=== PATIENT | male | born 1935 | race Caucasian/White ===

== ENCOUNTER 2016-03-19 10:58 | Inpatient (IN) | payer MEDICARE ==
[2016-03-19] MEDS ORDERED: SODIUM CHLORIDE 0.9% 500 ML IV STA (11:26)
[2016-03-19] MEDS ORDERED: RX INFO: IV CONTRAST WAS GIVEN 1 EACH MISC MISCELLANE PRN (11:27)
--- NOTE | 2016-03-19 11:29 | ED ---
SOB HPI - General Chief Complaint: Shortness of Breath Stated Complaint: difficulty breathing Time Seen by Provider: 03/19/16 11:21 Source: patient Mode of arrival: ambulatory Limitations: no limitations - History of Present Illness Initial Comments: Patient complains of shortness of breath. He states he has been having a pneumonia for the last month. His doctor put him on antibiotics. He is not getting any better. Patient denies any belly or back pain. He has no nausea or vomiting. He has had some chest tightness. There are no exacerbating or relieving factors for his symptoms. He does have chronic swelling the legs. He has no lightheadedness or dizziness. He has no neck pain or stiffness. He was not doing anything when the symptoms began. He denies any recent long plane or car rides. He has not had a heart attack or stroke. - Related Data Home Medications Medication Instructions Recorded Confirmed Albuterol Nebulized [Ventolin 2.5 mg INHALATION RT-QID 03/19/16 03/19/16 Nebulized] Aspirin 650 mg PO DAILY 03/19/16 03/19/16 Ciprofloxacin HCl [Cipro] 500 mg PO Q12HR 03/19/16 03/19/16 Ipratropium Nebulized [Atrovent 0.5 mg INHALATION RT-QID 03/19/16 03/19/16 Nebulized] Lisinopril [Prinivil] 20 mg PO DAILY 03/19/16 03/19/16 Vitamin E (Dl,Tocopheryl Acet) 400 unit PO DAILY 03/19/16 03/19/16 [Vitamin E] glipiZIDE [Glucotrol] 10 mg PO AC-BID 03/19/16 03/19/16 metFORMIN HCL [Glucophage] 500 mg PO AC-BID 03/19/16 03/19/16 Allergies Allergy/AdvReac Type Severity Reaction Status Date / Time Penicillins Allergy Unknown Verified 03/19/16 11:52 Review of Systems ROS Statement: Those systems with pertinent positive or pertinent negative responses have been documented in the HPI. ROS Other: All systems not noted in ROS Statement are negative. Past Medical History Past Medical History: Asthma, Cancer, Diabetes Mellitus History of Any Multi-Drug Resistant Organisms: None Reported Past Surgical History: Prostate Surgery Additional Past Surgical History / Comment(s): lung surgery Past Psychological History: No Psychological Hx Reported Smoking Status: Former smoker Past Alcohol Use History: None Reported Past Drug Use History: None Reported General Exam Limitations: no limitations General appearance: alert, in no apparent distress Head exam: Present: atraumatic, normocephalic, normal inspection Eye exam: Present: normal appearance, PERRL, EOMI. Absent: scleral icterus, conjunctival injection, periorbital swelling ENT exam: Present: normal exam, mucous membranes moist Neck exam: Present: normal inspection. Absent: tenderness, meningismus, lymphadenopathy Respiratory exam: Present: normal lung sounds bilaterally. Absent: respiratory distress, wheezes, rales, rhonchi, stridor Cardiovascular Exam: Present: regular rate, normal rhythm, normal heart sounds. Absent: systolic murmur, diastolic murmur, rubs, gallop, clicks GI/Abdominal exam: Present: soft, normal bowel sounds. Absent: distended, tenderness, guarding, rebound, rigid Extremities exam: Present: normal inspection, full ROM, normal capillary refill , pedal edema. Absent: tenderness, joint swelling Back exam: Present: normal inspection Neurological exam: Present: alert, oriented X3, CN II-XII intact Psychiatric exam: Present: normal affect, normal mood Skin exam: Present: warm, dry, intact, normal color. Absent: rash Course Vital Signs 03/19/16 03/19/16 11:00 12:00 Temperature 96.8 F L Pulse Rate 104 H 86 Respiratory 26 H 18 Rate Blood Pressure 147/68 148/70 O2 Sat by Pulse 84 L 92 L Oximetry Medical Decision Making - Medical Decision Making Patient presents with shortness of breath, possible pneumonia. I was concerned for pulmonary embolism. I obtained a CAT scan which does not reveal pulmonary Jamel, but does have extensive bilateral infiltrates. I ordered blood cultures and antibiotics. Patient will be admitted to the hospital. - Lab Data Result diagrams: 03/19/16 11:20 03/19/16 11:20 Lab Results 03/19/16 03/19/16 03/19/16 Range/Units 11:20 11:20 11:20 WBC 8.6 (3.8-10.6) k/uL RBC 4.41 (4.30-5.90) m/uL Hgb 13.2 (13.0-17.5) gm/dL Hct 41.8 (39.0-53.0) % MCV 94.8 (80.0-100.0) fL MCH 30.0 (25.0-35.0) pg MCHC 31.7 (31.0-37.0) g/dL RDW 12.8 (11.5-15.5) % Plt Count 295 (150-450) k/uL Neutrophils % 83 % Lymphocytes % 6 % Monocytes % 7 % Eosinophils % 2 % Basophils % 0 % Neutrophils # 7.2 (1.3-7.7) k/uL Lymphocytes # 0.5 L (1.0-4.8) k/uL Monocytes # 0.6 (0-1.0) k/uL Eosinophils # 0.2 (0-0.7) k/uL Basophils # 0.0 (0-0.2) k/uL Hypochromasia Slight PT (9.0-12.0) sec INR (<1.1) APTT (22.0-30.0) sec Sodium 140 (137-145) mmol/L Potassium 4.9 (3.5-5.1) mmol/L Chloride 98 (98-107) mmol/L Carbon Dioxide 31 H (22-30) mmol/L Anion Gap 11 mmol/L BUN 34 H (9-20) mg/dL Creatinine 0.86 (0.66-1.25) mg/dL Est GFR (MDRD) Af Amer >60 (>60 ml/min/1.73 sqM) Est GFR (MDRD) Non-Af >60 (>60 ml/min/1.73 sqM) Glucose 187 H (74-99) mg/dL Calcium 9.0 (8.4-10.2) mg/dL Total Bilirubin 0.4 (0.2-1.3) mg/dL AST 21 (17-59) U/L ALT 29 (21-72) U/L Alkaline Phosphatase 86 (38-126) U/L Troponin I (0.000-0.034) ng/mL NT-Pro-B Natriuret Pep 3330 pg/mL Total Protein 6.8 (6.3-8.2) g/dL Albumin 3.4 L (3.5-5.0) g/dL 03/19/16 03/19/16 Range/Units 11:20 11:20 WBC (3.8-10.6) k/uL RBC (4.30-5.90) m/uL Hgb (13.0-17.5) gm/dL Hct (39.0-53.0) % MCV (80.0-100.0) fL MCH (25.0-35.0) pg MCHC (31.0-37.0) g/dL RDW (11.5-15.5) % Plt Count (150-450) k/uL Neutrophils % % Lymphocytes % % Monocytes % % Eosinophils % % Basophils % % Neutrophils # (1.3-7.7) k/uL Lymphocytes # (1.0-4.8) k/uL Monocytes # (0-1.0) k/uL Eosinophils # (0-0.7) k/uL Basophils # (0-0.2) k/uL Hypochromasia PT 11.4 (9.0-12.0) sec INR 1.1 (<1.1) APTT 24.6 (22.0-30.0) sec Sodium (137-145) mmol/L Potassium (3.5-5.1) mmol/L Chloride (98-107) mmol/L Carbon Dioxide (22-30) mmol/L Anion Gap mmol/L BUN (9-20) mg/dL Creatinine (0.66-1.25) mg/dL Est GFR (MDRD) Af Amer (>60 ml/min/1.73 sqM) Est GFR (MDRD) Non-Af (>60 ml/min/1.73 sqM) Glucose (74-99) mg/dL Calcium (8.4-10.2) mg/dL Total Bilirubin (0.2-1.3) mg/dL AST (17-59) U/L ALT (21-72) U/L Alkaline Phosphatase (38-126) U/L Troponin I 0.032 (0.000-0.034) ng/mL NT-Pro-B Natriuret Pep pg/mL Total Protein (6.3-8.2) g/dL Albumin (3.5-5.0) g/dL 03/19/16 11:28 Twelve-lead EKG obtained, interpreted by me as showing ventricular rate 89 bpm, normal TX interval and QRS complexes, no ST elevation or depression, interpreted by me as normal sinus rhythm. Disposition Clinical Impression: Pneumonia Disposition: ADMITTED IP TO THIS [facility] Condition: Fair Time of Disposition: 13:42
[2016-03-19 11:46] LABS: Basophils % (A) 0 %; CH 29.9; CHCM 31.7; Eosinophils # (A) 0.2 k/uL (0-0.7); Eosinophils % (A) 2 %; HCT 41.8 % (39.0-53.0); HDW 2.93; HGB 13.2 gm/dL (13.0-17.5); Hypochromasia Slight; Luc # (Auto) 0.18; Luc % (Auto) 2; Lymphocytes # (A) 0.5 k/uL (1.0-4.8); Lymphocytes % (A) 6 %; MCHC 31.7 g/dL (31.0-37.0); MCV 94.8 fL (80.0-100.0); Mean Platelet Volume 6.6; Monocytes # (A) 0.6 k/uL (0-1.0); Monocytes % (A) 7 %; Neutrophils # (A) 7.2 k/uL (1.3-7.7); Neutrophils % (A) 83 %; RBC 4.41 m/uL (4.30-5.90); RDW 12.8 % (11.5-15.5); WBC 8.6 k/uL (3.8-10.6); WBC (Perox) 8.72
[2016-03-19 12:00] LABS: ALT 29 U/L (21-72); AST 21 U/L (17-59); Alkaline Phosphatase 86 U/L (38-126); Anion Gap 11 mmol/L; Blood Urea Nitrogen 34 mg/dL (9-20); Carbon Dioxide 31 mmol/L (22-30); Chloride 98 mmol/L (98-107); Glucose 187 mg/dL (74-99); Non-African American GFR(MDRD) >60 (>60 ml/min/1.73 sqM); Potassium 4.9 mmol/L (3.5-5.1); Sodium 140 mmol/L (137-145); Total Bilirubin 0.4 mg/dL (0.2-1.3); Total Protein 6.8 g/dL (6.3-8.2)
[2016-03-19 12:01] LABS: INR 1.1 (<1.1); Prothrombin Time 11.4 sec (9.0-12.0)
[2016-03-19 12:02] LABS: Partial Thromboplastin Time 24.6 sec (22.0-30.0)
--- NOTE | 2016-03-19 13:18 | CT ---
EXAMINATION TYPE: CT angio chest DATE OF EXAM: 03/19/2016 1:08 PM COMPARISON: NONE HISTORY: Patient complains of difficulty breathing and a history of lung CA. CT DLP: 326.9 mGycm CONTRAST: CT chest with contrast and 3D reconstruction with MIP imaging is performed with IV Contrast, patient injected with 100 mL of Omnipaque 350. Contrast-enhanced CT of the chest was performed through the course of the pulmonary arteries with tosha g and mediastinal window settings submitted. 3D reconstruction with MIP imaging was also performed. PULMONARY ARTERIES: The pulmonary arteries and their major tributaries are patent. I do not see jose dence for sizable filling defect to suggest pulmonary embolic process. LUNGS: There is left-sided volume loss with bronchiectasis and underlying fibrosis noted. Scattered i nfiltrates are also seen throughout both lungs which may reflect pneumonia. Mild right upper lobe bro nchiectasis seen as well. Mediastinal shift from right to left. Calcified granulomas noted. MEDIASTINUM: Thoracic aorta is of normal caliber . The heart is mildly enlarged. No evidence for me diastinal mass. No mediastinal lymph nodes greater than 1cm. Calcified hilar mediastinal lymph nodes . HILAR STRUCTURES: No evidence for mass. No hilar lymph nodes greater than 1 cm. UPPER ABDOMEN: No significant abnormality is seen. IMPRESSION: 1. No evidence for Pulmonary embolism at this time. 2. Chronic left-sided volume loss with underlying extensive bronchiectasis and fibrosis. Noted throug hout both lungs are areas of airspace consolidation which may reflect underlying pneumonia.
[2016-03-19] MEDS ORDERED: CEFEPIME 1 GM in SODIUM CHLORIDE 0.9% 50 ML IVPB STA (13:33)
[2016-03-19] MEDS ORDERED: VANCOMYCIN 1,500 MG in SODIUM CHLORIDE 0.9% 250 ML IVPB STA (13:33)
[2016-03-19] MEDS ORDERED: MORPHINE SULFATE 4 MG/ML SYRINGE IV PRN (13:42)
[2016-03-19] MEDS ORDERED: NALOXONE 0.4 MG/ML 1 ML VIAL IV PRN (13:42)
[2016-03-19] MEDS ORDERED: ONDANSETRON 4 MG/2 ML VIAL IVP PRN (13:42)
[2016-03-19] MEDS ORDERED: TEMAZEPAM 15 MG CAP PO PRN (13:42)
[2016-03-19] MEDS: IPRATROPIUM-ALBUTEROL 3 ML NEB INHALATION SCH ×2 (15:36→19:40)
[2016-03-19] MEDS ORDERED: IPRATROPIUM 0.5 MG/2.5 ML NEBU INHALATION SCH (16:00)
[2016-03-19 17:19] LABS: Glucose,Whole Blood 95 mg/dL (75-99)
[2016-03-19] MEDS: glipiZIDE 10 MG TAB PO SCH (18:12)
[2016-03-19 21:31] LABS: Glucose,Whole Blood 75 mg/dL (75-99)
[2016-03-19] MEDS ORDERED: HYDROcodone/APAP 5-325MG 1 EACH TAB PO PRN (22:25)
[2016-03-19] MEDS ORDERED: ALPRAZolam 0.25 MG TAB PO PRN (22:25)
[2016-03-19] MEDS: CEFEPIME 2 GM in SODIUM CHLORIDE 0.9% 50 ML IVPB SCH (23:49)
[2016-03-20 01:50] LABS: Glucose,Whole Blood 79 mg/dL (75-99)
[2016-03-20 07:45] LABS: Glucose,Whole Blood 90 mg/dL (75-99)
[2016-03-20] MEDS: INSULIN LISPRO (humaLOG) 300 UNIT/3 ML VIAL SQ SCH ×4 (08:14→21:30)
[2016-03-20] MEDS: glipiZIDE 10 MG TAB PO SCH ×2 (08:15→18:03)
[2016-03-20] MEDS: CEFEPIME 2 GM in SODIUM CHLORIDE 0.9% 50 ML IVPB SCH ×3 (08:15→23:23)
[2016-03-20] MEDS: ASPIRIN 325 MG TAB PO SCH (08:15)
[2016-03-20] MEDS: HEPARIN SODIUM,PORCINE 5,000 UNIT/ML 1 ML VIAL SQ SCH ×2 (08:16→20:52)
[2016-03-20] MEDS: LISINOPRIL 20 MG TAB PO SCH (08:16)
[2016-03-20 08:49] LABS: Basophils % (A) 1 %; CH 29.7; CHCM 30.7; Eosinophils # (A) 0.1 k/uL (0-0.7); Eosinophils % (A) 1 %; HCT 41.7 % (39.0-53.0); HDW 2.85; HGB 12.6 gm/dL (13.0-17.5); Hypochromasia Moderate; Luc # (Auto) 0.12; Luc % (Auto) 1; Lymphocytes # (A) 0.4 k/uL (1.0-4.8); Lymphocytes % (A) 5 %; MCH 29.4 pg (25.0-35.0); MCHC 30.3 g/dL (31.0-37.0); MCV 97.1 fL (80.0-100.0); Mean Platelet Volume 7.5; Monocytes # (A) 0.6 k/uL (0-1.0); Monocytes % (A) 7 %; Neutrophils # (A) 7.2 k/uL (1.3-7.7); Neutrophils % (A) 85 %; RBC 4.29 m/uL (4.30-5.90); RDW 12.7 % (11.5-15.5); WBC 8.5 k/uL (3.8-10.6); WBC (Perox) 8.51
[2016-03-20 09:12] LABS: Anion Gap 8 mmol/L; Blood Urea Nitrogen 22 mg/dL (9-20); Calcium 8.5 mg/dL (8.4-10.2); Carbon Dioxide 32 mmol/L (22-30); Chloride 99 mmol/L (98-107); Glucose 92 mg/dL (74-99); Non-African American GFR(MDRD) >60 (>60 ml/min/1.73 sqM); Potassium 5.4 mmol/L (3.5-5.1); Sodium 139 mmol/L (137-145)
[2016-03-20] MEDS: IPRATROPIUM-ALBUTEROL 3 ML NEB INHALATION SCH ×4 (09:23→20:11)
--- NOTE | 2016-03-20 10:14 | HP ---
CHIEF COMPLAINT: Shortness of breath and cough. HISTORY OF PRESENT ILLNESS: This 80-year-old gentleman with a past history of multiple medical problems, including asthma, diabetes mellitus type 2, hypertension, history of DJD, history of prostate cancer, history of claustrophobia being followed by Dr. Posadas in the outpatient setting is complaining of increasing shortness of breath as well as cough. The patient is on antibiotics. Patient is taking Cipro. Because of lack improvement, patient came to [facility] and admitted for further evaluation and treatment. There is no history of any fever, rigors or chills. No history of headache, loss of consciousness or seizures. The patient had chronic swelling of the legs. The patient is extremely hard of hearing, uses hearing aids. The CAT scan of the chest after admission showed no evidence of pulmonary embolism, but chronic left-sided volume loss with underlying extensive bronchiectasis as well as fibrosis noted throughout lung areas with areas of consolidation which may reflect underlying pneumonia also. PAST MEDICAL HISTORY: History of asthma, diabetes mellitus type 2, history of DJD, history of prostate cancer with prostate surgery, claustrophobia. MEDICATIONS PRIORTO ADMISSION: 1. Ciprofloxacin 500 mg p.o. b.i.d. 2. Atrovent 0.5 q.i.d. 3. Albuterol 2.5 t.i.d. 4. Glucophage 500 mg b.i.d. 5. Vitamin E 400 units daily. 7. Glucotrol 10 mg b.i.d. 8. Aspirin 325 mg daily. ALLERGY TO PENICILLIN. FAMILY HISTORY: The patient raised by great-grandparents. SOCIAL HISTORY: Previous history of smoking. No history of current smoking, alcohol intake. REVIEW OF SYSTEMS: ENT: Diminished hearing, diminished vision. CARDIOVASCULAR: No angina, palpitations. RESPIRATORY: As earlier. GI: No nausea. : No dysuria. NERVOUS: No numbness or weakness. ALLERGY/IMMUNOLOGY: As mentioned earlier. HEMATOLOGY/ONCOLOGY: No history of anemia. ENDOCRINE: Diabetes mellitus. CONSTITUTIONAL: As mentioned earlier. DERMATOLOGY: Negative. RHEUMATOLOGY: Negative. PSYCHIATRY: As mentioned earlier. PHYSICAL EXAMINATION: Alert and oriented x3. Pulse is 88, blood pressure 154/70, respiratory rate 16, temperature 96.1, pulse ox 93% on room air. HEENT: Conjunctivae normal. Oral mucosa moist. Neck has no jugular venous distension. No carotid bruits. No lymph node enlargement. CARDIOVASCULAR: S1 and S2 muffled. No S3. No S4. RESPIRATORY: Breath sounds diminished in the bases. Bilateral scattered rhonchi and coarse crackles heard. Breath sounds diminished in the left posterior base. ABDOMEN: Soft, nontender. No mass palpable. LEGS: Minimal edema. NERVOUS SYSTEM: Higher function as mentioned earlier. Moves all 4 limbs. No focal motor or sensory deficits. LYMPHATIC: No lymph nodes palpable in neck, axillae or groins. SKIN: No ulcers, rash or bleeding. Labs are CBC within normal limits and 24.6 and CO2 is 31 glucose is 187. Albumin of 3.4. ASSESSMENT: 1. Acute bronchiectasis exacerbation with bilateral pneumonia, possibly gram-negative with failure of outpatient treatment. 2. Bronchiectasis history. 3. History of asthma. 4. Diabetes mellitus type 2. 5. Hypertension. 6. Degenerative joint disease. 7. Prostate cancer. 8. History of epistaxis. 9. History of cataracts. 10. History of claustrophobia. 11. Remote history of nicotine dependence. 12. FULL CODE. RECOMMENDATIONS AND DISCUSSION: In this 80-year-old gentleman who presented with multiple complex medical issues, we will monitor the patient closely. Continue with the current medications. Will resume the home medications, DVT prophylaxis, broad-spectrum IV antibiotics. Obtain cultures, including sputum culture, because of failure of outpatient treatment. Otherwise, monitor blood sugars closely. Accu-Cheks a.c. and at bedtime and I would also follow the patient closely with Dr. Obrien, classifier tender. The prognosis is guarded because of multiple complex medical issues which I discussed at length with the patient. A copy of dictation forwarded to Dr. Posadas, who is the primary physician. JERROD
[2016-03-20 12:06] VITALS: BMI 28.7
[2016-03-20 12:25] LABS: Glucose,Whole Blood 83 mg/dL (75-99)
[2016-03-20] MEDS: MULTIVITAMINS, THERA 1 EACH TAB PO SCH (12:28)
[2016-03-20 13:05] LABS: ABG Base Excess 5.6 mmol/L; ABG HCO3 33 mmol/L (21-25); ABG Oxygen Saturation 93.1 % (94-97); ABG PCO2 88 mmHg (35-45); ABG PO2 86 mmHg (83-108); ABG TCO2 36 mmol/L (19-24)
--- NOTE | 2016-03-20 15:47 | P.CNPUL ---
History of Present Illness Consult date: 03/20/16 Requesting physician: Marco Brito Reason for consult: abnormal CXR/CT (Chronic left-sided volume loss with underlying extensive bronchiectasis and fibrosis. Both lungs have very severe airspace consolidation.) Chief complaint: Cough, congestion, shortness of breath History of present illness: This is a pleasant 80-year-old gentleman who follows with Dr. Posadas as his primary care physician. He has a history of diabetes mellitus, hypertension, chronic lung disease. 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 He was presently on Cipro 500 mg every 12 hours without significant improvement in his N and here yesterday with worsening shortness of breath, cough and congestion. He T angiogram ruled out pulmonary embolism however there was noted chronic left -sided volume loss with underlying extensive bronchiectasis and fibrosis. There is also noted bilateral airspace consolidation reflective of underlying pneumonia. Throughout the evening the patient had increasing shortness of breath and his oxygen was turned up from 2 L to 4 L/m per nasal cannula. Earlier this morning the patient had been awake and alert and eating his breakfast. Upon our evaluation and consultation the patient was difficult to arouse and quite obtunded. Arterial blood gases revealed a PaO2 of 86, pCO2 88 and a pH of 7.20. The patient was placed on BiPAP 12/5 at 30% FiO2 and within minutes he was awake and alert. He states he is breathing easier this afternoon. He has been afebrile since admission. No leukocytosis. He is pen ALLERGIC and has been initiated on cefepime and bronchodilators. Review of Systems 14 point review of systems was conducted. All negative other than as mentioned in HPI. Past Medical History Past Medical History: Asthma, Cancer, Diabetes Mellitus, Hypertension, Osteoarthritis (OA) Additional Past Medical History / Comment(s): prostate cancer, nose bleeds History of Any Multi-Drug Resistant Organisms: None Reported Past Surgical History: Prostate Surgery Additional Past Surgical History / Comment(s): bronchoscopy(bx neg), cataracts Past Anesthesia/Blood Transfusion Reactions: No Reported Reaction Additional Past Anesthesia/Blood Transfusion Reaction / Comment(s): clausterphobia Past Psychological History: No Psychological Hx Reported Smoking Status: Former smoker Past Alcohol Use History: None Reported Additional Past Alcohol Use History / Comment(s): started smoking at age 14 quit age 21 can't remember how much he smoked. Past Drug Use History: None Reported - Past Family History Father History Unknown: Yes Additional Family Medical History / Comment(s): raised by great grandparents Mother History Unknown: Yes Additional Family Medical History / Comment(s): raised by great grandparents Medications and Allergies Home Medications Medication Instructions Recorded Confirmed Type Albuterol Nebulized [Ventolin 2.5 mg INHALATION RT-QID 03/19/16 03/19/16 History Nebulized] Aspirin 650 mg PO DAILY 03/19/16 03/19/16 History Ciprofloxacin HCl [Cipro] 500 mg PO Q12HR 03/19/16 03/19/16 History Ipratropium Nebulized [Atrovent 0.5 mg INHALATION RT-QID 03/19/16 03/19/16 History Nebulized] Lisinopril [Prinivil] 20 mg PO DAILY 03/19/16 03/19/16 History Vitamin E (Dl,Tocopheryl Acet) 400 unit PO DAILY 03/19/16 03/19/16 History [Vitamin E] glipiZIDE [Glucotrol] 10 mg PO AC-BID 03/19/16 03/19/16 History metFORMIN HCL [Glucophage] 500 mg PO AC-BID 03/19/16 03/19/16 History Allergies Allergy/AdvReac Type Severity Reaction Status Date / Time Penicillins Allergy Unknown Verified 03/19/16 11:52 Physical Exam Vitals: Vital Signs Temp Pulse Pulse Resp BP Pulse Ox 03/20/16 12:17 84 03/20/16 12:09 84 03/20/16 09:34 84 03/20/16 09:24 84 93 L 03/20/16 07:00 98.7 F 96 18 129/60 91 L 03/20/16 00:00 18 03/19/16 23:00 98.8 F 101 H 18 141/81 93 L 03/19/16 19:51 84 03/19/16 19:40 84 Intake and Output 03/20/16 03/20/16 03/20/16 06:59 14:59 22:59 Output Total 400 Balance -400 Output: Urine 400 Other: Voiding Method Urinal Weight 90.718 kg Patient Weight 03/21/16 06:59 Weight 90.718 kg GENERAL EXAM: Alert, comfortable in no apparent distress. HEAD: Normocephalic. EYES: Normal reaction of pupils, equal size. NOSE: Clear with pink turbinates. THROAT: No erythema or exudates. NECK: No masses, no JVD. CHEST: No chest wall deformity. LUNGS: Equal air entry with scattered crackles, rhonchi more so on the left lung. CVS: S1 and S2 normal with no audible murmurs, regular rhythm. ABDOMEN: No hepatosplenomegaly, normal bowel sounds, no guarding or rigidity. SPINE: No scoliosis or deformity SKIN: No rashes CENTRAL NERVOUS SYSTEM: No focal deficits, tone is normal in all 4 extremities. Extremities: There is no significant peripheral edema. No clubbing, no cyanosis. Peripheral pulses are intact. Results - Laboratory Findings CBC and BMP: 03/20/16 08:17 03/20/16 08:17 ABG ABG pH 7.20 (7.35-7.45) L* 03/20/16 12:45 ABG pCO2 88 mmHg (35-45) H* 03/20/16 12:45 ABG pO2 86 mmHg (83-108) 03/20/16 12:45 ABG O2 Saturation 93.1 % (94-97) L 03/20/16 12:45 PT/INR, D-dimer PT 11.4 sec (9.0-12.0) 03/19/16 11:20 INR 1.1 (<1.1) 03/19/16 11:20 Abnormal lab findings: Abnormal Labs 03/20/16 03/20/16 03/20/16 08:17 08:17 08:17 RBC 4.29 L Hgb 12.6 L MCHC 30.3 L Lymphocytes # 0.4 L ABG pH ABG pCO2 ABG HCO3 ABG Total CO2 ABG O2 Saturation Potassium 5.4 H Carbon Dioxide 32 H BUN 22 H Hemoglobin A1c 7.0 H 03/20/16 12:45 RBC Hgb MCHC Lymphocytes # ABG pH 7.20 L* ABG pCO2 88 H* ABG HCO3 33 H ABG Total CO2 36 H ABG O2 Saturation 93.1 L Potassium Carbon Dioxide BUN Hemoglobin A1c - Diagnostic Findings Chest x-ray: image reviewed CT scan - chest: image reviewed Assessment and Plan Plan: Impression: #1 Acute on chronic hypercapnic respiratory failure secondary to chronic fibrosis and bronchiectasis more so on the left lung with suspected acute bilateral pneumonia however malignancy is not entirely excluded. #2 Diabetes sahni, type II #3 Hypertension. #4 Degenerative joint disease. #5 History of prostate cancer. #6 Remote history of chronic nicotine dependence. Plan: The patient was seen and evaluated by Dr. Obrien. His chest x-ray and CAT scan were reviewed. We'll go ahead and treat the patient for pneumonia with the current antibiotics, bronchodilators and IV Solu-Medrol. He may require bronchoscopy with BAL and biopsy if no significant improvement. He did respond and well to the BiPAP for the hypercapnia, we'll continue to utilize it throughout the evenings and intermittently during the day. We'll repeat his chest x-ray in the a.m. We'll continue to follow make further recommendations based on his clinical status. Time with Patient: Greater than 30
[2016-03-20 17:35] LABS: Glucose,Whole Blood 120 mg/dL (75-99)
[2016-03-20] MEDS: MELATONIN 3 MG TABLET PO SCH (20:52)
[2016-03-20 21:25] LABS: Glucose,Whole Blood 95 mg/dL (75-99)
--- NOTE | 2016-03-20 21:25 | PN ---
DATE OF SERVICE: 03/20/2016 This 80-year-old gentleman who was admitted with acute bronchitis, acute exacerbation, bilateral pneumonia also. The patient also being drowsy and pulmonary consultations has been obtained and the patient is on broad-spectrum IV antibiotics as well. Patient was taking Cipro as at home. Apparently indicating of failure of outpatient treatment as well. Malignancies not entirely ruled out per Dr. Obrien and CAT scan. Bronchoscopy also a consideration. Past medical history reviewed. Review of systems could not be taken the patient is drowsy. Current medications are reviewed and include: 1. [place] 5 mg q.6h. 2. DuoNeb q.i.d. and p.r.n. 3. Xanax 0.25 t.i.d. 4. Aspirin 650. 5. Cefepime 2 grams q.8. 7. Heparin 5000 units subcu b.i.d. 8. Zestril 20 mg daily. 9. Glucophage. 11. Multivitamin. 12. Narcan. 13. Zofran. PHYSICAL EXAMINATION: The patient is stuporous. Pulse 89, blood pressure 120/60. Respiratory rate 22. Temperature 97.9. Pulse ox 97% on room air. HEENT: Conjunctivae normal. Oral mucosa moist. NECK: No jugular venous distention. No carotid bruit. No lymph node enlargement. CARDIOVASCULAR: S1, S2 muffled. RESPIRATORY: Breath sounds diminished at the bases. Bilateral scattered rhonchi and crackles. Expiratory wheezing also present. ABDOMEN: Soft, nontender. LEGS: No edema. No swelling. Nervous system: Higher function as mentioned earlier. SKIN: No ulcer, rashes or bleeding. LABS: ABGs pH 7.2, pCO2 is 88, hemoglobin 12.6. Glucose 120. ASSESSMENT: 1. Acute bronchiectasis, acute exacerbation with bilateral pneumonia, possibly gram-negative with possible sepsis with failure of outpatient treatment with acute hypoxic hypercarbic respiratory failure. 2. Change in mental status, metabolic encephalopathy, secondary to hypercarbia. 3. Acute bronchiectasis history. 4. History of asthma. 5. Diabetes mellitus type 2. 6. Hypertension. 7. Degenerative joint disease. 8. Prostate cancer. 9. History epistaxis. 10. History of cataracts. 11. History of claustrophobia. 12. Remote history of nicotine dependence. 13. FULL CODE. RECOMMENDATIONS AND DISCUSSION: In this 80-year-old gentleman who presented with multiple complex medical issues, we will monitor the patient closely. Continue the bronchodilators, continue with broad-spectrum IV antibiotics. Also recommend close follow with pulmonary. Possible BiPAP. Guarded prognosis because of multiple complex medical issues. Further recommendations to follow. Prognosis extremely guarded. Further recommendations to follow. MTDD
[2016-03-21 02:46] LABS: Glucose,Whole Blood 51 mg/dL (75-99)
[2016-03-21 02:46] LABS: Glucose,Whole Blood 196 mg/dL (75-99)
[2016-03-21 07:47] LABS: Glucose,Whole Blood 120 mg/dL (75-99)
[2016-03-21] MEDS: IPRATROPIUM-ALBUTEROL 3 ML NEB INHALATION SCH ×4 (08:07→20:15)
[2016-03-21] MEDS: INSULIN LISPRO (humaLOG) 300 UNIT/3 ML VIAL SQ SCH ×4 (08:23→21:59)
[2016-03-21] MEDS: ASPIRIN 325 MG TAB PO SCH (08:26)
[2016-03-21] MEDS: glipiZIDE 10 MG TAB PO SCH ×2 (08:26→17:46)
[2016-03-21] MEDS: CEFEPIME 2 GM in SODIUM CHLORIDE 0.9% 50 ML IVPB SCH ×3 (08:26→23:19)
[2016-03-21] MEDS: LISINOPRIL 20 MG TAB PO SCH (08:26)
[2016-03-21] MEDS: HEPARIN SODIUM,PORCINE 5,000 UNIT/ML 1 ML VIAL SQ SCH ×2 (08:27→21:58)
[2016-03-21 08:35] LABS: Basophils % (A) 0 %; CH 29.4; CHCM 30.6; Eosinophils # (A) 0.1 k/uL (0-0.7); Eosinophils % (A) 2 %; HCT 37.6 % (39.0-53.0); HDW 2.88; HGB 11.7 gm/dL (13.0-17.5); Hypochromasia Moderate; Luc # (Auto) 0.15; Luc % (Auto) 2; Lymphocytes # (A) 0.4 k/uL (1.0-4.8); Lymphocytes % (A) 5 %; MCV 96.7 fL (80.0-100.0); Mean Platelet Volume 6.7; Monocytes # (A) 0.5 k/uL (0-1.0); Monocytes % (A) 6 %; Neutrophils # (A) 7.1 k/uL (1.3-7.7); Neutrophils % (A) 86 %; RBC 3.89 m/uL (4.30-5.90); RDW 12.6 % (11.5-15.5); WBC 8.3 k/uL (3.8-10.6); WBC (Perox) 8.98
[2016-03-21 09:00] LABS: Anion Gap 6 mmol/L; Blood Urea Nitrogen 26 mg/dL (9-20); Calcium 8.3 mg/dL (8.4-10.2); Carbon Dioxide 35 mmol/L (22-30); Chloride 96 mmol/L (98-107); Glucose 136 mg/dL (74-99); Non-African American GFR(MDRD) >60 (>60 ml/min/1.73 sqM); Potassium 4.8 mmol/L (3.5-5.1); Sodium 137 mmol/L (137-145)
--- NOTE | 2016-03-21 09:32 | XR ---
EXAMINATION TYPE: XR chest 2V DATE OF EXAM: 03/21/2016 7:06 AM COMPARISON: NONE INDICATION: Previous abnormal, silicosis TECHNIQUE: Frontal and lateral views of the chest are obtained. FINDINGS: The heart size is normal. Mediastinum appear shifted towards the left. Pulmonary vasculature may be prominent. There is diffuse increased lung markings present bilaterally. This is worsening from prior study. Sarah eolar infiltration be considered. Pneumonia could be considered. This appears more focal at the right lower lobe. The right lung has diminished aeration IMPRESSION: 1. Worsening infiltrates. Correlate for pulmonary edema. Other etiologies including infectious etiolo gies are within the differential. Follow-up is recommended.
[2016-03-21 11:45] LABS: Glucose,Whole Blood 164 mg/dL (75-99)
[2016-03-21] MEDS ORDERED: FUROSEMIDE 10 MG/ML 4 ML VIAL IV STA (13:44)
--- NOTE | 2016-03-21 13:46 | P.PN ---
Subjective Principal diagnosis: This is a pleasant 80-year-old gentleman who follows with Dr. Posadas as his primary care physician. He has a history of diabetes mellitus, hypertension, chronic lung disease. 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 He was presently on Cipro 500 mg every 12 hours without significant improvement in his N and here yesterday with worsening shortness of breath, cough and congestion. He T angiogram ruled out pulmonary embolism however there was noted chronic left -sided volume loss with underlying extensive bronchiectasis and fibrosis. There is also noted bilateral airspace consolidation reflective of underlying pneumonia. Throughout the evening the patient had increasing shortness of breath and his oxygen was turned up from 2 L to 4 L/m per nasal cannula. Earlier this morning the patient had been awake and alert and eating his breakfast. Upon our evaluation and consultation the patient was difficult to arouse and quite obtunded. Arterial blood gases revealed a PaO2 of 86, pCO2 88 and a pH of 7.20. The patient was placed on BiPAP 12/5 at 30% FiO2 and within minutes he was awake and alert. He states he is breathing easier this afternoon. He has been afebrile since admission. No leukocytosis. He is pen ALLERGIC and has been initiated on cefepime and bronchodilators. He is seen again today in follow-up on the regular medical floor. He is awake and alert in no acute distress. His currently maintaining good O2 saturations in the low 90s on 3 L/m per nasal cannula. His been afebrile. He remains on bronchodilators and cefepime. His chest x-ray is reported as some fluid volume overload/pulmonary edema. Objective - Vital Signs Vital signs: Vital Signs Temp 98.5 F 03/21/16 07:00 Pulse 100 03/21/16 11:45 Resp 22 03/21/16 07:00 BP 133/78 03/21/16 07:00 Pulse Ox 92 L 03/21/16 08:09 Intake & Output 03/20/16 03/21/16 03/21/16 18:59 06:59 18:59 Intake Total 270 Output Total 400 Balance -130 Weight 90.718 kg Intake: IV 220 0.9 NS @ 20 ml/hr 220 Intake, IV Titration 50 Amount Cefepime 2 gm In Sodium 50 Chloride 0.9% 50 ml @ 100 mls/hr IVPB Q8HR [facility] Rx# :[id number] Output: Urine 400 Other: # Voids 3 # Bowel Movements 2 - Exam GENERAL EXAM: Alert, comfortable in no apparent distress. HEAD: Normocephalic. EYES: Normal reaction of pupils, equal size. NOSE: Clear with pink turbinates. THROAT: No erythema or exudates. NECK: No masses, no JVD. CHEST: No chest wall deformity. LUNGS: Equal air entry with crackles in the posterior bases. Diminished. CVS: S1 and S2 normal with no audible murmurs, regular rhythm. ABDOMEN: No hepatosplenomegaly, normal bowel sounds, no guarding or rigidity. SPINE: No scoliosis or deformity SKIN: No rashes CENTRAL NERVOUS SYSTEM: No focal deficits, tone is normal in all 4 extremities. - Labs CBC & Chem 7: 03/21/16 08:12 03/21/16 08:12 Labs: Abnormal Lab Results - Last 24 Hours (Table) 03/20/16 03/21/16 03/21/16 Range/Units 17:32 02:21 02:43 RBC (4.30-5.90) m/uL Hgb (13.0-17.5) gm/dL Hct (39.0-53.0) % Lymphocytes # (1.0-4.8) k/uL Chloride (98-107) mmol/L Carbon Dioxide (22-30) mmol/L BUN (9-20) mg/dL Glucose (74-99) mg/dL POC Glucose (mg/dL) 120 H 51 L 196 H (75-99) mg/dL Calcium (8.4-10.2) mg/dL 03/21/16 03/21/16 03/21/16 Range/Units 07:37 08:12 08:12 RBC 3.89 L (4.30-5.90) m/uL Hgb 11.7 L (13.0-17.5) gm/dL Hct 37.6 L (39.0-53.0) % Lymphocytes # 0.4 L (1.0-4.8) k/uL Chloride 96 L (98-107) mmol/L Carbon Dioxide 35 H (22-30) mmol/L BUN 26 H (9-20) mg/dL Glucose 136 H (74-99) mg/dL POC Glucose (mg/dL) 120 H (75-99) mg/dL Calcium 8.3 L (8.4-10.2) mg/dL 03/21/16 Range/Units 11:43 RBC (4.30-5.90) m/uL Hgb (13.0-17.5) gm/dL Hct (39.0-53.0) % Lymphocytes # (1.0-4.8) k/uL Chloride (98-107) mmol/L Carbon Dioxide (22-30) mmol/L BUN (9-20) mg/dL Glucose (74-99) mg/dL POC Glucose (mg/dL) 164 H (75-99) mg/dL Calcium (8.4-10.2) mg/dL Microbiology - Last 24 Hours (Table) 03/20/16 04:00 Urine Culture - Preliminary Urine,Clean Catch Assessment and Plan Plan: Impression: #1 Acute on chronic hypercapnic respiratory failure secondary to chronic fibrosis and bronchiectasis more so on the left lung with suspected acute bilateral pneumonia however malignancy is not entirely excluded. There may be some component of fluid volume overload. #2 Diabetes sahni, type II #3 Hypertension. #4 Degenerative joint disease. #5 History of prostate cancer. #6 Remote history of chronic nicotine dependence. Plan: The patient was seen and evaluated by Dr. Obrien. His chest x-ray and labs were reviewed. We'll give a one-time dose of IV Lasix 40 mg. We'll add a BNP to today's labs, obtain echocardiogram. We'll continue to treat the patient for pneumonia with the current antibiotics, bronchodilators and IV Solu-Medrol. He may require bronchoscopy with BAL and biopsy if no significant improvement. He did respond and well to the BiPAP for the hypercapnia, we'll continue to utilize it throughout the evenings and intermittently during the day.
[2016-03-21] MEDS: MULTIVITAMINS, THERA 1 EACH TAB PO SCH (14:40)
[2016-03-21 16:51] LABS: Glucose,Whole Blood 100 mg/dL (75-99)
[2016-03-21] MEDS: metFORMIN 500 MG TAB PO SCH (17:46)
--- NOTE | 2016-03-21 19:58 | PN ---
DATE OF SERVICE: 03/21/2016 This 80 -year-old gentleman who was admitted to the hospital with bilateral pneumonia and bronchiectasis, acute exacerbation had change in mental status also. The patient also had possible features of possible sepsis also. Cultures are negative so the is on patient broad-spectrum IV antibiotics. Apparently the patient has been sick for quite some time since [place] when the family and friends have not seen them before. The chest x-ray was also raising suspicion of congestive heart failure. A 2D echo has been ordered. PAST MEDICAL HISTORY reviewed. Review of systems could not be taken, the patient is still confused, sensorium is improved apparently, but still confused. Current medications are: 1. [place] 5 mg q.6 p.r.n. 2. DuoNeb q.i.d. and p.r.n. 3. Xanax 0.25 t.i.d. 4. Aspirin 650 daily. 5. Cefepime 2 grams q.8. 6. Glucotrol 10 mg b.i.d. 7. Heparin 5000 subcu b.i.d. 8. Humalog. 9. Zestril 20 mg daily. 10. Melatonin 3 mg q.h.s. 11. Glucophage. 12. Multivitamins. 13. Narcan. 14. Zofran. 15. Zestril. PHYSICAL EXAMINATION: Patient is alert and oriented x1. Pulse 82, blood pressure 130/60. Respiratory rate 19. Temperature 98.4, pulse ox 92% on 4 liters. HEENT: Conjunctivae normal. Oral mucosa moist. NECK: No jugular venous distention. No carotid bruit. No lymph node enlargement. CARDIOVASCULAR: S1, S2 muffled. RESPIRATORY: Breath sounds diminished at the bases. Bilateral scattered rhonchi, expiratory wheezing and crackles. ABDOMEN: Soft, nontender. No mass palpable. LEGS: minimal edema. CENTRAL NERVOUS SYSTEM: Diffusely weak. LABS: At this time shows WBC 8.9, hemoglobin 12.7, sodium 136, potassium 3.8, NT-proBNP 1540. ASSESSMENT: 1. Acute bilateral pneumonia, possibly gram-negative with possible sepsis with failure of outpatient treatment with acute hypoxic hypercarbic respiratory failure, present on admission. 2. History of bilateral bronchiectasis. 3. Change in mental status, metabolic encephalopathy, secondary to hypercarbia. 4. History of asthma. 5. Diabetes mellitus type 2. 6. Hypertension. 7. History of degenerative joint disease. 8. History of prostate cancer. 9. Gait dysfunction. 10. History of epistaxis. 11. History of cataracts. 12. History of claustrophobia. 13. Remote history of nicotine dependence. 14. FULL CODE. RECOMMENDATIONS AND DISCUSSION: In this 80-year-old gentleman, who presented with multiple complex medical issues, we will monitor the patient closely. Continue the current medications, continue symptomatic treatment. Otherwise, at this time, the patient had BiPAP previously. Continue the broad-spectrum IV antibiotics and bronchodilators. Closely follow with pulmonary and CT scan has been ordered. Recent chest x-ray also noted. The prognosis is guarded because of multiple complex medical issues. Further recommendations to follow. Discussed with the family at length and I would also recommend PT, OT evaluation as well for possible ECF rehab also. Once again, the prognosis is extremely guarded because of the multiple medical issues. Further recommendations to follow.
[2016-03-21 21:45] LABS: Glucose,Whole Blood 105 mg/dL (75-99)
[2016-03-21] MEDS: MELATONIN 3 MG TABLET PO SCH (21:58)
[2016-03-22 02:33] LABS: Glucose,Whole Blood 112 mg/dL (75-99)
[2016-03-22 07:51] LABS: Glucose,Whole Blood 118 mg/dL (75-99)
[2016-03-22 08:22] LABS: Basophils % (A) 0 %; CH 29.5; CHCM 31.1; Eosinophils # (A) 0.1 k/uL (0-0.7); Eosinophils % (A) 2 %; HCT 38.7 % (39.0-53.0); HDW 2.96; HGB 11.9 gm/dL (13.0-17.5); Hypochromasia Moderate; Luc # (Auto) 0.13; Luc % (Auto) 2; Lymphocytes # (A) 0.4 k/uL (1.0-4.8); Lymphocytes % (A) 5 %; MCH 29.4 pg (25.0-35.0); MCHC 30.9 g/dL (31.0-37.0); MCV 95.2 fL (80.0-100.0); Mean Platelet Volume 6.3; Monocytes # (A) 0.5 k/uL (0-1.0); Monocytes % (A) 6 %; Neutrophils # (A) 6.9 k/uL (1.3-7.7); Neutrophils % (A) 86 %; RBC 4.06 m/uL (4.30-5.90); RDW 12.3 % (11.5-15.5); WBC 7.9 k/uL (3.8-10.6); WBC (Perox) 8.45
[2016-03-22] MEDS: INSULIN LISPRO (humaLOG) 300 UNIT/3 ML VIAL SQ SCH ×4 (08:27→21:53)
[2016-03-22] MEDS: IPRATROPIUM-ALBUTEROL 3 ML NEB INHALATION SCH ×4 (08:30→19:24)
[2016-03-22] MEDS: metFORMIN 500 MG TAB PO SCH ×2 (08:33→17:47)
[2016-03-22] MEDS: LISINOPRIL 20 MG TAB PO SCH (08:33)
[2016-03-22] MEDS: glipiZIDE 10 MG TAB PO SCH ×2 (08:33→17:46)
[2016-03-22] MEDS: CEFEPIME 2 GM in SODIUM CHLORIDE 0.9% 50 ML IVPB SCH ×2 (08:33→17:47)
[2016-03-22] MEDS: HEPARIN SODIUM,PORCINE 5,000 UNIT/ML 1 ML VIAL SQ SCH ×2 (08:33→21:53)
[2016-03-22 08:40] LABS: Anion Gap 9 mmol/L; Blood Urea Nitrogen 22 mg/dL (9-20); Calcium 8.5 mg/dL (8.4-10.2); Carbon Dioxide 37 mmol/L (22-30); Chloride 90 mmol/L (98-107); Glucose 124 mg/dL (74-99); Non-African American GFR(MDRD) >60 (>60 ml/min/1.73 sqM); Potassium 4.7 mmol/L (3.5-5.1); Sodium 136 mmol/L (137-145)
[2016-03-22 11:58] LABS: Glucose,Whole Blood 242 mg/dL (75-99)
--- NOTE | 2016-03-22 13:12 | P.PN ---
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 This is a pleasant 80-year-old gentleman who follows with Dr. Posadas as his primary care physician. He has a history of diabetes mellitus, hypertension, chronic lung disease. 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 He was presently on Cipro 500 mg every 12 hours without significant improvement in his N and here yesterday with worsening shortness of breath, cough and congestion. He T angiogram ruled out pulmonary embolism however there was noted chronic left -sided volume loss with underlying extensive bronchiectasis and fibrosis. There is also noted bilateral airspace consolidation reflective of underlying pneumonia. Throughout the evening the patient had increasing shortness of breath and his oxygen was turned up from 2 L to 4 L/m per nasal cannula. Earlier this morning the patient had been awake and alert and eating his breakfast. Upon our evaluation and consultation the patient was difficult to arouse and quite obtunded. Arterial blood gases revealed a PaO2 of 86, pCO2 88 and a pH of 7.20. The patient was placed on BiPAP 12/5 at 30% FiO2 and within minutes he was awake and alert. He states he is breathing easier this afternoon. He has been afebrile since admission. No leukocytosis. He is pen ALLERGIC and has been initiated on cefepime and bronchodilators. He is seen again today in follow-up on the regular medical floor. He is awake and alert in no acute distress. His currently maintaining good O2 saturations in the low 90s on 3 L/m per nasal cannula. His been afebrile. He remains on bronchodilators and cefepime. His chest x-ray is reported as some fluid volume overload/pulmonary edema. Patient was reevaluated today on 03/22/2016, he is basically about the same, I'm surprised he is not symptomatic in spite of the significantly abnormal chest x- ray and CT of the chest showing significantdisease in both lungs but more so in the left lung. Patient remains on oxygen, and intermittently on BiPAP. Objective - Vital Signs Vital signs: Vital Signs Temp 98.6 F 03/22/16 07:00 Pulse 88 03/22/16 11:35 Resp 20 03/22/16 07:00 BP 172/81 03/22/16 07:00 Pulse Ox 97 03/22/16 08:39 Intake & Output 03/21/16 03/22/16 03/22/16 18:59 06:59 18:59 Intake Total 160 240 Output Total 1500 Balance -1340 240 Intake: IV 160 0.9 NS @ 20 ml/hr 160 Oral 240 Output: Urine 1500 Other: Voiding Method Urinal # Voids 3 1 - Exam GENERAL EXAM: Alert, comfortable in no apparent distress. HEAD: Normocephalic. EYES: Normal reaction of pupils, equal size. NOSE: Clear with pink turbinates. THROAT: No erythema or exudates. NECK: No masses, no JVD. CHEST: No chest wall deformity. LUNGS: Equal air entry with crackles in the posterior bases. Diminished. CVS: S1 and S2 normal with no audible murmurs, regular rhythm. ABDOMEN: No hepatosplenomegaly, normal bowel sounds, no guarding or rigidity. SPINE: No scoliosis or deformity SKIN: No rashes CENTRAL NERVOUS SYSTEM: No focal deficits, tone is normal in all 4 extremities. - Labs CBC & Chem 7: 03/22/16 07:51 03/22/16 07:51 Labs: Abnormal Lab Results - Last 24 Hours (Table) 03/21/16 03/21/16 03/22/16 Range/Units 16:46 21:33 02:30 RBC (4.30-5.90) m/uL Hgb (13.0-17.5) gm/dL Hct (39.0-53.0) % MCHC (31.0-37.0) g/dL Lymphocytes # (1.0-4.8) k/uL Sodium (137-145) mmol/L Chloride (98-107) mmol/L Carbon Dioxide (22-30) mmol/L BUN (9-20) mg/dL Glucose (74-99) mg/dL POC Glucose (mg/dL) 100 H 105 H 112 H (75-99) mg/dL 03/22/16 03/22/16 03/22/16 Range/Units 07:45 07:51 07:51 RBC 4.06 L (4.30-5.90) m/uL Hgb 11.9 L (13.0-17.5) gm/dL Hct 38.7 L (39.0-53.0) % MCHC 30.9 L (31.0-37.0) g/dL Lymphocytes # 0.4 L (1.0-4.8) k/uL Sodium 136 L (137-145) mmol/L Chloride 90 L (98-107) mmol/L Carbon Dioxide 37 H (22-30) mmol/L BUN 22 H (9-20) mg/dL Glucose 124 H (74-99) mg/dL POC Glucose (mg/dL) 118 H (75-99) mg/dL 03/22/16 Range/Units 11:56 RBC (4.30-5.90) m/uL Hgb (13.0-17.5) gm/dL Hct (39.0-53.0) % MCHC (31.0-37.0) g/dL Lymphocytes # (1.0-4.8) k/uL Sodium (137-145) mmol/L Chloride (98-107) mmol/L Carbon Dioxide (22-30) mmol/L BUN (9-20) mg/dL Glucose (74-99) mg/dL POC Glucose (mg/dL) 242 H (75-99) mg/dL Microbiology - Last 24 Hours (Table) 03/20/16 04:00 Urine Culture - Final Urine,Clean Catch Assessment and Plan Plan: #1 Acute on chronic hypercapnic respiratory failure secondary to chronic fibrosis and bronchiectasis more so on the left lung with suspected acute bilateral pneumonia however malignancy is not entirely excluded. There may be some component of fluid volume overload. The findings on the left lung are rather chronic based on the chest x-ray noted in 2013. Of course they seem to be a bit worse than 3 years ago. The possibility of superimposed pneumonia or pulmonary edema is not entirely ruled out. #2 Diabetes sahni, type II #3 Hypertension. #4 Degenerative joint disease. #5 History of prostate cancer. #6 Remote history of chronic nicotine dependence. Recommendation: Continue present treatment plan including antibiotics, diuretics , bronchodilators, and steroids. Follow-up chest x-ray in the next 24 hours. Prognosis is definitely poor and guarded. We'll continue to follow. Time with Patient: Less than 30
[2016-03-22] MEDS: ASPIRIN 325 MG TAB PO SCH (13:17)
[2016-03-22 17:04] LABS: Glucose,Whole Blood 152 mg/dL (75-99)
[2016-03-22] MEDS: MULTIVITAMINS, THERA 1 EACH TAB PO SCH (17:47)
[2016-03-22] MEDS: FUROSEMIDE 10 MG/ML 4 ML VIAL IV SCH (17:47)
--- NOTE | 2016-03-22 19:06 | ECHOF ---
Referral Reason:chf MEASUREMENTS -------- HEIGHT: 177.8 cm WEIGHT: 90.7 kg BP: 133/78 RVIDd: 3.8 cm (< 3.3) IVSd: 1.1 cm (0.6 - 1.1) LVIDd: 4.6 cm (3.9 - 5.3) LVPWd: 1.2 cm (0.6 - 1.1) IVSs: 1.7 cm LVIDs: 3.0 cm LVPWs: 1.7 cm LA Diam: 3.6 cm (2.7 - 3.8) LAESV Index (A-L): 27.15 ml/m Ao Diam: 3.3 cm (2.0 - 3.7) AV Cusp: 2.4 cm (1.5 - 2.6) LA Diam: 3.5 cm (2.7 - 3.8) MV EXCURSION: 23.601 mm (> 18.000) MV EF SLOPE: 151 mm/s (70 - 150) MV E Lenny: 0.87 m/s MV DecT: 108 ms MV A Lenny: 1.21 m/s MV E/A Ratio: 0.72 RAP: 5.00 mmHg RVSP: 37.02 mmHg FINDINGS -------- Sinus rhythm. This was a technically good study. The left ventricular size is normal. There is borderline concentric left ventricular hypertrophy. Overall left ventricular systolic function is normal with, an EF between 60 - 65 %. The right ventricle is mild to moderately enlarged. The left atrium is normal in size. Normal LA size by volume 22+/-6 ml/m2. The right atrium is normal in size. The aortic valve is trileaflet and appears structurally normal. Mild mitral annular calcification present. There is trace mitral regurgitation. Mild tricuspid regurgitation present. There is mild pulmonary hypertension. The right ventricular systolic pressure, as measured by Doppler, is 37.02mmHg. The pulmonic valve is normal. There is no pulmonic regurgitation present. The aortic root size is normal. There is no pericardial effusion. CONCLUSIONS -------- 1. Sinus rhythm. 2. Mild mitral annular calcification present. 3. There is trace mitral regurgitation. 4. Mild tricuspid regurgitation present. 5. There is mild pulmonary hypertension. 6. The right ventricular systolic pressure, as measured by Doppler, is 37.02mmHg. 7. The pulmonic valve is normal. 8. The aortic root size is normal. 9. There is no pericardial effusion. 10. This was a technically good study. 11. The left ventricular size is normal. 12. There is borderline concentric left ventricular hypertrophy. 13. Overall left ventricular systolic function is normal with, an EF between 60 - 65 %. 14. The right ventricle is mild to moderately enlarged. 15. Normal LA size by volume 22+/-6 ml/m2. 16. The right atrium is normal in size. 17. The aortic valve is trileaflet and appears structurally normal. COMM[employer]ITY HE[employer] EDUCATION COORDINATOR: Juju Cannon RDCS
[2016-03-22 21:46] LABS: Glucose,Whole Blood 81 mg/dL (75-99)
[2016-03-22] MEDS: MELATONIN 3 MG TABLET PO SCH (21:53)
[2016-03-23] MEDS: FUROSEMIDE 10 MG/ML 4 ML VIAL IV SCH ×3 (00:47→16:20)
[2016-03-23] MEDS: CEFEPIME 2 GM in SODIUM CHLORIDE 0.9% 50 ML IVPB SCH ×3 (00:47→16:20)
[2016-03-23 02:28] LABS: Glucose,Whole Blood 83 mg/dL (75-99)
[2016-03-23] MEDS: IPRATROPIUM-ALBUTEROL 3 ML NEB INHALATION SCH ×4 (08:02→19:53)
[2016-03-23 08:04] LABS: Glucose,Whole Blood 85 mg/dL (75-99)
[2016-03-23] MEDS: metFORMIN 500 MG TAB PO SCH ×2 (08:39→18:38)
[2016-03-23] MEDS: glipiZIDE 10 MG TAB PO SCH ×2 (08:39→18:38)
[2016-03-23] MEDS: HEPARIN SODIUM,PORCINE 5,000 UNIT/ML 1 ML VIAL SQ SCH ×2 (08:39→20:11)
[2016-03-23] MEDS: ASPIRIN 325 MG TAB PO SCH (08:39)
[2016-03-23] MEDS: INSULIN LISPRO (humaLOG) 300 UNIT/3 ML VIAL SQ SCH ×4 (08:40→20:13)
[2016-03-23] MEDS: LISINOPRIL 20 MG TAB PO SCH (08:40)
--- NOTE | 2016-03-23 09:05 | XR ---
EXAMINATION TYPE: XR chest 1V portable DATE OF EXAM: 03/23/2016 8:59 AM COMPARISON: NONE INDICATION: Previous abnormal, pneumonia TECHNIQUE: Single frontal view of the chest is obtained. FINDINGS: The heart size is normal. The pulmonary vasculature is normal. There is opacification to the left lung. This may have some slight improvement over the interval. Med iastinal shift to the left. Scattered right lung infiltrate is present which is improving. IMPRESSION: 1. Improving bilateral lung infiltrates. 2. Lung infiltrates are greater on the left
--- NOTE | 2016-03-23 09:52 | PN ---
DATE OF SERVICE: 03/22/2016 This 80-year-old gentleman who was admitted with bilateral pneumonia and change in mental status and possible sepsis, and metabolic encephalopathy is being closely monitored. Patient started on broad-spectrum IV antibiotics. The patient has history of extensive silicosis. 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 Past medical history reviewed. REVIEW OF SYSTEMS: CARDIOVASCULAR: No angina. RESPIRATORY: As mentioned earlier. GASTROINTESTINAL: As mentioned earlier. GENITOURINARY: No dysuria. CENTRAL NERVOUS SYSTEM: No numbness or weakness. Medications are reviewed and include: 1. [place] 5 mg q.6 p.r.n. 2. DuoNeb q.i.d. and p.r.n. 3. Xanax 0.25 t.i.d. 4. Aspirin 650 daily. 5. Cefepime 2 grams q.8. 6. Lasix. 7. Glucotrol. 8. Zestril. 9. Melatonin. 10. Glucophage. 11. Narcan. 12. Zofran. 13. Restoril. PHYSICAL EXAMINATION: Patient is alert and oriented x2. Pulse 85. Blood pressure 126/60. Respiratory rate 17. Temperature 98.4. Pulse ox 94% on 3 L. HEENT: Conjunctivae normal. Oral mucosa moist. NECK: No jugular venous distention. No carotid bruit. CARDIOVASCULAR: S1, S2 muffled. No murmur, no thrills. RESPIRATORY: Breath sounds diminished at the bases. Bilateral scattered rhonchi and expiratory wheezing. ABDOMEN: Soft, nontender. Legs: No edema. No swelling. Central nervous system: Mild diffuse weakness. LABS: At this time shows WBC 7.9, hemoglobin 11.9. Sodium is 139. ASSESSMENT: 1. Acute bilateral pneumonia, possibly gram-negative with possible sepsis with failure of outpatient treatment with acute hypoxic hypercarbic respiratory failure, present on admission. 2. History of bilateral bronchiectasis. 3. History of silicosis. 4. Change in mental status, metabolic encephalopathy, secondary to hypercarbia. 5. History of asthma. 6. Type 2 diabetes mellitus. 7. Hypertension. 8. History of degenerative joint disease. 9. History of prostate cancer. 10. History of gait dysfunction. 11. History of epistaxis. 12. History of cataract. 13. History of claustrophobia. 14. History of remote history of nicotine dependence. 15. FULL CODE. RECOMMENDATIONS AND DISCUSSION: In this 80-year-old gentleman who presented with multiple complex medical issues, we will monitor the patient closely. Continue the current medications. Continue with symptomatic treatment. Otherwise, I would recommend continue with the current medications and symptomatic treatment. Continue with broad spectrum IV antibiotics Dr. Obrien has initiated. Diuresis at this time. 2-D echo has been ordered. I would recommend continue the bronchodilators, continue the rest of the medications. The prognosis is guarded because of multiple complex medical issues and see orders for further details. Prognosis guarded. Further recommendations to follow.
[2016-03-23 09:58] LABS: Basophils % (A) 0 %; CH 29.5; CHCM 30.9; Eosinophils # (A) 0.3 k/uL (0-0.7); Eosinophils % (A) 3 %; HCT 40.2 % (39.0-53.0); HDW 2.89; HGB 12.7 gm/dL (13.0-17.5); Hypochromasia Moderate; Luc % (Auto) 1; Lymphocytes # (A) 0.5 k/uL (1.0-4.8); Lymphocytes % (A) 6 %; MCH 30.1 pg (25.0-35.0); MCHC 31.4 g/dL (31.0-37.0); MCV 95.7 fL (80.0-100.0); Mean Platelet Volume 6.3; Monocytes # (A) 0.5 k/uL (0-1.0); Monocytes % (A) 5 %; Neutrophils # (A) 7.1 k/uL (1.3-7.7); Neutrophils % (A) 85 %; RBC 4.21 m/uL (4.30-5.90); RDW 12.3 % (11.5-15.5); WBC 8.4 k/uL (3.8-10.6); WBC (Perox) 8.38
[2016-03-23 10:24] LABS: Blood Urea Nitrogen 25 mg/dL (9-20); Calcium 8.4 mg/dL (8.4-10.2); Chloride 85 mmol/L (98-107); Glucose 89 mg/dL (74-99); Non-African American GFR(MDRD) >60 (>60 ml/min/1.73 sqM); Potassium 4.4 mmol/L (3.5-5.1); Sodium 137 mmol/L (137-145)
[2016-03-23 10:41] LABS: Anion Gap 10 mmol/L
[2016-03-23 10:46] LABS: Carbon Dioxide 42 mmol/L (22-30)
[2016-03-23 11:57] LABS: Glucose,Whole Blood 133 mg/dL (75-99)
[2016-03-23] MEDS: MULTIVITAMINS, THERA 1 EACH TAB PO SCH (12:12)
--- NOTE | 2016-03-23 12:30 | P.PN ---
Subjective Principal diagnosis: This is a pleasant 80-year-old gentleman who follows with Dr. Posadas as his primary care physician. He has a history of diabetes mellitus, hypertension, chronic lung disease. 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 He was presently on Cipro 500 mg every 12 hours without significant improvement in his N and here yesterday with worsening shortness of breath, cough and congestion. He T angiogram ruled out pulmonary embolism however there was noted chronic left -sided volume loss with underlying extensive bronchiectasis and fibrosis. There is also noted bilateral airspace consolidation reflective of underlying pneumonia. Throughout the evening the patient had increasing shortness of breath and his oxygen was turned up from 2 L to 4 L/m per nasal cannula. Earlier this morning the patient had been awake and alert and eating his breakfast. Upon our evaluation and consultation the patient was difficult to arouse and quite obtunded. Arterial blood gases revealed a PaO2 of 86, pCO2 88 and a pH of 7.20. The patient was placed on BiPAP 12/5 at 30% FiO2 and within minutes he was awake and alert. He states he is breathing easier this afternoon. He has been afebrile since admission. No leukocytosis. He is pen ALLERGIC and has been initiated on cefepime and bronchodilators. He is seen again today 03/23/2016 in follow-up on the regular medical floor. He is awake and alert in no acute distress. His currently maintaining good O2 saturations in the low 90s on 3 L/m per nasal cannula. He has been afebrile. He remains on bronchodilators and cefepime. He is being diuresed with IV Lasix. Today's chest x-ray reveals improving bilateral lung infiltrates which was greater on the left. Objective - Vital Signs Vital signs: Vital Signs Temp 98 F 03/23/16 07:00 Pulse 88 03/23/16 11:59 Resp 20 03/23/16 07:00 BP 131/59 03/23/16 07:00 Pulse Ox 96 03/23/16 12:04 Intake & Output 03/22/16 03/23/16 03/23/16 18:59 06:59 18:59 Intake Total 240 Output Total 600 700 Balance -360 -700 Intake: Oral 240 Output: Urine 600 700 Other: Voiding Method Urinal - Exam GENERAL EXAM: Alert, comfortable in no apparent distress. HEAD: Normocephalic. EYES: Normal reaction of pupils, equal size. NOSE: Clear with pink turbinates. THROAT: No erythema or exudates. NECK: No masses, no JVD. CHEST: No chest wall deformity. LUNGS: Equal air entry with crackles in the posterior bases. Diminished. CVS: S1 and S2 normal with no audible murmurs, regular rhythm. ABDOMEN: No hepatosplenomegaly, normal bowel sounds, no guarding or rigidity. SPINE: No scoliosis or deformity SKIN: No rashes CENTRAL NERVOUS SYSTEM: No focal deficits, tone is normal in all 4 extremities. - Labs CBC & Chem 7: 03/23/16 08:47 03/23/16 08:47 Labs: Abnormal Lab Results - Last 24 Hours (Table) 03/22/16 03/23/16 03/23/16 Range/Units 17:02 08:47 08:47 RBC 4.21 L (4.30-5.90) m/uL Hgb 12.7 L (13.0-17.5) gm/dL Lymphocytes # 0.5 L (1.0-4.8) k/uL Chloride 85 L (98-107) mmol/L Carbon Dioxide 42 H* (22-30) mmol/L BUN 25 H (9-20) mg/dL POC Glucose (mg/dL) 152 H (75-99) mg/dL 03/23/16 Range/Units 11:54 RBC (4.30-5.90) m/uL Hgb (13.0-17.5) gm/dL Lymphocytes # (1.0-4.8) k/uL Chloride (98-107) mmol/L Carbon Dioxide (22-30) mmol/L BUN (9-20) mg/dL POC Glucose (mg/dL) 133 H (75-99) mg/dL Assessment and Plan Plan: Impression: #1 Acute on chronic hypercapnic respiratory failure secondary to chronic fibrosis and bronchiectasis more so on the left lung with suspected acute bilateral pneumonia however malignancy is not entirely excluded. There may be some component of fluid volume overload. His chest x-ray shows improvement. His been maintained on both antibiotics and diuretics. #2 Diabetes sahni, type II #3 Hypertension. #4 Degenerative joint disease. #5 History of prostate cancer. #6 Remote history of chronic nicotine dependence. Plan: The patient was seen and evaluated by Dr. Richardson. His chest x-ray was reviewed. The patient is more awake and alert. We have cautioned the staff and respiratory therapist regarding the overuse of FiO2 and this patient. He became hypercapnic and required BiPAP support a few days ago. They will allow for some permissive hypercapnia and maintaining O2 saturations in the mid to upper 80s. He is to be given no more than 3 L/m per nasal cannula without calling. He is improving daily but not quite back to his baseline. We'll continue to follow make further recommendations based on his clinical status.
[2016-03-23 17:34] LABS: Glucose,Whole Blood 94 mg/dL (75-99)
[2016-03-23] MEDS: MELATONIN 3 MG TABLET PO SCH (20:11)
[2016-03-23 20:38] LABS: Glucose,Whole Blood 144 mg/dL (75-99)
[2016-03-24] MEDS: FUROSEMIDE 10 MG/ML 4 ML VIAL IV SCH ×3 (00:31→16:07)
[2016-03-24] MEDS: CEFEPIME 2 GM in SODIUM CHLORIDE 0.9% 50 ML IVPB SCH ×3 (00:31→16:07)
[2016-03-24 03:49] LABS: Glucose,Whole Blood 67 mg/dL (75-99)
[2016-03-24 04:22] LABS: Glucose,Whole Blood 67 mg/dL (75-99)
[2016-03-24 04:34] LABS: Glucose,Whole Blood 99 mg/dL (75-99)
[2016-03-24] MEDS: INSULIN LISPRO (humaLOG) 300 UNIT/3 ML VIAL SQ SCH ×4 (07:20→20:41)
[2016-03-24 07:40] LABS: Glucose,Whole Blood 108 mg/dL (75-99)
--- NOTE | 2016-03-24 07:53 | PN ---
DATE OF SERVICE: 03/23/2016 This 80-year-old gentleman who was admitted with bilateral pneumonia, also had significant extensive lung damage with bronchiectasis and silicosis also. The most recent chest x-ray done today showed some improving infiltrates. The patient is also on empiric diuretics also. Dr. Richardson is following the patient closely The patient is extremely hard of hearing. PT, OT also is evaluating the patient for possibly ECF rehab. A 2-D echo with Doppler was done by Cardiology, which showed ejection fraction of 60% to 65%. No chest pain or palpitation. No fever. On exam, alert and oriented x2. Pulse 74, pulse 135/85, respirations 19, temperature 96.8, pulse ox 94% on 2 L. HEENT: Conjunctivae normal. NECK: No jugular venous distention. CARDIOVASCULAR: S1 and S2, muffled. RESPIRATORY: Breath sounds diminished at the bases. Bilateral scattered rhonchi and crackles. ABDOMEN: Soft, nontender. No mass palpable. LEGS: No edema, no swelling. NERVOUS SYSTEM: Higher function as mentioned earlier. Moves all 4 limbs. No focal deficits. LYMPHATICS: No lymphadenopathy of neck, axillae or groin. SKIN: No ulcers, rashes or bleeding. Labs are WBC 8.4, hemoglobin 12.7. ASSESSMENT: 1. Acute bilateral pneumonia, possibly gram-negative with possible sepsis with failure of outpatient treatment with acute hypoxic hypercarbic respiratory failure, present on admission. 2. History of bilateral bronchiectasis. 3. History of silicosis. 4. Change in mental status, metabolic encephalopathy secondary to hypercarbia. 5. History of asthma. 6. Diabetes mellitus type 2. 7. Hypertension. 8. History of degenerative joint disease. 9. History of prostate cancer. 10. History of gait dysfunction. 11. History of epistaxis. 12. History of cataracts. 13. History of claustrophobia. 14. History of remote history of nicotine dependence. 15. FULL CODE. RECOMMENDATIONS AND DISCUSSION: This 80-year-old gentleman who presented with multiple complex medical issues, will monitor the patient closely. Continue the current medications. Continue symptomatic treatment. Otherwise, at this time I would recommend continue with empiric antibiotics and continue with bronchodilators. Guarded prognosis because of multiple complex medical issues. Further recommendations to follow.
[2016-03-24] MEDS: ASPIRIN 325 MG TAB PO SCH (07:55)
[2016-03-24] MEDS: metFORMIN 500 MG TAB PO SCH ×2 (07:55→17:13)
[2016-03-24] MEDS: HEPARIN SODIUM,PORCINE 5,000 UNIT/ML 1 ML VIAL SQ SCH ×2 (07:55→20:41)
[2016-03-24] MEDS: LISINOPRIL 20 MG TAB PO SCH (07:55)
[2016-03-24] MEDS: glipiZIDE 10 MG TAB PO SCH ×2 (07:56→17:13)
[2016-03-24] MEDS: IPRATROPIUM-ALBUTEROL 3 ML NEB INHALATION SCH ×4 (08:32→19:18)
[2016-03-24 10:04] LABS: Blood Urea Nitrogen 35 mg/dL (9-20); Calcium 8.4 mg/dL (8.4-10.2); Chloride 83 mmol/L (98-107); Glucose 137 mg/dL (74-99); Non-African American GFR(MDRD) >60 (>60 ml/min/1.73 sqM); Potassium 4.2 mmol/L (3.5-5.1); Sodium 135 mmol/L (137-145)
[2016-03-24 10:11] LABS: Anion Gap 7 mmol/L
[2016-03-24 10:32] LABS: Carbon Dioxide 45 mmol/L (22-30)
[2016-03-24 10:37] LABS: Basophils % (A) 0 %; CH 29.6; CHCM 31.3; Eosinophils # (A) 0.2 k/uL (0-0.7); Eosinophils % (A) 3 %; HDW 2.79; HGB 12.5 gm/dL (13.0-17.5); Hypochromasia Slight; Luc # (Auto) 0.13; Luc % (Auto) 2; Lymphocytes # (A) 0.6 k/uL (1.0-4.8); Lymphocytes % (A) 7 %; MCH 29.5 pg (25.0-35.0); MCHC 31.2 g/dL (31.0-37.0); MCV 94.7 fL (80.0-100.0); Mean Platelet Volume 6.6; Monocytes # (A) 0.5 k/uL (0-1.0); Monocytes % (A) 6 %; Neutrophils # (A) 6.7 k/uL (1.3-7.7); Neutrophils % (A) 82 %; RBC 4.23 m/uL (4.30-5.90); RDW 12.5 % (11.5-15.5); WBC 8.1 k/uL (3.8-10.6); WBC (Perox) 8.05
[2016-03-24] MEDS: MULTIVITAMINS, THERA 1 EACH TAB PO SCH (11:05)
[2016-03-24 12:16] LABS: Glucose,Whole Blood 60 mg/dL (75-99)
[2016-03-24 12:16] LABS: Glucose,Whole Blood 72 mg/dL (75-99)
--- NOTE | 2016-03-24 13:40 | P.PN ---
Subjective Principal diagnosis: This is a pleasant 80-year-old gentleman who follows with Dr. Posadas as his primary care physician. He has a history of diabetes mellitus, hypertension, chronic lung disease. 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 He was presently on Cipro 500 mg every 12 hours without significant improvement in his N and here yesterday with worsening shortness of breath, cough and congestion. He T angiogram ruled out pulmonary embolism however there was noted chronic left -sided volume loss with underlying extensive bronchiectasis and fibrosis. There is also noted bilateral airspace consolidation reflective of underlying pneumonia. Throughout the evening the patient had increasing shortness of breath and his oxygen was turned up from 2 L to 4 L/m per nasal cannula. Earlier this morning the patient had been awake and alert and eating his breakfast. Upon our evaluation and consultation the patient was difficult to arouse and quite obtunded. Arterial blood gases revealed a PaO2 of 86, pCO2 88 and a pH of 7.20. The patient was placed on BiPAP 12/5 at 30% FiO2 and within minutes he was awake and alert. He states he is breathing easier this afternoon. He has been afebrile since admission. No leukocytosis. He is pen ALLERGIC and has been initiated on cefepime and bronchodilators. He is seen again today 03/24/2016 in follow-up on the regular medical floor. He is currently sitting up in the chair at the bedside. He is awake and alert in no acute distress. His maintaining good O2 saturations in the low 90s on 3 L /m per nasal cannula. He has been afebrile. He remains on bronchodilators and cefepime. He is being diuresed with IV Lasix. He has been up ambulating with assistance. He is dyspneic on exertion but quite comfortable at rest. He denies any worsening shortness of breath, cough or congestion. Objective - Vital Signs Vital signs: Vital Signs Temp 97.4 F L 03/24/16 07:00 Pulse 88 03/24/16 12:04 Resp 20 03/24/16 07:00 BP 129/73 03/24/16 07:00 Pulse Ox 95 03/24/16 07:00 Intake & Output 03/23/16 03/24/16 03/24/16 18:59 06:59 18:59 Intake Total 160 950 240 Output Total 400 1100 Balance -240 -150 240 Intake: IV 160 0.9 NS @ 20 ml/hr 160 Oral 950 240 Output: Urine 400 1100 Other: Voiding Method Urinal Urinal # Voids 1 # Bowel Movements 1 - Exam GENERAL EXAM: Alert, comfortable in no apparent distress. HEAD: Normocephalic. EYES: Normal reaction of pupils, equal size. NOSE: Clear with pink turbinates. THROAT: No erythema or exudates. NECK: No masses, no JVD. CHEST: No chest wall deformity. LUNGS: Equal air entry with crackles in the posterior bases. Diminished. CVS: S1 and S2 normal with no audible murmurs, regular rhythm. ABDOMEN: No hepatosplenomegaly, normal bowel sounds, no guarding or rigidity. SPINE: No scoliosis or deformity SKIN: No rashes CENTRAL NERVOUS SYSTEM: No focal deficits, tone is normal in all 4 extremities. - Labs CBC & Chem 7: 03/24/16 08:59 03/24/16 08:59 Labs: Abnormal Lab Results - Last 24 Hours (Table) 03/23/16 03/24/16 03/24/16 Range/Units 20:12 03:40 04:08 RBC (4.30-5.90) m/uL Hgb (13.0-17.5) gm/dL Lymphocytes # (1.0-4.8) k/uL Sodium (137-145) mmol/L Chloride (98-107) mmol/L Carbon Dioxide (22-30) mmol/L BUN (9-20) mg/dL Glucose (74-99) mg/dL POC Glucose (mg/dL) 144 H 67 L 67 L (75-99) mg/dL 03/24/16 03/24/16 03/24/16 Range/Units 06:57 08:59 08:59 RBC 4.23 L (4.30-5.90) m/uL Hgb 12.5 L (13.0-17.5) gm/dL Lymphocytes # 0.6 L (1.0-4.8) k/uL Sodium 135 L (137-145) mmol/L Chloride 83 L (98-107) mmol/L Carbon Dioxide 45 H* (22-30) mmol/L BUN 35 H (9-20) mg/dL Glucose 137 H (74-99) mg/dL POC Glucose (mg/dL) 108 H (75-99) mg/dL 03/24/16 03/24/16 Range/Units 11:55 12:10 RBC (4.30-5.90) m/uL Hgb (13.0-17.5) gm/dL Lymphocytes # (1.0-4.8) k/uL Sodium (137-145) mmol/L Chloride (98-107) mmol/L Carbon Dioxide (22-30) mmol/L BUN (9-20) mg/dL Glucose (74-99) mg/dL POC Glucose (mg/dL) 60 L 72 L (75-99) mg/dL Assessment and Plan Plan: Impression: #1 Acute on chronic hypercapnic respiratory failure secondary to chronic fibrosis and bronchiectasis more so on the left lung with suspected acute bilateral pneumonia however malignancy is not entirely excluded. There may be some component of fluid volume overload. His chest x-ray shows improvement. He 's been maintained on both antibiotics and diuretics. #2 Diabetes sahni, type II #3 Hypertension. #4 Degenerative joint disease. #5 History of prostate cancer. #6 Remote history of chronic nicotine dependence. Plan: The patient was seen and evaluated by Dr. Richardson. The patient is more awake and alert. We have cautioned the staff and respiratory therapist regarding the overuse of FiO2 on this patient. He became hypercapnic and required BiPAP support a few days ago. They will allow for some permissive hypercapnia and maintaining O2 saturations in the mid to upper 80s. He is to be given no more than 3 L/m per nasal cannula without calling. He is improving daily but not quite back to his baseline. We will continue to increase his activity as tolerated. Hopefully plan for discharge in the next 24 hours. We'll continue to follow make further recommendations based on his clinical status.
[2016-03-24 17:14] LABS: Glucose,Whole Blood 93 mg/dL (75-99)
--- NOTE | 2016-03-24 19:04 | PN ---
DATE OF SERVICE: 03/24/2016 This 80-year-old gentleman who was admitted with acute bilateral pneumonia, possibly gram-negative and possible sepsis. The patient is being closely monitored at this time. Seen and evaluated the patient along with the nurse practitioner. Please refer to the nurse practitioner notes and impressions documented as a scribe for further information.
[2016-03-24 20:22] LABS: Glucose,Whole Blood 89 mg/dL (75-99)
[2016-03-24] MEDS: MELATONIN 3 MG TABLET PO SCH (20:41)
--- NOTE | 2016-03-24 21:22 | P.PN ---
Subjective Date of service 03/24/2016 Progress note being dictated for Dr. Brito. Interval history: This is an 80-year-old gentleman admitted with acute bilateral pneumonia, possibly gram-negative, possible sepsis. Maintained on nebulized bronchodilators, cefepime. Diuresing well on Lasix IV push with 24- hour I&O reflecting a negative fluid balance. Breathing continues to improve; complains of exertional shortness of breath. Denies chest pain, or palpitations. Afebrile. Objective - Vital Signs Vital signs: Vital Signs Temp 97.4 F L 03/24/16 07:00 Pulse 88 03/24/16 12:04 Resp 20 03/24/16 07:00 BP 129/73 03/24/16 07:00 Pulse Ox 95 03/24/16 07:00 Intake & Output 03/23/16 03/24/16 03/24/16 18:59 06:59 18:59 Intake Total 160 950 240 Output Total 400 1100 Balance -240 -150 240 Intake: IV 160 0.9 NS @ 20 ml/hr 160 Oral 950 240 Output: Urine 400 1100 Other: Voiding Method Urinal Urinal # Voids 1 # Bowel Movements 1 - Exam PHYSICAL EXAM: VITAL SIGNS: As above GENERAL: [Sitting up in a chair, no acute distress at rest.] HEENT: conjunctiva normal, normocephalic.] NECK: [Supple, no JVD] RESPIRATORY EFFORT:[Normal] LUNGS: [Improved air entry, diminished with bibasilar crackles] CARDIOVASCULAR[regular S1 and S2, no murmurs, rubs or gallops, no edema] GI: [Abdomen soft, nontender, no organomegaly ,positive bowel sounds.] PSYCH: [Alert and oriented -3, mood and affect normal.] NEURO: No focal deficits, moves all 4 extremities, strength and sensation grossly intact - Labs CBC & Chem 7: 03/24/16 08:59 03/24/16 08:59 Labs: Abnormal Lab Results - Last 24 Hours (Table) 03/23/16 03/24/16 03/24/16 Range/Units 20:12 03:40 04:08 RBC (4.30-5.90) m/uL Hgb (13.0-17.5) gm/dL Lymphocytes # (1.0-4.8) k/uL Sodium (137-145) mmol/L Chloride (98-107) mmol/L Carbon Dioxide (22-30) mmol/L BUN (9-20) mg/dL Glucose (74-99) mg/dL POC Glucose (mg/dL) 144 H 67 L 67 L (75-99) mg/dL 03/24/16 03/24/16 03/24/16 Range/Units 06:57 08:59 08:59 RBC 4.23 L (4.30-5.90) m/uL Hgb 12.5 L (13.0-17.5) gm/dL Lymphocytes # 0.6 L (1.0-4.8) k/uL Sodium 135 L (137-145) mmol/L Chloride 83 L (98-107) mmol/L Carbon Dioxide 45 H* (22-30) mmol/L BUN 35 H (9-20) mg/dL Glucose 137 H (74-99) mg/dL POC Glucose (mg/dL) 108 H (75-99) mg/dL 03/24/16 03/24/16 Range/Units 11:55 12:10 RBC (4.30-5.90) m/uL Hgb (13.0-17.5) gm/dL Lymphocytes # (1.0-4.8) k/uL Sodium (137-145) mmol/L Chloride (98-107) mmol/L Carbon Dioxide (22-30) mmol/L BUN (9-20) mg/dL Glucose (74-99) mg/dL POC Glucose (mg/dL) 60 L 72 L (75-99) mg/dL Assessment and Plan Plan: 1. [Acute hypoxic hypercarbic respiratory failure present on admission secondary to acute bilateral pneumonia, possibly gram-negative with possible sepsis, possible mild component of pulmonary edema, failed outpatient treatment] . Status post BiPAP. 2. History of bilateral bronchiectasis. 3. [Scoliosis]. 4. [Change in mental status, acute metabolic encephalopathy secondary to hypercarbia]. 5. [Chronic intermittent asthma]. 6. [Diabetes mellitus type 2]. 7. [Hypertension]. 8. Degenerative joint disease with gait dysfunction 9. Prostate cancer, history of 10. Claustrophobia 11. Remote history of nicotine dependence Plan: Continue on current medication regime, nebulized bronchodilators, empiric antibiotics, monitoring and symptomatic treatment. Echo ordered. PT/OT. potential ECF rehab at discharge. Maintain supportive care. Follow closely with pulmonary. Further recommendations to follow. The impression and plan of care has been dictated as directed. : I performed a H&P examination of this patient and discussed the same with the dictator. I agree with the dictator's note. Any additional findings/opinions/ etc. will be noted.
[2016-03-25] MEDS: FUROSEMIDE 10 MG/ML 4 ML VIAL IV SCH ×3 (00:18→15:15)
[2016-03-25] MEDS: CEFEPIME 2 GM in SODIUM CHLORIDE 0.9% 50 ML IVPB SCH ×3 (00:18→15:15)
[2016-03-25 01:22] LABS: Glucose,Whole Blood 44 mg/dL (75-99)
[2016-03-25 01:22] LABS: Glucose,Whole Blood 46 mg/dL (75-99)
[2016-03-25 01:22] LABS: Glucose,Whole Blood 56 mg/dL (75-99)
[2016-03-25 01:39] LABS: Glucose,Whole Blood 120 mg/dL (75-99)
[2016-03-25] MEDS: HEPARIN SODIUM,PORCINE 5,000 UNIT/ML 1 ML VIAL SQ SCH (07:39)
[2016-03-25] MEDS: glipiZIDE 10 MG TAB PO SCH (07:39)
[2016-03-25] MEDS: metFORMIN 500 MG TAB PO SCH (07:39)
[2016-03-25] MEDS: INSULIN LISPRO (humaLOG) 300 UNIT/3 ML VIAL SQ SCH ×2 (07:40→12:11)
[2016-03-25] MEDS: ASPIRIN 325 MG TAB PO SCH (07:40)
[2016-03-25] MEDS: LISINOPRIL 20 MG TAB PO SCH (07:40)
[2016-03-25 07:43] LABS: Glucose,Whole Blood 142 mg/dL (75-99)
[2016-03-25] MEDS: IPRATROPIUM-ALBUTEROL 3 ML NEB INHALATION SCH ×3 (07:43→15:37)
[2016-03-25 08:14] VITALS: RESP 16
--- NOTE | 2016-03-25 10:53 | P.PN ---
Subjective Progress note dated 03/25/2016 The patient is doing better. Sitting up at the bedside. No acute distress. No respiratory issues. Currently on nasal cannula. Saturations are reasonable. The patient has been ambulating without assistance. Is close to discharge. Objective - Vital Signs Vital signs: Vital Signs Temp 97.1 F L 03/25/16 07:00 Pulse 84 03/25/16 07:54 Resp 16 03/25/16 07:00 BP 128/63 03/25/16 07:00 Pulse Ox 96 03/25/16 07:00 Intake & Output 03/24/16 03/25/16 03/25/16 18:59 06:59 18:59 Intake Total 240 640 Output Total 600 1250 Balance -360 -610 Intake: Oral 240 640 Output: Urine 600 1250 Other: Voiding Method Urinal Urinal Urinal # Voids 3 1 - Exam No acute distress, oriented 3. No respiratory distress. HEENT examination is grossly unremarkable. Mucous membranes are moist. No oral lesions. Neck supple. Full range of motion. Cardiovascular examination reveals regular rhythm rate. S1-S2 normal. Lungs reveal diminished breath sounds. A few scattered rhonchi. No wheezes. No crackles. Abdomen soft bowel sounds are heard. Extremities are intact. - Labs CBC & Chem 7: 03/24/16 08:59 03/24/16 08:59 Labs: Abnormal Lab Results - Last 24 Hours (Table) 03/24/16 03/24/16 03/25/16 Range/Units 11:55 12:10 00:55 POC Glucose (mg/dL) 60 L 72 L 46 L (75-99) mg/dL 03/25/16 03/25/16 03/25/16 Range/Units 00:58 01:13 01:35 POC Glucose (mg/dL) 44 L 56 L 120 H (75-99) mg/dL 03/25/16 Range/Units 07:40 POC Glucose (mg/dL) 142 H (75-99) mg/dL Assessment and Plan (1) Diabetes Status: Acute (2) Hypertension Status: Acute (3) Pulmonary fibrosis Status: Acute (4) Bronchiectasis Status: Acute (5) Pneumonia Status: Acute Plan: Plan dated 03/25/2016 The patient is doing better. Hopefully discharge today or at the very latest tomorrow. Seems be doing relatively well. We did caution the nurse and respiratory therapist about prescribing too much oxygen for the patient. He is a CO2 retainer. This recommendation suggestions are forthcoming. Prognosis is guarded. Time with Patient: Less than 30
[2016-03-25] MEDS: MULTIVITAMINS, THERA 1 EACH TAB PO SCH (11:04)
[2016-03-25 11:48] LABS: Glucose,Whole Blood 53 mg/dL (75-99)
[2016-03-25 12:14] LABS: Glucose,Whole Blood 61 mg/dL (75-99)
[2016-03-25 13:24] LABS: Glucose,Whole Blood 133 mg/dL (75-99)
[2016-03-25 14:34] VITALS: BP 130/61; TEMP 96.2
--- NOTE | 2016-03-25 14:54 | P.DS ---
Providers Date of admission: 03/19/16 13:42 Expected date of discharge: 03/25/16 Attending physician: Marco Diaz Consults: 03/19/16 22:24 Consult Physician Routine Consulting Provider: Laurita Obrien Consult Reason/Comments: pneumonia Do you want consulting provider notified?: Yes Dr. Zavala, Pulmonary Primary care physician: [facility] Course: Final diagnoses: 1. [Acute hypoxic hypercarbic respiratory failure present on admission secondary to acute bilateral pneumonia, possibly gram-negative with possible sepsis, failed outpatient treatment, Status post BiPAP. 2. History of bilateral bronchiectasis. 3. [Scoliosis]. 4. [Change in mental status, acute metabolic encephalopathy secondary to hypercarbia], improving. 5. [Chronic intermittent asthma]. 6. [Diabetes mellitus type 2]. Recent hypoglycemia, oral agents on hold. Hemoglobin A1c 7 7. [Hypertension]. 8. Degenerative joint disease with gait dysfunction 9. Prostate cancer, history of 10. Claustrophobia 11. Remote history of nicotine dependence Hospital course:This is an 80-year-old gentleman admitted with acute bilateral pneumonia, possibly gram-negative, possible sepsis. Maintained on nebulized bronchodilators, cefepime. Evaluated by pulmonary. Maintained on nebulized bronchodilators, antibiotics. Significant clinical improvement. Remainder patient is a CO2 retainer, caution with overuse of FiO2; patient developed hypercarbic respiratory failure and required BiPAP earlier during his stay. Inconsistent diet intake, accompanied by hypoglycemia, oral agents placed on hold and using sliding scale only at this time. Cleared by pulmonary for discharge. Patient is being discharged to [facility] rehab in a stable condition with guarded prognosis. Patient Condition at Discharge: Stable Plan - Discharge Summary New Discharge Prescriptions: ALPRAZolam [Xanax] 0.25 mg PO TID PRN #20 tab PRN Reason: Anxiety Cefuroxime Axetil [Ceftin] 500 mg PO BID #10 tab HYDROcodone/APAP 5-325MG [[place] 5-325] 1 each PO Q6HR PRN #20 tab PRN Reason: Pain INSULIN LISPRO (HumaLOG) [humaLOG] 0 unit SQ ACHS #1 vial Lisinopril [Prinivil] 10 mg PO DAILY #1 tab Discharge Medication List Aspirin 650 mg PO DAILY 03/19/16 [History] Ciprofloxacin HCl [Cipro] 500 mg PO Q12HR 01/19/17 [History] Vitamin E (Dl,Tocopheryl Acet) [Vitamin E] 400 unit PO DAILY 03/19/16 [History] ALPRAZolam [Xanax] 0.25 mg PO TID PRN #20 tab 03/25/16 [Rx] Cefuroxime Axetil [Ceftin] 500 mg PO BID #10 tab 03/25/16 [Rx] HYDROcodone/APAP 5-325MG [[place] 5-325] 1 each PO Q6HR PRN #20 tab 03/25/16 [Rx] INSULIN LISPRO (HumaLOG) [humaLOG] 0 unit SQ ACHS #1 vial 03/25/16 [Rx] Ipratropium-Albuterol Nebulize [Duoneb 0.5 mg-3 mg/3 ml Soln] 3 ml INHALATION RT -QID ampul.neb 03/25/16 [Rx] Lisinopril [Prinivil] 10 mg PO DAILY #1 tab 03/25/16 [Rx] Multivitamins, Thera [Multivitamin] 1 each PO DAILY@1200 tab 03/25/16 [Rx] Follow up Appointment(s)/Referral(s): Mayank Lovelace MD [STAFF PHYSICIAN] - 3 Days (At [facility]) [facility] - Zachery Posadas DO [Primary Care Provider] - 1 Week (After DC from [facility]) Patient Instructions/Handouts: Type 2 Diabetes in Adults (DC), Community Acquired Pneumonia (DC) Activity/Diet/Wound Care/Special Instructions: Antibiotic: Diet: Consistent carb Activity: As tolerated
[2016-03-25 17:19] VITALS: PULSE 80
== END 2016-03-25 15:59 | DRG 871 ==
LOC: EC 10:58 → 4MS4W 13:42
PROVIDERS: ADMIT Hospitalist; ATTEND Hospitalist
PROC: 5A09457 Assistance with Respiratory Ventilation, 24-96 Consecutive Hours, Continuous Positive Airway Pressure (ICD-10-PCS; principal; 2016-03-20)
DX: A41.9 Sepsis, unspecified organism (principal); G93.41 Metabolic encephalopathy; J96.21 Acute and chronic respiratory failure with hypoxia; J15.6 Pneumonia due to other Gram-negative bacteria; J96.22 Acute and chronic respiratory failure with hypercapnia; J47.0 Bronchiectasis with acute lower respiratory infection; J47.1 Bronchiectasis with (acute) exacerbation; E87.70 Fluid overload, unspecified; E11.649 Type 2 diabetes mellitus with hypoglycemia without coma; J84.10 Pulmonary fibrosis, unspecified; F40.240 Claustrophobia; I10 Essential (primary) hypertension; J45.20 Mild intermittent asthma, uncomplicated; R26.9 Unspecified abnormalities of gait and mobility; M19.90 Unspecified osteoarthritis, unspecified site; M41.9 Scoliosis, unspecified; H91.93 Unspecified hearing loss, bilateral; H54.7 Unspecified visual loss; Z79.82 Long term (current) use of aspirin; Z79.84 Long term (current) use of oral hypoglycemic drugs; Z79.899 Other long term (current) drug therapy; Z88.0 Allergy status to penicillin; Z87.891 Personal history of nicotine dependence; Z85.46 Personal history of malignant neoplasm of prostate
CPT/HCPCS: 36415; 36600; 71010; 71020; 71275; 80048; 80053; 82805; 83036; 83880; 84484; 85025; 85610; 85730; 87040; 87086; 93005; 93306; 94640; 94660; 94760; 96361; 96365; 99285

== ENCOUNTER 2016-06-18 09:33 | Inpatient (IN) | payer MEDICARE ==
[~2016-06-18 09:33] MED LIST: EPINEPHrine 10 ML SYRINGE (0.1 MG/ML) ONE
[2016-06-18] MEDS ORDERED: ACETAMINOPHEN TAB 500 MG TAB PO STA (09:49)
[2016-06-18] MEDS ORDERED: IPRATROPIUM-ALBUTEROL 3 ML NEB INHALATION STA (09:50)
--- NOTE | 2016-06-18 09:52 | ED ---
General Adult HPI - General Chief complaint: Shortness of Breath Stated complaint: [place] Time Seen by Provider: 06/18/16 09:43 Source: patient, RN notes reviewed Mode of arrival: ambulatory Limitations: no limitations - History of Present Illness Initial comments: Patient is a pleasant 80-year-old male presenting to the emergency department complaining of difficulty breathing. Patient is a poor historian so his family. Patient has some sort of underlying lung disease. Patient has had increased dyspnea and cough for the past few days. Nonproductive. No reported fevers. No complaints of chest discomfort. - Related Data Home Medications Medication Instructions Recorded Confirmed Vitamin E (Dl,Tocopheryl Acet) 400 unit PO DAILY 03/19/16 06/18/16 [Vitamin E] Ascorbic Acid [Vitamin C] 1,000 mg PO DAILY 06/18/16 06/18/16 Multivitamins, Thera [Multivitamin 1 tab PO DAILY 06/18/16 06/18/16 (formulary)] glipiZIDE [Glucotrol] 10 mg PO BID 06/18/16 06/18/16 metFORMIN HCL [Glucophage] 500 mg PO BID 06/18/16 06/18/16 Previous Rx's Medication Instructions Recorded Ipratropium-Albuterol Nebulize 3 ml INHALATION RT-QID ampul.neb 03/25/16 [Duoneb 0.5 mg-3 mg/3 ml Soln] Lisinopril [Prinivil] 10 mg PO DAILY #1 tab 03/25/16 Allergies Allergy/AdvReac Type Severity Reaction Status Date / Time Penicillins Allergy Anaphylaxis Verified 06/18/16 10:52 Review of Systems ROS Statement: Those systems with pertinent positive or pertinent negative responses have been documented in the HPI. ROS Other: All systems not noted in ROS Statement are negative. Constitutional: Denies: fever Eyes: Denies: eye pain ENT: Denies: ear pain Respiratory: Reports: cough, dyspnea Cardiovascular: Denies: chest pain Endocrine: Denies: fatigue Gastrointestinal: Denies: abdominal pain Genitourinary: Denies: dysuria Musculoskeletal: Denies: back pain Skin: Denies: rash Neurological: Denies: weakness Past Medical History Past Medical History: Asthma, Cancer, Diabetes Mellitus, Hypertension, Osteoarthritis (OA) Additional Past Medical History / Comment(s): prostate cancer, nose bleeds History of Any Multi-Drug Resistant Organisms: None Reported Past Surgical History: Prostate Surgery Additional Past Surgical History / Comment(s): bronchoscopy(bx neg), cataracts Past Anesthesia/Blood Transfusion Reactions: No Reported Reaction Additional Past Anesthesia/Blood Transfusion Reaction / Comment(s): clausterphobia Past Psychological History: No Psychological Hx Reported Smoking Status: Former smoker Past Alcohol Use History: None Reported Additional Past Alcohol Use History / Comment(s): started smoking at age 14 quit age 21 can't remember how much he smoked. Past Drug Use History: None Reported - Past Family History Father History Unknown: Yes Additional Family Medical History / Comment(s): raised by great grandparents Mother History Unknown: Yes Additional Family Medical History / Comment(s): raised by great grandparents General Exam Limitations: no limitations General appearance: alert, in no apparent distress Head exam: Present: atraumatic, normocephalic Eye exam: Present: normal appearance, PERRL ENT exam: Present: normal oropharynx Neck exam: Present: normal inspection Respiratory exam: Present: wheezes (Mild expiratory), rales (Left base) Cardiovascular Exam: Present: regular rate, normal rhythm Expanded Peripheral pulses: 2+: Radial (R), Radial (L), Dorsalis Pedis (R), Dorsalis Pedis (L) GI/Abdominal exam: Present: soft. Absent: tenderness Extremities exam: Present: normal inspection. Absent: pedal edema, calf tenderness Neurological exam: Present: alert Psychiatric exam: Present: normal affect, normal mood Skin exam: Present: normal color Course Vital Signs 06/18/16 06/18/16 06/18/16 09:39 10:16 10:26 Temperature 101.1 F H Pulse Rate 103 H 95 96 Respiratory 26 H Rate Blood Pressure 155/72 O2 Sat by Pulse 91 L Oximetry 06/18/16 11:00 Temperature Pulse Rate 103 H Respiratory 22 Rate Blood Pressure 138/61 O2 Sat by Pulse 96 Oximetry EKG Findings - EKG Comments: EKG Findings:: Normal sinus rhythm and 95 with sinus arrhythmia. ND 170. QRS 88. QT 318. QTC 39. Left axis. Normal QRS. Normal ST-T. Medical Decision Making - Medical Decision Making Patient reevaluated. Patient and family updated. Patient does meet sepsis criteria diagnosed at 11:03 AM. IV antibiotic so be started. Dr. Brito has been paged for admission for Dr. Modi - Lab Data Result diagrams: 06/18/16 09:54 06/18/16 09:54 Lab Results 06/18/16 06/18/16 06/18/16 Range/Units 09:54 09:54 09:54 WBC 19.9 H (3.8-10.6) k/uL RBC 3.86 L (4.30-5.90) m/uL Hgb 11.4 L (13.0-17.5) gm/dL Hct 37.1 L (39.0-53.0) % MCV 96.1 (80.0-100.0) fL MCH 29.4 (25.0-35.0) pg MCHC 30.6 L (31.0-37.0) g/dL RDW 14.0 (11.5-15.5) % Plt Count 228 (150-450) k/uL Neutrophils % 92 % Lymphocytes % 2 % Monocytes % 4 % Eosinophils % 1 % Basophils % 0 % Neutrophils # 18.4 H (1.3-7.7) k/uL Lymphocytes # 0.3 L (1.0-4.8) k/uL Monocytes # 0.8 (0-1.0) k/uL Eosinophils # 0.1 (0-0.7) k/uL Basophils # 0.0 (0-0.2) k/uL Hypochromasia Slight PT (9.0-12.0) sec INR (<1.1) APTT (22.0-30.0) sec Sodium 134 L (137-145) mmol/L Potassium 5.2 H (3.5-5.1) mmol/L Chloride 92 L (98-107) mmol/L Carbon Dioxide 34 H (22-30) mmol/L Anion Gap 8 mmol/L BUN 33 H (9-20) mg/dL Creatinine 1.00 (0.66-1.25) mg/dL Est GFR (MDRD) Af Amer >60 (>60 ml/min/1.73 sqM) Est GFR (MDRD) Non-Af >60 (>60 ml/min/1.73 sqM) Glucose 270 H (74-99) mg/dL Plasma Lactic Acid Mike 2.1 H (0.7-2.0) mmol/L Calcium 9.3 (8.4-10.2) mg/dL Total Bilirubin 0.9 (0.2-1.3) mg/dL AST 25 (17-59) U/L ALT 25 (21-72) U/L Alkaline Phosphatase 79 (38-126) U/L Total Protein 7.4 (6.3-8.2) g/dL Albumin 3.5 (3.5-5.0) g/dL Urine Color Urine Appearance (Clear) Urine pH (5.0-8.0) Ur Specific Tyner (1.001-1.035) Urine Protein (Negative) Urine Glucose (UA) (Negative) Urine Ketones (Negative) Urine Blood (Negative) Urine Nitrite (Negative) Urine Bilirubin (Negative) Urine Urobilinogen (<2.0) mg/dL Ur Leukocyte Esterase (Negative) Urine RBC (0-5) /hpf Urine WBC (0-5) /hpf Hyaline Casts (0-2) /lpf Urine Mucus (None) /hpf Influenza Type A RNA (Not Detectd) Influenza Type B (PCR) (Not Detectd) 06/18/16 06/18/16 06/18/16 Range/Units 09:54 09:54 09:58 WBC (3.8-10.6) k/uL RBC (4.30-5.90) m/uL Hgb (13.0-17.5) gm/dL Hct (39.0-53.0) % MCV (80.0-100.0) fL MCH (25.0-35.0) pg MCHC (31.0-37.0) g/dL RDW (11.5-15.5) % Plt Count (150-450) k/uL Neutrophils % % Lymphocytes % % Monocytes % % Eosinophils % % Basophils % % Neutrophils # (1.3-7.7) k/uL Lymphocytes # (1.0-4.8) k/uL Monocytes # (0-1.0) k/uL Eosinophils # (0-0.7) k/uL Basophils # (0-0.2) k/uL Hypochromasia PT 12.1 H (9.0-12.0) sec INR 1.2 (<1.1) APTT 24.5 (22.0-30.0) sec Sodium (137-145) mmol/L Potassium (3.5-5.1) mmol/L Chloride (98-107) mmol/L Carbon Dioxide (22-30) mmol/L Anion Gap mmol/L BUN (9-20) mg/dL Creatinine (0.66-1.25) mg/dL Est GFR (MDRD) Af Amer (>60 ml/min/1.73 sqM) Est GFR (MDRD) Non-Af (>60 ml/min/1.73 sqM) Glucose (74-99) mg/dL Plasma Lactic Acid Mike (0.7-2.0) mmol/L Calcium (8.4-10.2) mg/dL Total Bilirubin (0.2-1.3) mg/dL AST (17-59) U/L ALT (21-72) U/L Alkaline Phosphatase (38-126) U/L Total Protein (6.3-8.2) g/dL Albumin (3.5-5.0) g/dL Urine Color Dark Yellow Urine Appearance Clear (Clear) Urine pH 6.0 (5.0-8.0) Ur Specific Tyner 1.026 (1.001-1.035) Urine Protein 2+ H (Negative) Urine Glucose (UA) Trace H (Negative) Urine Ketones Trace H (Negative) Urine Blood Small H (Negative) Urine Nitrite Negative (Negative) Urine Bilirubin Negative (Negative) Urine Urobilinogen 2.0 (<2.0) mg/dL Ur Leukocyte Esterase Trace H (Negative) Urine RBC 9 H (0-5) /hpf Urine WBC 2 (0-5) /hpf Hyaline Casts 12 H (0-2) /lpf Urine Mucus Many H (None) /hpf Influenza Type A RNA Not Detected (Not Detectd) Influenza Type B (PCR) Not Detected (Not Detectd) - Radiology Data Radiology results: image reviewed (Chest x-ray shows large left-sided infiltrate , chronic appearing consolidation. Correlate for developing right lower lobe pneumonia.) Critical Care Time Critical Care Time: Yes Total Critical Care Time: 34 Disposition Clinical Impression: Severe sepsis, Pneumonia Disposition: ADMITTED IP TO [facility] Condition: Serious Referrals: Zachery Posadas DO [Primary Care Provider] - 1-2 days Time of Disposition: 11:04
[2016-06-18 10:16] LABS: Basophils % (A) 0 %; CH 29.8; CHCM 31.1; Eosinophils # (A) 0.1 k/uL (0-0.7); Eosinophils % (A) 1 %; HCT 37.1 % (39.0-53.0); HDW 2.71; HGB 11.4 gm/dL (13.0-17.5); Hypochromasia Slight; Luc # (Auto) 0.19; Luc % (Auto) 1; Lymphocytes # (A) 0.3 k/uL (1.0-4.8); Lymphocytes % (A) 2 %; MCH 29.4 pg (25.0-35.0); MCHC 30.6 g/dL (31.0-37.0); MCV 96.1 fL (80.0-100.0); Mean Platelet Volume 6.9; Monocytes # (A) 0.8 k/uL (0-1.0); Monocytes % (A) 4 %; Neutrophils # (A) 18.4 k/uL (1.3-7.7); Neutrophils % (A) 92 %; RBC 3.86 m/uL (4.30-5.90); WBC 19.9 k/uL (3.8-10.6); WBC (Perox) 20.24
[2016-06-18 10:21] LABS: INR 1.2 (<1.1); Partial Thromboplastin Time 24.5 sec (22.0-30.0); Prothrombin Time 12.1 sec (9.0-12.0)
[2016-06-18 10:23] LABS: ALT 25 U/L (21-72); AST 25 U/L (17-59); Alkaline Phosphatase 79 U/L (38-126); Anion Gap 8 mmol/L; Blood Urea Nitrogen 33 mg/dL (9-20); Calcium 9.3 mg/dL (8.4-10.2); Carbon Dioxide 34 mmol/L (22-30); Chloride 92 mmol/L (98-107); Glucose 270 mg/dL (74-99); Non-African American GFR(MDRD) >60 (>60 ml/min/1.73 sqM); Potassium 5.2 mmol/L (3.5-5.1); Sodium 134 mmol/L (137-145); Total Bilirubin 0.9 mg/dL (0.2-1.3); Total Protein 7.4 g/dL (6.3-8.2)
[2016-06-18 10:41] LABS: Appearance,Urine Clear (Clear); Bilirubin,Urine Negative (Negative); Glucose,Urine (UA) Trace (Negative); Ketones,Urine Trace (Negative); Leukocyte Esterase,Urine Trace (Negative); Mucus,Urine Many /hpf; Nitrite,Urine Negative (Negative); Particle Count 13920; Protein,Urine 2+ (Negative); RBC,Urine 9 /hpf (0-5); Specific Gravity,Urine 1.026 (1.001-1.035); UA Billing (MACRO vs. MICRO) MICRO; WBC,Urine 2 /hpf (0-5)
--- NOTE | 2016-06-18 11:04 | XR ---
EXAMINATION TYPE: XR chest 2V DATE OF EXAM: 06/18/2016 10:55 AM COMPARISON: 03/23/2016, 05/22/2013 INDICATION: Previous abnormal chest, fever cough shortness of breath TECHNIQUE: Frontal and lateral views of the chest are obtained. FINDINGS: The heart size is normal. The pulmonary vasculature is normal. There is a consolidation to the right lung. This is similar to prior study. This may have some chroni c changes as well. Right lower lobe infiltrate may be present. This is a change from prior study. Cor relate for pneumonia. IMPRESSION: 1. Correlate for developing right lower lobe pneumonia. 2. Chronic appearing consolidation through the left lung.
[2016-06-18] MEDS ORDERED: AZTREONAM 2 GM in SODIUM CHLORIDE 0.9% 100 ML IVPB STA (11:05)
[2016-06-18] MEDS ORDERED: LEVOFLOXACIN 750MG-D5W PMX 750 MG in DEXTROSE/WATER 1 150ML.BAG IVPB STA (11:05)
[2016-06-18] MEDS ORDERED: PNEUMONIA PROTOCOL UTILIZED 1 EACH MISC PO PRN (11:05)
[2016-06-18] MEDS: SODIUM CHLORIDE 0.9% 1,000 ML IV SCH (12:14)
[2016-06-18] MEDS: IPRATROPIUM-ALBUTEROL 3 ML NEB INHALATION SCH ×3 (12:38→19:55)
[2016-06-18 16:30] LABS: Glucose,Whole Blood 174 mg/dL (75-99)
--- NOTE | 2016-06-18 16:54 | P.CNPUL ---
History of Present Illness Consult date: 06/18/16 Reason for consult: dyspnea, cough, pneumonia Chief complaint: Cough shortness of breath History of present illness: This a very pleasant 80-year-old male who presents to the emergency department with complaints of difficulty breathing coughing. Fever chills. Not feeling well. Hasn't been feeling well for about 2 weeks. Was in the hospital here back in March for pneumonia. Was discharged to the medical [place] a BAL. Since that time he was doing better at home but then over the last week to 2 weeks, he started getting sick. Not producing any phlegm. He does have fever chills. He is short of breath. Short of breath perfectly on exertion. Chest x -ray showed bilateral infiltrates worse on the left than on the right. 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 Did smoke in the past but has not smoked recently. Review of Systems A 12 point review of system is positive for cough shortness of breath fever chills. Not producing any phlegm. Past Medical History Past Medical History: Asthma, Cancer, Diabetes Mellitus, Hypertension, Osteoarthritis (OA), Pneumonia, Respiratory Disorder Additional Past Medical History / Comment(s): Pulmonary fibrosis, CO2 retainer- pt's PCP suggested for pt to have tests run during this hospitalization to determine correct liter flow for his home O2- currently uses 2-3L/NC, NIDDM type II, prostate cancer with surgery, nose bleeds, arthritis multiple joints. PT/SPOUSE REQUESTING NO PHYSICAL THERAPY. History of Any Multi-Drug Resistant Organisms: None Reported Past Surgical History: Prostate Surgery Additional Past Surgical History / Comment(s): Prostatectomy, bronchoscopy(bx neg), bilateral cataracts removed with lens implants. Past Anesthesia/Blood Transfusion Reactions: No Reported Reaction Additional Past Anesthesia/Blood Transfusion Reaction / Comment(s): clausterphobia Past Psychological History: No Psychological Hx Reported Additional Psychological History / Comment(s): Pt resides with his spouse of 26yrs. He uses a cane to ambulate. He has home oxygen. He drives. Smoking Status: Former smoker Past Alcohol Use History: None Reported Additional Past Alcohol Use History / Comment(s): started smoking at age 14 quit age 21 can't remember how much he smoked. Past Drug Use History: None Reported - Past Family History Father History Unknown: Yes Additional Family Medical History / Comment(s): raised by great grandparents Mother History Unknown: Yes Additional Family Medical History / Comment(s): raised by great grandparents Medications and Allergies Home Medications Medication Instructions Recorded Confirmed Type Vitamin E (Dl,Tocopheryl Acet) 400 unit PO DAILY 03/19/16 06/18/16 History [Vitamin E] Ascorbic Acid [Vitamin C] 1,000 mg PO DAILY 06/18/16 06/18/16 History Multivitamins, Thera [Multivitamin 1 tab PO DAILY 06/18/16 06/18/16 History (formulary)] glipiZIDE [Glucotrol] 10 mg PO BID 06/18/16 06/18/16 History metFORMIN HCL [Glucophage] 500 mg PO BID 06/18/16 06/18/16 History Allergies Allergy/AdvReac Type Severity Reaction Status Date / Time Penicillins Allergy Anaphylaxis Verified 06/18/16 10:52 Physical Exam Osteopathic Statement: *. No significant issues noted on an osteopathic structural exam other than those noted in the History and Physical/Consult. Vitals: Vital Signs Temp Pulse Resp BP Pulse Ox 06/18/16 12:59 98.6 F 95 20 124/56 94 L 06/18/16 12:34 100.5 F H 99 18 126/61 93 L No acute distress, oriented 3. Mildly tachypnea. HEENT examination is grossly unremarkable. Mucous membranes are moist. No oral lesions. Neck supple. Full range of motion. No adenopathy or thyromegaly. Cardiovascular examination reveals regular rhythm rate. S1 and S2 normal. No murmur. Lungs reveal some coarse rhonchi. Breath sounds are diminished. Breath sounds are more diminished on the left side than on the right. Some crackles noted bilaterally. Abdomen soft bowel sounds are heard. Extremities are intact. No cyanosis clubbing or edema. Skin without rash. Neuro examination normal. Results - Laboratory Findings CBC and BMP: 06/18/16 09:54 06/18/16 09:54 PT/INR, D-dimer PT 12.1 sec (9.0-12.0) H 06/18/16 09:54 INR 1.2 (<1.1) 06/18/16 09:54 Abnormal lab findings: Abnormal Labs 06/18/16 16:18 POC Glucose (mg/dL) 174 H - Diagnostic Findings Chest x-ray: image reviewed (chest x-ray labs and medications are all reviewed.) Assessment and Plan (1) Prostate cancer Status: Acute (2) Pneumonia Status: Acute (3) Bronchiectasis Status: Acute (4) Diabetes Status: Acute (5) Hypertension Status: Acute (6) Pulmonary fibrosis Status: Acute Plan: Plan dated 06/18/2016 The patient's medications x-rays labs all be reviewed. We'll make sure he is on appropriate medications including antibiotics. He's mildly tachypnea. We' ll watch very carefully for any signs of deterioration. Should he show signs of deterioration, we may have to move him to the ICU. Alternatively, he can be placed on BiPAP. Additional recommendations suggestions are forthcoming. Prognosis is guarded. Time with Patient: Greater than 30
[2016-06-18] MEDS ORDERED: HYDROcodone/APAP 5-325MG 1 EACH TAB PO PRN (20:25)
[2016-06-18] MEDS ORDERED: ACETAMINOPHEN TAB 500 MG TAB PO PRN (20:25)
[2016-06-18] MEDS ORDERED: ALPRAZolam 0.25 MG TAB PO PRN (20:25)
[2016-06-18 21:24] LABS: Glucose,Whole Blood 179 mg/dL (75-99)
[2016-06-18] MEDS: INSULIN LISPRO (humaLOG) 300 UNIT/3 ML VIAL SQ SCH (21:24)
[2016-06-18] MEDS: HEPARIN SODIUM,PORCINE 5,000 UNIT/ML 1 ML VIAL SQ SCH (21:28)
[2016-06-18] MEDS: glipiZIDE 10 MG TAB PO SCH (21:29)
[2016-06-18] MEDS: metFORMIN 500 MG TAB PO SCH (21:29)
[2016-06-18] MEDS: AZTREONAM 2 GM in SODIUM CHLORIDE 0.9% 100 ML IVPB SCH (22:31)
[2016-06-19] MEDS: AZTREONAM 2 GM in SODIUM CHLORIDE 0.9% 100 ML IVPB SCH ×3 (05:22→21:35)
[2016-06-19 05:52] LABS: Glucose,Whole Blood 86 mg/dL (75-99)
[2016-06-19] MEDS: INSULIN LISPRO (humaLOG) 300 UNIT/3 ML VIAL SQ SCH ×4 (06:21→21:31)
[2016-06-19 06:30] LABS: Anion Gap 6 mmol/L; Blood Urea Nitrogen 37 mg/dL (9-20); Calcium 8.9 mg/dL (8.4-10.2); Carbon Dioxide 33 mmol/L (22-30); Chloride 95 mmol/L (98-107); Glucose 75 mg/dL (74-99); Non-African American GFR(MDRD) >60 (>60 ml/min/1.73 sqM); Potassium 4.9 mmol/L (3.5-5.1); Sodium 134 mmol/L (137-145)
[2016-06-19 06:54] LABS: Basophils % (A) 0 %; CH 28.9; CHCM 29.9; Eosinophils % (A) 0 %; HCT 34.1 % (39.0-53.0); HDW 2.73; HGB 10.6 gm/dL (13.0-17.5); Hypochromasia Marked; Luc # (Auto) 0.23; Luc % (Auto) 1; Lymphocytes # (A) 0.5 k/uL (1.0-4.8); Lymphocytes % (A) 3 %; MCH 30.2 pg (25.0-35.0); MCHC 31.1 g/dL (31.0-37.0); MCV 97.1 fL (80.0-100.0); Monocytes # (A) 0.9 k/uL (0-1.0); Monocytes % (A) 5 %; Neutrophils # (A) 16.1 k/uL (1.3-7.7); Neutrophils % (A) 91 %; RBC 3.51 m/uL (4.30-5.90); RDW 13.7 % (11.5-15.5); WBC 17.7 k/uL (3.8-10.6); WBC (Perox) 18.75
[2016-06-19] MEDS: PANTOPRAZOLE 40 MG TABLET PO SCH (06:58)
[2016-06-19] MEDS: metFORMIN 500 MG TAB PO SCH ×2 (06:58→17:17)
[2016-06-19] MEDS: glipiZIDE 10 MG TAB PO SCH ×2 (06:58→17:17)
--- NOTE | 2016-06-19 08:00 | XR ---
EXAMINATION TYPE: XR chest 2V DATE OF EXAM: 06/19/2016 6:53 AM COMPARISON: 06/18/2016 HISTORY: 80-year-old male with pneumonia TECHNIQUE: Frontal and lateral views FINDINGS: Left heart margin obscured by adjacent pleural parenchymal disease. There is volume loss in the left hemithorax with shift of the cardiomediastinum, stable from prior. Extensive consolidation throughout the left lung with cystic lucency is redemonstrated. Continued patchy infiltrates throughout the rig ht lung, greatest at the right lower lung as seen previously. No significant pleural effusion on the lateral view. IMPRESSION: Fibrosis more extensive on the left with associated volume loss. Multifocal infiltrates within the ri ght lung are unchanged and could represent pneumonia or an acute exacerbation of underlying chronic i nterstitial lung disease.
--- NOTE | 2016-06-19 08:12 | HP ---
DATE OF ADMISSION: 06/18/2016 CHIEF COMPLAINT: Shortness of breath. HISTORY OF PRESENT ILLNESS: This 80-year-old gentleman with a past medical history of bronchiectasis, history of scoliosis, history of diabetes mellitus, history of hypertension, history of claustrophobia, history of nicotine dependence, being followed by Dr. Zachery Posadas in the outpatient setting was admitted with respiratory failure, pneumonia and as well as sepsis and multiple medical problems in March of this year. The patient home to [facility]. The patient felt better. After two weeks patient went home. Currently, the family is concerned that the patient became increasing short of breath and weak and patient was taken to [facility] and admitted for further evaluation and treatment. Chest x-ray was done in the ER, which I personally reviewed, which the chest x-ray showed bilateral lesions suggestive of pneumonia. The patient admitted for further evaluation and treatment. There is no history of any rigors, chills. No history of headache, loss of consciousness or seizures at this time. Pulse ox is 91% on 3 L. Temperature elevated at 101.1. PAST MEDICAL HISTORY: History of bronchiectasis, history of asthma, history of diabetes mellitus, DJD, history of pneumonia, history of pulmonary fibrosis, history of carbon dioxide retention, prostate surgery. Medications prior to admission include home medications are: 1. Glucophage 500 mg p.o. b.i.d. 2. Glucotrol 10 mg p.o. b.i.d. 3. Prinivil 10 mg daily. 4. Vitamin E 400 units daily. 5. Multivitamins 1 p.o. daily. 6. DuoNeb q.i.d. and p.r.n. 7. Vitamin C 1000 mg daily. ALLERGIES: PENICILLIN. FAMILY HISTORY: Unavailable. SOCIAL HISTORY: Previous history of smoking. No history of alcohol intake. REVIEW OF SYSTEMS: ENT: Diminished hearing. Diminished vision. CARDIOVASCULAR: No angina. RESPIRATORY: As mentioned earlier. GI: No nausea. : No dysuria. NERVOUS SYSTEM: No numbness or weakness. ALLERGY/IMMUNOLOGY: As mentioned earlier. MUSCULOSKELETAL: As mentioned earlier. HEMATOLOGY/ONCOLOGY: No history of anemia. ENDOCRINE: Diabetes mellitus. CONSTITUTIONAL: As mentioned earlier. DERMATOLOGY: Negative. RHEUMATOLOGY: Negative. PSYCHIATRY: As mentioned earlier. PHYSICAL EXAMINATION: Patient is alert and oriented x3. Pulse 103, blood pressure 155/72, respirations 26, temperature 101.1 degree Fahrenheit, pulse ox 92% on 3 liters. HEENT: Conjunctivae normal. Oral mucosa moist. NECK: No jugular venous distention. No carotid bruit. No lymph node enlargement. CARDIOVASCULAR: S1 and S2, muffled. No S3, no S4. RESPIRATORY: Breath sounds diminished at the bases. Bilateral scattered rhonchi and crackles. Expiratory wheezing also present. Kyphoscoliosis present. Otherwise chest is emphysematous. ABDOMEN: Soft, nontender. No mass palpable. LEGS: Minimal edema bilaterally. NERVOUS SYSTEM: Higher function as mentioned. Moves all four limbs. No focal motor deficits. LYMPHATIC: No lymphadenopathy in the neck, axillae or groin. SKIN: No ulcer, rash or bleeding. JOINTS: No active deforming arthropathy. LABS: WBC 19, hemoglobin 11.4. Sodium 130, potassium 5.2. ASSESSMENT: 1. Bilateral pneumonia with possible acute sepsis, present on admission. 2. Bilateral bronchiectasis. 3. Increased WBC. 4. Anemia, normocytic. 5. Hyponatremia. 6. Hyperkalemia. 7. Increased plasma lactic acid 2.1. 8. Diabetes mellitus type 2. 9. History of asthma. 10. History of hypertension. 11. History of degenerative joint disease. 12. History of pneumonia. 13. History of pulmonary fibrosis. 14. Chronic respiratory failure, hypoxic at 2 to 3 liters nasal cannula. 15. History of prostate cancer. 16. History of degenerative joint disease. 17. FULL CODE. RECOMMENDATIONS AND DISCUSSION: This 80-year-old gentleman who presented with multiple complex medical issues, we will monitor the patient closely. Continue the current medications and continue symptomatic treatment. Will initiate intensive bronchodilator treatment, broad-spectrum IV antibiotics. Aztreonam has been initiated. Patient has PENICILLIN ALLERGY. Otherwise, I would recommend closely follow with Dr. Richardson. Guarded prognosis because of multiple complex medical issues. Further recommendations to follow. A copy of report forwarded to Dr. Posadas who is the primary physician.
[2016-06-19] MEDS: HEPARIN SODIUM,PORCINE 5,000 UNIT/ML 1 ML VIAL SQ SCH ×2 (08:49→21:34)
[2016-06-19] MEDS: LISINOPRIL 10 MG TAB PO SCH (08:50)
[2016-06-19] MEDS: BUDESONIDE 1 MG/2 ML NEBU INHALATION SCH ×2 (09:14→20:04)
[2016-06-19] MEDS: IPRATROPIUM-ALBUTEROL 3 ML NEB INHALATION SCH ×4 (09:14→20:04)
[2016-06-19] MEDS: FORMOTEROL FUMARATE 20 MCG/2 ML NEBU INHALATION SCH ×2 (09:14→20:04)
[2016-06-19 09:57] LABS: Hemoglobin A1C 6.8 % (4.2-6.1)
[2016-06-19 11:11] LABS: Glucose,Whole Blood 101 mg/dL (75-99)
[2016-06-19] MEDS: VITAMIN E (DL,TOCOPHERYL ACET) 400 UNIT CAP PO SCH (11:34)
[2016-06-19] MEDS: MULTIVITAMINS, THERA 1 EACH TAB PO SCH (11:35)
[2016-06-19] MEDS ORDERED: ASCORBIC ACID 500 MG TAB PO SCH (12:00)
[2016-06-19] MEDS ORDERED: LEVOFLOXACIN 750MG-D5W PMX 750 MG in DEXTROSE/WATER 1 150ML.BAG IVPB SCH (12:00)
[2016-06-19] MEDS: SODIUM CHLORIDE 0.9% 1,000 ML IV SCH (12:39)
--- NOTE | 2016-06-19 13:22 | P.PN ---
Subjective Progress note dated 06/19/2016 This is an 80-year-old male who I saw yesterday in consultation. He came into the emergency department with complaints of difficulty breathing coughing and fever chills just not feeling well. Feeling a bit better today. He is not hasn 't been feeling well for a couple of weeks. He apparently was in the hospital back in March for "" pneumonia. He was discharged to medical [facility] a period since that time he's been doing better home but over the last couple weeks, secondary to what he's back in. Chest x-ray shows diffuse bilateral infiltrates more on the left than on the right lung. Some these changes may be chronic in nature. Again he did feel better today than he did yesterday. Objective - Vital Signs Vital signs: Vital Signs Temp 97.0 F L 06/19/16 11:58 Pulse 92 06/19/16 12:10 Resp 18 06/19/16 11:58 BP 103/53 06/19/16 11:58 Pulse Ox 98 06/19/16 11:58 Intake & Output 06/18/16 06/19/16 06/19/16 18:59 06:59 18:59 Intake Total 640 1500 1430 Output Total 0 400 Balance 640 1100 1430 Weight 88.5 kg Intake: Intake, IV Titration 1500 300 Amount Aztreonam 2 gm In Sodium 100 Chloride 0.9% 100 ml @ 100 mls/hr IVPB ONCE STA Rx#:[id number] Aztreonam 2 gm In Sodium 100 100 Chloride 0.9% 100 ml @ 100 mls/hr IVPB Q8H MICHAEL Rx#:[id number] Levofloxacin 750Mg-D5w 150 Pmx 750 mg In Dextrose/ Water 1 150ml.bag @ 100 mls/hr IVPB ONCE STA Rx#: [id number] Levofloxacin 750Mg-D5w 150 100 Pmx 750 mg In Dextrose/ Water 1 150ml.bag @ 100 mls/hr IVPB Q24H MICHAEL Rx#: [id number] Sodium Chloride 0.9% 1, 1000 100 000 ml @ 20 mls/hr IV . Q24H MICHAEL Rx#:[id number] Oral 640 1130 Output: Urine 0 400 Other: # Voids 0 1 - Exam No acute distress, oriented 3. Sitting in chair at the bedside. Nasal O2 in place. HEENT examination is grossly unremarkable. Mucous membranes are moist. No oral lesions. Neck supple. Full range of motion. No adenopathy or thyromegaly. Neck veins are flat. Cardiovascular examination reveals distant heart sounds S1-S2 normal. No S3-S4 or murmur. Lungs reveal coarse rhonchi. Breath sounds are diminished. Some bibasilar crackles. Does sound like he might have some underlying pulmonary fibrosis. No wheezes are noted. He is very congested. Abdomen soft bowel sounds are heard. No masses. Extremities are intact. No cyanosis clubbing or edema. Skin is without rash. Brief neurologic examination is nonfocal. - Labs CBC & Chem 7: 06/19/16 05:44 06/19/16 05:44 Labs: Abnormal Lab Results - Last 24 Hours (Table) 06/18/16 06/18/16 06/19/16 Range/Units 16:18 21:22 05:44 WBC (3.8-10.6) k/uL RBC (4.30-5.90) m/uL Hgb (13.0-17.5) gm/dL Hct (39.0-53.0) % Neutrophils # (1.3-7.7) k/uL Lymphocytes # (1.0-4.8) k/uL Sodium (137-145) mmol/L Chloride (98-107) mmol/L Carbon Dioxide (22-30) mmol/L BUN (9-20) mg/dL POC Glucose (mg/dL) 174 H 179 H (75-99) mg/dL Hemoglobin A1c 6.8 H (4.2-6.1) % 06/19/16 06/19/16 06/19/16 Range/Units 05:44 05:44 11:09 WBC 17.7 H (3.8-10.6) k/uL RBC 3.51 L (4.30-5.90) m/uL Hgb 10.6 L (13.0-17.5) gm/dL Hct 34.1 L (39.0-53.0) % Neutrophils # 16.1 H (1.3-7.7) k/uL Lymphocytes # 0.5 L (1.0-4.8) k/uL Sodium 134 L (137-145) mmol/L Chloride 95 L (98-107) mmol/L Carbon Dioxide 33 H (22-30) mmol/L BUN 37 H (9-20) mg/dL POC Glucose (mg/dL) 101 H (75-99) mg/dL Hemoglobin A1c (4.2-6.1) % Assessment and Plan (1) Prostate cancer Status: Acute (2) Pneumonia Status: Acute (3) Bronchiectasis Status: Acute (4) Diabetes Status: Acute (5) Hypertension Status: Acute (6) Pulmonary fibrosis Status: Acute Plan: Plan dated 06/18/2016 The patient's medications x-rays labs all be reviewed. We'll make sure he is on appropriate medications including antibiotics. He's mildly tachypnea. We' ll watch very carefully for any signs of deterioration. Should he show signs of deterioration, we may have to move him to the ICU. Alternatively, he can be placed on BiPAP. Additional recommendations suggestions are forthcoming. Prognosis is guarded. Plan dated 06/19/2016 Is on appropriate medications. He is on good antibiotics and breathing treatments. Receiving supplemental oxygen. We'll continue to follow closely. Yesterday he seemed a bit more tachypnea. Today he looks better and feels better. We'll continue to watch him closely and only move him should he show signs of deterioration. I think he is moving in the right direction currently based on today's evaluation. Time with Patient: Less than 30
[2016-06-19 16:28] LABS: Glucose,Whole Blood 102 mg/dL (75-99)
[2016-06-19] MEDS ORDERED: TEMAZEPAM 15 MG CAP PO PRN (20:33)
[2016-06-19 21:01] LABS: Glucose,Whole Blood 91 mg/dL (75-99)
[2016-06-20] MEDS: IPRATROPIUM-ALBUTEROL 3 ML NEB INHALATION PRN (02:15)
[2016-06-20 06:06] LABS: Glucose,Whole Blood 76 mg/dL (75-99)
--- NOTE | 2016-06-20 06:18 | ED ---
Medical Decision Making - Medical Decision Making I was called to the room because of a CODE BLUE got to the room the patient was pulseless and only occasional agonal the was occurring at that time. Patient was not breathing his own he was being bagged at that time. I intubated the patient saw the to go between the cords tube passed between the cords. Patient had good breath sounds bilaterally and no breath sounds in the epigastrium area. I also had good color change. After one dose of epinephrine the patient' s pulse returned and his blood pressure was mildly elevated and it was at this time that the patient was transferred to the ICU. - Lab Data Result diagrams: 06/19/16 05:44 06/19/16 05:44 Lab Results 06/18/16 06/18/16 06/18/16 Range/Units 09:54 09:54 09:54 WBC 19.9 H (3.8-10.6) k/uL RBC 3.86 L (4.30-5.90) m/uL Hgb 11.4 L (13.0-17.5) gm/dL Hct 37.1 L (39.0-53.0) % MCV 96.1 (80.0-100.0) fL MCH 29.4 (25.0-35.0) pg MCHC 30.6 L (31.0-37.0) g/dL RDW 14.0 (11.5-15.5) % Plt Count 228 (150-450) k/uL Neutrophils % 92 % Lymphocytes % 2 % Monocytes % 4 % Eosinophils % 1 % Basophils % 0 % Neutrophils # 18.4 H (1.3-7.7) k/uL Lymphocytes # 0.3 L (1.0-4.8) k/uL Monocytes # 0.8 (0-1.0) k/uL Eosinophils # 0.1 (0-0.7) k/uL Basophils # 0.0 (0-0.2) k/uL Hypochromasia Slight PT (9.0-12.0) sec INR (<1.1) APTT (22.0-30.0) sec Sodium 134 L (137-145) mmol/L Potassium 5.2 H (3.5-5.1) mmol/L Chloride 92 L (98-107) mmol/L Carbon Dioxide 34 H (22-30) mmol/L Anion Gap 8 mmol/L BUN 33 H (9-20) mg/dL Creatinine 1.00 (0.66-1.25) mg/dL Est GFR (MDRD) Af Amer >60 (>60 ml/min/1.73 sqM) Est GFR (MDRD) Non-Af >60 (>60 ml/min/1.73 sqM) Glucose 270 H (74-99) mg/dL Plasma Lactic Acid Mike 2.1 H (0.7-2.0) mmol/L Calcium 9.3 (8.4-10.2) mg/dL Total Bilirubin 0.9 (0.2-1.3) mg/dL AST 25 (17-59) U/L ALT 25 (21-72) U/L Alkaline Phosphatase 79 (38-126) U/L Total Protein 7.4 (6.3-8.2) g/dL Albumin 3.5 (3.5-5.0) g/dL Urine Color Urine Appearance (Clear) Urine pH (5.0-8.0) Ur Specific [place] (1.001-1.035) Urine Protein (Negative) Urine Glucose (UA) (Negative) Urine Ketones (Negative) Urine Blood (Negative) Urine Nitrite (Negative) Urine Bilirubin (Negative) Urine Urobilinogen (<2.0) mg/dL Ur Leukocyte Esterase (Negative) Urine RBC (0-5) /hpf Urine WBC (0-5) /hpf Hyaline Casts (0-2) /lpf Urine Mucus (None) /hpf Influenza Type A RNA (Not Detectd) Influenza Type B (PCR) (Not Detectd) 06/18/16 06/18/16 06/18/16 Range/Units 09:54 09:54 09:58 WBC (3.8-10.6) k/uL RBC (4.30-5.90) m/uL Hgb (13.0-17.5) gm/dL Hct (39.0-53.0) % MCV (80.0-100.0) fL MCH (25.0-35.0) pg MCHC (31.0-37.0) g/dL RDW (11.5-15.5) % Plt Count (150-450) k/uL Neutrophils % % Lymphocytes % % Monocytes % % Eosinophils % % Basophils % % Neutrophils # (1.3-7.7) k/uL Lymphocytes # (1.0-4.8) k/uL Monocytes # (0-1.0) k/uL Eosinophils # (0-0.7) k/uL Basophils # (0-0.2) k/uL Hypochromasia PT 12.1 H (9.0-12.0) sec INR 1.2 (<1.1) APTT 24.5 (22.0-30.0) sec Sodium (137-145) mmol/L Potassium (3.5-5.1) mmol/L Chloride (98-107) mmol/L Carbon Dioxide (22-30) mmol/L Anion Gap mmol/L BUN (9-20) mg/dL Creatinine (0.66-1.25) mg/dL Est GFR (MDRD) Af Amer (>60 ml/min/1.73 sqM) Est GFR (MDRD) Non-Af (>60 ml/min/1.73 sqM) Glucose (74-99) mg/dL Plasma Lactic Acid Mike (0.7-2.0) mmol/L Calcium (8.4-10.2) mg/dL Total Bilirubin (0.2-1.3) mg/dL AST (17-59) U/L ALT (21-72) U/L Alkaline Phosphatase (38-126) U/L Total Protein (6.3-8.2) g/dL Albumin (3.5-5.0) g/dL Urine Color Dark Yellow Urine Appearance Clear (Clear) Urine pH 6.0 (5.0-8.0) Ur Specific [place] 1.026 (1.001-1.035) Urine Protein 2+ H (Negative) Urine Glucose (UA) Trace H (Negative) Urine Ketones Trace H (Negative) Urine Blood Small H (Negative) Urine Nitrite Negative (Negative) Urine Bilirubin Negative (Negative) Urine Urobilinogen 2.0 (<2.0) mg/dL Ur Leukocyte Esterase Trace H (Negative) Urine RBC 9 H (0-5) /hpf Urine WBC 2 (0-5) /hpf Hyaline Casts 12 H (0-2) /lpf Urine Mucus Many H (None) /hpf Influenza Type A RNA Not Detected (Not Detectd) Influenza Type B (PCR) Not Detected (Not Detectd) Disposition Clinical Impression: Severe sepsis, Pneumonia Disposition: ADMITTED IP TO THIS HOSP Condition: Serious Procedures - Intubation Laryngoscope: Aguero Size: 3 ET Tube Size: 8 ET Tube Uncuffed: No Tube Secured Location: teeth Tube Placement Confirmation: visualized tube passing through cords, equal breath sounds bilaterally, no breath sounds over epigastrium, confirmation by capnometry Patient Tolerated Procedure: well Intubation Complications: none
[2016-06-20 06:33] LABS: Glucose,Whole Blood 118 mg/dL (75-99)
[2016-06-20 06:37] LABS: Basophils % (A) 0 %; CH 29.1; CHCM 29.3; Eosinophils % (A) 0 %; HCT 36.3 % (39.0-53.0); HDW 2.87; HGB 11.2 gm/dL (13.0-17.5); Hypochromasia Marked; Luc # (Auto) 0.37; Luc % (Auto) 2; Lymphocytes % (A) 6 %; MCH 30.6 pg (25.0-35.0); MCHC 30.7 g/dL (31.0-37.0); MCV 99.6 fL (80.0-100.0); Monocytes # (A) 0.8 k/uL (0-1.0); Monocytes % (A) 5 %; Neutrophils # (A) 14.3 k/uL (1.3-7.7); Neutrophils % (A) 87 %; RBC 3.65 m/uL (4.30-5.90); RDW 13.4 % (11.5-15.5); WBC 16.5 k/uL (3.8-10.6); WBC (Perox) 15.89
[2016-06-20 06:42] LABS: INR 1.1 (<1.1); Partial Thromboplastin Time 25.2 sec (22.0-30.0); Prothrombin Time 11.1 sec (9.0-12.0)
[2016-06-20] MEDS ORDERED: PROPOFOL 50 ML IV ONE (06:43)
[2016-06-20] MEDS ORDERED: NOREPINEPHRIN 4 MG-0.9% NS PMX 4 MG/250 ML ML IV ONE (06:46)
[2016-06-20 06:52] LABS: Calcium 9.5 mg/dL (8.4-10.2); Magnesium 2.2 mg/dL (1.6-2.3); Potassium 5.2 mmol/L (3.5-5.1); Total Bilirubin 0.4 mg/dL (0.2-1.3)
[2016-06-20] MEDS: PROPOFOL 500 MG in EMPTY BAG 1 BAG IV SCH ×4 (07:00→20:08)
--- NOTE | 2016-06-20 07:01 | XR ---
EXAM: XR Chest, 1 View. CLINICAL HISTORY: Reason: tube placement TECHNIQUE: Frontal view of the chest. COMPARISON: 06/19/2016 0648 FINDINGS: Lungs: Persistent diffuse bilateral airspace opacities with more confluent areas of consolidation in the left lung. Possible left pleural effusion. Pleural space: See above. Heart: Stable cardiomediastinal silhouette. Mediastinum: See above. Bones/joints: No acute osseous abnormality. Tubes, lines and devices: Endotracheal tube terminates 4 cm above the heron. Esophagogastric tube traverses the diaphragm and extends off the [id number]. Multiple telemetry leads overlie the patient. IMPRESSION: 1. Endotracheal tube terminates 4 cm above the heron. 2. Esophagogastric tube traverses the diaphragm and extends off the [id number].
[2016-06-20] MEDS: AZTREONAM 2 GM in SODIUM CHLORIDE 0.9% 100 ML IVPB SCH ×3 (07:17→22:33)
--- NOTE | 2016-06-20 07:35 | PN ---
DATE OF SERVICE: 06/19/2016 This 80-year-old gentleman was admitted with shortness of breath, was thought to have bilateral pneumonia with possible sepsis. The patient has been closely monitored at this time. The patient is on broad-spectrum IV antibiotics. Dr. Richardson is following the patient closely. The patient is closely monitored. The patient is a BiPAP at some point in time. PAST MEDICAL HISTORY: CARDIOVASCULAR: No angina. RESPIRATORY: As mentioned earlier. GI: As mentioned earlier. : No dysuria. NERVOUS SYSTEM: No numbness or weakness. Current medications are reviewed and include: 1. Tylenol 500 q.6 p.r.n. 2. [place] 5 mg q.6 p.r.n. 3. DuoNeb q.i.d. and p.r.n. 4. Xanax 0.5 t.i.d. 5. Vitamin C 1000 mg daily. 6. Aztreonam 2 grams IV q.8. 7. Pulmicort 1 mg b.i.d. 8. Perforomist 20 mcg daily. 9. Glucotrol 10 mg b.i.d. 10. Heparin 5000 subcu b.i.d. 11. Levaquin 750 q.24h. 12. Zestril 10 mg daily. 13. Glucophage. 14. Multivitamins. 15. Protonix. PHYSICAL EXAMINATION: Patient is alert and oriented x3. Pulse is 85, blood pressure 95/52, respirations 18, temperature 96.9, pulse ox 97% on 2-L. HEENT: Conjunctivae normal. Oral mucosa moist. NECK: No jugular venous distention. No carotid bruit. No lymph node enlargement. CARDIOVASCULAR: S1 and S2, muffled. No S3, no S4. RESPIRATORY: Breath sounds diminished at the bases. Bilateral scattered rhonchi and crackles. ABDOMEN: Soft, obese, nontender, no mass palpable. LEGS: No edema, no swelling. NERVOUS SYSTEM: Higher function as mentioned. Moves all four limbs. No focal motor deficits. LYMPHATIC: No lymphadenopathy in the neck, axillae or groin. SKIN: No ulcer, rash or bleeding. LABS: WBC 8.7, hemoglobin 10.6, sodium 135. ASSESSMENT: 1. Bilateral pneumonia with possible acute sepsis, present on admission. 2. Bilateral bronchiectasis history. 3. Increased WBC. 4. Anemia, normocytic. 5. Hyponatremia. 6. Hyperkalemia. 7. Increased plasma lactic acid 2.1. 8. History of diabetes mellitus type 2. 9. History of asthma. 10. History of hypertension. 11. History of degenerative joint disease. 12. History of pneumonia. 13. History of pulmonary fibrosis. 14. Chronic respiratory failure, hypoxic, 2 to 3 liters nasal cannula at home. 15. History of prostate cancer. 16. History of degenerative joint disease. 17. FULL CODE. RECOMMENDATIONS AND DISCUSSION: In this 80-year-old gentleman who presented with multiple complex medical issues, we will monitor the patient closely. Continue the current medications, continue symptomatic treatment. I recommend to continue with bronchodilators, empiric antibiotics. Closely follow with Dr. Richardson's pulmonary team. Further recommendations to follow.
[2016-06-20] MEDS: BUDESONIDE 1 MG/2 ML NEBU INHALATION SCH ×2 (08:09→20:40)
[2016-06-20] MEDS: IPRATROPIUM-ALBUTEROL 3 ML NEB INHALATION SCH ×4 (08:10→20:40)
[2016-06-20] MEDS: FORMOTEROL FUMARATE 20 MCG/2 ML NEBU INHALATION SCH ×2 (08:10→20:40)
[2016-06-20] MEDS: INSULIN LISPRO (humaLOG) 300 UNIT/3 ML VIAL SQ SCH ×4 (08:17→20:40)
[2016-06-20] MEDS: LISINOPRIL 10 MG TAB PO SCH (08:17)
[2016-06-20] MEDS: CHLORHEXIDINE GLUCONATE 15 ML CUP MUCOUS MEM SCH ×2 (08:18→20:09)
[2016-06-20 08:22] LABS: ABG Base Excess 2.2 mmol/L; ABG HCO3 28 mmol/L (21-25); ABG PCO2 55 mmHg (35-45); ABG PH 7.32 (7.35-7.45); ABG TCO2 29 mmol/L (19-24)
[2016-06-20] MEDS: HEPARIN SODIUM,PORCINE 5,000 UNIT/ML 1 ML VIAL SQ SCH ×2 (10:45→20:09)
[2016-06-20] MEDS: PANTOPRAZOLE 40 MG TABLET PO SCH (10:45)
[2016-06-20] MEDS: metFORMIN 500 MG TAB PO SCH (10:46)
[2016-06-20] MEDS: glipiZIDE 10 MG TAB PO SCH (10:46)
[2016-06-20] MEDS: MULTIVITAMINS, THERA 1 EACH TAB PO SCH (11:47)
[2016-06-20] MEDS: SODIUM CHLORIDE 0.9% 1,000 ML IV SCH (11:47)
[2016-06-20] MEDS: VITAMIN E (DL,TOCOPHERYL ACET) 400 UNIT CAP PO SCH (11:47)
[2016-06-20] MEDS ORDERED: SODIUM CHLORIDE 0.9% 1,000 ML IV ONE ×2 (13:11→15:18)
[2016-06-20 13:14] LABS: Glucose,Whole Blood 140 mg/dL (75-99)
[2016-06-20 13:16] LABS: ABG PO2 >400 mmHg (83-108)
--- NOTE | 2016-06-20 15:04 | PN ---
CRITICAL CARE TIME: 36 minutes. This is an 80-year-old gentleman whom I saw a couple days back for bilateral pneumonia. I saw him yesterday as well. Yesterday, he was doing well. He was sitting in the bed. He was sitting upright. No respiratory distress. He states he was feeling better. He was a little short of breath. Coughing with some chest congestion. Anyway, it looked like he had started to respond to therapy for bilateral pneumonia, left greater than right. More recently what happened was he apparently had an episode of bradycardia out on the floor. The patient had a brief cardiopulmonary arrest. He had 7 minutes of cardiopulmonary resuscitation and eventually after 1 dose of epinephrine, had return of spontaneous circulation. Apparently, there was no pulse. Anyway, the patient was intubated and transferred to the ICU. He is currently here. His vent settings are the assist control mode rate of 16, tidal volume of 500, FiO2 of 50%, PEEP of 5. Blood gases on those same settings except 100% show a pO2 of 416, pCO2 of 55, pH of 7.32. We decided to dropped the tidal volume down to 450 and increase the rate to 18. In addition, he is on 0.9 IV at 100, Diprivan a 20 mcg per kilogram per minute, Levophed at 10 mcg/min dropped down at 5 mcg per minute. We are going to wake the patient up to see whether or not he would be a candidate for a spontaneous breathing trial. Nobody is clear as to what happened to this patient last night. Current vital signs are reviewed. Temperature 98.7, heart rate 87, respiratory rate 18, blood pressure 125/62, mean 83, saturations 99% on 50% and 5 of PEEP. Appears in no acute distress, currently sedated. Endotracheal tube and NG tube in place. HEENT is grossly unremarkable. Mucous membranes are moist. NECK: Supple. Full range of motion. No adenopathy or thyromegaly. Neck veins are flat. Cardiovascular reveals regular rhythm and rate. S1, S2 normal. Heart sounds are distant. No murmur. Lungs reveal coarse rhonchi bilaterally. Breath sounds equal. ABDOMEN: Soft. Bowel sounds are heard. Extremities are intact. No cyanosis, clubbing or edema. Skin without rash or lesion. NEUROLOGICAL: Cannot be performed. Currently, lab data includes a white count of 16.5, hemoglobin 11.2, hematocrit 36.3, platelet count 327,000. Blood gases have already been noted. sodium 136, potassium 5.2, chloride 95, CO2 of 31, BUN and creatinine were 48 and 1.49 albumin 3.1. Microbiology is showing blood cultures no growth x2. Urine culture showed evidence of group B Enterococcus and Klebsiella oxytoca. Medications are reviewed. They will be adjusted accordingly. For antibiotics, he is on Levaquin and aztreonam. The Klebsiella is sensitive to Levaquin and also aztreonam. No sensitivities for the group B Enterococcus. Chest x-ray shows bilateral diffuse infiltrates, more so on the left side than the right side. This has been his pattern all along. Will make sure that we get a sputum sample. ASSESSMENT: 1. Acute hypoxemic respiratory failure of unclear etiology. The patient apparently had an episode of bradycardia, received 1 round of epinephrine cardiopulmonary resuscitation and after about a 7-minute resuscitation, had return of spontaneous circulation. 2. Bilateral pneumonia, left greater than right. 3. History of prostate cancer. 4. History of bronchiectasis. 5. Diabetes. 6. History of hypertension. 7. History of pulmonary fibrosis. PLAN: Will go ahead and hold the sedation. Will get some weaning parameters. The patient will be placed on PSV 5, CPAP of 5. He may or may not need to be extubated. Levophed dose has come down nicely. Additional recommendations and suggestions are forthcoming. Medications will be reviewed and adjusted accordingly.
[2016-06-20 18:25] LABS: Glucose,Whole Blood 118 mg/dL (75-99)
[2016-06-20 20:40] LABS: Glucose,Whole Blood 102 mg/dL (75-99)
[2016-06-21 05:05] LABS: ABG Base Excess 2.5 mmol/L; ABG HCO3 27 mmol/L (21-25); ABG PCO2 44 mmHg (35-45); ABG PO2 162 mmHg (83-108); ABG TCO2 28 mmol/L (19-24)
[2016-06-21 05:06] LABS: Basophils % (A) 0 %; CH 29.5; CHCM 31.2; Eosinophils # (A) 0.1 k/uL (0-0.7); Eosinophils % (A) 1 %; HCT 30.3 % (39.0-53.0); HDW 2.72; Hypochromasia Slight; Luc % (Auto) 2; Lymphocytes # (A) 0.6 k/uL (1.0-4.8); Lymphocytes % (A) 7 %; MCH 30.6 pg (25.0-35.0); MCHC 32.2 g/dL (31.0-37.0); MCV 95.1 fL (80.0-100.0); Monocytes # (A) 0.7 k/uL (0-1.0); Monocytes % (A) 8 %; Neutrophils # (A) 7.6 k/uL (1.3-7.7); Neutrophils % (A) 83 %; RBC 3.18 m/uL (4.30-5.90); RDW 13.9 % (11.5-15.5); WBC 9.2 k/uL (3.8-10.6); WBC (Perox) 9.09
[2016-06-21 05:09] LABS: HGB 9.7 gm/dL (13.0-17.5)
[2016-06-21 05:24] LABS: Anion Gap 3 mmol/L; Blood Urea Nitrogen 61 mg/dL (9-20); Calcium 8.5 mg/dL (8.4-10.2); Carbon Dioxide 29 mmol/L (22-30); Chloride 105 mmol/L (98-107); Glucose 85 mg/dL (74-99); Magnesium 1.9 mg/dL (1.6-2.3); Non-African American GFR(MDRD) 58 (>60 ml/min/1.73 sqM); Phosphorous 2.8 mg/dL (2.5-4.5); Potassium 5.5 mmol/L (3.5-5.1); Sodium 137 mmol/L (137-145)
[2016-06-21] MEDS ORDERED: Magnesium Replacement Protocol 1 EACH MISC MISCELLANE PRN (05:43)
[2016-06-21] MEDS: MAGNESIUM SULFATE-D5W PMX 1 GM in DEXTROSE/WATER 1 100ML.BAG IVPB SCH ×2 (06:10→08:52)
[2016-06-21] MEDS: PROPOFOL 500 MG in EMPTY BAG 1 BAG IV SCH ×8 (06:30→21:42)
[2016-06-21] MEDS: AZTREONAM 2 GM in SODIUM CHLORIDE 0.9% 100 ML IVPB SCH ×3 (07:24→23:54)
[2016-06-21 08:07] LABS: Glucose,Whole Blood 97 mg/dL (75-99)
[2016-06-21] MEDS: BUDESONIDE 1 MG/2 ML NEBU INHALATION SCH ×2 (08:20→19:52)
[2016-06-21] MEDS: FORMOTEROL FUMARATE 20 MCG/2 ML NEBU INHALATION SCH ×2 (08:20→19:52)
[2016-06-21] MEDS: IPRATROPIUM-ALBUTEROL 3 ML NEB INHALATION SCH ×4 (08:20→19:52)
--- NOTE | 2016-06-21 08:40 | PN ---
DATE OF SERVICE: 06/20/2016 This 80-year-old gentleman who was admitted with bilateral pneumonia with possible acute sepsis, present on admission also had bilateral bronchiectasis. Yesterday the patient went into cardiorespiratory arrest and the patient was transferred to ICU. Patient mechanically intubated. Patient being closely monitored. noted at this time. The patient was also given epinephrine. The pulse returned after that, after the CODE BLUE. The patient is currently sedated and unable to get coherent history. Most of the history taken from my discussion with staff and review of the chart and discussion with the daughter at the bedside. PAST MEDICAL HISTORY: Reviewed. REVIEW OF SYSTEMS: Could not be taken. Current medications are reviewed and include: 1. Duoneb q.i.d. and p.r.n. 2. Aztreonam 2 grams IV q.8. 3. Pulmicort 1 mg b.i.d. 4. Chlorhexidine. 5. Perforomist 20 mg b.i.d. 6. Heparin 5000 subcu b.i.d. 7. Humalog scale. 8. Levaquin 750 q.48 hours. 9. Multivitamins. 10. Protonix 40 mg b.i.d. 11. Propofol drip. 12. Vitamin E. PHYSICAL EXAMINATION: Patient is mechanically sedated. Pulse 87, blood pressure 118/52, respirations 18, normal, pulse ox is 99% on 50% FiO2, other are noted. HEENT: Conjunctivae normal. Oral mucosa moist. NECK: No jugular venous distention. No carotid bruit. No lymph node enlargement. CARDIOVASCULAR: S1, S2 muffled. RESPIRATORY: Breath sounds diminished at the bases. Bilateral scattered rhonchi and crackles. Expiratory wheezing also present. ABDOMEN: Soft. Nontender. LEGS: No edema. No swelling. Nervous system: The patient is mechanically sedated. SKIN: No ulcer, rash or bleeding. LABS: Chest x-ray personally reviewed and significant lesions in the left side present. WBC 16.3, hemoglobin of 11.3, ABGs showed pH of 7.32, creatinine 1.49. ASSESSMENT: 1. Bilateral pneumonia with acute sepsis and as well as hypoxic hypercapnic respiratory failure status post mechanical ventilation. 2. Bilateral bronchiectasis history. 3. Increased WBC. 4. Anemia, normocytic. 5. Hyponatremia. 6. Hyperkalemia. 7. Increased plasma lactic acid 2.1. 8. History of diabetes mellitus type 2. 9. History of asthma. 10. History of hypertension. 11. History of degenerative joint disease. 12. History pneumonia. 13. History of pulmonary fibrosis. 14. History of chronic respiratory failure, hypoxic on 2 to 3 liters nasal cannula at home. 15. History of prostate cancer. 16. History degenerative joint disease. 17. FULL CODE. RECOMMENDATION: In this 80-year-old gentleman who presented with multiple complex medical issues, we will monitor the patient closely. Continue the current medications, continue symptomatic treatment. Otherwise at this time, I will recommend continue with current medications, continue with broad-spectrum IV antibiotics, continue with bronchodilators. Follow the cultures closely. Otherwise, mechanical ventilation per Dr. Richardson. Guarded prognosis. Further recommendations to follow. MTDD
--- NOTE | 2016-06-21 08:53 | XR ---
EXAMINATION TYPE: XR chest 1V portable DATE OF EXAM: 06/21/2016 6:18 AM COMPARISON: 06/20/2016 INDICATION: Previous abnormal chest TECHNIQUE: Single frontal view of the chest is obtained. FINDINGS: The heart size is normal. The pulmonary vasculature is normal. There is opacity through the left lung. Mild opacities at the right base. Right upper lung field find ings a slight improvement. Mediastinal may be shifted to the left suggesting some atelectasis on the left. Endotracheal tube is present with tip above the heron. Nasogastric tube transverses the thorax. EKG lines overlie the chest. IMPRESSION: 1. Slight improvement from prior study. Correlate for pneumonia and atelectasis. Continued follow-up is recommended.
[2016-06-21] MEDS: INSULIN LISPRO (humaLOG) 300 UNIT/3 ML VIAL SQ SCH ×4 (08:55→21:34)
[2016-06-21] MEDS: CHLORHEXIDINE GLUCONATE 15 ML CUP MUCOUS MEM SCH ×2 (10:01→21:42)
[2016-06-21] MEDS: HEPARIN SODIUM,PORCINE 5,000 UNIT/ML 1 ML VIAL SQ SCH ×2 (10:01→21:42)
[2016-06-21] MEDS: SODIUM CHLORIDE 0.9% 1,000 ML IV SCH (10:27)
[2016-06-21] MEDS ORDERED: LEVOFLOXACIN 750MG-D5W PMX 750 MG in DEXTROSE/WATER 1 150ML.BAG IVPB SCH (12:00)
[2016-06-21 12:20] LABS: Glucose,Whole Blood 139 mg/dL (75-99)
[2016-06-21] MEDS: VITAMIN E (DL,TOCOPHERYL ACET) 400 UNIT CAP PO SCH (12:31)
[2016-06-21] MEDS: MULTIVITAMINS, THERA 1 EACH TAB PO SCH (12:31)
--- NOTE | 2016-06-21 15:56 | PN ---
DATE OF SERVICE: 06/21/2016 This is an 80-year-old gentleman who was admitted on 06/18/2016 with bilateral pneumonia. He had been doing well out on the regular medical floor and then he had developed significant episode of bradycardia and required brief CPR. He had about 7 minutes of CPR and one dose of epinephrine with subsequent return of spontaneous circulation. He was transferred to the intensive care unit intubated and placed on the mechanical ventilator. His current vent settings are assist control of 18, tidal volume 450, a pO2 of 50% and a PEEP of 5. Morning blood gases reveal a pO2 of 162, pCO2 of 44 and a pH of 7.4 and his FiO2 will be weaned down to 40%. Unfortunately his chest x-ray continues to show a near complete left lung white out. He is also had increased peak pressures. He has been given daily interruption of sedation; however, he is not able to follow any commands. Not making good eye contact and currently remains sedated on propofol at 25 mcg/kg per minute. He remains in sinus rhythm. His Levophed has been weaned off. On physical exam, he is sedated, intubated on the mechanical ventilator. Vital signs reveal blood pressure 137/74, heart rate 93, respirations 25, temperature is 98.5 axillary. He is 98% O2 saturation on 40% FiO2. His head is normocephalic. Sclerae are anicteric. His oral endotracheal and gastric tubes are secured in place. His neck is supple. His lungs have bilateral scattered rhonchi, more so on the left, diminished. His heart is regular. S1, S2. His abdomen is soft. There is trace peripheral edema. No clubbing. No cyanosis. Peripheral pulses are intact. INVESTIGATIONS: Urine culture is positive for Enterococcus faecalis and klebsiella oxytoca. Lab results reveal WBC 9.2, hemoglobin 9.7, platelet count 212,000. Sodium 137, potassium 5.5, chloride 105, CO2 of 29, BUN 61, creatinine 1.20. Medications are reviewed. IMPRESSION: 1. Acute hypoxic respiratory failure secondary to cardiopulmonary arrest with 7 minutes of cardiopulmonary resuscitation, 1 amp of epinephrine with return of spontaneous circulation. 2. Bilateral pneumonia with near-complete whiteout of the left lung. 3. History of prostate cancer. 4. History of bronchiectasis. 5. Diabetes. 6. Hypertension. 7. Pulmonary fibrosis. 8. Urinary tract infection of Enterococcus faecalis and klebsiella oxytoca. PLAN: The patient was seen and evaluated by Dr. Richardson. The patient continues to receive daily interruption of sedation without much improvement neurologically. His chest x-ray again shows a near complete whiteout. He remains on antibiotics in the form of aztreonam and Levaquin. He is also on some bronchodilators q.4 hours. He remains on Pulmicort and Perforomist inhalations b.i.d. He is on heparin for DVT prophylaxis and Protonix for GI prophylaxis. Will initiate tube feeding and get nutrition recommendations. Will repeat chest x-ray, ABGs and labs in the a.m. We will continue to follow and make further recommendations based on his clinical status. Critical care time is 38 minutes.
[2016-06-21 18:07] LABS: Glucose,Whole Blood 144 mg/dL (75-99)
[2016-06-21 20:48] LABS: Glucose,Whole Blood 126 mg/dL (75-99)
--- NOTE | 2016-06-21 21:05 | PN ---
DATE OF SERVICE: 06/21/2016 This 80-year-old gentleman who was admitted with bilateral pneumonia also had features of hypoxic hypercarbic respiratory failure. The patient is also on mechanical ventilation, currently monitored in the ICU. The most recent chest x-ray which was reviewed personally by me today shows significant lesions on both bilateral left more than the right, almost whiteout on the left lung. The patient also had copious secretions from suctioned out as well. Otherwise urine culture showed Enterococcus faecalis and Klebsiella Oxytoca. The enterococcus faecalis is vancomycin sensitive. The patient is on currently in a combination of Azactam and as well as Levaquin. Past medical history reviewed. Review of systems could not be taken. The patient mechanically ventilated. The current medications are reviewed and include: 1. Duoneb q.i.d. and p.r.n. 2. Mestinon 2 grams IV q.8. 3. Pulmicort 1 mg b.i.d. 4. Perforomist. 5. Heparin. 6. Humalog. 7. Levaquin. 8. Multivitamins. 9. Protonix. 10. Vitamin E. PHYSICAL EXAMINATION: The patient is mechanically sedated. Pulse 78. Blood pressure 120/83. Respiratory rate 18. Temperature normal. Pulse ox 98% on 50% FIO2. Vent settings noted. HEENT: Conjunctivae normal. NECK: No jugular venous distention. CARDIOVASCULAR: S1, S2 muffled. RESPIRATORY: Breath sounds diminished in the bases. A few bilateral scattered rhonchi and crackles. ABDOMEN: Soft and nontender. Legs: No edema. No swelling. CENTRAL NERVOUS SYSTEM: No focal deficits. LABS: WBC 9.3, hemoglobin is 9.7. ABGs noted. Potassium 5.5. ASSESSMENT: 1. Bilateral pneumonia, left more than the right, with acute severe sepsis as well as acute hypoxic hypercarbic respiratory failure on mechanical ventilation. 2. Bilateral bronchiectasis history. 3. Urinary tract infection with Vancomycin sensitive Enterococcus faecalis and Klebsiella Oxytoca. 4. Increased WBC. 5. Anemia, normocytic. 6. Hyponatremia. 7. Hyperkalemia. 8. Increased plasma lactic acid 2.1. 9. History of diabetes. 10. History of asthma. 11. Hypertension. 12. History of degenerative joint disease. 13. History of pneumonia. 14. History of pulmonary fibrosis. 15. History of chronic respiratory failure, hypoxic 2 to 3 liters nasal cannula. 16. History of prostate cancer. 17. History of degenerative joint disease. 18. FULL CODE. RECOMMENDATIONS AND DISCUSSION: In this 80-year-old gentleman who presented with multiple complex medical issues, we will monitor the patient closely, continue the broad-spectrum IV antibiotics. Urine culture showed urinary tract infection. Continue current antibiotic. I would also recommend infectious disease evaluation. Otherwise, closely follow with Dr. Richardson regarding vent management. Discussed with the family at the bedside, the daughter at the bedside. Further recommendations to follow. MTDD
[2016-06-21] MEDS: PANTOPRAZOLE 40 MG TABLET PO SCH (21:36)
[2016-06-22] MEDS: PROPOFOL 500 MG in EMPTY BAG 1 BAG IV SCH ×10 (01:08→22:30)
[2016-06-22 05:01] LABS: ABG Base Excess 3.7 mmol/L; ABG HCO3 28 mmol/L (21-25); ABG PCO2 44 mmHg (35-45); ABG PH 7.42 (7.35-7.45); ABG PO2 102 mmHg (83-108); ABG TCO2 29 mmol/L (19-24)
[2016-06-22 05:07] LABS: Anion Gap 4 mmol/L; Calcium 8.8 mg/dL (8.4-10.2); Carbon Dioxide 29 mmol/L (22-30); Chloride 105 mmol/L (98-107); Glucose 156 mg/dL (74-99); Non-African American GFR(MDRD) >60 (>60 ml/min/1.73 sqM); Sodium 138 mmol/L (137-145)
[2016-06-22 05:19] LABS: Potassium 5.6 mmol/L (3.5-5.1)
[2016-06-22 05:20] LABS: Blood Urea Nitrogen 46 mg/dL (9-20); Magnesium 2.2 mg/dL (1.6-2.3); Phosphorous 3.3 mg/dL (2.5-4.5)
[2016-06-22] MEDS: AZTREONAM 2 GM in SODIUM CHLORIDE 0.9% 100 ML IVPB SCH (05:26)
[2016-06-22 06:00] LABS: Basophils % (A) 0 %; CH 29.3; CHCM 30.9; Eosinophils # (A) 0.1 k/uL (0-0.7); Eosinophils % (A) 2 %; HCT 30.6 % (39.0-53.0); HDW 2.82; HGB 9.7 gm/dL (13.0-17.5); Hypochromasia Moderate; Luc # (Auto) 0.16; Luc % (Auto) 2; Lymphocytes # (A) 0.3 k/uL (1.0-4.8); Lymphocytes % (A) 5 %; MCH 30.2 pg (25.0-35.0); MCHC 31.7 g/dL (31.0-37.0); MCV 95.3 fL (80.0-100.0); Mean Platelet Volume 7.1; Monocytes # (A) 0.5 k/uL (0-1.0); Monocytes % (A) 8 %; Neutrophils # (A) 5.5 k/uL (1.3-7.7); Neutrophils % (A) 83 %; RBC 3.21 m/uL (4.30-5.90); RDW 13.6 % (11.5-15.5); WBC 6.7 k/uL (3.8-10.6); WBC (Perox) 6.68
[2016-06-22] MEDS ORDERED: IV VANCOMYCIN PER PHARMACY 1 EACH MISC MISCELLANE PRN (06:23)
--- NOTE | 2016-06-22 07:40 | XR ---
EXAMINATION TYPE: XR chest 1V portable DATE OF EXAM: 06/22/2016 7:00 AM CLINICAL HISTORY: Difficulty breathing progress study. TECHNIQUE: Single AP portable upright view of the chest is obtained. COMPARISON: Chest x-ray from one day earlier and CTA chest March 19, 2016. FINDINGS: An endotracheal tube and orogastric tube are stable in appearance. Left-sided volume loss is redemonstrated. There is chronic emphysematous change and with bilateral parenchymal scarring and left lung honeycombing with diffuse left lung opacity all redemonstrated. Cardiac silhouette is diffi cult to assess as left heart border is silhouetted. Osseous structures are intact. IMPRESSION: Overall stable findings, chronic emphysematous change with parenchymal fibrosis and lef t lung infiltrate on background of diffuse severe scarring or honeycombing.
[2016-06-22] MEDS: IPRATROPIUM-ALBUTEROL 3 ML NEB INHALATION SCH ×4 (07:56→20:10)
[2016-06-22] MEDS: BUDESONIDE 1 MG/2 ML NEBU INHALATION SCH ×2 (07:56→20:10)
[2016-06-22] MEDS: FORMOTEROL FUMARATE 20 MCG/2 ML NEBU INHALATION SCH ×2 (07:56→20:10)
[2016-06-22] MEDS ORDERED: VANCOMYCIN 1,750 MG in SODIUM CHLORIDE 0.9% 250 ML IVPB ONE (08:00)
[2016-06-22] MEDS: HEPARIN SODIUM,PORCINE 5,000 UNIT/ML 1 ML VIAL SQ SCH ×2 (09:41→22:30)
[2016-06-22] MEDS: PANTOPRAZOLE 40 MG/10 ML VIAL IVP SCH (09:41)
[2016-06-22] MEDS: CHLORHEXIDINE GLUCONATE 15 ML CUP MUCOUS MEM SCH ×2 (09:42→22:31)
[2016-06-22 11:54] LABS: Glucose,Whole Blood 176 mg/dL (75-99)
[2016-06-22] MEDS: INSULIN LISPRO (humaLOG) 300 UNIT/3 ML VIAL SQ SCH ×4 (14:09→22:30)
[2016-06-22] MEDS: VITAMIN E (DL,TOCOPHERYL ACET) 400 UNIT CAP PO SCH (14:09)
--- NOTE | 2016-06-22 14:38 | P.CONS ---
History of Present Illness - Reason for Consult Consult date: 06/22/16 Sepsis - History of Present Illness This is an 80-year-old male who presented to [facility] emergency center on June 18 with concerns for not feeling well and shortness of breath with recent treatment for pneumonia in March. He was found to have sepsis on presentation with fever of 101.1, leukocytosis of 19.9, tachycardia and tachypnea. Influenza testing was negative. Initial chest x- ray showed right lower lobe pneumonia with chronic consolidation of the left lung. Urinalysis was clear with nitrate negative leukoesterase trace with urine culture showing 10-49 colonies of Enterococcus faecalis and Klebsiella oxytoca. He was initially started on Azactam and Levaquin. On June 20 there was a CODE BLUE called. Patient was pulseless with no respirations. CPR was initiated and patient was given 1 dose of epinephrine. He was intubated and transferred to the intensive care unit. He has been followed by Dr. Richardson. Blood cultures 3 are showing no growth. Sputum culture is showing rare gram- positive cocci and normal alexsander. This morning, Azactam was discontinued and vancomycin started. It does not appear the patient was on antibiotics he has had adequate urine output. There is been no diarrhea and no skin breakdown. prior to his admission. Review of Systems ROS unobtainable: due to endotracheal tube Past Medical History Past Medical History: Asthma, Cancer, Diabetes Mellitus, Hypertension, Osteoarthritis (OA), Pneumonia, Respiratory Disorder Additional Past Medical History / Comment(s): Pulmonary fibrosis, CO2 retainer- pt's PCP suggested for pt to have tests run during this hospitalization to determine correct liter flow for his home O2- currently uses 2-3L/NC, NIDDM type II, prostate cancer with surgery, nose bleeds, arthritis multiple joints. PT/SPOUSE REQUESTING NO PHYSICAL THERAPY. History of Any Multi-Drug Resistant Organisms: None Reported Past Surgical History: Prostate Surgery Additional Past Surgical History / Comment(s): Prostatectomy, bronchoscopy(bx neg), bilateral cataracts removed with lens implants. Past Anesthesia/Blood Transfusion Reactions: No Reported Reaction Additional Past Anesthesia/Blood Transfusion Reaction / Comm: clausterphobia Past Psychological History: No Psychological Hx Reported Additional Psychological History / Comment(s): Pt resides with his spouse of 26yrs. He uses a cane to ambulate. He has home oxygen. He drives. Smoking Status: Former smoker Past Alcohol Use History: None Reported Additional Past Alcohol Use History / Comment(s): started smoking at age 14 quit age 21 can't remember how much he smoked. Past Drug Use History: None Reported - Past Family History Father History Unknown: Yes Additional Family Medical History / Comment(s): raised by great grandparents Mother History Unknown: Yes Additional Family Medical History / Comment(s): raised by great grandparents Medications and Allergies Home Medications Medication Instructions Recorded Confirmed Type Vitamin E (Dl,Tocopheryl Acet) 400 unit PO DAILY 03/19/16 06/18/16 History [Vitamin E] Ascorbic Acid [Vitamin C] 1,000 mg PO DAILY 06/18/16 06/18/16 History Multivitamins, Thera [Multivitamin 1 tab PO DAILY 06/18/16 06/18/16 History (formulary)] glipiZIDE [Glucotrol] 10 mg PO BID 06/18/16 06/18/16 History metFORMIN HCL [Glucophage] 500 mg PO BID 06/18/16 06/18/16 History Allergies Allergy/AdvReac Type Severity Reaction Status Date / Time Penicillins Allergy Anaphylaxis Verified 06/18/16 10:52 Physical Exam Vitals: Vital Signs Temp Pulse Resp BP Pulse Ox 06/22/16 08:29 73 06/22/16 08:16 74 06/22/16 08:15 70 06/22/16 07:57 74 06/22/16 07:00 77 18 124/59 98 06/22/16 06:30 77 17 124/58 99 06/22/16 06:00 77 19 122/57 98 06/22/16 05:30 75 18 127/65 98 06/22/16 05:00 78 18 127/60 99 06/22/16 04:30 75 17 119/61 99 06/22/16 04:00 98.6 F 79 17 130/64 98 06/22/16 03:30 74 18 123/61 98 06/22/16 03:00 79 17 126/64 98 06/22/16 02:30 76 18 131/62 99 06/22/16 02:00 78 17 132/63 99 06/22/16 01:30 78 22 149/65 100 06/22/16 01:00 80 18 150/61 99 06/22/16 00:30 79 16 150/65 98 06/22/16 00:00 97.9 F 78 18 147/65 98 06/21/16 23:30 74 18 139/63 98 06/21/16 23:05 76 17 138/61 98 06/21/16 23:00 75 17 138/61 98 06/21/16 22:30 75 15 140/64 98 06/21/16 22:00 76 24 132/61 99 06/21/16 21:30 71 18 129/61 99 06/21/16 21:00 71 17 135/61 99 06/21/16 20:30 70 18 133/62 99 06/21/16 20:20 73 06/21/16 20:07 73 06/21/16 20:00 97.7 F 77 18 140/63 99 06/21/16 19:53 73 06/21/16 19:30 74 17 127/62 99 06/21/16 19:00 73 18 132/61 99 06/21/16 18:30 76 18 126/62 99 06/21/16 18:00 74 17 141/64 100 06/21/16 17:30 76 20 128/65 98 06/21/16 17:00 75 17 128/65 99 06/21/16 16:30 72 17 134/62 99 06/21/16 16:19 71 06/21/16 16:00 98.4 F 63 18 129/61 99 06/21/16 15:56 77 06/21/16 15:30 78 17 120/62 99 06/21/16 15:00 70 17 116/60 99 06/21/16 14:30 71 17 119/59 99 06/21/16 14:00 72 17 118/59 99 06/21/16 13:30 78 18 120/56 98 06/21/16 13:00 79 17 130/58 99 06/21/16 12:30 73 18 133/61 100 06/21/16 12:06 75 06/21/16 12:00 98.4 F 71 18 136/61 99 06/21/16 11:50 75 06/21/16 11:30 77 17 131/63 99 06/21/16 11:00 78 18 135/65 98 06/21/16 10:30 83 17 137/64 99 06/21/16 10:00 87 18 140/69 99 Intake and Output 06/21/16 06/22/16 06/22/16 22:59 06:59 14:59 Intake Total 718.863 721.030 50 Output Total 630 630 75 Balance 88.863 91.030 -25 Intake: IV 340 260 20 Aztreonam 2 gm In Sodium 200 100 Chloride 0.9% 100 ml @ 100 mls/hr IVPB Q8H MICHAEL Rx#:[id number] Sodium Chloride 0.9% 1, 140 160 20 000 ml @ 20 mls/hr IV . Q24H MICHAEL Rx#:[id number] Intake, IV Titration 148.863 131.030 Amount Propofol 500 mg In Empty 148.863 131.030 Bag 1 bag @ Titrate IV . Q0M MICHAEL Rx#:[id number] Tube Feeding 230 300 30 Other 30 Output: Urine 630 630 75 Other: Voiding Method Indwelling Catheter Indwelling Catheter # Bowel Movements 0 0 Gen: This is an 80-year-old male. He is intubated on mechanical ventilation. HEENT: Head is atraumatic, normocephalic. Pupils equal, round. Sclerae is anicteric. Oral gastric and ET tube are in place. Oral mucous membranes are very dry. No thrush noted. NECK: Supple. No JVD. No lymphadenopathy. No thyromegaly. LUNGS: Bilateral scattered rhonchi. No intercostal retractions. HEART: Regular rate and rhythm. No murmur. ABDOMEN: Soft. Bowel sounds are present. No masses. No tenderness. EXTREMITIES: Bilateral 1+ pedal edema and hand edema. Her cells pedis +2 bilaterally. NEUROLOGICAL: Patient is sedated. Results Results: Laboratory Results WBC 6.7 k/uL (3.8-10.6) 06/22/16 05:30 RBC 3.21 m/uL (4.30-5.90) L 06/22/16 05:30 Hgb 9.7 gm/dL (13.0-17.5) L 06/22/16 05:30 Hct 30.6 % (39.0-53.0) L 06/22/16 05:30 MCV 95.3 fL (80.0-100.0) 06/22/16 05:30 MCH 30.2 pg (25.0-35.0) 06/22/16 05:30 MCHC 31.7 g/dL (31.0-37.0) 06/22/16 05:30 RDW 13.6 % (11.5-15.5) 06/22/16 05:30 Plt Count 227 k/uL (150-450) 06/22/16 05:30 Neutrophils % 83 % 06/22/16 05:30 Lymphocytes % 5 % 06/22/16 05:30 Monocytes % 8 % 06/22/16 05:30 Eosinophils % 2 % 06/22/16 05:30 Basophils % 0 % 06/22/16 05:30 Neutrophils # 5.5 k/uL (1.3-7.7) 06/22/16 05:30 Lymphocytes # 0.3 k/uL (1.0-4.8) L 06/22/16 05:30 Monocytes # 0.5 k/uL (0-1.0) 06/22/16 05:30 Eosinophils # 0.1 k/uL (0-0.7) 06/22/16 05:30 Basophils # 0.0 k/uL (0-0.2) 06/22/16 05:30 Hypochromasia Moderate 06/22/16 05:30 PT 11.1 sec (9.0-12.0) 06/20/16 06:10 INR 1.1 (<1.1) 06/20/16 06:10 APTT 25.2 sec (22.0-30.0) 06/20/16 06:10 Sample Site rrad 06/22/16 04:18 ABG pH 7.42 (7.35-7.45) 06/22/16 04:18 ABG pCO2 44 mmHg (35-45) 06/22/16 04:18 ABG pO2 102 mmHg (83-108) 06/22/16 04:18 ABG HCO3 28 mmol/L (21-25) H 06/22/16 04:18 ABG Total CO2 29 mmol/L (19-24) H 06/22/16 04:18 ABG O2 Saturation 98.0 % (94-97) H 06/22/16 04:18 ABG Base Excess 3.7 mmol/L 06/22/16 04:18 FiO2 40 % 06/22/16 04:18 Sodium 138 mmol/L (137-145) 06/22/16 03:59 Potassium 5.6 mmol/L (3.5-5.1) H 06/22/16 03:59 Chloride 105 mmol/L (98-107) 06/22/16 03:59 Carbon Dioxide 29 mmol/L (22-30) 06/22/16 03:59 Anion Gap 4 mmol/L 06/22/16 03:59 BUN 46 mg/dL (9-20) H 06/22/16 03:59 Creatinine 0.90 mg/dL (0.66-1.25) 06/22/16 03:59 Est GFR (MDRD) Af Amer >60 (>60 ml/min/1.73 sqM) 06/22/16 03:59 Est GFR (MDRD) Non-Af >60 (>60 ml/min/1.73 sqM) 06/22/16 03:59 Glucose 156 mg/dL (74-99) H 06/22/16 03:59 POC Glucose (mg/dL) 176 mg/dL (75-99) H 06/22/16 11:52 POC Glu Drying Room Attendant ID Elise Urbina 06/22/16 11:[address] Glu mg/dL 148 mg/dL 06/19/16 05:44 Hemoglobin A1c 6.8 % (4.2-6.1) H 06/19/16 05:44 Plasma Lactic Acid Mike 1.5 mmol/L (0.7-2.0) 06/18/16 12:08 Calcium 8.8 mg/dL (8.4-10.2) 06/22/16 03:59 Phosphorus 3.3 mg/dL (2.5-4.5) 06/22/16 03:59 Magnesium 2.2 mg/dL (1.6-2.3) 06/22/16 03:59 Total Bilirubin 0.4 mg/dL (0.2-1.3) 06/20/16 06:10 AST 41 U/L (17-59) 06/20/16 06:10 ALT 34 U/L (21-72) 06/20/16 06:10 Alkaline Phosphatase 87 U/L (38-126) 06/20/16 06:10 Total Protein 7.0 g/dL (6.3-8.2) 06/20/16 06:10 Albumin 3.1 g/dL (3.5-5.0) L 06/20/16 06:10 Urine Color Dark Yellow 06/18/16 09:54 Urine Appearance Clear (Clear) 06/18/16 09:54 Urine pH 6.0 (5.0-8.0) 06/18/16 09:54 Ur Specific [place] 1.026 (1.001-1.035) 06/18/16 09:54 Urine Protein 2+ (Negative) H 06/18/16 09:54 Urine Glucose (UA) Trace (Negative) H 06/18/16 09:54 Urine Ketones Trace (Negative) H 06/18/16 09:54 Urine Blood Small (Negative) H 06/18/16 09:54 Urine Nitrite Negative (Negative) 06/18/16 09:54 Urine Bilirubin Negative (Negative) 06/18/16 09:54 Urine Urobilinogen 2.0 mg/dL (<2.0) 06/18/16 09:54 Ur Leukocyte Esterase Trace (Negative) H 06/18/16 09:54 Urine RBC 9 /hpf (0-5) H 06/18/16 09:54 Urine WBC 2 /hpf (0-5) 06/18/16 09:54 Hyaline Casts 12 /lpf (0-2) H 06/18/16 09:54 Urine Mucus Many /hpf (None) H 06/18/16 09:54 Influenza Type A RNA Not Detected (Not Detectd) 06/18/16 09:58 Influenza Type B (PCR) Not Detected (Not Detectd) 06/18/16 09:58 CBC & Chem 7: 06/22/16 05:30 06/22/16 03:59 Labs: Abnormal Lab Results - Last 24 Hours (Table) 06/21/16 06/21/16 06/21/16 Range/Units 12:18 18:04 20:46 RBC (4.30-5.90) m/uL Hgb (13.0-17.5) gm/dL Hct (39.0-53.0) % Lymphocytes # (1.0-4.8) k/uL ABG HCO3 (21-25) mmol/L ABG Total CO2 (19-24) mmol/L ABG O2 Saturation (94-97) % Potassium (3.5-5.1) mmol/L BUN (9-20) mg/dL Glucose (74-99) mg/dL POC Glucose (mg/dL) 139 H 144 H 126 H (75-99) mg/dL 06/22/16 06/22/16 06/22/16 Range/Units 03:59 04:18 05:30 RBC 3.21 L (4.30-5.90) m/uL Hgb 9.7 L (13.0-17.5) gm/dL Hct 30.6 L (39.0-53.0) % Lymphocytes # 0.3 L (1.0-4.8) k/uL ABG HCO3 28 H (21-25) mmol/L ABG Total CO2 29 H (19-24) mmol/L ABG O2 Saturation 98.0 H (94-97) % Potassium 5.6 H (3.5-5.1) mmol/L BUN 46 H (9-20) mg/dL Glucose 156 H (74-99) mg/dL POC Glucose (mg/dL) (75-99) mg/dL Microbiology - Last 24 Hours (Table) 06/20/16 18:01 Blood Culture - Preliminary Blood No Growth after 24 hours 06/20/16 18:49 Urine Culture - Final Urine,Catheterized 06/18/16 12:08 Blood Culture - Preliminary Blood No Growth after 72 hours Assessment and Plan Plan: This is an 80-year-old male presented to the hospital with signs of sepsis and pneumonia with underlying pulmonary fibrosis. Patient's condition declined and he required CPR and was subsequently intubated and has been on mechanical ventilation. The antibiotics are currently in the form of Levaquin and vancomycin which will be continued. Await finalization of the sputum culture. All blood cultures show no growth. Continue supportive care. Further recommendations as patient progresses. The above dictated assessment and findings were discussed with Dr. Miramontes. The impression and plan of care have been directed as dictated. Belen Dale nurse practitioner acting as scribe for Dr. Miramontes. Time with Patient: Greater than 30
--- NOTE | 2016-06-22 15:43 | PN ---
DATE OF SERVICE: 06/22/2016 This 80-year-old gentleman who was admitted with bilateral pneumonia also had features of sepsis and acute hypoxic hypercapnic respiratory failure on mechanical ventilation. Patient is on broad-spectrum IV antibiotics. Dr. Mike is following the patient as well as Infectious Disease. PAST MEDICAL HISTORY: Reviewed. REVIEW OF SYSTEMS: Could not be taken. The current medications are reviewed and include: 1. DuoNeb q.i.d. and p.r.n. 2. Pulmicort 1 mg b.i.d. 3. Peridex. 4. Perforomist 20 b.i.d. 5. Heparin. 6. Levaquin 750 daily. 7. Multivitamin 1 p.o. daily. 8. Protonix 40 mg daily. 9. Propofol. 10. Vancomycin. 11. Vitamin E 400 mg daily. PHYSICAL EXAMINATION: The patient is alert and oriented x3. Pulse is 73, blood pressure 124/60, respirations 23, temperature 98.9, pulse ox 99% on 40%. HEENT: Conjunctivae normal. Oral mucosa moist. NECK: No jugular venous distention. CARDIOVASCULAR: S1 and S2, muffled. RESPIRATORY: Breath sounds diminished at the bases. Bilateral scattered rhonchi and crackles heard, left more than the right. Patient is on mechanical ventilation. ABDOMEN: Soft. No mass palpable. LEGS: No edema, no swelling. NERVOUS SYSTEM: The patient is mechanically ventilated and sedated. SKIN: No ulcers, rashes or bleeding. Labs are at this time shows WBC 6.7, hemoglobin is 9.7. Otherwise, urine cultures showed Enterococcus faecalis and Klebsiella oxytoca. ASSESSMENT: 1. Bilateral pneumonia, left more than the right with acute severe sepsis as well as acute hypoxic hypercarbic respiratory failure on mechanical ventilation. 2. Bilateral bronchiectasis history. 3. Urinary tract infection with vancomycin sensitive Enterococcus faecalis and Klebsiella oxytoca. 4. Increased WBC. 5. Anemia, normocytic. 6. Hyponatremia. 7. Hyperkalemia. 8. Increased plasma lactic acid at 2.1. 9. History of diabetes mellitus type 2. 10. History of asthma. 11. Hypertension, essential. 12. History of degenerative joint disease. 13. History of pneumonia. 14. History of pulmonary fibrosis. 15. History of chronic respiratory failure, hypoxic 2 to 3 L nasal cannula. 16. History of prostate cancer. 17. History of degenerative joint disease. 18. FULL CODE. RECOMMENDATIONS AND DISCUSSION: In this 80-year-old gentleman who presented with multiple complex medical issues, at this time will monitor the patient closely. Continue the current medications. Continue symptomatic treatment. Continue with bronchodilators. Continue with empiric antibiotics. Otherwise, closely follow. Continue with current medications. Dr. Mike is following the patient closely. Infectious Disease input appreciated. Prognosis guarded. Further recommendation to follow. Discussed with the patient's family at the bedside. JERROD
[2016-06-22] MEDS: MULTIVITAMINS, THERA 1 EACH TAB PO SCH (15:54)
[2016-06-22] MEDS: SODIUM CHLORIDE 0.9% 1,000 ML IV SCH (16:47)
[2016-06-22] MEDS: LEVOFLOXACIN 750MG-D5W PMX 750 MG in DEXTROSE/WATER 1 150ML.BAG IVPB SCH (16:48)
--- NOTE | 2016-06-22 18:01 | P.PN ---
Subjective 80-year-old male patient was admitted for acute hypoxic and hypercapnic respiratory failure and the patient has bilateral extensive pneumonia. Noted the patient also has advanced COPD with chronic fibrotic changes with significant volume loss in the left lung compared to the right. A prior CAT scan of the chest that showed chronic left-sided volume loss with underlying extensive bronchiectasis and fibrosis. The exact nature of this abnormalities are not known. The patient was in the hospital in March 2016 for bilateral pneumonia treated and discharged home. Has been using oxygen 2 L/m nasal cannula on outpatient basis. On 06/22/2016, the patient is being seen in follow-up. The patient is lightly sedated with Diprivan which is running at around 35-40 mics per KG pigmented. The patient was an assist-control mode of ventilation at the rate of 18, tidal volume 450, FiO2 of 40% and a PEEP of 5. The patient was intubated with a #8 orotracheal tube. He was still having respiratory secretions were quite considerably copious. At that point, a bronchoscopy was done at the bedside and therapeutic it was suctioning was done where more than 20-30 MO's of restless 6 she is were suctioned out and the secretions were essentially purulent in nature. The endobronchial airways were quite narrowed and there was significant scarring and mucosal inflammatory changes typical of an underlying pneumonia. The blood gases on this morning showed a pH of 7.42 with a pCO2 of 44 and pO2 of 102. The patient was afebrile hemodynamically stable. Ecchymotic coverage remain the same which includes a combination of Levaquin and vancomycin. The patient is receiving tube feeds in the form of vital 1.2 and he is at goal at 50 mL an hour. Objective - Vital Signs Vital signs: Vital Signs Temp 99.0 F 06/22/16 16:00 Pulse 84 06/22/16 17:09 Resp 21 06/22/16 16:00 BP 135/57 06/22/16 16:00 Pulse Ox 95 06/22/16 16:00 Intake & Output 06/21/16 06/22/16 06/22/16 18:59 06:59 18:59 Intake Total 032.209 3510.030 650.646 Output Total 880 920 475 Balance 23.152 191.030 175.646 Weight 87.3 kg Intake: IV 500 440 120 Aztreonam 2 gm In Sodium 200 200 Chloride 0.9% 100 ml @ 100 mls/hr IVPB Q8H ON LICENSE OF [facility] Rx#:[id number] Magnesium Sulfate-D5w Pmx 100 1 gm In Dextrose/Water 1 100ml.bag @ 100 mls/hr IVPB Q1H ON LICENSE OF [facility] Rx#: [id number] Sodium Chloride 0.9% 1, 200 240 120 000 ml @ 20 mls/hr IV . Q24H MICHAEL Rx#:[id number] Intake, IV Titration 283.152 231.030 400.646 Amount Magnesium Sulfate-D5w Pmx 100 1 gm In Dextrose/Water 1 100ml.bag @ 100 mls/hr IVPB Q1H MICHAEL Rx#: [id number] Propofol 500 mg In Empty 183.152 231.030 150.646 Bag 1 bag @ Titrate IV . Q0M ON LICENSE OF [facility] Rx#:[id number] Vancomycin 1,750 mg In 250 Sodium Chloride 0.9% 250 ml @ 125 mls/hr IVPB ONCE ONE Rx#:[id number] Tube Feeding 120 410 100 Other 30 30 Output: Urine 880 920 475 Other: Voiding Method Indwelling Catheter Indwelling Catheter # Bowel Movements 0 - Exam Head exam was generally normal. There was no scleral icterus or corneal arcus. Mucous membranes were moist.Neck was supple and without jugular venous distension, thyromegaly, or carotid bruits. Carotids were easily palpable bilaterally. There was no adenopathy. The patient has an orogastric and orotracheal tube are both in place. On examination of the lungs, the vessels are diminished on the left compared to right. There are some scattered rhonchi and expiratory wheezing bilaterally throughout the lung brandt.Cardiac exam revealed the PMI to be normally situated and sized. The rhythm was regular and no extrasystoles were noted during several minutes of auscultation. The first and second heart sounds were normal and physiologic splitting of the second heart sound was noted. There were no murmurs, rubs, clicks, or gallops.Abdominal exam revealed normal bowel sounds. The abdomen was soft, non- tender, and without masses, organomegaly, or appreciable enlargement of the abdominal aorta.Examination of the extremities revealed easily palpable radial, femoral and pedal pulses. There was no cyanosis, clubbing or edema. Neurologically the patient would wake up from a sedation holiday and with follow -up commands without any major limitation. He gets anxious easily - Labs CBC & Chem 7: 06/22/16 05:30 06/22/16 03:59 Labs: Abnormal Lab Results - Last 24 Hours (Table) 06/21/16 06/21/16 06/22/16 Range/Units 18:04 20:46 03:59 RBC (4.30-5.90) m/uL Hgb (13.0-17.5) gm/dL Hct (39.0-53.0) % Lymphocytes # (1.0-4.8) k/uL ABG HCO3 (21-25) mmol/L ABG Total CO2 (19-24) mmol/L ABG O2 Saturation (94-97) % Potassium 5.6 H (3.5-5.1) mmol/L BUN 46 H (9-20) mg/dL Glucose 156 H (74-99) mg/dL POC Glucose (mg/dL) 144 H 126 H (75-99) mg/dL 06/22/16 06/22/16 06/22/16 Range/Units 04:18 05:30 11:52 RBC 3.21 L (4.30-5.90) m/uL Hgb 9.7 L (13.0-17.5) gm/dL Hct 30.6 L (39.0-53.0) % Lymphocytes # 0.3 L (1.0-4.8) k/uL ABG HCO3 28 H (21-25) mmol/L ABG Total CO2 29 H (19-24) mmol/L ABG O2 Saturation 98.0 H (94-97) % Potassium (3.5-5.1) mmol/L BUN (9-20) mg/dL Glucose (74-99) mg/dL POC Glucose (mg/dL) 176 H (75-99) mg/dL Microbiology - Last 24 Hours (Table) 06/18/16 12:08 Blood Culture - Preliminary Blood No Growth after 96 hours 06/20/16 08:00 Gram Stain - Final Sputum Sputum Culture - Final 06/20/16 18:01 Blood Culture - Preliminary Blood No Growth after 24 hours 06/20/16 18:49 Urine Culture - Final Urine,Catheterized Assessment and Plan Plan: Assessment 1 acute hypoxic and hypercapnic respiratory failure, multifactorial 2 severe COPD with chronic fibrotic changes bilaterally, left more than right 3 bilateral pneumonia with near complete opacification of the left lung at a time of admission, improving. No microbial cultures have been established. 4 acute cardio pulmonary arrest with a downtime of around 7 minutes from which the patient has recovered and there was return of spontaneous circulation after the successful resuscitation 5 prostate cancer 6 extensive bronchiectasis bilaterally 7 diabetes mellitus 8 hypertension 9 UTI with Enterococcus faecalis and Klebsiella. Plan Continue vent support. The bronchoscopy was done and the therapeutic it was suctioning was done and the cultures will be sent on the bronchioloalveolar lavage and make further antibiotic adjustments accordingly. Meanwhile continue the vent support and assist control mode of ventilation. We'll keep the patient on mechanical ventilator for another 24 hours. Repeat chest x-ray in the morning. Sedation holiday in a.m. and assess weaning parameters and consider further weaning and possible extubation if his condition allows. The patient is on enteral feeding for nutritional support. We'll monitor the electrolytes. We'll continue supportive care. Had a lengthy discussion with the patient's family and updated them on his condition. This solution was done and 35 minutes. There is a critically care evaluation. Time with Patient: Greater than 30
[2016-06-22 18:22] LABS: Glucose,Whole Blood 177 mg/dL (75-99)
[2016-06-22] MEDS: VANCOMYCIN 1,500 MG in SODIUM CHLORIDE 0.9% 250 ML IVPB SCH (19:22)
--- NOTE | 2016-06-22 21:11 | P.CON ---
Consult Note - . Consult date: 06/22/16 Assessment/Plan:: This is an 80-year-old male who presented to [facility] emergency center on June 18 with concerns for not feeling well and shortness of breath with recent treatment for pneumonia in March. He was found to have sepsis on presentation with fever of 101.1, leukocytosis of 19.9, tachycardia and tachypnea. Influenza testing was negative. Initial chest x- ray showed right lower lobe pneumonia with chronic consolidation of the left lung. Urinalysis was clear with nitrate negative leukoesterase trace with urine culture showing 10-49 colonies of Enterococcus faecalis and Klebsiella oxytoca. He was initially started on Azactam and Levaquin. On June 20 there was a CODE BLUE called. Patient was pulseless with no respirations. CPR was initiated and patient was given 1 dose of epinephrine. He was intubated and transferred to the intensive care unit. He has been followed by Dr. Richardson. Blood cultures 3 are showing no growth. Sputum culture is showing rare gram- positive cocci and normal alexsander. This morning, Azactam was discontinued and vancomycin started. It does not appear the patient was on antibiotics he has had adequate urine output. There is been no diarrhea and no skin breakdown. prior to his admission. Please see the consult note as dictated by nurse practitioner Mrs. Belen Dale Patient's daughter is present. Exam reveals this 80-year-old gentleman who has evidence of the significant lung disease. He is improved this evening. Likely will be weaned and extubated in the morning if he has no further difficulties. It is noted the sputum cultures are showing some very gram-positive cocci in his concerns also do his urine. As antibiotic therapy was altered to vancomycin from Azactam as well as Levaquin. Blood cultures and processes will continue. May streamline further depending on the final culture results. I agree with evaluation, assessment and plan as dictated by nurse practitioner Mrs. Belen Dale.
[2016-06-22 22:16] LABS: Glucose,Whole Blood 188 mg/dL (75-99)
[2016-06-22] MEDS: IPRATROPIUM-ALBUTEROL 3 ML NEB INHALATION PRN (23:37)
[2016-06-23] MEDS: PROPOFOL 500 MG in EMPTY BAG 1 BAG IV SCH ×12 (01:12→22:33)
[2016-06-23 05:07] LABS: Basophils % (A) 0 %; CH 29.2; CHCM 29.9; Eosinophils # (A) 0.2 k/uL (0-0.7); Eosinophils % (A) 3 %; HCT 31.7 % (39.0-53.0); HDW 2.61; HGB 10.1 gm/dL (13.0-17.5); Hypochromasia Marked; Luc # (Auto) 0.09; Luc % (Auto) 1; Lymphocytes # (A) 0.3 k/uL (1.0-4.8); Lymphocytes % (A) 5 %; MCH 31.1 pg (25.0-35.0); MCHC 31.8 g/dL (31.0-37.0); Mean Platelet Volume 6.7; Monocytes # (A) 0.4 k/uL (0-1.0); Monocytes % (A) 6 %; Neutrophils # (A) 5.7 k/uL (1.3-7.7); Neutrophils % (A) 84 %; RBC 3.23 m/uL (4.30-5.90); RDW 14.1 % (11.5-15.5); WBC 6.7 k/uL (3.8-10.6); WBC (Perox) 7.19
[2016-06-23 05:29] LABS: ABG Base Excess -0.5 mmol/L; ABG HCO3 24 mmol/L (21-25); ABG PCO2 46 mmHg (35-45); ABG PH 7.35 (7.35-7.45); ABG PO2 107 mmHg (83-108); ABG TCO2 26 mmol/L (19-24)
[2016-06-23 05:30] LABS: Anion Gap 4 mmol/L; Blood Urea Nitrogen 41 mg/dL (9-20); Calcium 8.4 mg/dL (8.4-10.2); Carbon Dioxide 30 mmol/L (22-30); Chloride 105 mmol/L (98-107); Glucose 226 mg/dL (74-99); Magnesium 2.1 mg/dL (1.6-2.3); Non-African American GFR(MDRD) >60 (>60 ml/min/1.73 sqM); Phosphorous 3.4 mg/dL (2.5-4.5); Potassium 4.5 mmol/L (3.5-5.1); Sodium 139 mmol/L (137-145)
[2016-06-23 07:02] LABS: Glucose,Whole Blood 229 mg/dL (75-99)
[2016-06-23] MEDS: INSULIN LISPRO (humaLOG) 300 UNIT/3 ML VIAL SQ SCH ×3 (07:02→17:49)
[2016-06-23] MEDS: IPRATROPIUM-ALBUTEROL 3 ML NEB INHALATION SCH ×4 (07:18→19:56)
[2016-06-23] MEDS: FORMOTEROL FUMARATE 20 MCG/2 ML NEBU INHALATION SCH ×2 (07:18→19:56)
[2016-06-23] MEDS: BUDESONIDE 1 MG/2 ML NEBU INHALATION SCH ×2 (07:18→19:56)
[2016-06-23] MEDS: VANCOMYCIN 1,500 MG in SODIUM CHLORIDE 0.9% 250 ML IVPB SCH ×2 (07:18→17:51)
--- NOTE | 2016-06-23 07:38 | XR ---
EXAMINATION TYPE: XR chest 1V portable DATE OF EXAM: 06/23/2016 6:55 AM COMPARISON: 06/22/2016 HISTORY: SOB, Follow Up FINDINGS: Indwelling tubes and catheters are unchanged. Stable honeycombing throughout the left lung with left-sided volume loss and bilateral airspace infil trates. Overall appearance is stable. Stable appearance of the cardio-mediastinal structures at this time. Pleural effusion not present. IMPRESSION: 1. Stable portable chest. Clinical correlation and follow up until resolution is recommended.
[2016-06-23] MEDS: HEPARIN SODIUM,PORCINE 5,000 UNIT/ML 1 ML VIAL SQ SCH ×2 (08:18→21:23)
[2016-06-23] MEDS: CHLORHEXIDINE GLUCONATE 15 ML CUP MUCOUS MEM SCH ×2 (08:18→21:23)
[2016-06-23] MEDS: PANTOPRAZOLE 40 MG/10 ML VIAL IVP SCH (08:18)
--- NOTE | 2016-06-23 08:47 | P.PN ---
Subjective 80-year-old male patient was admitted for acute hypoxic and hypercapnic respiratory failure and the patient has bilateral extensive pneumonia. Noted the patient also has advanced COPD with chronic fibrotic changes with significant volume loss in the left lung compared to the right. A prior CAT scan of the chest that showed chronic left-sided volume loss with underlying extensive bronchiectasis and fibrosis. The exact nature of this abnormalities are not known. The patient was in the hospital in March 2016 for bilateral pneumonia treated and discharged home. Has been using oxygen 2 L/m nasal cannula on outpatient basis. On 06/22/2016, the patient is being seen in follow-up. The patient is lightly sedated with Diprivan which is running at around 35-40 mics per KG pigmented. The patient was an assist-control mode of ventilation at the rate of 18, tidal volume 450, FiO2 of 40% and a PEEP of 5. The patient was intubated with a #8 orotracheal tube. He was still having respiratory secretions were quite considerably copious. At that point, a bronchoscopy was done at the bedside and therapeutic it was suctioning was done where more than 20-30 MO's of restless 6 she is were suctioned out and the secretions were essentially purulent in nature. The endobronchial airways were quite narrowed and there was significant scarring and mucosal inflammatory changes typical of an underlying pneumonia. The blood gases on this morning showed a pH of 7.42 with a pCO2 of 44 and pO2 of 102. The patient was afebrile hemodynamically stable. Ecchymotic coverage remain the same which includes a combination of Levaquin and vancomycin. The patient is receiving tube feeds in the form of vital 1.2 and he is at goal at 50 mL an hour. 06/23/2016, I'm seeing this patient in follow-up. Yesterday the patient underwent a bronchoscopy and therapeutic it was suctioning was done and the samples are all sent to microbial analysis. The preliminary AFB stain was negative. This gram-negative bacilli and gram-positive cocci and Gram stain. This morning, the patient was given a sedation holiday. He woke up any was opening his eyes and following some simple commands. He was however very anxious. Weaning parameters without poor. The measurement was not while the patient was on a pressure support of 5 and a PEEP of 5 and the patient was barely pulling tidal volumes of 200 and he was becoming tachypneic. At the same time the patient became tachycardic and he desaturated. Morning blood gases from today showed a pH of 7.35 with a pCO2 of 46 and pO2 of 107. This is that x-ray at all within normal limits. The chest x-ray from today is showing stable honeycombing throughout the left lung with left-sided volume loss and bilateral airspace infiltrates. Overall findings are stable compared to yesterday's chest x-ray. The patient was also seen by infectious disease. The patient was kept on an antibiotic coverage which included vancomycin and Levaquin. His echocardiogram from 2016 showed a preserved LV function with an ejection fraction of 6065% and mild degree of pulmonary hypertension. Objective - Vital Signs Vital signs: Vital Signs Temp 98.6 F 06/23/16 04:00 Pulse 76 06/23/16 07:38 Resp 17 06/23/16 07:00 BP 113/52 06/23/16 07:00 Pulse Ox 98 06/23/16 07:00 Intake & Output 06/22/16 06/23/16 06/23/16 18:59 06:59 18:59 Intake Total 9320.562 9216.14 403.837 Output Total 1400 965 125 Balance -109.354 607.14 278.837 Weight 88.1 kg Intake: IV 260 220 20 Sodium Chloride 0.9% 1, 260 220 20 000 ml @ 20 mls/hr IV . Q24H [facility] Rx#:[id number] Intake, IV Titration 400.646 327.14 318.837 Amount Propofol 500 mg In Empty 150.646 202.14 68.837 Bag 1 bag @ Titrate IV . Q0M [facility] Rx#:[id number] Vancomycin 1,750 mg In 250 125 250 Sodium Chloride 0.9% 250 ml @ 125 mls/hr IVPB ONCE ONE Rx#:[id number] Tube Feeding 570 935 65 Other 60 90 Output: Urine 1400 965 125 Other: Voiding Method Indwelling Catheter Indwelling Catheter # Bowel Movements 0 - Exam Head exam was generally normal. There was no scleral icterus or corneal arcus. Mucous membranes were moist.Neck was supple and without jugular venous distension, thyromegaly, or carotid bruits. Carotids were easily palpable bilaterally. There was no adenopathy. The patient has an orogastric and orotracheal tube are both in place. On examination of the lungs, the vessels are diminished on the left compared to right. There are some scattered rhonchi and expiratory wheezing bilaterally throughout the lung brandt.Cardiac exam revealed the PMI to be normally situated and sized. The rhythm was regular and no extrasystoles were noted during several minutes of auscultation. The first and second heart sounds were normal and physiologic splitting of the second heart sound was noted. There were no murmurs, rubs, clicks, or gallops.Abdominal exam revealed normal bowel sounds. The abdomen was soft, non- tender, and without masses, organomegaly, or appreciable enlargement of the abdominal aorta.Examination of the extremities revealed easily palpable radial, femoral and pedal pulses. There was no cyanosis, clubbing or edema. Neurologically the patient is awake. Anxious. Follow some simple commands and this was noted at a time of the sedation holiday. - Labs CBC & Chem 7: 06/23/16 04:52 06/23/16 04:52 Labs: Abnormal Lab Results - Last 24 Hours (Table) 06/22/16 06/22/16 06/22/16 Range/Units 11:52 18:20 22:14 RBC (4.30-5.90) m/uL Hgb (13.0-17.5) gm/dL Hct (39.0-53.0) % Lymphocytes # (1.0-4.8) k/uL ABG pCO2 (35-45) mmHg ABG Total CO2 (19-24) mmol/L ABG O2 Saturation (94-97) % BUN (9-20) mg/dL Glucose (74-99) mg/dL POC Glucose (mg/dL) 176 H 177 H 188 H (75-99) mg/dL 06/23/16 06/23/16 06/23/16 Range/Units 04:52 04:52 05:22 RBC 3.23 L (4.30-5.90) m/uL Hgb 10.1 L (13.0-17.5) gm/dL Hct 31.7 L (39.0-53.0) % Lymphocytes # 0.3 L (1.0-4.8) k/uL ABG pCO2 46 H (35-45) mmHg ABG Total CO2 26 H (19-24) mmol/L ABG O2 Saturation 98.0 H (94-97) % BUN 41 H (9-20) mg/dL Glucose 226 H (74-99) mg/dL POC Glucose (mg/dL) (75-99) mg/dL 06/23/16 Range/Units 06:59 RBC (4.30-5.90) m/uL Hgb (13.0-17.5) gm/dL Hct (39.0-53.0) % Lymphocytes # (1.0-4.8) k/uL ABG pCO2 (35-45) mmHg ABG Total CO2 (19-24) mmol/L ABG O2 Saturation (94-97) % BUN (9-20) mg/dL Glucose (74-99) mg/dL POC Glucose (mg/dL) 229 H (75-99) mg/dL Microbiology - Last 24 Hours (Table) 06/22/16 13:12 Acid Fast Bacilli Smear - Final Bronchoalviolar Lavage - Left Acid Fast Bacilli Culture - Preliminary 06/22/16 13:12 Gram Stain - Preliminary Bronchoalviolar Lavage - Left Bronchial Washings Culture - Preliminary 06/20/16 18:01 Blood Culture - Preliminary Blood No Growth after 48 hours 06/22/16 13:12 Fungal Culture - Preliminary Bronchoalviolar Lavage - Left 06/18/16 12:08 Blood Culture - Preliminary Blood No Growth after 96 hours 06/20/16 08:00 Gram Stain - Final Sputum Sputum Culture - Final Assessment and Plan Plan: Assessment 1 acute hypoxic and hypercapnic respiratory failure, multifactorial. The patient has extensive honeycombing and fibrotic changes in the left lung compared to the right. The patient is also bilateral airspace disease. The patient is status post bronchoscopy and therapeutic it was suctioning and the bronchioloalveolar lavage was performed yesterday. Were still awaiting the results of the cultures. 2 severe COPD with chronic fibrotic changes bilaterally, left more than right 3 bilateral pneumonia with near complete opacification of the left lung at a time of admission, improving. No microbial cultures have been established. 4 acute cardio pulmonary arrest with a downtime of around 7 minutes from which the patient has recovered and there was return of spontaneous circulation after the successful resuscitation 5 prostate cancer 6 extensive bronchiectasis bilaterally 7 diabetes mellitus 8 hypertension 9 UTI with Enterococcus faecalis and Klebsiella. Plan Continue vent support. The results of the bronchioloalveolar lavage. Continue the vancomycin and Levaquin. Weaning parameters are poor. The patient was resected with Diprivan. Tube feeds are still being administered at a rate of 65 mL an hour of vital 1.2 and this is at goal. We'll start the patient diuretics and will put him on 20 mg of IV Lasix every 12 hours. We'll try to keep him in a negative fluid balance. Continue the bronchodilators. Continue to systemic steroids. The patient is not ready for any weaning yet. I checked his weaning parameters. I also checked his smoking is breathing trial it was on a pressure support of 5 and PEEP of 5 and the patient obviously failed and he developed tachycardia tachypnea and desaturation. He was using extremities and muscles of breathing. As such the sedation holiday and her weaning trial was discontinued and the patient was placed back on sedation an assist-control mode. We will continue to follow. This examination was done and 35 minutes. Time with Patient: Greater than 30
--- NOTE | 2016-06-23 09:52 | PCN ---
DATE OF PROCEDURE: PROCEDURE: Bronchoscopy. PREOPERATIVE DIAGNOSIS: Bilateral pneumonia. POSTOPERATIVE DIAGNOSES: 1. Bronchoconstriction. 2. Severe mucosal inflammatory changes suggestive of pneumonia. 3. Copious purulent respiratory secretions retained in all the patient's airways. This procedure was done in the intensive care unit. The patient was already intubated on a mechanical ventilator. The patient was placed on 100% FiO2. An adapter was placed to the orotracheal tube and following that, the flexible bronchoscope was inserted through the orotracheal tube and was advanced into the lower trachea. The tip of the tube was seen around 3 cm above the heron. Immediately after the introduction of the flexible bronchoscope, copious amounts of respiratory secretions were encountered. They were quite purulent and creamy and beige in color. Therapeutic airway suctioning was done. Underlying bronchial mucosa was than inspected along with a complete airway examination was done. The heron was sharp in the midline and the bilateral mainstem bronchi were visualized. Inspection of the right side was done and the involved airways included the right upper lobe bronchus intermedius, right middle lobe, right lower lobe and for the left side, the inspected airways included the lingular segment and left lower lobe segments. There were certain areas of bronchial constriction most significantly in the right middle lobe bronchus where the orifice was quite narrowed. I was able to push the bronchoscope through the orifice and visualized segments the 2 segments of the right middle lobe. Similarly, left upper lobe bronchus was quietly bronchoconstricted and to a lesser extent at the left lower lobe bronchus. In antedate despite the observed bronchoconstriction, the bronchoscope was moved to all of his airways for candid survey of segments and subsegments and therapeutic airway suctioning was done. Bronchoalveolar lavage of the lingula was done. The superior segment was lavaged with a total of 60 mL were infused, around 25 mL were suctioned back. After therapeutic airway suctioning was done, the bronchoscope was removed and the samples were sent for microbial analysis. No bedside complications or bleeding and the patient's pulse ox remained over 90%. The plan is to keep the patient intubated on mechanical ventilator for another 24 hours and proceed with weaning trials as of tomorrow. The samples will be sent for cultures and appropriate antibiotic changes will be done accordingly.
[2016-06-23] MEDS: FUROSEMIDE 10 MG/ML 2 ML VIAL IV SCH ×2 (11:14→21:23)
[2016-06-23] MEDS: SODIUM CHLORIDE 0.9% 1,000 ML IV SCH (11:15)
[2016-06-23 12:15] LABS: Glucose,Whole Blood 262 mg/dL (75-99)
[2016-06-23] MEDS: MULTIVITAMINS, THERA 1 EACH TAB PO SCH (13:34)
[2016-06-23] MEDS: VITAMIN E (DL,TOCOPHERYL ACET) 400 UNIT CAP PO SCH (14:09)
[2016-06-23 15:07] LABS: RBC, Body Fluid 19300 /uL
[2016-06-23] MEDS: LEVOFLOXACIN 750MG-D5W PMX 750 MG in DEXTROSE/WATER 1 150ML.BAG IVPB SCH (15:24)
[2016-06-23 17:50] LABS: Glucose,Whole Blood 176 mg/dL (75-99)
--- NOTE | 2016-06-23 21:31 | PN ---
DATE OF SERVICE: 06/23/2016 This 80-year-old gentleman was admitted with bibasilar pneumonia, left more than the right, had a bronchoscopy yesterday by Dr. Mike. The patient also had acute respiratory failure. Patient is on mechanical ventilation. Urine culture also showed Enterococcus faecalis as well as Klebsiella oxytoca. Other cultures are negative so far. The patient is currently on tidal volume 400, 40% FiO2 and 5 of PEEP. The bronchoscopy showed bronchoconstriction, severe mucosal inflammatory changes, a history of pneumonia, Enterococcus; purulent respiratory secretions, also. Dr. Miramontes is also following the patient closely. PAST MEDICAL HISTORY: Reviewed. Review of systems could not be taken. The patient is on mechanical ventilation and sedated. Current medications are reviewed and include: 1. DuoNeb q.i.d. and p.r.n. 2. Pulmicort 1 mg b.i.d. 3. Peridex. 4. Perforomist 20 mcg b.i.d. 5. Lasix 20 mg b.i.d. 6. Heparin 5 subcu b.i.d. 7. Humalog sliding scale. 8. Levaquin 750 daily. 9. P.r.n. medication. 10. Protonix 40 mg daily. 11. Propofol. 12. Vancomycin 1.5 b.i.d. 13. Vitamin E 400 units daily. PHYSICAL EXAM: Patient is mechanically sedated. Pulse 83 blood pressure 111/49, respirations 27, Temperature normal, pulse ox 94% on 40% FiO2. HEENT: Conjunctivae normal. Oral mucosa moist. NECK: No jugular venous distention. No carotid bruits. No lymph node enlargement. CARDIOVASCULAR: S1 and S2 muffled. RESPIRATORY: Breath sounds diminished in the bases. Bilateral scattered rhonchi and crackles. Expiratory wheezing also present. ABDOMEN: Soft, nontender. No mass palpable. LEGS: No edema. NERVOUS SYSTEM: Nonfocal. LABS: WBC 6.7, hemoglobin is 10.1. Glucose 229, 262. ASSESSMENT: 1. Bilateral pneumonia, left more than the right, with acute severe sepsis as well as acute hypoxic hypercarbic respiratory failure on mechanical ventilation. 2. Bilateral bronchiectasis history. 3. Urinary tract infection with vancomycin-sensitive Enterococcus faecalis and Klebsiella oxytoca. 4. Increased WBC, possibly secondary to sepsis. 5. Anemia, normocytic, anemia of chronic disease. 6. Hyponatremia. 7. Hyperkalemia. 8. Increased plasma lactic acid, 2.1% on admission. 9. History of diabetes mellitus type 2. 10. History of asthma. 11. Hypertension, essential. 12. History of degenerative joint disease. 13. History of pneumonia. 14. History of pulmonary fibrosis. 15. History of chronic hypoxic respiratory failure on 2L to 3L oxygen nasal cannula. 16. History of prostate cancer. 17. FULL CODE. RECOMMENDATIONS AND DISCUSSION: I recommend continuing with current medications, continue with monitoring and symptomatic treatment. Further weaning attempts per Pulmonary. Continue with bronchodilators and broad-spectrum IV antibiotics. Closely follow with Infectious Disease. See orders for further details. Further recommendations to follow. Discussed with the family.
--- NOTE | 2016-06-23 22:07 | P.PN ---
Subjective Principal diagnosis: Respiratory failure This is an 80-year-old male who presented to [facility] emergency center on June 18 with concerns for not feeling well and shortness of breath with recent treatment for pneumonia in March. He was found to have sepsis on presentation with fever of 101.1, leukocytosis of 19.9, tachycardia and tachypnea. Influenza testing was negative. Initial chest x- ray showed right lower lobe pneumonia with chronic consolidation of the left lung. Urinalysis was clear with nitrate negative leukoesterase trace with urine culture showing 10-49 colonies of Enterococcus faecalis and Klebsiella oxytoca. He was initially started on Azactam and Levaquin. On June 20 there was a CODE BLUE called. Patient was pulseless with no respirations. CPR was initiated and patient was given 1 dose of epinephrine. He was intubated and transferred to the intensive care unit. He has been followed by Dr. Richardson. Blood cultures 3 are showing no growth. Sputum culture is showing rare gram- positive cocci and normal alexsander. This morning, Azactam was discontinued and vancomycin started. It does not appear the patient was on antibiotics he has had adequate urine output. There is been no diarrhea and no skin breakdown. prior to his admission. Patient failed extubation attempts this morning. Weaning trials were not well tolerated. He does have evidence of extensive underlying lung disease. No fevers or today. Is comfortable at this time. Objective - Vital Signs Vital signs: Vital Signs Temp 97.9 F 06/23/16 20:00 Pulse 72 06/23/16 21:00 Resp 19 06/23/16 21:00 BP 111/49 06/23/16 21:00 Pulse Ox 98 06/23/16 21:00 Intake & Output 06/23/16 06/23/16 06/24/16 06:59 18:59 06:59 Intake Total 1572.14 1996.887 240 Output Total 965 1495 90 Balance 607.14 501.887 150 Weight 88.1 kg 88.1 kg 83.1 kg Intake: IV 220 200 100 Sodium Chloride 0.9% 1, 220 200 100 000 ml @ 20 mls/hr IV . Q24H [facility] Rx#:[id number] Intake, IV Titration 327.14 946.887 90 Amount Levofloxacin 750Mg-D5w 150 40 Pmx 750 mg In Dextrose/ Water 1 150ml.bag @ 100 mls/hr IVPB Q24H [facility] Rx#: [id number] Propofol 500 mg In Empty 202.14 296.887 50 Bag 1 bag @ Titrate IV . Q0M [facility] Rx#:[id number] Vancomycin 1,500 mg In 250 Sodium Chloride 0.9% 250 ml @ 125 mls/hr IVPB Q12H [facility] Rx#:[id number] Vancomycin 1,750 mg In 125 250 Sodium Chloride 0.9% 250 ml @ 125 mls/hr IVPB ONCE ONE Rx#:[id number] Tube Feeding 935 850 50 Other 90 Output: Urine 965 1495 90 Other: Voiding Method Indwelling Catheter Indwelling Catheter Indwelling Catheter # Voids 1 # Bowel Movements 0 0 - Exam Gen: This is an 80-year-old male. He is intubated on mechanical ventilation. HEENT: Head is atraumatic, normocephalic. Pupils equal, round. Sclerae is anicteric. Oral gastric and ET tube are in place. Oral mucous membranes are very dry. No thrush noted. NECK: Supple. No JVD. No lymphadenopathy. No thyromegaly. LUNGS: Bilateral scattered rhonchi. No intercostal retractions. HEART: Regular rate and rhythm. No murmur. ABDOMEN: Soft. Bowel sounds are present. No masses. No tenderness. EXTREMITIES: Bilateral 1+ pedal edema and hand edema. Pedal pulses are 2+ and symmetric NEUROLOGICAL: Patient is sedated. Comfortable. - Labs CBC & Chem 7: 06/23/16 04:52 06/23/16 04:52 Labs: Abnormal Lab Results - Last 24 Hours (Table) 06/22/16 06/23/16 06/23/16 Range/Units 22:14 04:52 04:52 RBC 3.23 L (4.30-5.90) m/uL Hgb 10.1 L (13.0-17.5) gm/dL Hct 31.7 L (39.0-53.0) % Lymphocytes # 0.3 L (1.0-4.8) k/uL ABG pCO2 (35-45) mmHg ABG Total CO2 (19-24) mmol/L ABG O2 Saturation (94-97) % BUN 41 H (9-20) mg/dL Glucose 226 H (74-99) mg/dL POC Glucose (mg/dL) 188 H (75-99) mg/dL 06/23/16 06/23/16 06/23/16 Range/Units 05:22 06:59 12:14 RBC (4.30-5.90) m/uL Hgb (13.0-17.5) gm/dL Hct (39.0-53.0) % Lymphocytes # (1.0-4.8) k/uL ABG pCO2 46 H (35-45) mmHg ABG Total CO2 26 H (19-24) mmol/L ABG O2 Saturation 98.0 H (94-97) % BUN (9-20) mg/dL Glucose (74-99) mg/dL POC Glucose (mg/dL) 229 H 262 H (75-99) mg/dL 06/23/16 Range/Units 17:47 RBC (4.30-5.90) m/uL Hgb (13.0-17.5) gm/dL Hct (39.0-53.0) % Lymphocytes # (1.0-4.8) k/uL ABG pCO2 (35-45) mmHg ABG Total CO2 (19-24) mmol/L ABG O2 Saturation (94-97) % BUN (9-20) mg/dL Glucose (74-99) mg/dL POC Glucose (mg/dL) 176 H (75-99) mg/dL Microbiology - Last 24 Hours (Table) 06/20/16 18:01 Blood Culture - Preliminary Blood No Growth after 72 hours 06/18/16 12:08 Blood Culture - Preliminary Blood No Growth after 120 hours 06/22/16 13:12 Acid Fast Bacilli Smear - Final Bronchoalviolar Lavage - Left Acid Fast Bacilli Culture - Preliminary 06/22/16 13:12 Gram Stain - Preliminary Bronchoalviolar Lavage - Left Bronchial Washings Culture - Preliminary 06/22/16 13:12 Fungal Culture - Preliminary Bronchoalviolar Lavage - Left Laboratory Results WBC 6.7 k/uL (3.8-10.6) 06/23/16 04:52 RBC 3.23 m/uL (4.30-5.90) L 06/23/16 04:52 Hgb 10.1 gm/dL (13.0-17.5) L 06/23/16 04:52 Hct 31.7 % (39.0-53.0) L 06/23/16 04:52 MCV 98.0 fL (80.0-100.0) 06/23/16 04:52 MCH 31.1 pg (25.0-35.0) 06/23/16 04:52 MCHC 31.8 g/dL (31.0-37.0) 06/23/16 04:52 RDW 14.1 % (11.5-15.5) 06/23/16 04:52 Plt Count 223 k/uL (150-450) 06/23/16 04:52 Neutrophils % 84 % 06/23/16 04:52 Lymphocytes % 5 % 06/23/16 04:52 Monocytes % 6 % 06/23/16 04:52 Eosinophils % 3 % 06/23/16 04:52 Basophils % 0 % 06/23/16 04:52 Neutrophils # 5.7 k/uL (1.3-7.7) 06/23/16 04:52 Lymphocytes # 0.3 k/uL (1.0-4.8) L 06/23/16 04:52 Monocytes # 0.4 k/uL (0-1.0) 06/23/16 04:52 Eosinophils # 0.2 k/uL (0-0.7) 06/23/16 04:52 Basophils # 0.0 k/uL (0-0.2) 06/23/16 04:52 Hypochromasia Marked 06/23/16 04:52 PT 11.1 sec (9.0-12.0) 06/20/16 06:10 INR 1.1 (<1.1) 06/20/16 06:10 APTT 25.2 sec (22.0-30.0) 06/20/16 06:10 Sample Site RRAD 06/23/16 05:22 ABG pH 7.35 (7.35-7.45) 06/23/16 05:22 ABG pCO2 46 mmHg (35-45) H 06/23/16 05:22 ABG pO2 107 mmHg (83-108) 06/23/16 05:22 ABG HCO3 24 mmol/L (21-25) 06/23/16 05:22 ABG Total CO2 26 mmol/L (19-24) H 06/23/16 05:22 ABG O2 Saturation 98.0 % (94-97) H 06/23/16 05:22 ABG Base Excess -0.5 mmol/L 06/23/16 05:22 FiO2 40 % 06/23/16 05:22 Sodium 139 mmol/L (137-145) 06/23/16 04:52 Potassium 4.5 mmol/L (3.5-5.1) 06/23/16 04:52 Chloride 105 mmol/L (98-107) 06/23/16 04:52 Carbon Dioxide 30 mmol/L (22-30) 06/23/16 04:52 Anion Gap 4 mmol/L 06/23/16 04:52 BUN 41 mg/dL (9-20) H 06/23/16 04:52 Creatinine 0.80 mg/dL (0.66-1.25) 06/23/16 04:52 Est GFR (MDRD) Af Amer >60 (>60 ml/min/1.73 sqM) 06/23/16 04:52 Est GFR (MDRD) Non-Af >60 (>60 ml/min/1.73 sqM) 06/23/16 04:52 Glucose 226 mg/dL (74-99) H 06/23/16 04:52 POC Glucose (mg/dL) 176 mg/dL (75-99) H 06/23/16 17:47 POC Glu [employer] JAYE Ro Piedra 06/23/16 17:[address] Glu mg/dL 148 mg/dL 06/19/16 05:44 Hemoglobin A1c 6.8 % (4.2-6.1) H 06/19/16 05:44 Plasma Lactic Acid Mike 1.5 mmol/L (0.7-2.0) 06/18/16 12:08 Calcium 8.4 mg/dL (8.4-10.2) 06/23/16 04:52 Phosphorus 3.4 mg/dL (2.5-4.5) 06/23/16 04:52 Magnesium 2.1 mg/dL (1.6-2.3) 06/23/16 04:52 Total Bilirubin 0.4 mg/dL (0.2-1.3) 06/20/16 06:10 AST 41 U/L (17-59) 06/20/16 06:10 ALT 34 U/L (21-72) 06/20/16 06:10 Alkaline Phosphatase 87 U/L (38-126) 06/20/16 06:10 Total Protein 7.0 g/dL (6.3-8.2) 06/20/16 06:10 Albumin 3.1 g/dL (3.5-5.0) L 06/20/16 06:10 Urine Color Dark Yellow 06/18/16 09:54 Urine Appearance Clear (Clear) 06/18/16 09:54 Urine pH 6.0 (5.0-8.0) 06/18/16 09:54 Ur Specific [place] 1.026 (1.001-1.035) 06/18/16 09:54 Urine Protein 2+ (Negative) H 06/18/16 09:54 Urine Glucose (UA) Trace (Negative) H 06/18/16 09:54 Urine Ketones Trace (Negative) H 06/18/16 09:54 Urine Blood Small (Negative) H 06/18/16 09:54 Urine Nitrite Negative (Negative) 06/18/16 09:54 Urine Bilirubin Negative (Negative) 06/18/16 09:54 Urine Urobilinogen 2.0 mg/dL (<2.0) 06/18/16 09:54 Ur Leukocyte Esterase Trace (Negative) H 06/18/16 09:54 Urine RBC 9 /hpf (0-5) H 06/18/16 09:54 Urine WBC 2 /hpf (0-5) 06/18/16 09:54 Hyaline Casts 12 /lpf (0-2) H 06/18/16 09:54 Urine Mucus Many /hpf (None) H 06/18/16 09:54 Fluid Source Bronchial Wash 06/22/16 13:12 Fluid Color Red 06/22/16 13:12 Fluid Appearance Bloody 06/22/16 13:12 Fluid RBC 51477 /uL 06/22/16 13:12 Fluid Nucleated Cells 3700 /uL 06/22/16 13:12 Fluid Polynuclear WBCs 40 % 06/22/16 13:12 Fluid Mononuclear WBCs 60 % 06/22/16 13:12 Influenza Type A RNA Not Detected (Not Detectd) 06/18/16 09:58 Influenza Type B (PCR) Not Detected (Not Detectd) 06/18/16 09:58 Virus Source See Below 06/22/16 13:12 Viral Test See Below 06/22/16 13:12 Virus Analysis Interp See Below 06/22/16 13:12 Microbiology 06/20/16 18:01 Blood Blood Culture - Preliminary No Growth after 72 hours 06/18/16 12:08 Blood Blood Culture - Preliminary No Growth after 120 hours 06/18/16 09:54 Blood Blood Culture - Preliminary No Growth after 120 hours 06/22/16 13:12 Bronchoalviolar Lavage - Left Acid Fast Bacilli Smear - Final 06/22/16 13:12 Bronchoalviolar Lavage - Left Acid Fast Bacilli Culture - Preliminary 06/22/16 13:12 Bronchoalviolar Lavage - Left Gram Stain - Preliminary 06/22/16 13:12 Bronchoalviolar Lavage - Left Bronchial Washings Culture - Preliminary 06/22/16 13:12 Bronchoalviolar Lavage - Left Fungal Culture - Preliminary 06/20/16 08:00 Sputum Gram Stain - Final 06/20/16 08:00 Sputum Sputum Culture - Final 06/20/16 18:49 Urine,Catheterized Urine Culture - Final 06/18/16 10:00 Urine,Voided Urine Culture - Final Enterococcus faecalis Klebsiella oxytoca No viruses detected by the BAL viral analysis Assessment and Plan (1) Pneumonia Narrative/Plan: 80-year-old male presents to Hospital with evidence of significant pneumonia. Developed respiratory failure and sepsis. The patient did require CPR intubation and mechanical ventilation. Urine culture with Enterococcus faecalis and klebsiella oxytocin and he is on vancomycin and levofloxacin and tolerating that well. BAL is pending the cultures are negative so far. AFB is negative. Tenderness of the viral screen is negative. Continue supportive care Ongoing attempts for weaning. Patient does have severe underlying pulmonary disease and may be challenging for him to be extubated. Status: Acute (2) Pulmonary fibrosis Status: Acute
[2016-06-24 00:26] LABS: Glucose,Whole Blood 147 mg/dL (75-99)
[2016-06-24] MEDS: PROPOFOL 500 MG in EMPTY BAG 1 BAG IV SCH ×5 (00:43→08:28)
[2016-06-24] MEDS: INSULIN LISPRO (humaLOG) 300 UNIT/3 ML VIAL SQ SCH ×4 (01:53→18:01)
[2016-06-24 04:34] LABS: CH 28.9; CHCM 30.4; HCT 30.4 % (39.0-53.0); HDW 2.75; HGB 9.6 gm/dL (13.0-17.5); Hypochromasia Moderate; MCH 30.3 pg (25.0-35.0); MCHC 31.8 g/dL (31.0-37.0); MCV 95.3 fL (80.0-100.0); Mean Platelet Volume 7.1; RBC 3.19 m/uL (4.30-5.90); RDW 13.5 % (11.5-15.5); WBC 9.1 k/uL (3.8-10.6)
[2016-06-24 04:53] LABS: Anion Gap 4 mmol/L; Blood Urea Nitrogen 46 mg/dL (9-20); Calcium 8.3 mg/dL (8.4-10.2); Carbon Dioxide 30 mmol/L (22-30); Chloride 104 mmol/L (98-107); Glucose 190 mg/dL (74-99); Magnesium 1.9 mg/dL (1.6-2.3); Non-African American GFR(MDRD) >60 (>60 ml/min/1.73 sqM); Phosphorous 3.5 mg/dL (2.5-4.5); Potassium 4.5 mmol/L (3.5-5.1); Sodium 138 mmol/L (137-145)
[2016-06-24] MEDS ORDERED: VANCOMYCIN TROUGH DUE 1 EACH MISC MISCELLANE ONE (05:00)
[2016-06-24 05:16] LABS: ABG HCO3 31 mmol/L (21-25); ABG PCO2 55 mmHg (35-45); ABG PH 7.37 (7.35-7.45); ABG PO2 111 mmHg (83-108); ABG TCO2 33 mmol/L (19-24)
[2016-06-24 06:19] LABS: Glucose,Whole Blood 228 mg/dL (75-99)
[2016-06-24] MEDS: VANCOMYCIN 1,500 MG in SODIUM CHLORIDE 0.9% 250 ML IVPB SCH ×2 (07:05→18:07)
[2016-06-24] MEDS: FORMOTEROL FUMARATE 20 MCG/2 ML NEBU INHALATION SCH ×2 (07:34→19:43)
[2016-06-24] MEDS: BUDESONIDE 1 MG/2 ML NEBU INHALATION SCH ×2 (07:34→19:43)
[2016-06-24] MEDS: IPRATROPIUM-ALBUTEROL 3 ML NEB INHALATION SCH ×4 (07:34→19:43)
[2016-06-24] MEDS: FUROSEMIDE 10 MG/ML 2 ML VIAL IV SCH ×2 (08:30→20:34)
[2016-06-24] MEDS: HEPARIN SODIUM,PORCINE 5,000 UNIT/ML 1 ML VIAL SQ SCH ×2 (08:32→20:34)
[2016-06-24] MEDS: PANTOPRAZOLE 40 MG/10 ML VIAL IVP SCH (08:32)
[2016-06-24] MEDS: CHLORHEXIDINE GLUCONATE 15 ML CUP MUCOUS MEM SCH (08:34)
--- NOTE | 2016-06-24 09:35 | XR ---
EXAMINATION TYPE: XR chest 1V portable DATE OF EXAM: 06/24/2016 7:04 AM COMPARISON: 06/23/2016 INDICATION: Tube placement, difficulty breathing, previous abnormal chest TECHNIQUE: Single frontal view of the chest is obtained. FINDINGS: The heart size is normal. The pulmonary vasculature is prominent. There is opacification through the left lung which may be slightly worsened from prior study. Increas ed lung markings are in the right upper lobe. Endotracheal tube tip is above the heron. Nasogastric tube transverses the thorax. IMPRESSION: 1. Left lung opacification can be compatible with pneumonia the proper clinical setting. 2. Developing right upper lobe infiltrate. Correlate for atypical pulmonary edema and pneumonia.
--- NOTE | 2016-06-24 12:17 | P.PN ---
Subjective 80-year-old male patient was admitted for acute hypoxic and hypercapnic respiratory failure and the patient has bilateral extensive pneumonia. Noted the patient also has advanced COPD with chronic fibrotic changes with significant volume loss in the left lung compared to the right. A prior CAT scan of the chest that showed chronic left-sided volume loss with underlying extensive bronchiectasis and fibrosis. The exact nature of this abnormalities are not known. The patient was in the hospital in March 2016 for bilateral pneumonia treated and discharged home. Has been using oxygen 2 L/m nasal cannula on outpatient basis. On 06/22/2016, the patient is being seen in follow-up. The patient is lightly sedated with Diprivan which is running at around 35-40 mics per KG pigmented. The patient was an assist-control mode of ventilation at the rate of 18, tidal volume 450, FiO2 of 40% and a PEEP of 5. The patient was intubated with a #8 orotracheal tube. He was still having respiratory secretions were quite considerably copious. At that point, a bronchoscopy was done at the bedside and therapeutic it was suctioning was done where more than 20-30 MO's of restless 6 she is were suctioned out and the secretions were essentially purulent in nature. The endobronchial airways were quite narrowed and there was significant scarring and mucosal inflammatory changes typical of an underlying pneumonia. The blood gases on this morning showed a pH of 7.42 with a pCO2 of 44 and pO2 of 102. The patient was afebrile hemodynamically stable. Ecchymotic coverage remain the same which includes a combination of Levaquin and vancomycin. The patient is receiving tube feeds in the form of vital 1.2 and he is at goal at 50 mL an hour. 06/23/2016, I'm seeing this patient in follow-up. Yesterday the patient underwent a bronchoscopy and therapeutic it was suctioning was done and the samples are all sent to microbial analysis. The preliminary AFB stain was negative. This gram-negative bacilli and gram-positive cocci and Gram stain. This morning, the patient was given a sedation holiday. He woke up any was opening his eyes and following some simple commands. He was however very anxious. Weaning parameters without poor. The measurement was not while the patient was on a pressure support of 5 and a PEEP of 5 and the patient was barely pulling tidal volumes of 200 and he was becoming tachypneic. At the same time the patient became tachycardic and he desaturated. Morning blood gases from today showed a pH of 7.35 with a pCO2 of 46 and pO2 of 107. This is that x-ray at all within normal limits. The chest x-ray from today is showing stable honeycombing throughout the left lung with left-sided volume loss and bilateral airspace infiltrates. Overall findings are stable compared to yesterday's chest x-ray. The patient was also seen by infectious disease. The patient was kept on an antibiotic coverage which included vancomycin and Levaquin. His echocardiogram from 2016 showed a preserved LV function with an ejection fraction of 6065% and mild degree of pulmonary hypertension. On 06/24/2016 I'm seeing this patient in follow-up. The bronchoscopy was completed and the bronchioloalveolar lavage is not showing any new microbial growth. Affect the findings are consistent with normal alexsander. The patient remains on a combination of Levaquin and vancomycin. Today chest x-ray remains unchanged. There is no new infiltration or consolidation. Nevertheless, any weaning parameters are improved and the patient was given a spelled his breathing trial with a pressure support of 5 and a PEEP of 5 and within 30 minutes the patient was extubated to a 40% Ventimask. He is comfortable. He remained comfortable postextubation. No use of excessive muscle breathing. Minimal congested cough with sputum production. No hemoptysis. No pleurisy. Mental status is appropriate. Hemodynamically stable. He is diuresing as the patient received a dose of Lasix yesterday and this will be repeated today. Echocardiogram showed preserved LV function. Objective - Vital Signs Vital signs: Vital Signs Temp 98.2 F 06/24/16 08:00 Pulse 91 06/24/16 11:53 Resp 24 06/24/16 10:00 BP 146/61 06/24/16 10:00 Pulse Ox 95 06/24/16 10:00 Intake & Output 06/23/16 06/24/16 06/24/16 18:59 06:59 18:59 Intake Total 1996.887 804.740 172.636 Output Total 1495 1090 855 Balance 501.887 -285.260 -682.364 Weight 88.1 kg 83.1 kg 85.1 kg Intake: IV 200 280 80 Sodium Chloride 0.9% 1, 200 280 80 000 ml @ 20 mls/hr IV . Q24H [facility] Rx#:[id number] Intake, IV Titration 946.887 324.740 42.636 Amount Levofloxacin 750Mg-D5w 150 40 Pmx 750 mg In Dextrose/ Water 1 150ml.bag @ 100 mls/hr IVPB Q24H [facility] Rx#: [id number] Propofol 500 mg In Empty 296.887 284.740 42.636 Bag 1 bag @ Titrate IV . Q0M [facility] Rx#:[id number] Vancomycin 1,500 mg In 250 Sodium Chloride 0.9% 250 ml @ 125 mls/hr IVPB Q12H [facility] Rx#:[id number] Vancomycin 1,750 mg In 250 Sodium Chloride 0.9% 250 ml @ 125 mls/hr IVPB ONCE ONE Rx#:[id number] Tube Feeding 850 200 50 Output: Urine 1495 1090 855 Other: Voiding Method Indwelling Catheter Indwelling Catheter Indwelling Catheter # Voids 1 # Bowel Movements 0 - Exam Head exam was generally normal. There was no scleral icterus or corneal arcus. Mucous membranes were moist.Neck was supple and without jugular venous distension, thyromegaly, or carotid bruits. Carotids were easily palpable bilaterally. There was no adenopathy. The patient is extubated. Breath sounds are are diminished on the left compared to the right. There are some scattered rhonchi and expiratory wheezing bilaterally throughout the lung brandt.Cardiac exam revealed the PMI to be normally situated and sized. The rhythm was regular and no extrasystoles were noted during several minutes of auscultation. The first and second heart sounds were normal and physiologic splitting of the second heart sound was noted. There were no murmurs, rubs, clicks, or gallops.Abdominal exam revealed normal bowel sounds. The abdomen was soft, non- tender, and without masses, organomegaly, or appreciable enlargement of the abdominal aorta.Examination of the extremities revealed easily palpable radial, femoral and pedal pulses. There was no cyanosis, clubbing or edema. Neurologically the patient is awake. Alert. Extubated. Following commands and answering questions appropriately. - Labs CBC & Chem 7: 06/24/16 04:19 06/24/16 04:04 Labs: Abnormal Lab Results - Last 24 Hours (Table) 06/23/16 06/23/16 06/24/16 Range/Units 12:14 17:47 00:25 RBC (4.30-5.90) m/uL Hgb (13.0-17.5) gm/dL Hct (39.0-53.0) % ABG pCO2 (35-45) mmHg ABG pO2 (83-108) mmHg ABG HCO3 (21-25) mmol/L ABG Total CO2 (19-24) mmol/L ABG O2 Saturation (94-97) % BUN (9-20) mg/dL Glucose (74-99) mg/dL POC Glucose (mg/dL) 262 H 176 H 147 H (75-99) mg/dL Calcium (8.4-10.2) mg/dL 06/24/16 06/24/16 06/24/16 Range/Units 04:04 04:19 05:09 RBC 3.19 L (4.30-5.90) m/uL Hgb 9.6 L (13.0-17.5) gm/dL Hct 30.4 L (39.0-53.0) % ABG pCO2 55 H (35-45) mmHg ABG pO2 111 H (83-108) mmHg ABG HCO3 31 H (21-25) mmol/L ABG Total CO2 33 H (19-24) mmol/L ABG O2 Saturation 98.0 H (94-97) % BUN 46 H (9-20) mg/dL Glucose 190 H (74-99) mg/dL POC Glucose (mg/dL) (75-99) mg/dL Calcium 8.3 L (8.4-10.2) mg/dL 06/24/16 Range/Units 06:17 RBC (4.30-5.90) m/uL Hgb (13.0-17.5) gm/dL Hct (39.0-53.0) % ABG pCO2 (35-45) mmHg ABG pO2 (83-108) mmHg ABG HCO3 (21-25) mmol/L ABG Total CO2 (19-24) mmol/L ABG O2 Saturation (94-97) % BUN (9-20) mg/dL Glucose (74-99) mg/dL POC Glucose (mg/dL) 228 H (75-99) mg/dL Calcium (8.4-10.2) mg/dL Microbiology - Last 24 Hours (Table) 06/22/16 13:12 Gram Stain - Final Bronchoalviolar Lavage - Left Bronchial Washings Culture - Final 06/20/16 18:01 Blood Culture - Preliminary Blood No Growth after 72 hours 06/18/16 12:08 Blood Culture - Preliminary Blood No Growth after 120 hours Assessment and Plan Plan: Assessment 1 acute hypoxic and hypercapnic respiratory failure, multifactorial. The patient has extensive honeycombing and fibrotic changes in the left lung compared to the right. The patient is also bilateral airspace disease. The patient is status post bronchoscopy and therapeutic it was suctioning and the bronchioloalveolar lavage was performed yesterday. Were still awaiting the results of the cultures. On 06/24/2016, the patient had a stable chest x-ray. Cultures obtained from the bronchioloalveolar lavage him back negative for any microbial growth. The patient had adequate weaning parameters and he was given a prescription his breathing trial for a total of 25-30 minutes and following that the patient was extubated today 40% Ventimask. 2 severe COPD with chronic fibrotic changes bilaterally, left more than right 3 bilateral pneumonia with near complete opacification of the left lung at a time of admission, improving. No microbial cultures have been established. 4 acute cardio pulmonary arrest with a downtime of around 7 minutes from which the patient has recovered and there was return of spontaneous circulation after the successful resuscitation 5 prostate cancer 6 extensive bronchiectasis bilaterally 7 diabetes mellitus 8 hypertension 9 UTI with Enterococcus faecalis and Klebsiella. 10 anemia, chronic and multifactorial Plan Keep the patient intensive care unit. Pulmonary toileting. Provide incentive spirometer. Wean off FiO2 as tolerated to maintain a saturation above 90%. Continue same antibiotic coverage. Continue with the Lasix 20 mg IV push every 12 hours. Heparin subcu for DVT prophylaxis. We'll may provide diet at a later stage of the patient remains quite stable. This is a critically care evaluation that was done and 35 minutes. Time with Patient: Greater than 30
[2016-06-24 12:49] LABS: Glucose,Whole Blood 207 mg/dL (75-99)
[2016-06-24] MEDS: MULTIVITAMINS, THERA 1 EACH TAB PO SCH (13:05)
[2016-06-24] MEDS: VITAMIN E (DL,TOCOPHERYL ACET) 400 UNIT CAP PO SCH (13:05)
[2016-06-24] MEDS: SODIUM CHLORIDE 0.9% 1,000 ML IV SCH (13:06)
[2016-06-24 16:09] LABS: Mis test requested (Non-blood) PNJE
[2016-06-24] MEDS: LEVOFLOXACIN 750MG-D5W PMX 750 MG in DEXTROSE/WATER 1 150ML.BAG IVPB SCH (16:45)
--- NOTE | 2016-06-24 16:51 | P.PN ---
Subjective This is a 80-year-old gentleman that was admitted to the hospital with acute hypoxic respiratory failure. This was secondary to bilateral extensive pneumonia. Patient apparently underwent a cardiopulmonary arrest in hospital down time was apparently close to 7 minutes. Patient was thereafter triaged to the intensive care unit on vent support. Patient was noted to have significant amount of DVT and oral secretions. Patient is seen today status post extubation. Patient appears to be slightly tachypneic however is awake and answering questions appropriately. Objective - Vital Signs Vital signs: Vital Signs Temp 98.8 F 06/24/16 14:00 Pulse 94 06/24/16 16:00 Resp 31 H 06/24/16 16:00 BP 137/54 06/24/16 16:00 Pulse Ox 97 06/24/16 16:00 Intake & Output 06/23/16 06/24/16 06/24/16 18:59 06:59 18:59 Intake Total 1996.887 804.740 292.636 Output Total 1495 1090 1370 Balance 501.887 -285.260 -1077.364 Weight 88.1 kg 83.1 kg 85.1 kg Intake: IV 200 280 200 Sodium Chloride 0.9% 1, 200 280 200 000 ml @ 20 mls/hr IV . Q24H [facility] Rx#:[id number] Intake, IV Titration 946.887 324.740 42.636 Amount Levofloxacin 750Mg-D5w 150 40 Pmx 750 mg In Dextrose/ Water 1 150ml.bag @ 100 mls/hr IVPB Q24H [facility] Rx#: [id number] Propofol 500 mg In Empty 296.887 284.740 42.636 Bag 1 bag @ Titrate IV . Q0M [facility] Rx#:[id number] Vancomycin 1,500 mg In 250 Sodium Chloride 0.9% 250 ml @ 125 mls/hr IVPB Q12H [facility] Rx#:[id number] Vancomycin 1,750 mg In 250 Sodium Chloride 0.9% 250 ml @ 125 mls/hr IVPB ONCE ONE Rx#:[id number] Tube Feeding 850 200 50 Output: Urine 1495 1090 1370 Other: Voiding Method Indwelling Catheter Indwelling Catheter Indwelling Catheter # Voids 1 # Bowel Movements 0 - Exam Gen. appearance patient is awake alert to some questions Lungs diffuse rhonchi all over Heart S1-S2 heard no significant abnormal sounds appreciated Abdomen is soft nontender no organomegaly No extremities no significant edema noted Neuro no focal motor or sensory deficits noted. - Labs CBC & Chem 7: 06/24/16 04:19 06/24/16 04:04 Labs: Abnormal Lab Results - Last 24 Hours (Table) 06/23/16 06/24/16 06/24/16 Range/Units 17:47 00:25 04:04 RBC (4.30-5.90) m/uL Hgb (13.0-17.5) gm/dL Hct (39.0-53.0) % ABG pCO2 (35-45) mmHg ABG pO2 (83-108) mmHg ABG HCO3 (21-25) mmol/L ABG Total CO2 (19-24) mmol/L ABG O2 Saturation (94-97) % BUN 46 H (9-20) mg/dL Glucose 190 H (74-99) mg/dL POC Glucose (mg/dL) 176 H 147 H (75-99) mg/dL Calcium 8.3 L (8.4-10.2) mg/dL 06/24/16 06/24/16 06/24/16 Range/Units 04:19 05:09 06:17 RBC 3.19 L (4.30-5.90) m/uL Hgb 9.6 L (13.0-17.5) gm/dL Hct 30.4 L (39.0-53.0) % ABG pCO2 55 H (35-45) mmHg ABG pO2 111 H (83-108) mmHg ABG HCO3 31 H (21-25) mmol/L ABG Total CO2 33 H (19-24) mmol/L ABG O2 Saturation 98.0 H (94-97) % BUN (9-20) mg/dL Glucose (74-99) mg/dL POC Glucose (mg/dL) 228 H (75-99) mg/dL Calcium (8.4-10.2) mg/dL 06/24/16 Range/Units 12:48 RBC (4.30-5.90) m/uL Hgb (13.0-17.5) gm/dL Hct (39.0-53.0) % ABG pCO2 (35-45) mmHg ABG pO2 (83-108) mmHg ABG HCO3 (21-25) mmol/L ABG Total CO2 (19-24) mmol/L ABG O2 Saturation (94-97) % BUN (9-20) mg/dL Glucose (74-99) mg/dL POC Glucose (mg/dL) 207 H (75-99) mg/dL Calcium (8.4-10.2) mg/dL Microbiology - Last 24 Hours (Table) 06/18/16 12:08 Blood Culture - Final Blood No Growth after 144 hours 06/22/16 13:12 Gram Stain - Final Bronchoalviolar Lavage - Left Bronchial Washings Culture - Final 06/20/16 18:01 Blood Culture - Preliminary Blood No Growth after 72 hours Assessment and Plan Plan: Acute hypoxic and hypercapnic respiratory failure likely secondary to bilateral pneumonia in a patient with pulmonary fibrosis. 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 #UTI with multiple organs including Klebsiella and Enterococcus faecalis #8 anemia of chronic disease. Plan Continue ongoing care patient does appear to be tachypnea encourage management oral secretions. Patient will be monitored closely if patient appears to be tired and appeared to be significantly tachypneic or lethargic patient will need to be intubated again is likely not a candidate for a BiPAP therapy at this time. DVT prophylaxis. Strict fluid management at this time. Continue antibiotic therapy as recommended by infectious diseases.
[2016-06-24 18:02] LABS: Glucose,Whole Blood 160 mg/dL (75-99)
[2016-06-24] MEDS ORDERED: ONDANSETRON 4 MG/2 ML VIAL IVP PRN (20:25)
--- NOTE | 2016-06-24 22:41 | P.PN ---
Subjective Principal diagnosis: Respiratory failure This is an 80-year-old male who presented to [facility] emergency center on June 18 with concerns for not feeling well and shortness of breath with recent treatment for pneumonia in March. He was found to have sepsis on presentation with fever of 101.1, leukocytosis of 19.9, tachycardia and tachypnea. Influenza testing was negative. Initial chest x- ray showed right lower lobe pneumonia with chronic consolidation of the left lung. Urinalysis was clear with nitrate negative leukoesterase trace with urine culture showing 10-49 colonies of Enterococcus faecalis and Klebsiella oxytoca. He was initially started on Azactam and Levaquin. On June 20 there was a CODE BLUE called. Patient was pulseless with no respirations. CPR was initiated and patient was given 1 dose of epinephrine. He was intubated and transferred to the intensive care unit. He has been followed by Dr. Richardson. Blood cultures 3 are showing no growth. Sputum culture is showing rare gram- positive cocci and normal alexsander. This morning, Azactam was discontinued and vancomycin started. It does not appear the patient was on antibiotics he has had adequate urine output. There is been no diarrhea and no skin breakdown. prior to his admission. Patient was extubated earlier today. Did well on Ventimask. Now is back on BiPAP. The rest overnight. Hopefully will tolerate without requiring reintubation Objective - Vital Signs Vital signs: Vital Signs Temp 100.3 F H 06/24/16 20:00 Pulse 94 06/24/16 22:00 Resp 27 H 06/24/16 22:00 BP 111/52 06/24/16 22:00 Pulse Ox 97 06/24/16 22:00 Intake & Output 06/24/16 06/24/16 06/25/16 06:59 18:59 06:59 Intake Total 804.740 752.636 60 Output Total 1090 1550 628 Balance -285.260 -797.364 -568 Weight 83.1 kg 85.1 kg Intake: IV 280 260 60 Sodium Chloride 0.9% 1, 280 260 60 000 ml @ 20 mls/hr IV . Q24H [facility] Rx#:[id number] Intake, IV Titration 324.740 442.636 Amount Levofloxacin 750Mg-D5w 40 200 Pmx 750 mg In Dextrose/ Water 1 150ml.bag @ 100 mls/hr IVPB Q24H [facility] Rx#: [id number] Propofol 500 mg In Empty 284.740 42.636 Bag 1 bag @ Titrate IV . Q0M [facility] Rx#:[id number] Vancomycin 1,500 mg In 200 Sodium Chloride 0.9% 250 ml @ 125 mls/hr IVPB Q12H [facility] Rx#:[id number] Tube Feeding 200 50 Output: Urine 1090 1550 628 Other: Voiding Method Indwelling Catheter Indwelling Catheter # Voids 1 - Exam Gen: This is an 80-year-old male. HEENT treated with BiPAP HEENT: Head is atraumatic, normocephalic. Pupils equal, round. Sclerae is anicteric. Oral mucous membranes are very dry. No thrush noted. NECK: Supple. No JVD. No lymphadenopathy. No thyromegaly. LUNGS: Bilateral scattered rhonchi. No intercostal retractions. HEART: Regular rate and rhythm. No murmur. ABDOMEN: Soft. Bowel sounds are present. No masses. No tenderness. EXTREMITIES: Bilateral 1+ pedal edema and hand edema. Pedal pulses are 2+ and symmetric NEUROLOGICAL: Patient is sedated. Comfortable. - Labs CBC & Chem 7: 06/24/16 04:19 06/24/16 04:04 Labs: Abnormal Lab Results - Last 24 Hours (Table) 06/24/16 06/24/16 06/24/16 Range/Units 00:25 04:04 04:19 RBC 3.19 L (4.30-5.90) m/uL Hgb 9.6 L (13.0-17.5) gm/dL Hct 30.4 L (39.0-53.0) % ABG pCO2 (35-45) mmHg ABG pO2 (83-108) mmHg ABG HCO3 (21-25) mmol/L ABG Total CO2 (19-24) mmol/L ABG O2 Saturation (94-97) % BUN 46 H (9-20) mg/dL Glucose 190 H (74-99) mg/dL POC Glucose (mg/dL) 147 H (75-99) mg/dL Calcium 8.3 L (8.4-10.2) mg/dL 06/24/16 06/24/16 06/24/16 Range/Units 05:09 06:17 12:48 RBC (4.30-5.90) m/uL Hgb (13.0-17.5) gm/dL Hct (39.0-53.0) % ABG pCO2 55 H (35-45) mmHg ABG pO2 111 H (83-108) mmHg ABG HCO3 31 H (21-25) mmol/L ABG Total CO2 33 H (19-24) mmol/L ABG O2 Saturation 98.0 H (94-97) % BUN (9-20) mg/dL Glucose (74-99) mg/dL POC Glucose (mg/dL) 228 H 207 H (75-99) mg/dL Calcium (8.4-10.2) mg/dL 06/24/16 Range/Units 18:01 RBC (4.30-5.90) m/uL Hgb (13.0-17.5) gm/dL Hct (39.0-53.0) % ABG pCO2 (35-45) mmHg ABG pO2 (83-108) mmHg ABG HCO3 (21-25) mmol/L ABG Total CO2 (19-24) mmol/L ABG O2 Saturation (94-97) % BUN (9-20) mg/dL Glucose (74-99) mg/dL POC Glucose (mg/dL) 160 H (75-99) mg/dL Calcium (8.4-10.2) mg/dL Microbiology - Last 24 Hours (Table) 06/20/16 18:01 Blood Culture - Preliminary Blood No Growth after 96 hours 06/18/16 12:08 Blood Culture - Final Blood No Growth after 144 hours 06/22/16 13:12 Gram Stain - Final Bronchoalviolar Lavage - Left Bronchial Washings Culture - Final Laboratory Results WBC 9.1 k/uL (3.8-10.6) 06/24/16 04:19 RBC 3.19 m/uL (4.30-5.90) L 06/24/16 04:19 Hgb 9.6 gm/dL (13.0-17.5) L 06/24/16 04:19 Hct 30.4 % (39.0-53.0) L 06/24/16 04:19 MCV 95.3 fL (80.0-100.0) 06/24/16 04:19 MCH 30.3 pg (25.0-35.0) 06/24/16 04:19 MCHC 31.8 g/dL (31.0-37.0) 06/24/16 04:19 RDW 13.5 % (11.5-15.5) 06/24/16 04:19 Plt Count 237 k/uL (150-450) 06/24/16 04:19 Neutrophils % 84 % 06/23/16 04:52 Lymphocytes % 5 % 06/23/16 04:52 Monocytes % 6 % 06/23/16 04:52 Eosinophils % 3 % 06/23/16 04:52 Basophils % 0 % 06/23/16 04:52 Neutrophils # 5.7 k/uL (1.3-7.7) 06/23/16 04:52 Lymphocytes # 0.3 k/uL (1.0-4.8) L 06/23/16 04:52 Monocytes # 0.4 k/uL (0-1.0) 06/23/16 04:52 Eosinophils # 0.2 k/uL (0-0.7) 06/23/16 04:52 Basophils # 0.0 k/uL (0-0.2) 06/23/16 04:52 Hypochromasia Moderate 06/24/16 04:19 PT 11.1 sec (9.0-12.0) 06/20/16 06:10 INR 1.1 (<1.1) 06/20/16 06:10 APTT 25.2 sec (22.0-30.0) 06/20/16 06:10 Sample Site LRAD 06/24/16 05:09 ABG pH 7.37 (7.35-7.45) 06/24/16 05:09 ABG pCO2 55 mmHg (35-45) H 06/24/16 05:09 ABG pO2 111 mmHg (83-108) H 06/24/16 05:09 ABG HCO3 31 mmol/L (21-25) H 06/24/16 05:09 ABG Total CO2 33 mmol/L (19-24) H 06/24/16 05:09 ABG O2 Saturation 98.0 % (94-97) H 06/24/16 05:09 ABG Base Excess 6.0 mmol/L 06/24/16 05:09 FiO2 40 % 06/24/16 05:09 Sodium 138 mmol/L (137-145) 06/24/16 04:04 Potassium 4.5 mmol/L (3.5-5.1) 06/24/16 04:04 Chloride 104 mmol/L (98-107) 06/24/16 04:04 Carbon Dioxide 30 mmol/L (22-30) 06/24/16 04:04 Anion Gap 4 mmol/L 06/24/16 04:04 BUN 46 mg/dL (9-20) H 06/24/16 04:04 Creatinine 0.80 mg/dL (0.66-1.25) 06/24/16 04:04 Est GFR (MDRD) Af Amer >60 (>60 ml/min/1.73 sqM) 06/24/16 04:04 Est GFR (MDRD) Non-Af >60 (>60 ml/min/1.73 sqM) 06/24/16 04:04 Glucose 190 mg/dL (74-99) H 06/24/16 04:04 POC Glucose (mg/dL) 160 mg/dL (75-99) H 06/24/16 18:01 POC Glu Suspect Artist Supervisor ID Bri Adler 06/24/16 18:[address] Glu mg/dL 148 mg/dL 06/19/16 05:44 Hemoglobin A1c 6.8 % (4.2-6.1) H 06/19/16 05:44 Plasma Lactic Acid Mike 1.5 mmol/L (0.7-2.0) 06/18/16 12:08 Calcium 8.3 mg/dL (8.4-10.2) L 06/24/16 04:04 Phosphorus 3.5 mg/dL (2.5-4.5) 06/24/16 04:04 Magnesium 1.9 mg/dL (1.6-2.3) 06/24/16 04:04 Total Bilirubin 0.4 mg/dL (0.2-1.3) 06/20/16 06:10 AST 41 U/L (17-59) 06/20/16 06:10 ALT 34 U/L (21-72) 06/20/16 06:10 Alkaline Phosphatase 87 U/L (38-126) 06/20/16 06:10 Total Protein 7.0 g/dL (6.3-8.2) 06/20/16 06:10 Albumin 3.1 g/dL (3.5-5.0) L 06/20/16 06:10 Urine Color Dark Yellow 06/18/16 09:54 Urine Appearance Clear (Clear) 06/18/16 09:54 Urine pH 6.0 (5.0-8.0) 06/18/16 09:54 Ur Specific [place] 1.026 (1.001-1.035) 06/18/16 09:54 Urine Protein 2+ (Negative) H 06/18/16 09:54 Urine Glucose (UA) Trace (Negative) H 06/18/16 09:54 Urine Ketones Trace (Negative) H 06/18/16 09:54 Urine Blood Small (Negative) H 06/18/16 09:54 Urine Nitrite Negative (Negative) 06/18/16 09:54 Urine Bilirubin Negative (Negative) 06/18/16 09:54 Urine Urobilinogen 2.0 mg/dL (<2.0) 06/18/16 09:54 Ur Leukocyte Esterase Trace (Negative) H 06/18/16 09:54 Urine RBC 9 /hpf (0-5) H 06/18/16 09:54 Urine WBC 2 /hpf (0-5) 06/18/16 09:54 Hyaline Casts 12 /lpf (0-2) H 06/18/16 09:54 Urine Mucus Many /hpf (None) H 06/18/16 09:54 Fluid Source Bronchial Wash 06/22/16 13:12 Fluid Color Red 06/22/16 13:12 Fluid Appearance Bloody 06/22/16 13:12 Fluid RBC 66148 /uL 06/22/16 13:12 Fluid Nucleated Cells 3700 /uL 06/22/16 13:12 Fluid Polynuclear WBCs 40 % 06/22/16 13:12 Fluid Mononuclear WBCs 60 % 06/22/16 13:12 Vancomycin Trough 21.1 ug/mL 06/24/16 04:04 Influenza Type A RNA Not Detected (Not Detectd) 06/18/16 09:58 Influenza Type B (PCR) Not Detected (Not Detectd) 06/18/16 09:58 Virus Source See Below 06/22/16 13:12 Viral Test See Below 06/22/16 13:12 Virus Analysis Interp See Below 06/22/16 13:12 Miscellaneous Test PNJE 06/22/16 13:12 Misc Test Result See Comment 06/22/16 13:12 Microbiology 06/20/16 18:01 Blood Blood Culture - Preliminary No Growth after 96 hours 06/18/16 12:08 Blood Blood Culture - Final No Growth after 144 hours 06/18/16 09:54 Blood Blood Culture - Final No Growth after 144 hours 06/22/16 13:12 Bronchoalviolar Lavage - Left Gram Stain - Final 06/22/16 13:12 Bronchoalviolar Lavage - Left Bronchial Washings Culture - Final 06/22/16 13:12 Bronchoalviolar Lavage - Left Acid Fast Bacilli Smear - Final 06/22/16 13:12 Bronchoalviolar Lavage - Left Acid Fast Bacilli Culture - Preliminary 06/22/16 13:12 Bronchoalviolar Lavage - Left Fungal Culture - Preliminary 06/20/16 08:00 Sputum Gram Stain - Final 06/20/16 08:00 Sputum Sputum Culture - Final 06/20/16 18:49 Urine,Catheterized Urine Culture - Final 06/18/16 10:00 Urine,Voided Urine Culture - Final Enterococcus faecalis Klebsiella oxytoca - Imaging and Cardiology Chest x-ray: report reviewed (Ongoing evidence of pneumonia) Assessment and Plan (1) Pneumonia Narrative/Plan: 80-year-old male presents to Hospital with evidence of significant pneumonia. Developed respiratory failure and sepsis. The patient did require CPR intubation and mechanical ventilation. Urine culture with Enterococcus faecalis and klebsiella oxytocin and he is on vancomycin and levofloxacin and tolerating that well. BAL is pending the cultures are negative so far. AFB is negative. Rest of the viral screen is negative. Continue supportive care Was extubated today. But now back on BiPAP. He is a very tenacious pulmonary status. Legionella antigen will also be requested. Status: Acute (2) Pulmonary fibrosis Status: Acute
[2016-06-24] MEDS: IPRATROPIUM-ALBUTEROL 3 ML NEB INHALATION PRN (23:08)
[2016-06-25 05:27] LABS: Anion Gap 8 mmol/L; Blood Urea Nitrogen 43 mg/dL (9-20); Calcium 8.7 mg/dL (8.4-10.2); Carbon Dioxide 30 mmol/L (22-30); Chloride 105 mmol/L (98-107); Glucose 161 mg/dL (74-99); Non-African American GFR(MDRD) >60 (>60 ml/min/1.73 sqM); Potassium 4.9 mmol/L (3.5-5.1); Sodium 143 mmol/L (137-145)
[2016-06-25 05:47] LABS: CH 29.2; CHCM 30.3; HCT 34.7 % (39.0-53.0); HDW 2.72; HGB 10.6 gm/dL (13.0-17.5); Hypochromasia Moderate; MCH 29.5 pg (25.0-35.0); MCHC 30.6 g/dL (31.0-37.0); MCV 96.4 fL (80.0-100.0); Mean Platelet Volume 7.7; RBC 3.59 m/uL (4.30-5.90); RDW 13.7 % (11.5-15.5); WBC 7.3 k/uL (3.8-10.6)
[2016-06-25] MEDS: VANCOMYCIN 1,500 MG in SODIUM CHLORIDE 0.9% 250 ML IVPB SCH ×2 (06:10→18:33)
--- NOTE | 2016-06-25 07:13 | XR ---
EXAMINATION TYPE: XR chest 1V portable DATE OF EXAM: 06/25/2016 6:32 AM Comparison: 06/24/2016 Clinical History: 80 year-old male tube placement Findings: Heart margin is obscured by adjacent pleural-parenchymal disease. There is stable shift of the cardio mediastinum to the left. Interval extubation and removal of NG tube. Near complete opacification of t he left hemithorax redemonstrated with some coarse reticular opacities seen in the peripheral left up per lung. Lesser degree of reticulations in the right upper lung with patchy opacities in the mid and lower right lung, not significantly changed. Impression: Chronic bilateral fibrosis/honeycombing and left hemithoracic volume loss with stable superimposed in filtrate throughout the left lung and similar nonconfluent infiltrate throughout the right lung.
[2016-06-25 07:44] LABS: Glucose,Whole Blood 174 mg/dL (75-99)
[2016-06-25] MEDS: INSULIN LISPRO (humaLOG) 300 UNIT/3 ML VIAL SQ SCH ×4 (08:03→23:52)
[2016-06-25] MEDS: FUROSEMIDE 10 MG/ML 2 ML VIAL IV SCH ×2 (08:04→21:30)
[2016-06-25] MEDS: HEPARIN SODIUM,PORCINE 5,000 UNIT/ML 1 ML VIAL SQ SCH ×2 (08:04→21:30)
[2016-06-25] MEDS: PANTOPRAZOLE 40 MG/10 ML VIAL IVP SCH (08:05)
[2016-06-25] MEDS: BUDESONIDE 1 MG/2 ML NEBU INHALATION SCH ×2 (08:45→19:40)
[2016-06-25] MEDS: IPRATROPIUM-ALBUTEROL 3 ML NEB INHALATION SCH ×4 (08:45→19:40)
[2016-06-25] MEDS: FORMOTEROL FUMARATE 20 MCG/2 ML NEBU INHALATION SCH ×2 (08:45→19:40)
[2016-06-25 12:37] LABS: Glucose,Whole Blood 190 mg/dL (75-99)
[2016-06-25] MEDS: VITAMIN E (DL,TOCOPHERYL ACET) 400 UNIT CAP PO SCH (12:38)
[2016-06-25] MEDS: MULTIVITAMINS, THERA 1 EACH TAB PO SCH (12:38)
[2016-06-25] MEDS: SODIUM CHLORIDE 0.9% 1,000 ML IV SCH (13:10)
--- NOTE | 2016-06-25 13:18 | FL ---
EXAMINATION TYPE: FL barium swallow w video DATE OF EXAM: 06/25/2016 11:28 AM COMPARISON: NONE HISTORY: Abnormal bedside TECHNIQUE: Fluoroscopy. FINDINGS: Fluoroscopic guidance was provided for the procedure performed in conjunction with the [facility] pathology department. Please see complete report forthcoming from the Speech Pathology departmen t. Various consistencies from thin liquid to solids were administered. Silent aspiration occurred with thin liquids. Pudding thick consistency was attempted also with silen t aspiration. The procedure was terminated Pooling was observed in the vallecula. There is limited propulsion of the bolus. IMPRESSION: 1. Silent aspiration with both thin liquids and pudding thick consistencies.
--- NOTE | 2016-06-25 14:25 | P.PN ---
Subjective 80-year-old male patient was admitted for acute hypoxic and hypercapnic respiratory failure and the patient has bilateral extensive pneumonia. Noted the patient also has advanced COPD with chronic fibrotic changes with significant volume loss in the left lung compared to the right. A prior CAT scan of the chest that showed chronic left-sided volume loss with underlying extensive bronchiectasis and fibrosis. The exact nature of this abnormalities are not known. The patient was in the hospital in March 2016 for bilateral pneumonia treated and discharged home. Has been using oxygen 2 L/m nasal cannula on outpatient basis. On 06/22/2016, the patient is being seen in follow-up. The patient is lightly sedated with Diprivan which is running at around 35-40 mics per KG pigmented. The patient was an assist-control mode of ventilation at the rate of 18, tidal volume 450, FiO2 of 40% and a PEEP of 5. The patient was intubated with a #8 orotracheal tube. He was still having respiratory secretions were quite considerably copious. At that point, a bronchoscopy was done at the bedside and therapeutic it was suctioning was done where more than 20-30 MO's of restless 6 she is were suctioned out and the secretions were essentially purulent in nature. The endobronchial airways were quite narrowed and there was significant scarring and mucosal inflammatory changes typical of an underlying pneumonia. The blood gases on this morning showed a pH of 7.42 with a pCO2 of 44 and pO2 of 102. The patient was afebrile hemodynamically stable. Ecchymotic coverage remain the same which includes a combination of Levaquin and vancomycin. The patient is receiving tube feeds in the form of vital 1.2 and he is at goal at 50 mL an hour. 06/23/2016, I'm seeing this patient in follow-up. Yesterday the patient underwent a bronchoscopy and therapeutic it was suctioning was done and the samples are all sent to microbial analysis. The preliminary AFB stain was negative. This gram-negative bacilli and gram-positive cocci and Gram stain. This morning, the patient was given a sedation holiday. He woke up any was opening his eyes and following some simple commands. He was however very anxious. Weaning parameters without poor. The measurement was not while the patient was on a pressure support of 5 and a PEEP of 5 and the patient was barely pulling tidal volumes of 200 and he was becoming tachypneic. At the same time the patient became tachycardic and he desaturated. Morning blood gases from today showed a pH of 7.35 with a pCO2 of 46 and pO2 of 107. This is that x-ray at all within normal limits. The chest x-ray from today is showing stable honeycombing throughout the left lung with left-sided volume loss and bilateral airspace infiltrates. Overall findings are stable compared to yesterday's chest x-ray. The patient was also seen by infectious disease. The patient was kept on an antibiotic coverage which included vancomycin and Levaquin. His echocardiogram from 2016 showed a preserved LV function with an ejection fraction of 6065% and mild degree of pulmonary hypertension. On 06/24/2016 I'm seeing this patient in follow-up. The bronchoscopy was completed and the bronchioloalveolar lavage is not showing any new microbial growth. Affect the findings are consistent with normal alexsander. The patient remains on a combination of Levaquin and vancomycin. Today chest x-ray remains unchanged. There is no new infiltration or consolidation. Nevertheless, any weaning parameters are improved and the patient was given a spelled his breathing trial with a pressure support of 5 and a PEEP of 5 and within 30 minutes the patient was extubated to a 40% Ventimask. He is comfortable. He remained comfortable postextubation. No use of excessive muscle breathing. Minimal congested cough with sputum production. No hemoptysis. No pleurisy. Mental status is appropriate. Hemodynamically stable. He is diuresing as the patient received a dose of Lasix yesterday and this will be repeated today. Echocardiogram showed preserved LV function. On , the patient remains extubated and today he is post extubation day # 1. Note that yesterday the patient had some reading difficulties and the patient was placed on BiPAP for respiratory support. Since then, the patient was taken off the BiPAP this morning and he is currently at 3-4 L of oxygen nasal cannula. He is on DuoNeb nebulized treatments. He is on Pulmicort and Perforomist neb last treatment twice a day. He remains on the same antibiotic coverage which includes a combination of vancomycin and Levaquin. The results of the bronchioloalveolar lavage came back negative for any microbial growth. Meanwhile, the patient is being diuresis with IV Lasix. He is a negative fluid balance. He is awake and alert however he is slow in answering questions. He is very hard of hearing and he does not communicate appropriately. He remains quite weak with a weak cough. The patient failed a swallow evaluation and based on that he was kept nothing by mouth. He is followed be reevaluated within next 24-48 hours. He is afebrile for now. Objective - Vital Signs Vital signs: Vital Signs Temp 98.5 F 06/25/16 12:00 Pulse 91 06/25/16 13:00 Resp 23 06/25/16 13:00 BP 124/57 06/25/16 13:00 Pulse Ox 98 06/25/16 13:00 Intake & Output 06/24/16 06/25/16 06/25/16 18:59 06:59 18:59 Intake Total 752.636 283.979 370 Output Total 1550 1506 1100 Balance -797.364 -1222.021 -730 Weight 85.1 kg 83.5 kg Intake: IV 260 240 120 Sodium Chloride 0.9% 1, 260 240 120 000 ml @ 20 mls/hr IV . Q24H MICHAEL Rx#:[id number] Intake, IV Titration 442.636 43.979 250 Amount Levofloxacin 750Mg-D5w 200 Pmx 750 mg In Dextrose/ Water 1 150ml.bag @ 100 mls/hr IVPB Q24H MICHAEL Rx#: [id number] Propofol 500 mg In Empty 42.636 43.979 Bag 1 bag @ Titrate IV . Q0M MICHAEL Rx#:[id number] Vancomycin 1,500 mg In 200 250 Sodium Chloride 0.9% 250 ml @ 125 mls/hr IVPB Q12H MICHAEL Rx#:[id number] Tube Feeding 50 Output: Urine 1550 1506 1100 Other: Voiding Method Indwelling Catheter Indwelling Catheter Indwelling Catheter # Voids 1 - Exam Head exam was generally normal. There was no scleral icterus or corneal arcus. Mucous membranes were moist.Neck was supple and without jugular venous distension, thyromegaly, or carotid bruits. Carotids were easily palpable bilaterally. There was no adenopathy. The patient is extubated. Breath sounds are are diminished on the left compared to the right. There are some scattered rhonchi and expiratory wheezing bilaterally throughout the lung brandt.Cardiac exam revealed the PMI to be normally situated and sized. The rhythm was regular and no extrasystoles were noted during several minutes of auscultation. The first and second heart sounds were normal and physiologic splitting of the second heart sound was noted. There were no murmurs, rubs, clicks, or gallops.Abdominal exam revealed normal bowel sounds. The abdomen was soft, non- tender, and without masses, organomegaly, or appreciable enlargement of the abdominal aorta.Examination of the extremities revealed easily palpable radial, femoral and pedal pulses. There was no cyanosis, clubbing or edema. Neurologically the patient is awake. Alert. Extubated. Following commands and answering questions appropriately. - Labs CBC & Chem 7: 06/25/16 04:43 06/25/16 04:34 Labs: Abnormal Lab Results - Last 24 Hours (Table) 06/24/16 06/25/16 06/25/16 Range/Units 18:01 04:34 04:43 RBC 3.59 L (4.30-5.90) m/uL Hgb 10.6 L (13.0-17.5) gm/dL Hct 34.7 L (39.0-53.0) % MCHC 30.6 L (31.0-37.0) g/dL BUN 43 H (9-20) mg/dL Glucose 161 H (74-99) mg/dL POC Glucose (mg/dL) 160 H (75-99) mg/dL 06/25/16 06/25/16 Range/Units 07:43 12:36 RBC (4.30-5.90) m/uL Hgb (13.0-17.5) gm/dL Hct (39.0-53.0) % MCHC (31.0-37.0) g/dL BUN (9-20) mg/dL Glucose (74-99) mg/dL POC Glucose (mg/dL) 174 H 190 H (75-99) mg/dL Microbiology - Last 24 Hours (Table) 06/20/16 18:01 Blood Culture - Preliminary Blood No Growth after 96 hours 06/18/16 12:08 Blood Culture - Final Blood No Growth after 144 hours Assessment and Plan Plan: Assessment 1 acute hypoxic and hypercapnic respiratory failure, multifactorial. The patient has extensive honeycombing and fibrotic changes in the left lung compared to the right. The patient is also bilateral airspace disease. The patient is status post bronchoscopy and therapeutic it was suctioning and the bronchioloalveolar lavage was performed yesterday. Were still awaiting the results of the cultures. On 06/24/2016, the patient had a stable chest x-ray. Cultures obtained from the bronchioloalveolar lavage him back negative for any microbial growth. The patient had adequate weaning parameters and he was given a prescription his breathing trial for a total of 25-30 minutes and following that the patient was extubated today 40% Ventimask. On 06/25/2016, the patient remains extubated. His chest x-ray findings are essentially stable. Nevertheless his breathing remains quite borderline and the patient is requiring on and off on BPAP therapy for respiratory support. He has a congested cough. Unable to bring up much sputum. He has neuromuscular weakness. He failed swallow. As such, the patient has been kept nothing by mouth. 2 severe COPD with chronic fibrotic changes bilaterally, left more than right 3 bilateral pneumonia with near complete opacification of the left lung with significant scarring and volume loss. No microbial cultures have been established. 4 acute cardio pulmonary arrest with a downtime of around 7 minutes from which the patient has recovered and there was return of spontaneous circulation after the successful resuscitation 5 prostate cancer 6 extensive bronchiectasis bilaterally 7 diabetes mellitus 8 hypertension 9 UTI with Enterococcus faecalis and Klebsiella. 10 anemia, chronic and multifactorial Plan Keep the patient intensive care unit. Pulmonary toileting. Provide incentive spirometer. BiPAP therapy on and off for respiratory support. IV Solu-Medrol 40-6 hours. Reevaluate the swallow within next 24 hours. Physical therapy with passive range of motion. Keep same antibiotic coverage. We'll continue to follow.
[2016-06-25] MEDS ORDERED: METOCLOPRAMIDE 5 MG/ML 2 ML VIAL ONE (15:00)
--- NOTE | 2016-06-25 15:36 | XR ---
EXAMINATION TYPE: XR KUB portable DATE OF EXAM: 06/25/2016 3:31 PM COMPARISON: NONE HISTORY: 80-year-old male with Dobbhoff placement FINDINGS: Dobbhoff tube extends below the diaphragm likely within the stomach projecting towards the left upper quadrant. Nonobstructive bowel gas pattern. Moderate to large stool within the pelvis. Degenerative changes lumbar spine. Multiple surgical clips along the pelvic sidewalls. IMPRESSION: Dobbhoff tube extending below the diaphragm projecting towards the left upper quadrant. Moderate to l arge stool in the pelvis.
[2016-06-25] MEDS: methylPREDNISolone SOD SUCCI 40 MG/ML 1 ML VIAL IV SCH ×2 (16:03→21:30)
[2016-06-25] MEDS: LEVOFLOXACIN 750MG-D5W PMX 750 MG in DEXTROSE/WATER 1 150ML.BAG IVPB SCH (16:03)
--- NOTE | 2016-06-25 16:28 | XR ---
EXAMINATION TYPE: XR KUB portable DATE OF EXAM: 06/25/2016 4:22 PM COMPARISON: NONE INDICATION: Dobbhoff insertion TECHNIQUE: Single view abdomen supine FINDINGS: There is a normal bowel gas pattern. Psoas margins are normal. No organomegaly is present. survey is within the descending colon and pelvis. Multiple surgical clips are within the pelvis There is a catheter curled within the left upper quadrant of the abdomen. The tip is directed superio rly in the left abdomen IMPRESSION: 1. Dobbhoff feeding tube with tip within the left upper quadrant abdomen
--- NOTE | 2016-06-25 16:29 | XR ---
EXAMINATION TYPE: XR abdomen 1V DATE OF EXAM: 06/25/2016 4:22 PM COMPARISON: NONE INDICATION: Dobbhoff feeding tube adjustment TECHNIQUE: Single view abdomen supine FINDINGS: There is a normal bowel gas pattern. Psoas margins are normal. No organomegaly is present. Surgical clips are within the pelvis. Fecal debris is within the descending colon. Catheter is curled within the left upper quadrant of the abdomen. The tip is not identified. IMPRESSION: 1. Dobbhoff feeding tube curled within the [id number] without the tip in identified.
--- NOTE | 2016-06-25 16:30 | XR ---
EXAMINATION TYPE: XR abdomen 1V DATE OF EXAM: 06/25/2016 4:22 PM COMPARISON: NONE INDICATION: Dobbhoff feeding tube adjustment TECHNIQUE: Single view abdomen supine FINDINGS: There is a normal bowel gas pattern. Psoas margins are normal. No organomegaly is present. The Dobbhoff feeding tube catheters minimally visualized at the left upper quadrant. Tip is out of th e [id number] IMPRESSION: 1. Dobbhoff feeding tube catheter tip cannot be identified on this image.
--- NOTE | 2016-06-25 17:25 | P.PN ---
Subjective This is a 80-year-old gentleman that was admitted to the hospital with acute hypoxic respiratory failure. This was secondary to bilateral extensive pneumonia. Patient apparently underwent a cardiopulmonary arrest in hospital down time was apparently close to 7 minutes. Patient was thereafter triaged to the intensive care unit on vent support. Patient was noted to have significant amount of DVT and oral secretions. Patient is seen today status post extubation. Patient appears to be slightly tachypneic however is awake and answering questions appropriately. 06/25/16 No new overnight events Pt did well tolerated bipap on 3 l significant amount of thick yellowish sputum No fevers, chills reported. Objective - Vital Signs Vital signs: Vital Signs Temp 98.6 F 06/25/16 16:00 Pulse 93 06/25/16 17:00 Resp 24 06/25/16 17:00 BP 149/61 06/25/16 17:00 Pulse Ox 98 06/25/16 17:00 Intake & Output 06/24/16 06/25/16 06/25/16 18:59 06:59 18:59 Intake Total 752.636 283.979 580 Output Total 1550 1506 1435 Balance -797.364 -1222.021 -855 Weight 85.1 kg 83.5 kg 83.5 kg Intake: IV 260 240 180 Sodium Chloride 0.9% 1, 260 240 180 000 ml @ 20 mls/hr IV . Q24H MICHAEL Rx#:[id number] Intake, IV Titration 442.636 43.979 400 Amount Levofloxacin 750Mg-D5w 200 150 Pmx 750 mg In Dextrose/ Water 1 150ml.bag @ 100 mls/hr IVPB Q24H MICHAEL Rx#: [id number] Propofol 500 mg In Empty 42.636 43.979 Bag 1 bag @ Titrate IV . Q0M MICHAEL Rx#:[id number] Vancomycin 1,500 mg In 200 250 Sodium Chloride 0.9% 250 ml @ 125 mls/hr IVPB Q12H MICHAEL Rx#:[id number] Tube Feeding 50 Output: Urine 1550 1506 1435 Other: Voiding Method Indwelling Catheter Indwelling Catheter Indwelling Catheter # Voids 1 - Exam Gen. appearance patient is awake alert to some questions Lungs diffuse rhonchi all over Heart S1-S2 heard no significant abnormal sounds appreciated Abdomen is soft nontender no organomegaly No extremities no significant edema noted Neuro no focal motor or sensory deficits noted. - Labs CBC & Chem 7: 06/25/16 04:43 06/25/16 04:34 Labs: Abnormal Lab Results - Last 24 Hours (Table) 06/24/16 06/25/16 06/25/16 Range/Units 18:01 04:34 04:43 RBC 3.59 L (4.30-5.90) m/uL Hgb 10.6 L (13.0-17.5) gm/dL Hct 34.7 L (39.0-53.0) % MCHC 30.6 L (31.0-37.0) g/dL BUN 43 H (9-20) mg/dL Glucose 161 H (74-99) mg/dL POC Glucose (mg/dL) 160 H (75-99) mg/dL 06/25/16 06/25/16 Range/Units 07:43 12:36 RBC (4.30-5.90) m/uL Hgb (13.0-17.5) gm/dL Hct (39.0-53.0) % MCHC (31.0-37.0) g/dL BUN (9-20) mg/dL Glucose (74-99) mg/dL POC Glucose (mg/dL) 174 H 190 H (75-99) mg/dL Microbiology - Last 24 Hours (Table) 06/20/16 18:01 Blood Culture - Preliminary Blood No Growth after 96 hours 06/18/16 12:08 Blood Culture - Final Blood No Growth after 144 hours Assessment and Plan Plan: Acute hypoxic and hypercapnic respiratory failure likely secondary to bilateral pneumonia in a patient with pulmonary fibrosis. 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 #UTI with multiple organs including Klebsiella and Enterococcus faecalis #8 anemia of chronic disease. Plan dysphagia Inserted a Dubhoff at bedside Restart tube feeding ST to re-eval the pt again. DVT prophylaxis. Strict fluid management at this time. Continue antibiotic therapy as recommended by infectious diseases.
[2016-06-25 18:02] LABS: Glucose,Whole Blood 185 mg/dL (75-99)
--- NOTE | 2016-06-25 23:11 | P.PN ---
Subjective Principal diagnosis: Respiratory failure This is an 80-year-old male who presented to [facility] emergency center on June 18 with concerns for not feeling well and shortness of breath with recent treatment for pneumonia in March. He was found to have sepsis on presentation with fever of 101.1, leukocytosis of 19.9, tachycardia and tachypnea. Influenza testing was negative. Initial chest x- ray showed right lower lobe pneumonia with chronic consolidation of the left lung. Urinalysis was clear with nitrate negative leukoesterase trace with urine culture showing 10-49 colonies of Enterococcus faecalis and Klebsiella oxytoca. He was initially started on Azactam and Levaquin. On June 20 there was a CODE BLUE called. Patient was pulseless with no respirations. CPR was initiated and patient was given 1 dose of epinephrine. He was intubated and transferred to the intensive care unit. He has been followed by Dr. Richardson. Blood cultures 3 are showing no growth. Sputum culture is showing rare gram- positive cocci and normal alexsander. This morning, Azactam was discontinued and vancomycin started. It does not appear the patient was on antibiotics he has had adequate urine output. There is been no diarrhea and no skin breakdown. prior to his admission. Patient was extubated yesterday. However required some time on BiPAP. He's now been off BiPAP for many hours. Doing well. However failed his swallow study. Dobbhoff is been placed and started to tolerate some tube feeds. He seems to be comfortable and voices no new acute complaints Objective - Vital Signs Vital signs: Vital Signs Temp 98.2 F 06/25/16 20:00 Pulse 88 06/25/16 23:00 Resp 20 06/25/16 23:00 BP 136/62 06/25/16 23:00 Pulse Ox 99 06/25/16 23:00 Intake & Output 06/25/16 06/25/16 06/26/16 06:59 18:59 06:59 Intake Total 283.979 765 120 Output Total 1506 1555 588 Balance -1222.021 -790 -468 Weight 83.5 kg 83.5 kg Intake: IV 240 210 80 Sodium Chloride 0.9% 1, 240 210 80 000 ml @ 20 mls/hr IV . Q24H [facility] Rx#:[id number] Intake, IV Titration 43.979 525 Amount Levofloxacin 750Mg-D5w 150 Pmx 750 mg In Dextrose/ Water 1 150ml.bag @ 100 mls/hr IVPB Q24H [facility] Rx#: [id number] Propofol 500 mg In Empty 43.979 Bag 1 bag @ Titrate IV . Q0M [facility] Rx#:[id number] Vancomycin 1,500 mg In 375 Sodium Chloride 0.9% 250 ml @ 125 mls/hr IVPB Q12H [facility] Rx#:[id number] Tube Feeding 30 40 Output: Urine 1506 1555 588 Other: Voiding Method Indwelling Catheter Indwelling Catheter Indwelling Catheter # Voids 1 1 - Exam Gen: This is an 80-year-old male. HEENT treated with BiPAP HEENT: Head is atraumatic, normocephalic. Pupils equal, round. Sclerae is anicteric. Oral mucous membranes are very dry. No thrush noted. NECK: Supple. No JVD. No lymphadenopathy. No thyromegaly. LUNGS: Bilateral scattered rhonchi. No intercostal retractions. HEART: Regular rate and rhythm. No murmur. ABDOMEN: Soft. Bowel sounds are present. No masses. No tenderness. EXTREMITIES: Bilateral 1+ pedal edema and hand edema. Pedal pulses are 2+ and symmetric NEUROLOGICAL: Patient is sedated. Comfortable. - Labs CBC & Chem 7: 06/25/16 04:43 06/25/16 04:34 Labs: Abnormal Lab Results - Last 24 Hours (Table) 06/25/16 06/25/16 06/25/16 Range/Units 04:34 04:43 07:43 RBC 3.59 L (4.30-5.90) m/uL Hgb 10.6 L (13.0-17.5) gm/dL Hct 34.7 L (39.0-53.0) % MCHC 30.6 L (31.0-37.0) g/dL BUN 43 H (9-20) mg/dL Glucose 161 H (74-99) mg/dL POC Glucose (mg/dL) 174 H (75-99) mg/dL 06/25/16 06/25/16 Range/Units 12:36 18:00 RBC (4.30-5.90) m/uL Hgb (13.0-17.5) gm/dL Hct (39.0-53.0) % MCHC (31.0-37.0) g/dL BUN (9-20) mg/dL Glucose (74-99) mg/dL POC Glucose (mg/dL) 190 H 185 H (75-99) mg/dL Microbiology - Last 24 Hours (Table) 06/20/16 18:01 Blood Culture - Preliminary Blood No Growth after 120 hours Laboratory Results WBC 7.3 k/uL (3.8-10.6) 06/25/16 04:43 RBC 3.59 m/uL (4.30-5.90) L 06/25/16 04:43 Hgb 10.6 gm/dL (13.0-17.5) L 06/25/16 04:43 Hct 34.7 % (39.0-53.0) L 06/25/16 04:43 MCV 96.4 fL (80.0-100.0) 06/25/16 04:43 MCH 29.5 pg (25.0-35.0) 06/25/16 04:43 MCHC 30.6 g/dL (31.0-37.0) L 06/25/16 04:43 RDW 13.7 % (11.5-15.5) 06/25/16 04:43 Plt Count 237 k/uL (150-450) 06/25/16 04:43 Neutrophils % 84 % 06/23/16 04:52 Lymphocytes % 5 % 06/23/16 04:52 Monocytes % 6 % 06/23/16 04:52 Eosinophils % 3 % 06/23/16 04:52 Basophils % 0 % 06/23/16 04:52 Neutrophils # 5.7 k/uL (1.3-7.7) 06/23/16 04:52 Lymphocytes # 0.3 k/uL (1.0-4.8) L 06/23/16 04:52 Monocytes # 0.4 k/uL (0-1.0) 06/23/16 04:52 Eosinophils # 0.2 k/uL (0-0.7) 06/23/16 04:52 Basophils # 0.0 k/uL (0-0.2) 06/23/16 04:52 Hypochromasia Moderate 06/25/16 04:43 PT 11.1 sec (9.0-12.0) 06/20/16 06:10 INR 1.1 (<1.1) 06/20/16 06:10 APTT 25.2 sec (22.0-30.0) 06/20/16 06:10 Sample Site LRAD 06/24/16 05:09 ABG pH 7.37 (7.35-7.45) 06/24/16 05:09 ABG pCO2 55 mmHg (35-45) H 06/24/16 05:09 ABG pO2 111 mmHg (83-108) H 06/24/16 05:09 ABG HCO3 31 mmol/L (21-25) H 06/24/16 05:09 ABG Total CO2 33 mmol/L (19-24) H 06/24/16 05:09 ABG O2 Saturation 98.0 % (94-97) H 06/24/16 05:09 ABG Base Excess 6.0 mmol/L 06/24/16 05:09 FiO2 40 % 06/24/16 05:09 Sodium 143 mmol/L (137-145) 06/25/16 04:34 Potassium 4.9 mmol/L (3.5-5.1) 06/25/16 04:34 Chloride 105 mmol/L (98-107) 06/25/16 04:34 Carbon Dioxide 30 mmol/L (22-30) 06/25/16 04:34 Anion Gap 8 mmol/L 06/25/16 04:34 BUN 43 mg/dL (9-20) H 06/25/16 04:34 Creatinine 0.80 mg/dL (0.66-1.25) 06/25/16 04:34 Est GFR (MDRD) Af Amer >60 (>60 ml/min/1.73 sqM) 06/25/16 04:34 Est GFR (MDRD) Non-Af >60 (>60 ml/min/1.73 sqM) 06/25/16 04:34 Glucose 161 mg/dL (74-99) H 06/25/16 04:34 POC Glucose (mg/dL) 185 mg/dL (75-99) H 06/25/16 18:00 POC Glu Clearance Center Manager ID Calvin Wakefield 06/25/16 18:[address] Glu mg/dL 148 mg/dL 06/19/16 05:44 Hemoglobin A1c 6.8 % (4.2-6.1) H 06/19/16 05:44 Plasma Lactic Acid Mike 1.5 mmol/L (0.7-2.0) 06/18/16 12:08 Calcium 8.7 mg/dL (8.4-10.2) 06/25/16 04:34 Phosphorus 3.5 mg/dL (2.5-4.5) 06/24/16 04:04 Magnesium 1.9 mg/dL (1.6-2.3) 06/24/16 04:04 Total Bilirubin 0.4 mg/dL (0.2-1.3) 06/20/16 06:10 AST 41 U/L (17-59) 06/20/16 06:10 ALT 34 U/L (21-72) 06/20/16 06:10 Alkaline Phosphatase 87 U/L (38-126) 06/20/16 06:10 Total Protein 7.0 g/dL (6.3-8.2) 06/20/16 06:10 Albumin 3.1 g/dL (3.5-5.0) L 06/20/16 06:10 Urine Color Dark Yellow 06/18/16 09:54 Urine Appearance Clear (Clear) 06/18/16 09:54 Urine pH 6.0 (5.0-8.0) 06/18/16 09:54 Ur Specific [place] 1.026 (1.001-1.035) 06/18/16 09:54 Urine Protein 2+ (Negative) H 06/18/16 09:54 Urine Glucose (UA) Trace (Negative) H 06/18/16 09:54 Urine Ketones Trace (Negative) H 06/18/16 09:54 Urine Blood Small (Negative) H 06/18/16 09:54 Urine Nitrite Negative (Negative) 06/18/16 09:54 Urine Bilirubin Negative (Negative) 06/18/16 09:54 Urine Urobilinogen 2.0 mg/dL (<2.0) 06/18/16 09:54 Ur Leukocyte Esterase Trace (Negative) H 06/18/16 09:54 Urine RBC 9 /hpf (0-5) H 06/18/16 09:54 Urine WBC 2 /hpf (0-5) 06/18/16 09:54 Hyaline Casts 12 /lpf (0-2) H 06/18/16 09:54 Urine Mucus Many /hpf (None) H 06/18/16 09:54 Fluid Source Bronchial Wash 06/22/16 13:12 Fluid Color Red 06/22/16 13:12 Fluid Appearance Bloody 06/22/16 13:12 Fluid RBC 09351 /uL 06/22/16 13:12 Fluid Nucleated Cells 3700 /uL 06/22/16 13:12 Fluid Polynuclear WBCs 40 % 06/22/16 13:12 Fluid Mononuclear WBCs 60 % 06/22/16 13:12 Vancomycin Trough 21.1 ug/mL 06/24/16 04:04 Influenza Type A RNA Not Detected (Not Detectd) 06/18/16 09:58 Influenza Type B (PCR) Not Detected (Not Detectd) 06/18/16 09:58 Virus Source See Below 06/22/16 13:12 Viral Test See Below 06/22/16 13:12 Virus Analysis Interp See Below 06/22/16 13:12 Miscellaneous Test PNJE 06/22/16 13:12 Misc Test Result See Comment 06/22/16 13:12 Microbiology 06/20/16 18:01 Blood Blood Culture - Preliminary No Growth after 120 hours 06/18/16 12:08 Blood Blood Culture - Final No Growth after 144 hours 06/18/16 09:54 Blood Blood Culture - Final No Growth after 144 hours 06/22/16 13:12 Bronchoalviolar Lavage - Left Gram Stain - Final 06/22/16 13:12 Bronchoalviolar Lavage - Left Bronchial Washings Culture - Final 06/22/16 13:12 Bronchoalviolar Lavage - Left Acid Fast Bacilli Smear - Final 06/22/16 13:12 Bronchoalviolar Lavage - Left Acid Fast Bacilli Culture - Preliminary 06/22/16 13:12 Bronchoalviolar Lavage - Left Fungal Culture - Preliminary 06/20/16 08:00 Sputum Gram Stain - Final 06/20/16 08:00 Sputum Sputum Culture - Final 06/20/16 18:49 Urine,Catheterized Urine Culture - Final 06/18/16 10:00 Urine,Voided Urine Culture - Final Enterococcus faecalis Klebsiella oxytoca Assessment and Plan (1) Pneumonia Narrative/Plan: 80-year-old male presents to Hospital with evidence of significant pneumonia. Developed respiratory failure and sepsis. The patient did require CPR intubation and mechanical ventilation. Urine culture with Enterococcus faecalis and klebsiella oxytoca and he is on vancomycin and levofloxacin and tolerating that well. BAL is pending the cultures are negative so far. AFB is negative. Rest of the viral screen is negative. Continue supportive care Extubated and now off of BiPAP. Pulmonary status is improving. Is on nasal cannula oxygen. Tolerating tube feeds via Dobbhoff. Failed his swallow study. Unclear if he will be a candidate for a PEG tube in the future. Status: Acute (2) Pulmonary fibrosis Status: Acute
[2016-06-25 23:50] LABS: Glucose,Whole Blood 212 mg/dL (75-99)
[2016-06-26] MEDS: methylPREDNISolone SOD SUCCI 40 MG/ML 1 ML VIAL IV SCH ×4 (03:37→21:02)
[2016-06-26 05:21] LABS: CH 28.9; CHCM 29.5; HCT 32.4 % (39.0-53.0); HDW 2.68; HGB 9.8 gm/dL (13.0-17.5); Hypochromasia Marked; MCH 29.7 pg (25.0-35.0); MCHC 30.3 g/dL (31.0-37.0); MCV 98.2 fL (80.0-100.0); Mean Platelet Volume 6.8; RDW 13.7 % (11.5-15.5); WBC 8.5 k/uL (3.8-10.6)
[2016-06-26 05:22] LABS: Blood Urea Nitrogen 48 mg/dL (9-20); Chloride 96 mmol/L (98-107); Glucose 228 mg/dL (74-99); Magnesium 2.2 mg/dL (1.6-2.3); Non-African American GFR(MDRD) >60 (>60 ml/min/1.73 sqM); Phosphorous 3.1 mg/dL (2.5-4.5); Potassium 4.4 mmol/L (3.5-5.1); Sodium 144 mmol/L (137-145)
[2016-06-26 05:28] LABS: Anion Gap 7 mmol/L
[2016-06-26 05:36] LABS: Carbon Dioxide 41 mmol/L (22-30)
[2016-06-26 05:53] LABS: Glucose,Whole Blood 234 mg/dL (75-99)
[2016-06-26] MEDS: INSULIN LISPRO (humaLOG) 300 UNIT/3 ML VIAL SQ SCH ×3 (05:53→18:45)
[2016-06-26] MEDS: VANCOMYCIN 1,500 MG in SODIUM CHLORIDE 0.9% 250 ML IVPB SCH ×2 (05:55→18:23)
[2016-06-26] MEDS: FORMOTEROL FUMARATE 20 MCG/2 ML NEBU INHALATION SCH ×2 (08:06→19:45)
[2016-06-26] MEDS: BUDESONIDE 1 MG/2 ML NEBU INHALATION SCH ×2 (08:06→19:45)
[2016-06-26] MEDS: IPRATROPIUM-ALBUTEROL 3 ML NEB INHALATION SCH ×4 (08:06→19:45)
[2016-06-26] MEDS: FUROSEMIDE 10 MG/ML 2 ML VIAL IV SCH ×2 (09:33→21:02)
[2016-06-26] MEDS: PANTOPRAZOLE 40 MG/10 ML VIAL IVP SCH (09:34)
[2016-06-26] MEDS: HEPARIN SODIUM,PORCINE 5,000 UNIT/ML 1 ML VIAL SQ SCH ×2 (09:34→21:02)
[2016-06-26] MEDS: HALOPERIDOL LACTATE 5 MG/ML 1 ML VIAL IM PRN ×3 (10:03→23:37)
[2016-06-26] MEDS: MULTIVITAMINS, THERA 1 EACH TAB PO SCH (10:40)
[2016-06-26] MEDS: SODIUM CHLORIDE 0.9% 1,000 ML IV SCH (10:40)
[2016-06-26] MEDS: VITAMIN E (DL,TOCOPHERYL ACET) 400 UNIT CAP PO SCH (10:40)
[2016-06-26 12:58] LABS: Glucose,Whole Blood 216 mg/dL (75-99)
[2016-06-26] MEDS ORDERED: HALOPERIDOL LACTATE 5 MG/ML 1 ML VIAL IM PRN (15:43)
[2016-06-26] MEDS: LEVOFLOXACIN 750MG-D5W PMX 750 MG in DEXTROSE/WATER 1 150ML.BAG IVPB SCH (15:49)
[2016-06-26] MEDS: INSULIN DETEMIR 100 UNIT/ML 10 ML VIAL SQ SCH (16:55)
--- NOTE | 2016-06-26 17:07 | P.PN ---
Subjective 80-year-old male patient was admitted for acute hypoxic and hypercapnic respiratory failure and the patient has bilateral extensive pneumonia. Noted the patient also has advanced COPD with chronic fibrotic changes with significant volume loss in the left lung compared to the right. A prior CAT scan of the chest that showed chronic left-sided volume loss with underlying extensive bronchiectasis and fibrosis. The exact nature of this abnormalities are not known. The patient was in the hospital in March 2016 for bilateral pneumonia treated and discharged home. Has been using oxygen 2 L/m nasal cannula on outpatient basis. On 06/22/2016, the patient is being seen in follow-up. The patient is lightly sedated with Diprivan which is running at around 35-40 mics per KG pigmented. The patient was an assist-control mode of ventilation at the rate of 18, tidal volume 450, FiO2 of 40% and a PEEP of 5. The patient was intubated with a #8 orotracheal tube. He was still having respiratory secretions were quite considerably copious. At that point, a bronchoscopy was done at the bedside and therapeutic it was suctioning was done where more than 20-30 MO's of restless 6 she is were suctioned out and the secretions were essentially purulent in nature. The endobronchial airways were quite narrowed and there was significant scarring and mucosal inflammatory changes typical of an underlying pneumonia. The blood gases on this morning showed a pH of 7.42 with a pCO2 of 44 and pO2 of 102. The patient was afebrile hemodynamically stable. Ecchymotic coverage remain the same which includes a combination of Levaquin and vancomycin. The patient is receiving tube feeds in the form of vital 1.2 and he is at goal at 50 mL an hour. 06/23/2016, I'm seeing this patient in follow-up. Yesterday the patient underwent a bronchoscopy and therapeutic it was suctioning was done and the samples are all sent to microbial analysis. The preliminary AFB stain was negative. This gram-negative bacilli and gram-positive cocci and Gram stain. This morning, the patient was given a sedation holiday. He woke up any was opening his eyes and following some simple commands. He was however very anxious. Weaning parameters without poor. The measurement was not while the patient was on a pressure support of 5 and a PEEP of 5 and the patient was barely pulling tidal volumes of 200 and he was becoming tachypneic. At the same time the patient became tachycardic and he desaturated. Morning blood gases from today showed a pH of 7.35 with a pCO2 of 46 and pO2 of 107. This is that x-ray at all within normal limits. The chest x-ray from today is showing stable honeycombing throughout the left lung with left-sided volume loss and bilateral airspace infiltrates. Overall findings are stable compared to yesterday's chest x-ray. The patient was also seen by infectious disease. The patient was kept on an antibiotic coverage which included vancomycin and Levaquin. His echocardiogram from 2016 showed a preserved LV function with an ejection fraction of 6065% and mild degree of pulmonary hypertension. On 06/24/2016 I'm seeing this patient in follow-up. The bronchoscopy was completed and the bronchioloalveolar lavage is not showing any new microbial growth. Affect the findings are consistent with normal alexsander. The patient remains on a combination of Levaquin and vancomycin. Today chest x-ray remains unchanged. There is no new infiltration or consolidation. Nevertheless, any weaning parameters are improved and the patient was given a spelled his breathing trial with a pressure support of 5 and a PEEP of 5 and within 30 minutes the patient was extubated to a 40% Ventimask. He is comfortable. He remained comfortable postextubation. No use of excessive muscle breathing. Minimal congested cough with sputum production. No hemoptysis. No pleurisy. Mental status is appropriate. Hemodynamically stable. He is diuresing as the patient received a dose of Lasix yesterday and this will be repeated today. Echocardiogram showed preserved LV function. On , the patient remains extubated and today he is post extubation day # 1. Note that yesterday the patient had some reading difficulties and the patient was placed on BiPAP for respiratory support. Since then, the patient was taken off the BiPAP this morning and he is currently at 3-4 L of oxygen nasal cannula. He is on DuoNeb nebulized treatments. He is on Pulmicort and Perforomist neb last treatment twice a day. He remains on the same antibiotic coverage which includes a combination of vancomycin and Levaquin. The results of the bronchioloalveolar lavage came back negative for any microbial growth. Meanwhile, the patient is being diuresis with IV Lasix. He is a negative fluid balance. He is awake and alert however he is slow in answering questions. He is very hard of hearing and he does not communicate appropriately. He remains quite weak with a weak cough. The patient failed a swallow evaluation and based on that he was kept nothing by mouth. He is followed be reevaluated within next 24-48 hours. He is afebrile for now. On 06/26/2016, the patient is being seen in follow-up. He is post extubation day #2. The patient is a bit confused yet his, comfortable and there is no agitation. He is able to sit up on a chair. He is moving all 4 extremities without any limitation. He has a congested cough unable to bring up much of sputum. No fever. No chills. He failed a swallow evaluation and based on that a Dobbhoff catheter was inserted for enteral feeding and nutritional support. Currently is receiving enteral feeding at the rate of 30 mL an hour. Antibiotic coverage remains a combination of vancomycin and Levaquin. Hemodynamically stable. No nausea. No abdominal distention. No diarrhea. Afebrile for now. No other significant events over the past 24 hours. Objective - Vital Signs Vital signs: Vital Signs Temp 98.4 F 06/26/16 12:00 Pulse 95 06/26/16 15:00 Resp 25 H 06/26/16 15:00 BP 151/73 06/26/16 15:00 Pulse Ox 99 06/26/16 15:00 Intake & Output 06/25/16 06/26/16 06/26/16 18:59 06:59 18:59 Intake Total 765 770 890 Output Total 1555 1928 645 Balance -790 -1158 245 Weight 83.5 kg 82.4 kg 82.4 kg Intake: IV 210 240 160 Sodium Chloride 0.9% 1, 210 240 160 000 ml @ 20 mls/hr IV . Q24H [facility] Rx#:[id number] Intake, IV Titration 525 Amount Levofloxacin 750Mg-D5w 150 Pmx 750 mg In Dextrose/ Water 1 150ml.bag @ 100 mls/hr IVPB Q24H [facility] Rx#: [id number] Vancomycin 1,500 mg In 375 Sodium Chloride 0.9% 250 ml @ 125 mls/hr IVPB Q12H [facility] Rx#:[id number] Tube Feeding 30 260 550 Other 270 180 Output: Urine 1555 1928 645 Other: Voiding Method Indwelling Catheter Indwelling Catheter Indwelling Catheter # Voids 1 # Bowel Movements 1 - Exam Head exam was generally normal. There was no scleral icterus or corneal arcus. Mucous membranes were moist.Neck was supple and without jugular venous distension, thyromegaly, or carotid bruits. Carotids were easily palpable bilaterally. There was no adenopathy. The patient is extubated. Breath sounds are are diminished on the left compared to the right. There are some scattered rhonchi and expiratory wheezing bilaterally throughout the lung brandt.Cardiac exam revealed the PMI to be normally situated and sized. The rhythm was regular and no extrasystoles were noted during several minutes of auscultation. The first and second heart sounds were normal and physiologic splitting of the second heart sound was noted. There were no murmurs, rubs, clicks, or gallops.Abdominal exam revealed normal bowel sounds. The abdomen was soft, non- tender, and without masses, organomegaly, or appreciable enlargement of the abdominal aorta.Examination of the extremities revealed easily palpable radial, femoral and pedal pulses. There was no cyanosis, clubbing or edema. Neurologically the patient is awake. Alert. The patient refused and he is oriented 1. No focal neurological deficit. Weak yet the motor function and strength is improving in general. Swallow is weak and he failed a swallow evaluation and based on that the patient has a Dobbhoff catheter in place. - Labs CBC & Chem 7: 06/26/16 04:27 06/26/16 04:27 Labs: Abnormal Lab Results - Last 24 Hours (Table) 06/25/16 06/25/16 06/26/16 Range/Units 18:00 23:49 04:27 RBC (4.30-5.90) m/uL Hgb (13.0-17.5) gm/dL Hct (39.0-53.0) % MCHC (31.0-37.0) g/dL Chloride 96 L (98-107) mmol/L Carbon Dioxide 41 H* (22-30) mmol/L BUN 48 H (9-20) mg/dL Glucose 228 H (74-99) mg/dL POC Glucose (mg/dL) 185 H 212 H (75-99) mg/dL 06/26/16 06/26/16 06/26/16 Range/Units 04:27 05:51 12:39 RBC 3.30 L (4.30-5.90) m/uL Hgb 9.8 L (13.0-17.5) gm/dL Hct 32.4 L (39.0-53.0) % MCHC 30.3 L (31.0-37.0) g/dL Chloride (98-107) mmol/L Carbon Dioxide (22-30) mmol/L BUN (9-20) mg/dL Glucose (74-99) mg/dL POC Glucose (mg/dL) 234 H 216 H (75-99) mg/dL Microbiology - Last 24 Hours (Table) 06/22/16 13:12 Fungal Culture - Preliminary Bronchoalviolar Lavage - Left Maritza albicans 06/20/16 18:01 Blood Culture - Preliminary Blood No Growth after 120 hours Assessment and Plan Plan: Assessment 1 acute hypoxic and hypercapnic respiratory failure, multifactorial. The patient has extensive honeycombing and fibrotic changes in the left lung compared to the right. The patient is also bilateral airspace disease. The patient is status post bronchoscopy and therapeutic it was suctioning and the bronchioloalveolar lavage was performed yesterday. Were still awaiting the results of the cultures. On 06/24/2016, the patient had a stable chest x-ray. Cultures obtained from the bronchioloalveolar lavage him back negative for any microbial growth. The patient had adequate weaning parameters and he was given a prescription his breathing trial for a total of 25-30 minutes and following that the patient was extubated today 40% Ventimask. On 06/25/2016, the patient remains extubated. His chest x-ray findings are essentially stable. Nevertheless his breathing remains quite borderline and the patient is requiring on and off on BPAP therapy for respiratory support. He has a congested cough. Unable to bring up much sputum. He has neuromuscular weakness. He failed swallow. As such, the patient has been kept nothing by mouth. On 06/26/2016The patient's respiratory status is stable. The patient is not using BiPAP for now. No worsening shortness of breath. He is able to cough, not bringing up much of sputum. The patient is on 2 L of oxygen by nasal cannula for now. 2 severe COPD with chronic fibrotic changes bilaterally, left more than right 3 bilateral pneumonia with near complete opacification of the left lung with significant scarring and volume loss. No microbial cultures have been established. 4 acute cardio pulmonary arrest with a downtime of around 7 minutes from which the patient has recovered and there was return of spontaneous circulation after the successful resuscitation 5 prostate cancer 6 extensive bronchiectasis bilaterally 7 diabetes mellitus 8 hypertension 9 UTI with Enterococcus faecalis and Klebsiella. 10 anemia, chronic and multifactorial any hemoglobin is stable for now 11 altered mental status, delirium Plan Keep the patient intensive care unit. Pulmonary toileting. Provide incentive spirometer. encourage physical therapy. Haldol for deliriumhe is keep the Dobbhoff tube in place and proceed with enteral feeding for additional support. Continue the Boca dilators. Continue same antibiotic coverage. Physical therapy. Keep the patient ICU for 24 hours. We'll continue to follow.
--- NOTE | 2016-06-26 17:48 | P.PN ---
Subjective This is a 80-year-old gentleman that was admitted to the hospital with acute hypoxic respiratory failure. This was secondary to bilateral extensive pneumonia. Patient apparently underwent a cardiopulmonary arrest in hospital down time was apparently close to 7 minutes. Patient was thereafter triaged to the intensive care unit on vent support. Patient was noted to have significant amount of DVT and oral secretions. Patient is seen today status post extubation. Patient appears to be slightly tachypneic however is awake and answering questions appropriately. 06/25/16 No new overnight events Pt did well tolerated bipap on 3 l significant amount of thick yellowish sputum No fevers, chills reported. 06/26/16 tolerating tube feeding improved breathing no fevers, chills, nausea. Was confused this am, was pulling his tubes hence a dose of haloperidol was given sitter at bedside. Objective - Vital Signs Vital signs: Vital Signs Temp 98.4 F 06/26/16 16:00 Pulse 85 06/26/16 17:00 Resp 21 06/26/16 17:00 BP 150/68 06/26/16 17:00 Pulse Ox 96 06/26/16 17:00 Intake & Output 06/25/16 06/26/16 06/26/16 18:59 06:59 18:59 Intake Total 069 780 8260 Output Total 1555 1928 800 Balance -790 -1158 210 Weight 83.5 kg 82.4 kg 82.4 kg Intake: IV 210 240 200 Sodium Chloride 0.9% 1, 210 240 200 000 ml @ 20 mls/hr IV . Q24H [facility] Rx#:[id number] Intake, IV Titration 525 Amount Levofloxacin 750Mg-D5w 150 Pmx 750 mg In Dextrose/ Water 1 150ml.bag @ 100 mls/hr IVPB Q24H [facility] Rx#: [id number] Vancomycin 1,500 mg In 375 Sodium Chloride 0.9% 250 ml @ 125 mls/hr IVPB Q12H [facility] Rx#:[id number] Tube Feeding 30 260 630 Other 270 180 Output: Urine 1555 1928 800 Other: Voiding Method Indwelling Catheter Indwelling Catheter Indwelling Catheter # Voids 1 # Bowel Movements 1 - Exam Gen. appearance confused today Lungs diminished breath sounds, no significant rhonchi. Heart S1-S2 heard no significant abnormal sounds appreciated Abdomen is soft nontender no organomegaly No extremities no significant edema noted Neuromoves all four extremities. - Labs CBC & Chem 7: 06/26/16 04:27 06/26/16 04:27 Labs: Abnormal Lab Results - Last 24 Hours (Table) 06/25/16 06/25/16 06/26/16 Range/Units 18:00 23:49 04:27 RBC (4.30-5.90) m/uL Hgb (13.0-17.5) gm/dL Hct (39.0-53.0) % MCHC (31.0-37.0) g/dL Chloride 96 L (98-107) mmol/L Carbon Dioxide 41 H* (22-30) mmol/L BUN 48 H (9-20) mg/dL Glucose 228 H (74-99) mg/dL POC Glucose (mg/dL) 185 H 212 H (75-99) mg/dL 06/26/16 06/26/16 06/26/16 Range/Units 04:27 05:51 12:39 RBC 3.30 L (4.30-5.90) m/uL Hgb 9.8 L (13.0-17.5) gm/dL Hct 32.4 L (39.0-53.0) % MCHC 30.3 L (31.0-37.0) g/dL Chloride (98-107) mmol/L Carbon Dioxide (22-30) mmol/L BUN (9-20) mg/dL Glucose (74-99) mg/dL POC Glucose (mg/dL) 234 H 216 H (75-99) mg/dL Microbiology - Last 24 Hours (Table) 06/22/16 13:12 Fungal Culture - Preliminary Bronchoalviolar Lavage - Left Maritza albicans 06/20/16 18:01 Blood Culture - Preliminary Blood No Growth after 120 hours Assessment and Plan Plan: Acute hypoxic and hypercapnic respiratory failure likely secondary to bilateral pneumonia in a patient with pulmonary fibrosis. 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 #UTI with multiple organs including Klebsiella and Enterococcus faecalis #8 anemia of chronic disease. 9. Acute delirium Plan dysphagia continue tube feeding will give haloperidol 5mg once tonight ST to re-eval the pt again. Breathing is improved DVT prophylaxis. Strict fluid management at this time. Continue antibiotic therapy as recommended by infectious diseases.
[2016-06-26 18:44] LABS: Glucose,Whole Blood 215 mg/dL (75-99)
--- NOTE | 2016-06-26 20:47 | P.PN ---
Subjective Principal diagnosis: Respiratory failure This is an 80-year-old male who presented to [facility] emergency center on June 18 with concerns for not feeling well and shortness of breath with recent treatment for pneumonia in March. He was found to have sepsis on presentation with fever of 101.1, leukocytosis of 19.9, tachycardia and tachypnea. Influenza testing was negative. Initial chest x- ray showed right lower lobe pneumonia with chronic consolidation of the left lung. Urinalysis was clear with nitrate negative leukoesterase trace with urine culture showing 10-49 colonies of Enterococcus faecalis and Klebsiella oxytoca. He was initially started on Azactam and Levaquin. On June 20 there was a CODE BLUE called. Patient was pulseless with no respirations. CPR was initiated and patient was given 1 dose of epinephrine. He was intubated and transferred to the intensive care unit. He has been followed by Dr. Richardson. Blood cultures 3 are showing no growth. Sputum culture is showing rare gram- positive cocci and normal alexsander. This morning, Azactam was discontinued and vancomycin started. It does not appear the patient was on antibiotics he has had adequate urine output. There is been no diarrhea and no skin breakdown. prior to his admission. Patient was extubated yesterday. However required some time on BiPAP. He's now been off BiPAP for many hours. Doing well. However failed his swallow study. Dobbhoff is been placed and started to tolerate some tube feeds. He seems to be comfortable bit more confused today. Having some difficulty with relative hypoxia and some tachycardia. Is being closely monitored May need further BiPAP therapy. Objective - Vital Signs Vital signs: Vital Signs Temp 97.6 F 06/26/16 20:00 Pulse 97 06/26/16 20:00 Resp 39 H 06/26/16 20:00 BP 166/76 06/26/16 20:00 Pulse Ox 95 06/26/16 20:00 Intake & Output 06/26/16 06/26/16 06/27/16 06:59 18:59 06:59 Intake Total 770 1280 205 Output Total 1928 850 80 Balance -1158 430 125 Weight 82.4 kg 82.4 kg Intake: IV 240 190 40 Sodium Chloride 0.9% 1, 240 190 40 000 ml @ 20 mls/hr IV . Q24H [facility] Rx#:[id number] Intake, IV Titration 150 125 Amount Levofloxacin 750Mg-D5w 150 Pmx 750 mg In Dextrose/ Water 1 150ml.bag @ 100 mls/hr IVPB Q24H [facility] Rx#: [id number] Vancomycin 1,500 mg In 125 Sodium Chloride 0.9% 250 ml @ 125 mls/hr IVPB Q12H [facility] Rx#:[id number] Tube Feeding 260 670 40 Other 270 270 Output: Urine 1928 850 80 Other: Voiding Method Indwelling Catheter Indwelling Catheter # Voids 1 # Bowel Movements 1 - Exam Gen: This is an 80-year-old male. Current nasal cannula slightly agitated HEENT: Head is atraumatic, normocephalic. Pupils equal, round. Sclerae is anicteric. Oral mucous membranes are very dry. No thrush noted. NECK: Supple. No JVD. No lymphadenopathy. No thyromegaly. LUNGS: Bilateral scattered rhonchi. No intercostal retractions. HEART: Regular rate and rhythm. No murmur. ABDOMEN: Soft. Bowel sounds are present. No masses. No tenderness. EXTREMITIES: Bilateral 1+ pedal edema and hand edema. Pedal pulses are 2+ and symmetric NEUROLOGICAL: Patient is comfortable mildly agitated - Labs CBC & Chem 7: 06/26/16 04:27 06/26/16 04:27 Labs: Abnormal Lab Results - Last 24 Hours (Table) 06/25/16 06/26/16 06/26/16 Range/Units 23:49 04:27 04:27 RBC 3.30 L (4.30-5.90) m/uL Hgb 9.8 L (13.0-17.5) gm/dL Hct 32.4 L (39.0-53.0) % MCHC 30.3 L (31.0-37.0) g/dL Chloride 96 L (98-107) mmol/L Carbon Dioxide 41 H* (22-30) mmol/L BUN 48 H (9-20) mg/dL Glucose 228 H (74-99) mg/dL POC Glucose (mg/dL) 212 H (75-99) mg/dL 06/26/16 06/26/16 06/26/16 Range/Units 05:51 12:39 18:43 RBC (4.30-5.90) m/uL Hgb (13.0-17.5) gm/dL Hct (39.0-53.0) % MCHC (31.0-37.0) g/dL Chloride (98-107) mmol/L Carbon Dioxide (22-30) mmol/L BUN (9-20) mg/dL Glucose (74-99) mg/dL POC Glucose (mg/dL) 234 H 216 H 215 H (75-99) mg/dL Microbiology - Last 24 Hours (Table) 06/20/16 18:01 Blood Culture - Final Blood No Growth after 144 hours 06/22/16 13:12 Fungal Culture - Preliminary Bronchoalviolar Lavage - Left Maritza albicans Laboratory Results WBC 8.5 k/uL (3.8-10.6) 06/26/16 04:27 RBC 3.30 m/uL (4.30-5.90) L 06/26/16 04:27 Hgb 9.8 gm/dL (13.0-17.5) L 06/26/16 04:27 Hct 32.4 % (39.0-53.0) L 06/26/16 04:27 MCV 98.2 fL (80.0-100.0) 06/26/16 04:27 MCH 29.7 pg (25.0-35.0) 06/26/16 04:27 MCHC 30.3 g/dL (31.0-37.0) L 06/26/16 04:27 RDW 13.7 % (11.5-15.5) 06/26/16 04:27 Plt Count 291 k/uL (150-450) 06/26/16 04:27 Neutrophils % 84 % 06/23/16 04:52 Lymphocytes % 5 % 06/23/16 04:52 Monocytes % 6 % 06/23/16 04:52 Eosinophils % 3 % 06/23/16 04:52 Basophils % 0 % 06/23/16 04:52 Neutrophils # 5.7 k/uL (1.3-7.7) 06/23/16 04:52 Lymphocytes # 0.3 k/uL (1.0-4.8) L 06/23/16 04:52 Monocytes # 0.4 k/uL (0-1.0) 06/23/16 04:52 Eosinophils # 0.2 k/uL (0-0.7) 06/23/16 04:52 Basophils # 0.0 k/uL (0-0.2) 06/23/16 04:52 Hypochromasia Marked 06/26/16 04:27 PT 11.1 sec (9.0-12.0) 06/20/16 06:10 INR 1.1 (<1.1) 06/20/16 06:10 APTT 25.2 sec (22.0-30.0) 06/20/16 06:10 Sample Site LRAD 06/24/16 05:09 ABG pH 7.37 (7.35-7.45) 06/24/16 05:09 ABG pCO2 55 mmHg (35-45) H 06/24/16 05:09 ABG pO2 111 mmHg (83-108) H 06/24/16 05:09 ABG HCO3 31 mmol/L (21-25) H 06/24/16 05:09 ABG Total CO2 33 mmol/L (19-24) H 06/24/16 05:09 ABG O2 Saturation 98.0 % (94-97) H 06/24/16 05:09 ABG Base Excess 6.0 mmol/L 06/24/16 05:09 FiO2 40 % 06/24/16 05:09 Sodium 144 mmol/L (137-145) 06/26/16 04:27 Potassium 4.4 mmol/L (3.5-5.1) 06/26/16 04:27 Chloride 96 mmol/L (98-107) L 06/26/16 04:27 Carbon Dioxide 41 mmol/L (22-30) H* 06/26/16 04:27 Anion Gap 7 mmol/L 06/26/16 04:27 BUN 48 mg/dL (9-20) H 06/26/16 04:27 Creatinine 0.80 mg/dL (0.66-1.25) 06/26/16 04:27 Est GFR (MDRD) Af Amer >60 (>60 ml/min/1.73 sqM) 06/26/16 04:27 Est GFR (MDRD) Non-Af >60 (>60 ml/min/1.73 sqM) 06/26/16 04:27 Glucose 228 mg/dL (74-99) H 06/26/16 04:27 POC Glucose (mg/dL) 215 mg/dL (75-99) H 06/26/16 18:43 POC Glu [employer] ID Calvin Wakefield 06/26/16 18:[address] Glu mg/dL 148 mg/dL 06/19/16 05:44 Hemoglobin A1c 6.8 % (4.2-6.1) H 06/19/16 05:44 Plasma Lactic Acid Mike 1.5 mmol/L (0.7-2.0) 06/18/16 12:08 Calcium 9.0 mg/dL (8.4-10.2) 06/26/16 04:27 Phosphorus 3.1 mg/dL (2.5-4.5) 06/26/16 04:27 Magnesium 2.2 mg/dL (1.6-2.3) 06/26/16 04:27 Total Bilirubin 0.4 mg/dL (0.2-1.3) 06/20/16 06:10 AST 41 U/L (17-59) 06/20/16 06:10 ALT 34 U/L (21-72) 06/20/16 06:10 Alkaline Phosphatase 87 U/L (38-126) 06/20/16 06:10 Total Protein 7.0 g/dL (6.3-8.2) 06/20/16 06:10 Albumin 3.1 g/dL (3.5-5.0) L 06/20/16 06:10 Urine Color Dark Yellow 06/18/16 09:54 Urine Appearance Clear (Clear) 06/18/16 09:54 Urine pH 6.0 (5.0-8.0) 06/18/16 09:54 Ur Specific Armbrust 1.026 (1.001-1.035) 06/18/16 09:54 Urine Protein 2+ (Negative) H 06/18/16 09:54 Urine Glucose (UA) Trace (Negative) H 06/18/16 09:54 Urine Ketones Trace (Negative) H 06/18/16 09:54 Urine Blood Small (Negative) H 06/18/16 09:54 Urine Nitrite Negative (Negative) 06/18/16 09:54 Urine Bilirubin Negative (Negative) 06/18/16 09:54 Urine Urobilinogen 2.0 mg/dL (<2.0) 06/18/16 09:54 Ur Leukocyte Esterase Trace (Negative) H 06/18/16 09:54 Urine RBC 9 /hpf (0-5) H 06/18/16 09:54 Urine WBC 2 /hpf (0-5) 06/18/16 09:54 Hyaline Casts 12 /lpf (0-2) H 06/18/16 09:54 Urine Mucus Many /hpf (None) H 06/18/16 09:54 Fluid Source Bronchial Wash 06/22/16 13:12 Fluid Color Red 06/22/16 13:12 Fluid Appearance Bloody 06/22/16 13:12 Fluid RBC 51704 /uL 06/22/16 13:12 Fluid Nucleated Cells 3700 /uL 06/22/16 13:12 Fluid Polynuclear WBCs 40 % 06/22/16 13:12 Fluid Mononuclear WBCs 60 % 06/22/16 13:12 Vancomycin Trough 21.1 ug/mL 06/24/16 04:04 Influenza Type A RNA Not Detected (Not Detectd) 06/18/16 09:58 Influenza Type B (PCR) Not Detected (Not Detectd) 06/18/16 09:58 Urine Legionella Ag Not detected (Not detected) 06/23/16 22:50 Virus Source See Below 06/22/16 13:12 Viral Test See Below 06/22/16 13:12 Virus Analysis Interp See Below 06/22/16 13:12 Miscellaneous Test PNJE 06/22/16 13:12 Misc Test Result See Comment 06/22/16 13:12 Microbiology 06/20/16 18:01 Blood Blood Culture - Final No Growth after 144 hours 06/22/16 13:12 Bronchoalviolar Lavage - Left Fungal Culture - Preliminary Maritza albicans 06/18/16 12:08 Blood Blood Culture - Final No Growth after 144 hours 06/18/16 09:54 Blood Blood Culture - Final No Growth after 144 hours 06/22/16 13:12 Bronchoalviolar Lavage - Left Gram Stain - Final 06/22/16 13:12 Bronchoalviolar Lavage - Left Bronchial Washings Culture - Final 06/22/16 13:12 Bronchoalviolar Lavage - Left Acid Fast Bacilli Smear - Final 06/22/16 13:12 Bronchoalviolar Lavage - Left Acid Fast Bacilli Culture - Preliminary 06/20/16 08:00 Sputum Gram Stain - Final 06/20/16 08:00 Sputum Sputum Culture - Final 06/20/16 18:49 Urine,Catheterized Urine Culture - Final 06/18/16 10:00 Urine,Voided Urine Culture - Final Enterococcus faecalis Klebsiella oxytoca Assessment and Plan (1) Pneumonia Narrative/Plan: 80-year-old male presents to Hospital with evidence of significant pneumonia. Developed respiratory failure and sepsis. The patient did require CPR intubation and mechanical ventilation. Urine culture with Enterococcus faecalis and klebsiella oxytoca and he is on vancomycin and levofloxacin and tolerating that well. BAL is pending the cultures are negative so far. AFB is negative. Rest of the viral screen is negative. Continue supportive care Extubated and now off of BiPAP. Pulmonary status is improving. Is on nasal cannula oxygen. Tolerating tube feeds via Dobbhoff. Failed his swallow study. Unclear if he will be a candidate for a PEG tube in the future. BAL is negative so far. Some Maritza is found but is not the etiology of his pneumonia. Status: Acute (2) Pulmonary fibrosis Status: Acute
[2016-06-26 23:33] LABS: Glucose,Whole Blood 116 mg/dL (75-99)
[2016-06-27] MEDS: INSULIN LISPRO (humaLOG) 300 UNIT/3 ML VIAL SQ SCH ×6 (00:39→22:13)
[2016-06-27] MEDS: methylPREDNISolone SOD SUCCI 40 MG/ML 1 ML VIAL IV SCH ×4 (03:00→20:02)
[2016-06-27] MEDS ORDERED: VANCOMYCIN TROUGH DUE 1 EACH MISC MISCELLANE ONE (05:00)
[2016-06-27 05:38] LABS: CH 28.8; CHCM 29.2; HCT 33.5 % (39.0-53.0); HDW 2.61; HGB 10.2 gm/dL (13.0-17.5); Hypochromasia Marked; MCH 30.1 pg (25.0-35.0); MCHC 30.4 g/dL (31.0-37.0); MCV 98.8 fL (80.0-100.0); Mean Platelet Volume 6.8; RBC 3.39 m/uL (4.30-5.90); RDW 13.5 % (11.5-15.5); WBC 12.2 k/uL (3.8-10.6)
[2016-06-27 05:54] LABS: Blood Urea Nitrogen 61 mg/dL (9-20); Calcium 8.8 mg/dL (8.4-10.2); Chloride 96 mmol/L (98-107); Glucose 298 mg/dL (74-99); Magnesium 2.2 mg/dL (1.6-2.3); Non-African American GFR(MDRD) >60 (>60 ml/min/1.73 sqM); Phosphorous 4.1 mg/dL (2.5-4.5); Potassium 4.7 mmol/L (3.5-5.1); Sodium 144 mmol/L (137-145)
[2016-06-27 06:00] LABS: Anion Gap 4 mmol/L
[2016-06-27 06:03] LABS: Carbon Dioxide 44 mmol/L (22-30)
[2016-06-27 06:21] LABS: Glucose,Whole Blood 305 mg/dL (75-99)
[2016-06-27] MEDS: VANCOMYCIN 1,500 MG in SODIUM CHLORIDE 0.9% 250 ML IVPB SCH (06:47)
--- NOTE | 2016-06-27 06:49 | XR ---
EXAMINATION TYPE: XR chest 1V portable DATE OF EXAM: 06/27/2016 6:35 AM CLINICAL HISTORY: Difficulty breathing progress study. TECHNIQUE: Single AP portable upright view of the chest is obtained. COMPARISON: Chest x-ray from 2 days earlier and older studies. CTA chest March 19, 2016. FINDINGS: There is new Dobbhoff feeding catheter in the epigastric region. There is diffuse left tosha g opacity with left-sided volume loss and mediastinal shift. Honeycombing is felt present. There is c hronic parenchymal change in the right lung with more focal right upper lung infiltrate and/or scarri ng. Cardiac silhouette size is stable and likely within normal limits with atherosclerotic thoracic a moody. Osseous structures are intact. IMPRESSION: Left-sided volume loss and chronic fibrosis with right-sided chronic parenchymal changes and right upper lung scarring and/or infiltrate all redemonstrated. Cannot exclude acute infiltrate i n the left lung on background of chronic fibrosis or honeycombing. New Dobbhoff feeding catheter note d.
[2016-06-27] MEDS: IPRATROPIUM-ALBUTEROL 3 ML NEB INHALATION SCH ×4 (07:29→19:46)
[2016-06-27] MEDS: FORMOTEROL FUMARATE 20 MCG/2 ML NEBU INHALATION SCH ×2 (07:29→19:46)
[2016-06-27] MEDS: BUDESONIDE 1 MG/2 ML NEBU INHALATION SCH ×2 (07:29→19:46)
[2016-06-27] MEDS: PANTOPRAZOLE 40 MG/10 ML VIAL IVP SCH (08:16)
[2016-06-27] MEDS: HEPARIN SODIUM,PORCINE 5,000 UNIT/ML 1 ML VIAL SQ SCH ×2 (08:17→20:02)
[2016-06-27] MEDS: FUROSEMIDE 10 MG/ML 2 ML VIAL IV SCH (08:17)
[2016-06-27] MEDS: INSULIN DETEMIR 100 UNIT/ML 10 ML VIAL SQ SCH (08:21)
--- NOTE | 2016-06-27 09:57 | P.PN ---
Subjective 80-year-old male patient was admitted for acute hypoxic and hypercapnic respiratory failure and the patient has bilateral extensive pneumonia. Noted the patient also has advanced COPD with chronic fibrotic changes with significant volume loss in the left lung compared to the right. A prior CAT scan of the chest that showed chronic left-sided volume loss with underlying extensive bronchiectasis and fibrosis. The exact nature of this abnormalities are not known. The patient was in the hospital in March 2016 for bilateral pneumonia treated and discharged home. Has been using oxygen 2 L/m nasal cannula on outpatient basis. On 06/22/2016, the patient is being seen in follow-up. The patient is lightly sedated with Diprivan which is running at around 35-40 mics per KG pigmented. The patient was an assist-control mode of ventilation at the rate of 18, tidal volume 450, FiO2 of 40% and a PEEP of 5. The patient was intubated with a #8 orotracheal tube. He was still having respiratory secretions were quite considerably copious. At that point, a bronchoscopy was done at the bedside and therapeutic it was suctioning was done where more than 20-30 MO's of restless 6 she is were suctioned out and the secretions were essentially purulent in nature. The endobronchial airways were quite narrowed and there was significant scarring and mucosal inflammatory changes typical of an underlying pneumonia. The blood gases on this morning showed a pH of 7.42 with a pCO2 of 44 and pO2 of 102. The patient was afebrile hemodynamically stable. Ecchymotic coverage remain the same which includes a combination of Levaquin and vancomycin. The patient is receiving tube feeds in the form of vital 1.2 and he is at goal at 50 mL an hour. 06/23/2016, I'm seeing this patient in follow-up. Yesterday the patient underwent a bronchoscopy and therapeutic it was suctioning was done and the samples are all sent to microbial analysis. The preliminary AFB stain was negative. This gram-negative bacilli and gram-positive cocci and Gram stain. This morning, the patient was given a sedation holiday. He woke up any was opening his eyes and following some simple commands. He was however very anxious. Weaning parameters without poor. The measurement was not while the patient was on a pressure support of 5 and a PEEP of 5 and the patient was barely pulling tidal volumes of 200 and he was becoming tachypneic. At the same time the patient became tachycardic and he desaturated. Morning blood gases from today showed a pH of 7.35 with a pCO2 of 46 and pO2 of 107. This is that x-ray at all within normal limits. The chest x-ray from today is showing stable honeycombing throughout the left lung with left-sided volume loss and bilateral airspace infiltrates. Overall findings are stable compared to yesterday's chest x-ray. The patient was also seen by infectious disease. The patient was kept on an antibiotic coverage which included vancomycin and Levaquin. His echocardiogram from 2016 showed a preserved LV function with an ejection fraction of 6065% and mild degree of pulmonary hypertension. On 06/24/2016 I'm seeing this patient in follow-up. The bronchoscopy was completed and the bronchioloalveolar lavage is not showing any new microbial growth. Affect the findings are consistent with normal alexsander. The patient remains on a combination of Levaquin and vancomycin. Today chest x-ray remains unchanged. There is no new infiltration or consolidation. Nevertheless, any weaning parameters are improved and the patient was given a spelled his breathing trial with a pressure support of 5 and a PEEP of 5 and within 30 minutes the patient was extubated to a 40% Ventimask. He is comfortable. He remained comfortable postextubation. No use of excessive muscle breathing. Minimal congested cough with sputum production. No hemoptysis. No pleurisy. Mental status is appropriate. Hemodynamically stable. He is diuresing as the patient received a dose of Lasix yesterday and this will be repeated today. Echocardiogram showed preserved LV function. On , the patient remains extubated and today he is post extubation day # 1. Note that yesterday the patient had some reading difficulties and the patient was placed on BiPAP for respiratory support. Since then, the patient was taken off the BiPAP this morning and he is currently at 3-4 L of oxygen nasal cannula. He is on DuoNeb nebulized treatments. He is on Pulmicort and Perforomist neb last treatment twice a day. He remains on the same antibiotic coverage which includes a combination of vancomycin and Levaquin. The results of the bronchioloalveolar lavage came back negative for any microbial growth. Meanwhile, the patient is being diuresis with IV Lasix. He is a negative fluid balance. He is awake and alert however he is slow in answering questions. He is very hard of hearing and he does not communicate appropriately. He remains quite weak with a weak cough. The patient failed a swallow evaluation and based on that he was kept nothing by mouth. He is followed be reevaluated within next 24-48 hours. He is afebrile for now. On 06/26/2016, the patient is being seen in follow-up. He is post extubation day #2. The patient is a bit confused yet his, comfortable and there is no agitation. He is able to sit up on a chair. He is moving all 4 extremities without any limitation. He has a congested cough unable to bring up much of sputum. No fever. No chills. He failed a swallow evaluation and based on that a Dobbhoff catheter was inserted for enteral feeding and nutritional support. Currently is receiving enteral feeding at the rate of 30 mL an hour. Antibiotic coverage remains a combination of vancomycin and Levaquin. Hemodynamically stable. No nausea. No abdominal distention. No diarrhea. Afebrile for now. No other significant events over the past 24 hours. On 06/27/2016, the patient is also extubation day #3. He is less confused compared to yesterday. As mentioned earlier, there is no agitation. Received Haldol last night twice and he had a good night sleep. He is able to communicate. He follows some simple commands. No agitation. No restlessness. His swallow mechanism was poor and the patient has a Dobbhoff in place and we are supplementing this patient with enteral feeding with Glucerna which is currently running at the rate of 50 mL an hour. No residuals. Nausea. No vomiting. No bowel movements yet. Blood sugars have been elevated and the patient is still on sliding scale coverage and Levemir insulin 20 units will be started today. In terms of his breathing, the patient is not short of breath and his breathing is not labored. However he gets worked up and shortness of breath with minimal amount of activity even while being moved back and forth to the bedside chair. He has a congested cough. His chest x-ray findings are remarkable yet stable. He has extensive scarring and volume loss in the left lung with significant consolidation. He has chronic scarring in the right apex and on previous CAT scan of the chest there is bilateral bronchiectasis. The bronchioloalveolar lavage was collected in this patient showed no microbial growth. Most recent sputum analysis showed Maritza. He remains on bronchodilators including DuoNeb. He remains on Pulmicort Respules. He remains on the same antibiotic coverage which included a combination of Levaquin and vancomycin. No oropharyngeal thrush. Chest x-ray findings from today are stable. Objective - Vital Signs Vital signs: Vital Signs Temp 98.8 F 06/27/16 08:00 Pulse 95 06/27/16 08:00 Resp 23 06/27/16 08:00 BP 152/64 06/27/16 08:00 Pulse Ox 99 06/27/16 08:00 Intake & Output 06/26/16 06/27/16 06/27/16 18:59 06:59 18:59 Intake Total 1280 1415 370 Output Total 850 1695 250 Balance 430 -280 120 Weight 82.4 kg 81.4 kg 81.4 kg Intake: IV 190 260 20 Sodium Chloride 0.9% 1, 190 260 20 000 ml @ 20 mls/hr IV . Q24H [facility] Rx#:[id number] Intake, IV Titration 150 125 250 Amount Levofloxacin 750Mg-D5w 150 Pmx 750 mg In Dextrose/ Water 1 150ml.bag @ 100 mls/hr IVPB Q24H [facility] Rx#: [id number] Vancomycin 1,250 mg In 250 Sodium Chloride 0.9% 250 ml @ 125 mls/hr IVPB Q12H [facility] Rx#:[id number] Vancomycin 1,500 mg In 125 Sodium Chloride 0.9% 250 ml @ 125 mls/hr IVPB Q12H [facility] Rx#:[id number] Tube Feeding 670 760 100 Other 270 270 Output: Urine 850 1695 250 Other: Voiding Method Indwelling Catheter Indwelling Catheter # Voids 1 1 - Exam Head exam was generally normal. There was no scleral icterus or corneal arcus. Mucous membranes were moist.Neck was supple and without jugular venous distension, thyromegaly, or carotid bruits. Carotids were easily palpable bilaterally. There was no adenopathy. The patient is extubated. Breath sounds are are diminished on the left compared to the right. There are some scattered rhonchi and expiratory wheezing bilaterally throughout the lung brandt.Cardiac exam revealed the PMI to be normally situated and sized. The rhythm was regular and no extrasystoles were noted during several minutes of auscultation. The first and second heart sounds were normal and physiologic splitting of the second heart sound was noted. There were no murmurs, rubs, clicks, or gallops.Abdominal exam revealed normal bowel sounds. The abdomen was soft, non- tender, and without masses, organomegaly, or appreciable enlargement of the abdominal aorta.Examination of the extremities revealed easily palpable radial, femoral and pedal pulses. There was no cyanosis, clubbing or edema. Neurologically the patient is awake. Alert. The patient refused and he is oriented 1. No focal neurological deficit. Weak yet the motor function and strength is improving in general. Swallow is weak and he failed a swallow evaluation and based on that the patient has a Dobbhoff catheter in place. - Labs CBC & Chem 7: 06/27/16 04:50 06/27/16 04:50 Labs: Abnormal Lab Results - Last 24 Hours (Table) 06/26/16 06/26/16 06/26/16 Range/Units 12:39 18:43 23:30 WBC (3.8-10.6) k/uL RBC (4.30-5.90) m/uL Hgb (13.0-17.5) gm/dL Hct (39.0-53.0) % MCHC (31.0-37.0) g/dL Chloride (98-107) mmol/L Carbon Dioxide (22-30) mmol/L BUN (9-20) mg/dL Glucose (74-99) mg/dL POC Glucose (mg/dL) 216 H 215 H 116 H (75-99) mg/dL 06/27/16 06/27/16 06/27/16 Range/Units 04:50 04:50 06:20 WBC 12.2 H (3.8-10.6) k/uL RBC 3.39 L (4.30-5.90) m/uL Hgb 10.2 L (13.0-17.5) gm/dL Hct 33.5 L (39.0-53.0) % MCHC 30.4 L (31.0-37.0) g/dL Chloride 96 L (98-107) mmol/L Carbon Dioxide 44 H* (22-30) mmol/L BUN 61 H (9-20) mg/dL Glucose 298 H (74-99) mg/dL POC Glucose (mg/dL) 305 H (75-99) mg/dL Microbiology - Last 24 Hours (Table) 06/20/16 18:01 Blood Culture - Final Blood No Growth after 144 hours 06/22/16 13:12 Fungal Culture - Preliminary Bronchoalviolar Lavage - Left Maritza albicans Assessment and Plan Plan: Assessment 1 acute hypoxic and hypercapnic respiratory failure, multifactorial. The patient has extensive honeycombing and fibrotic changes in the left lung compared to the right. The patient is also bilateral airspace disease. The patient is status post bronchoscopy and therapeutic it was suctioning and the bronchioloalveolar lavage was performed yesterday. Were still awaiting the results of the cultures. On 06/24/2016, the patient had a stable chest x-ray. Cultures obtained from the bronchioloalveolar lavage him back negative for any microbial growth. The patient had adequate weaning parameters and he was given a prescription his breathing trial for a total of 25-30 minutes and following that the patient was extubated today 40% Ventimask. On 06/25/2016, the patient remains extubated. His chest x-ray findings are essentially stable. Nevertheless his breathing remains quite borderline and the patient is requiring on and off on BPAP therapy for respiratory support. He has a congested cough. Unable to bring up much sputum. He has neuromuscular weakness. He failed swallow. As such, the patient has been kept nothing by mouth. On 06/26/2016The patient's respiratory status is stable. The patient is not using BiPAP for now. No worsening shortness of breath. He is able to cough, not bringing up much of sputum. The patient is on 2 L of oxygen by nasal cannula for now. On the patient remains extubated on 2 L of oxygen by nasal cannula. Chest x-ray findings remain stable. No recent sputum analysis. Remains on the same antibiotic coverage which includes a combination of Levaquin and vancomycin. He is on IV Solu-Medrol which will be tapered off. 2 severe COPD with chronic fibrotic changes bilaterally, left more than right 3 bilateral pneumonia with near complete opacification of the left lung with significant scarring and volume loss. No microbial cultures have been established. 4 acute cardio pulmonary arrest with a downtime of around 7 minutes from which the patient has recovered and there was return of spontaneous circulation after the successful resuscitation 5 prostate cancer 6 extensive bronchiectasis bilaterally 7 diabetes mellitus 8 hypertension 9 UTI with Enterococcus faecalis and Klebsiella. 10 anemia, chronic and multifactorial any hemoglobin is stable for now 11 altered mental status, delirium 12 steroid-induced hyperglycemia 13 enteral feeding for nutritional support through a Dobbhoff catheter. Plan Keep the patient intensive care unit. Pulmonary toileting. Provide incentive spirometer. encourage physical therapy. Haldol for delirium. Continue enteral feeding for nutritional support and reassess the swallow mechanism on Wednesday. Meanwhile, we will discontinue the IV Solu-Medrol and put the patient on 30 mg of prednisone as part of a burst taper. I also suggest and agree on Levemir insulin coverage 20 units daily and addition to sliding scale coverage as the patient has developed a steroid-induced hyperglycemia. He is on Glucerna tube feeds for now. Monitor his mentation. Monitor respiratory status. Establish a CODE STATUS. Strongly advised not to reintubate this patient and a dialogue will be initiated with the family this regard.
[2016-06-27 10:21] LABS: Glucose,Whole Blood 291 mg/dL (75-99)
[2016-06-27 12:36] LABS: Glucose,Whole Blood 208 mg/dL (75-99)
[2016-06-27] MEDS: SODIUM CHLORIDE 0.9% 1,000 ML IV SCH (14:18)
[2016-06-27] MEDS: VITAMIN E (DL,TOCOPHERYL ACET) 400 UNIT CAP PO SCH (14:18)
[2016-06-27] MEDS: MULTIVITAMINS, THERA 1 EACH TAB PO SCH (14:18)
[2016-06-27 14:19] LABS: Glucose,Whole Blood 187 mg/dL (75-99)
[2016-06-27 17:55] LABS: Glucose,Whole Blood 144 mg/dL (75-99)
[2016-06-27] MEDS: LEVOFLOXACIN 750MG-D5W PMX 750 MG in DEXTROSE/WATER 1 150ML.BAG IVPB SCH (18:09)
--- NOTE | 2016-06-27 18:16 | P.PN ---
Subjective This is a 80-year-old gentleman that was admitted to the hospital with acute hypoxic respiratory failure. This was secondary to bilateral extensive pneumonia. Patient apparently underwent a cardiopulmonary arrest in hospital down time was apparently close to 7 minutes. Patient was thereafter triaged to the intensive care unit on vent support. Patient was noted to have significant amount of DVT and oral secretions. Patient is seen today status post extubation. Patient appears to be slightly tachypneic however is awake and answering questions appropriately. 06/25/16 No new overnight events Pt did well tolerated bipap on 3 l significant amount of thick yellowish sputum No fevers, chills reported. 06/26/16 tolerating tube feeding improved breathing no fevers, chills, nausea. Was confused this am, was pulling his tubes hence a dose of haloperidol was given sitter at bedside. 06/27/16 More appropriate denies having headaches, blurry vision, nausea, vomiting, diarrhea Has not been pulling on his tubes. Objective - Vital Signs Vital signs: Vital Signs Temp 98.4 F 06/27/16 16:00 Pulse 84 06/27/16 18:00 Resp 28 H 06/27/16 18:00 BP 152/66 06/27/16 18:00 Pulse Ox 93 L 06/27/16 18:00 Intake & Output 06/26/16 06/27/16 06/27/16 18:59 06:59 18:59 Intake Total 1280 1415 1130 Output Total 850 1695 1700 Balance 430 280 570 Weight 82.4 kg 81.4 kg 81.4 kg Intake: IV 190 260 180 Sodium Chloride 0.9% 1, 190 260 180 000 ml @ 20 mls/hr IV . Q24H [facility] Rx#:[id number] Intake, IV Titration 150 125 270 Amount Levofloxacin 750Mg-D5w 150 Pmx 750 mg In Dextrose/ Water 1 150ml.bag @ 100 mls/hr IVPB Q24H [facility] Rx#: [id number] Sodium Chloride 0.9% 1, 20 000 ml @ 20 mls/hr IV . Q24H [facility] Rx#:[id number] Vancomycin 1,250 mg In 250 Sodium Chloride 0.9% 250 ml @ 125 mls/hr IVPB Q12H [facility] Rx#:[id number] Vancomycin 1,500 mg In 125 Sodium Chloride 0.9% 250 ml @ 125 mls/hr IVPB Q12H [facility] Rx#:[id number] Tube Feeding 877 123 261 Blood Product 50 Other 270 270 Output: Urine 850 3455 1700 Other: Voiding Method Indwelling Catheter Indwelling Catheter Indwelling Catheter # Voids 1 1 - Exam Gen. appearance improved more appropriate. Lungs diminished breath sounds, no significant rhonchi. Heart S1-S2 heard no significant abnormal sounds appreciated Abdomen is soft nontender no organomegaly No extremities no significant edema noted Neuro moves all four extremities. - Labs CBC & Chem 7: 06/27/16 04:50 06/27/16 04:50 Labs: Abnormal Lab Results - Last 24 Hours (Table) 06/26/16 06/26/16 06/27/16 Range/Units 18:43 23:30 04:50 WBC (3.8-10.6) k/uL RBC (4.30-5.90) m/uL Hgb (13.0-17.5) gm/dL Hct (39.0-53.0) % MCHC (31.0-37.0) g/dL Chloride 96 L (98-107) mmol/L Carbon Dioxide 44 H* (22-30) mmol/L BUN 61 H (9-20) mg/dL Glucose 298 H (74-99) mg/dL POC Glucose (mg/dL) 215 H 116 H (75-99) mg/dL 06/27/16 06/27/16 06/27/16 Range/Units 04:50 06:20 10:18 WBC 12.2 H (3.8-10.6) k/uL RBC 3.39 L (4.30-5.90) m/uL Hgb 10.2 L (13.0-17.5) gm/dL Hct 33.5 L (39.0-53.0) % MCHC 30.4 L (31.0-37.0) g/dL Chloride (98-107) mmol/L Carbon Dioxide (22-30) mmol/L BUN (9-20) mg/dL Glucose (74-99) mg/dL POC Glucose (mg/dL) 305 H 291 H (75-99) mg/dL 06/27/16 06/27/16 06/27/16 Range/Units 12:34 14:17 17:54 WBC (3.8-10.6) k/uL RBC (4.30-5.90) m/uL Hgb (13.0-17.5) gm/dL Hct (39.0-53.0) % MCHC (31.0-37.0) g/dL Chloride (98-107) mmol/L Carbon Dioxide (22-30) mmol/L BUN (9-20) mg/dL Glucose (74-99) mg/dL POC Glucose (mg/dL) 208 H 187 H 144 H (75-99) mg/dL Microbiology - Last 24 Hours (Table) 06/20/16 18:01 Blood Culture - Final Blood No Growth after 144 hours Assessment and Plan Plan: Acute hypoxic and hypercapnic respiratory failure likely secondary to bilateral pneumonia in a patient with pulmonary fibrosis. 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 #UTI with multiple organs including Klebsiella and Enterococcus faecalis #8 anemia of chronic disease. 9. Acute delirium Plan tube feeding at target titrate o2 increase levemir 25units Abx per ID ST to re-eval the pt again. Breathing is improved DVT prophylaxis.
[2016-06-27] MEDS: VANCOMYCIN 1,250 MG in SODIUM CHLORIDE 0.9% 250 ML IVPB SCH (20:02)
[2016-06-27 21:47] LABS: Glucose,Whole Blood 172 mg/dL (75-99)
[2016-06-28] MEDS: INSULIN LISPRO (humaLOG) 300 UNIT/3 ML VIAL SQ SCH ×6 (02:09→23:00)
[2016-06-28 02:10] LABS: Glucose,Whole Blood 194 mg/dL (75-99)
[2016-06-28] MEDS: methylPREDNISolone SOD SUCCI 40 MG/ML 1 ML VIAL IV SCH ×3 (02:10→20:45)
[2016-06-28 04:55] LABS: CH 29.2; CHCM 29.9; HCT 34.6 % (39.0-53.0); HDW 2.72; HGB 10.8 gm/dL (13.0-17.5); Hypochromasia Marked; MCH 30.7 pg (25.0-35.0); MCHC 31.4 g/dL (31.0-37.0); MCV 97.8 fL (80.0-100.0); Mean Platelet Volume 6.8; RBC 3.53 m/uL (4.30-5.90); RDW 13.2 % (11.5-15.5); WBC 17.4 k/uL (3.8-10.6)
[2016-06-28 05:18] LABS: Blood Urea Nitrogen 60 mg/dL (9-20); Calcium 8.9 mg/dL (8.4-10.2); Chloride 96 mmol/L (98-107); Glucose 164 mg/dL (74-99); Magnesium 2.3 mg/dL (1.6-2.3); Non-African American GFR(MDRD) >60 (>60 ml/min/1.73 sqM); Phosphorous 3.2 mg/dL (2.5-4.5); Sodium 147 mmol/L (137-145)
[2016-06-28 05:24] LABS: Anion Gap 7 mmol/L
[2016-06-28 05:26] LABS: Carbon Dioxide 44 mmol/L (22-30)
[2016-06-28 06:08] LABS: Glucose,Whole Blood 145 mg/dL (75-99)
--- NOTE | 2016-06-28 07:40 | XR ---
EXAMINATION TYPE: XR chest 1V portable DATE OF EXAM: 06/28/2016 6:27 AM CLINICAL HISTORY: Difficulty breathing and progress study. TECHNIQUE: Single AP portable upright view of the chest is obtained. COMPARISON: Chest x-ray from one day earlier FINDINGS: There is stable Dobbhoff feeding catheter in the epigastric region. There is diffuse left lung opacity with left-sided volume loss and mediastinal shift. Honeycombing is felt present. There is chronic parenchymal change in the right lung with more focal right upper lung infiltrate and/or sc arring. Cardiac silhouette size is stable and likely within normal limits with atherosclerotic thorac ic aorta. Osseous structures are intact. IMPRESSION: Overall stable findings, left-sided volume loss and chronic fibrosis with chronic paren chymal change in the right lung also present and right upper lung infiltrate and/or scarring all rede monstrated. Difficult to exclude acute infiltrate on background of significant chronic change.
[2016-06-28] MEDS: BUDESONIDE 1 MG/2 ML NEBU INHALATION SCH ×2 (07:43→20:52)
[2016-06-28] MEDS: IPRATROPIUM-ALBUTEROL 3 ML NEB INHALATION SCH ×4 (07:43→20:52)
[2016-06-28] MEDS: FORMOTEROL FUMARATE 20 MCG/2 ML NEBU INHALATION SCH ×2 (07:43→20:52)
[2016-06-28] MEDS: INSULIN DETEMIR 100 UNIT/ML 10 ML VIAL SQ SCH (08:27)
[2016-06-28] MEDS: VANCOMYCIN 1,250 MG in SODIUM CHLORIDE 0.9% 250 ML IVPB SCH ×2 (08:27→21:20)
[2016-06-28] MEDS: PANTOPRAZOLE 40 MG/10 ML VIAL IVP SCH (08:28)
[2016-06-28] MEDS: HEPARIN SODIUM,PORCINE 5,000 UNIT/ML 1 ML VIAL SQ SCH ×2 (08:28→20:45)
[2016-06-28 10:16] LABS: Glucose,Whole Blood 215 mg/dL (75-99)
--- NOTE | 2016-06-28 10:28 | P.PN ---
Subjective 80-year-old male patient was admitted for acute hypoxic and hypercapnic respiratory failure and the patient has bilateral extensive pneumonia. Noted the patient also has advanced COPD with chronic fibrotic changes with significant volume loss in the left lung compared to the right. A prior CAT scan of the chest that showed chronic left-sided volume loss with underlying extensive bronchiectasis and fibrosis. The exact nature of this abnormalities are not known. The patient was in the hospital in March 2016 for bilateral pneumonia treated and discharged home. Has been using oxygen 2 L/m nasal cannula on outpatient basis. On 06/22/2016, the patient is being seen in follow-up. The patient is lightly sedated with Diprivan which is running at around 35-40 mics per KG pigmented. The patient was an assist-control mode of ventilation at the rate of 18, tidal volume 450, FiO2 of 40% and a PEEP of 5. The patient was intubated with a #8 orotracheal tube. He was still having respiratory secretions were quite considerably copious. At that point, a bronchoscopy was done at the bedside and therapeutic it was suctioning was done where more than 20-30 MO's of restless 6 she is were suctioned out and the secretions were essentially purulent in nature. The endobronchial airways were quite narrowed and there was significant scarring and mucosal inflammatory changes typical of an underlying pneumonia. The blood gases on this morning showed a pH of 7.42 with a pCO2 of 44 and pO2 of 102. The patient was afebrile hemodynamically stable. Ecchymotic coverage remain the same which includes a combination of Levaquin and vancomycin. The patient is receiving tube feeds in the form of vital 1.2 and he is at goal at 50 mL an hour. 06/23/2016, I'm seeing this patient in follow-up. Yesterday the patient underwent a bronchoscopy and therapeutic it was suctioning was done and the samples are all sent to microbial analysis. The preliminary AFB stain was negative. This gram-negative bacilli and gram-positive cocci and Gram stain. This morning, the patient was given a sedation holiday. He woke up any was opening his eyes and following some simple commands. He was however very anxious. Weaning parameters without poor. The measurement was not while the patient was on a pressure support of 5 and a PEEP of 5 and the patient was barely pulling tidal volumes of 200 and he was becoming tachypneic. At the same time the patient became tachycardic and he desaturated. Morning blood gases from today showed a pH of 7.35 with a pCO2 of 46 and pO2 of 107. This is that x-ray at all within normal limits. The chest x-ray from today is showing stable honeycombing throughout the left lung with left-sided volume loss and bilateral airspace infiltrates. Overall findings are stable compared to yesterday's chest x-ray. The patient was also seen by infectious disease. The patient was kept on an antibiotic coverage which included vancomycin and Levaquin. His echocardiogram from 2016 showed a preserved LV function with an ejection fraction of 6065% and mild degree of pulmonary hypertension. On 06/24/2016 I'm seeing this patient in follow-up. The bronchoscopy was completed and the bronchioloalveolar lavage is not showing any new microbial growth. Affect the findings are consistent with normal alexsander. The patient remains on a combination of Levaquin and vancomycin. Today chest x-ray remains unchanged. There is no new infiltration or consolidation. Nevertheless, any weaning parameters are improved and the patient was given a spelled his breathing trial with a pressure support of 5 and a PEEP of 5 and within 30 minutes the patient was extubated to a 40% Ventimask. He is comfortable. He remained comfortable postextubation. No use of excessive muscle breathing. Minimal congested cough with sputum production. No hemoptysis. No pleurisy. Mental status is appropriate. Hemodynamically stable. He is diuresing as the patient received a dose of Lasix yesterday and this will be repeated today. Echocardiogram showed preserved LV function. On , the patient remains extubated and today he is post extubation day # 1. Note that yesterday the patient had some reading difficulties and the patient was placed on BiPAP for respiratory support. Since then, the patient was taken off the BiPAP this morning and he is currently at 3-4 L of oxygen nasal cannula. He is on DuoNeb nebulized treatments. He is on Pulmicort and Perforomist neb last treatment twice a day. He remains on the same antibiotic coverage which includes a combination of vancomycin and Levaquin. The results of the bronchioloalveolar lavage came back negative for any microbial growth. Meanwhile, the patient is being diuresis with IV Lasix. He is a negative fluid balance. He is awake and alert however he is slow in answering questions. He is very hard of hearing and he does not communicate appropriately. He remains quite weak with a weak cough. The patient failed a swallow evaluation and based on that he was kept nothing by mouth. He is followed be reevaluated within next 24-48 hours. He is afebrile for now. On 06/26/2016, the patient is being seen in follow-up. He is post extubation day #2. The patient is a bit confused yet his, comfortable and there is no agitation. He is able to sit up on a chair. He is moving all 4 extremities without any limitation. He has a congested cough unable to bring up much of sputum. No fever. No chills. He failed a swallow evaluation and based on that a Dobbhoff catheter was inserted for enteral feeding and nutritional support. Currently is receiving enteral feeding at the rate of 30 mL an hour. Antibiotic coverage remains a combination of vancomycin and Levaquin. Hemodynamically stable. No nausea. No abdominal distention. No diarrhea. Afebrile for now. No other significant events over the past 24 hours. On 06/27/2016, the patient is also extubation day #3. He is less confused compared to yesterday. As mentioned earlier, there is no agitation. Received Haldol last night twice and he had a good night sleep. He is able to communicate. He follows some simple commands. No agitation. No restlessness. His swallow mechanism was poor and the patient has a Dobbhoff in place and we are supplementing this patient with enteral feeding with Glucerna which is currently running at the rate of 50 mL an hour. No residuals. Nausea. No vomiting. No bowel movements yet. Blood sugars have been elevated and the patient is still on sliding scale coverage and Levemir insulin 20 units will be started today. In terms of his breathing, the patient is not short of breath and his breathing is not labored. However he gets worked up and shortness of breath with minimal amount of activity even while being moved back and forth to the bedside chair. He has a congested cough. His chest x-ray findings are remarkable yet stable. He has extensive scarring and volume loss in the left lung with significant consolidation. He has chronic scarring in the right apex and on previous CAT scan of the chest there is bilateral bronchiectasis. The bronchioloalveolar lavage was collected in this patient showed no microbial growth. Most recent sputum analysis showed Maritza. He remains on bronchodilators including DuoNeb. He remains on Pulmicort Respules. He remains on the same antibiotic coverage which included a combination of Levaquin and vancomycin. No oropharyngeal thrush. Chest x-ray findings from today are stable. On 06/28/2016 I see a significant improvement in the patient's condition. The patient is post extubation day #4. He is had is more clear and he is able to communicate and interact freely without any significant confusion or being incoherent. He is also looking more active able to move out of bed without any major difficulties and he was able to sit up all day yesterday. He still has it minimal congested cough. He is receiving Dobbhoff feeding for nutritional support. I think he should be able to pass a swallow which is intended to be done tomorrow. The patient is hemodynamically stable. In fact his blood pressure is noted to be slightly elevated. X-ray findings are essentially stable for now. Objective - Vital Signs Vital signs: Vital Signs Temp 98.4 F 06/28/16 08:00 Pulse 83 06/28/16 10:00 Resp 22 06/28/16 10:00 BP 184/90 06/28/16 10:00 Pulse Ox 96 06/28/16 10:00 Intake & Output 06/27/16 06/28/16 06/28/16 18:59 06:59 18:59 Intake Total 1210 1640 590 Output Total 1760 1155 415 Balance -550 485 175 Weight 81.4 kg 80.8 kg 80.8 kg Intake: IV 200 260 60 Sodium Chloride 0.9% 1, 200 260 60 000 ml @ 20 mls/hr IV . Q24H MICHAEL Rx#:[id number] Intake, IV Titration 270 250 Amount Sodium Chloride 0.9% 1, 20 000 ml @ 20 mls/hr IV . Q24H MICHAEL Rx#:[id number] Vancomycin 1,250 mg In 250 250 Sodium Chloride 0.9% 250 ml @ 125 mls/hr IVPB Q12H MICHAEL Rx#:[id number] Tube Feeding 690 1110 280 Blood Product 50 Other 270 Output: Urine 1760 1155 415 Other: Voiding Method Indwelling Catheter Indwelling Catheter Indwelling Catheter # Voids 1 1 1 - Exam Head exam was generally normal. There was no scleral icterus or corneal arcus. Mucous membranes were moist.Neck was supple and without jugular venous distension, thyromegaly, or carotid bruits. Carotids were easily palpable bilaterally. There was no adenopathy. The patient is extubated. Breath sounds are are diminished on the left compared to the right. There are some scattered rhonchi and expiratory wheezing bilaterally throughout the lung brandt.Cardiac exam revealed the PMI to be normally situated and sized. The rhythm was regular and no extrasystoles were noted during several minutes of auscultation. The first and second heart sounds were normal and physiologic splitting of the second heart sound was noted. There were no murmurs, rubs, clicks, or gallops.Abdominal exam revealed normal bowel sounds. The abdomen was soft, non- tender, and without masses, organomegaly, or appreciable enlargement of the abdominal aorta.Examination of the extremities revealed easily palpable radial, femoral and pedal pulses. There was no cyanosis, clubbing or edema. Neurologically the patient is awake. Alert. The patient refused and he is oriented 3. No focal neurological deficit. Weak yet the motor function and strength is improving in general. Swallow is weak and he failed a swallow evaluation and based on that the patient has a Dobbhoff catheter in place. - Labs CBC & Chem 7: 06/28/16 04:21 06/28/16 04:21 Labs: Abnormal Lab Results - Last 24 Hours (Table) 06/27/16 06/27/16 06/27/16 Range/Units 12:34 14:17 17:54 WBC (3.8-10.6) k/uL RBC (4.30-5.90) m/uL Hgb (13.0-17.5) gm/dL Hct (39.0-53.0) % Sodium (137-145) mmol/L Chloride (98-107) mmol/L Carbon Dioxide (22-30) mmol/L BUN (9-20) mg/dL Glucose (74-99) mg/dL POC Glucose (mg/dL) 208 H 187 H 144 H (75-99) mg/dL 06/27/16 06/28/16 06/28/16 Range/Units 21:45 02:07 04:21 WBC (3.8-10.6) k/uL RBC (4.30-5.90) m/uL Hgb (13.0-17.5) gm/dL Hct (39.0-53.0) % Sodium 147 H (137-145) mmol/L Chloride 96 L (98-107) mmol/L Carbon Dioxide 44 H* (22-30) mmol/L BUN 60 H (9-20) mg/dL Glucose 164 H (74-99) mg/dL POC Glucose (mg/dL) 172 H 194 H (75-99) mg/dL 06/28/16 06/28/16 06/28/16 Range/Units 04:21 06:06 10:14 WBC 17.4 H (3.8-10.6) k/uL RBC 3.53 L (4.30-5.90) m/uL Hgb 10.8 L (13.0-17.5) gm/dL Hct 34.6 L (39.0-53.0) % Sodium (137-145) mmol/L Chloride (98-107) mmol/L Carbon Dioxide (22-30) mmol/L BUN (9-20) mg/dL Glucose (74-99) mg/dL POC Glucose (mg/dL) 145 H 215 H (75-99) mg/dL Assessment and Plan Plan: Assessment 1 acute hypoxic and hypercapnic respiratory failure, multifactorial. The patient has extensive honeycombing and fibrotic changes in the left lung compared to the right. The patient is also bilateral airspace disease. The patient is status post bronchoscopy and therapeutic it was suctioning and the bronchioloalveolar lavage was performed yesterday. Were still awaiting the results of the cultures. On 06/24/2016, the patient had a stable chest x-ray. Cultures obtained from the bronchioloalveolar lavage him back negative for any microbial growth. The patient had adequate weaning parameters and he was given a prescription his breathing trial for a total of 25-30 minutes and following that the patient was extubated today 40% Ventimask. On 06/25/2016, the patient remains extubated. His chest x-ray findings are essentially stable. Nevertheless his breathing remains quite borderline and the patient is requiring on and off on BPAP therapy for respiratory support. He has a congested cough. Unable to bring up much sputum. He has neuromuscular weakness. He failed swallow. As such, the patient has been kept nothing by mouth. On 06/26/2016The patient's respiratory status is stable. The patient is not using BiPAP for now. No worsening shortness of breath. He is able to cough, not bringing up much of sputum. The patient is on 2 L of oxygen by nasal cannula for now. On the patient remains extubated on 2 L of oxygen by nasal cannula. Chest x-ray findings remain stable. No recent sputum analysis. Remains on the same antibiotic coverage which includes a combination of Levaquin and vancomycin. He is on IV Solu-Medrol which will be tapered off. On 06/28/2016, the patient remains on 2 L of oxygen by nasal cannula. Chest x- ray findings are stable. He shortness of breath is improved. He remains on a combination of Levaquin and vancomycin. He is not having any major respiratory difficulties. All of the sputum analysis and a previous bronchioloalveolar lavage was negative. 2 severe COPD with chronic fibrotic changes bilaterally, left more than right 3 bilateral pneumonia with near complete opacification of the left lung with significant scarring and volume loss. No microbial cultures have been established. 4 acute cardio pulmonary arrest with a downtime of around 7 minutes from which the patient has recovered and there was return of spontaneous circulation after the successful resuscitation 5 prostate cancer 6 extensive bronchiectasis bilaterally 7 diabetes mellitus 8 hypertension 9 UTI with Enterococcus faecalis and Klebsiella. 10 anemia, chronic and multifactorial any hemoglobin is stable for now 11 altered mental status, delirium him a recovered 12 steroid-induced hyperglycemia 13 enteral feeding for nutritional support through a Dobbhoff catheter. Plan Keep the patient intensive care unit. Pulmonary toileting. Provide incentive spirometer. encourage physical therapy. A swallow evaluation be done tomorrow and if he passes the Dobbhoff tube will be discontinued and the patient be started on oral feeding. Meanwhile the patient is also receiving free water through the Dobbhoff, 90 mL every 4 hours. The sodium level is slightly elevated and I expect this to improve. The patient is off Lasix for now. Meanwhile, I will cut down the IV Solu Medrol to 40 mg every 12 hours and switch her to prednisone burst taper once he is swallow is clears. We'll try to keep him in ICU for another 24 hours.
[2016-06-28 14:33] LABS: Glucose,Whole Blood 219 mg/dL (75-99)
[2016-06-28] MEDS: MULTIVITAMINS, THERA 1 EACH TAB PO SCH (15:02)
[2016-06-28] MEDS: SODIUM CHLORIDE 0.9% 1,000 ML IV SCH (15:02)
[2016-06-28] MEDS: VITAMIN E (DL,TOCOPHERYL ACET) 400 UNIT CAP PO SCH (15:02)
[2016-06-28 17:49] LABS: Glucose,Whole Blood 148 mg/dL (75-99)
[2016-06-28] MEDS: LEVOFLOXACIN 750MG-D5W PMX 750 MG in DEXTROSE/WATER 1 150ML.BAG IVPB SCH (17:49)
--- NOTE | 2016-06-28 19:03 | P.PN ---
Subjective This is a 80-year-old gentleman that was admitted to the hospital with acute hypoxic respiratory failure. This was secondary to bilateral extensive pneumonia. Patient apparently underwent a cardiopulmonary arrest in hospital down time was apparently close to 7 minutes. Patient was thereafter triaged to the intensive care unit on vent support. Patient was noted to have significant amount of DVT and oral secretions. Patient is seen today status post extubation. Patient appears to be slightly tachypneic however is awake and answering questions appropriately. 06/25/16 No new overnight events Pt did well tolerated bipap on 3 l significant amount of thick yellowish sputum No fevers, chills reported. 06/26/16 tolerating tube feeding improved breathing no fevers, chills, nausea. Was confused this am, was pulling his tubes hence a dose of haloperidol was given sitter at bedside. 06/27/16 More appropriate denies having headaches, blurry vision, nausea, vomiting, diarrhea Has not been pulling on his tubes. 06/28/16 is doing well more appropriate No overnight events reported family is at bedside, who state he is more his normal self denies cp, mago, nausea, vomiting, diarrhea. Objective - Vital Signs Vital signs: Vital Signs Temp 98.1 F 06/28/16 16:40 Pulse 80 06/28/16 16:55 Resp 18 06/28/16 17:10 BP 156/73 06/28/16 16:40 Pulse Ox 94 L 06/28/16 16:40 Intake & Output 06/28/16 06/28/16 06/29/16 06:59 18:59 06:59 Intake Total 1640 660 Output Total 1155 415 Balance 485 245 Weight 80.8 kg 80.8 kg Intake: IV 260 60 Sodium Chloride 0.9% 1, 260 60 000 ml @ 20 mls/hr IV . Q24H MICHAEL Rx#:[id number] Intake, IV Titration 250 Amount Vancomycin 1,250 mg In 250 Sodium Chloride 0.9% 250 ml @ 125 mls/hr IVPB Q12H MICHAEL Rx#:[id number] Tube Feeding 1110 350 Other 270 Output: Urine 1155 415 Other: Voiding Method Indwelling Catheter Indwelling Catheter # Voids 1 1 - Exam Gen. appearance improved more appropriate. Lungs diminished breath sounds, no significant rhonchi. Heart S1-S2 heard no significant abnormal sounds appreciated Abdomen is soft nontender no organomegaly No extremities no significant edema noted Neuro moves all four extremities. - Labs CBC & Chem 7: 06/28/16 04:21 06/28/16 04:21 Labs: Abnormal Lab Results - Last 24 Hours (Table) 06/27/16 06/28/16 06/28/16 Range/Units 21:45 02:07 04:21 WBC (3.8-10.6) k/uL RBC (4.30-5.90) m/uL Hgb (13.0-17.5) gm/dL Hct (39.0-53.0) % Sodium 147 H (137-145) mmol/L Chloride 96 L (98-107) mmol/L Carbon Dioxide 44 H* (22-30) mmol/L BUN 60 H (9-20) mg/dL Glucose 164 H (74-99) mg/dL POC Glucose (mg/dL) 172 H 194 H (75-99) mg/dL 06/28/16 06/28/16 06/28/16 Range/Units 04:21 06:06 10:14 WBC 17.4 H (3.8-10.6) k/uL RBC 3.53 L (4.30-5.90) m/uL Hgb 10.8 L (13.0-17.5) gm/dL Hct 34.6 L (39.0-53.0) % Sodium (137-145) mmol/L Chloride (98-107) mmol/L Carbon Dioxide (22-30) mmol/L BUN (9-20) mg/dL Glucose (74-99) mg/dL POC Glucose (mg/dL) 145 H 215 H (75-99) mg/dL 06/28/16 06/28/16 Range/Units 14:31 17:46 WBC (3.8-10.6) k/uL RBC (4.30-5.90) m/uL Hgb (13.0-17.5) gm/dL Hct (39.0-53.0) % Sodium (137-145) mmol/L Chloride (98-107) mmol/L Carbon Dioxide (22-30) mmol/L BUN (9-20) mg/dL Glucose (74-99) mg/dL POC Glucose (mg/dL) 219 H 148 H (75-99) mg/dL Assessment and Plan Plan: Acute hypoxic and hypercapnic respiratory failure likely secondary to bilateral pneumonia in a patient with pulmonary fibrosis. 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 #UTI with multiple organs including Klebsiella and Enterococcus faecalis #8 anemia of chronic disease. 9. Acute delirium Plan tube feeding at target titrate o2 levemir 25units. moniter glucose levels. Abx per ID ST to re-eval the pt again binh thereafter dc dubhoff depending on the results. Breathing is improved DVT prophylaxis.
--- NOTE | 2016-06-28 20:04 | XR ---
EXAMINATION TYPE: XR chest 1V DATE OF EXAM: 06/28/2016 7:43 PM COMPARISON: 06/28/2016 HISTORY: 80-year-old male Dobbhoff tube placement, patient pulling out lines. TECHNIQUE: Single frontal view of the chest is obtained. FINDINGS: Patient's chin is down obscuring the midline upper chest. Dobbhoff tube present, the tubing extends b elow the diaphragm and the distal aspect is beyond the field of view. There is diffuse interstitial a nd patchy opacity throughout the right lung and near complete opacification of the left hemithorax wi th associated volume loss. IMPRESSION: 1. Patient's chin is down. Dobbhoff tube courses below the diaphragm and the weighted tip is beyond t he field of view. 2. Otherwise, stable exam with chronic volume loss and extensive parenchymal changes in the left emily thorax. Possible acute on chronic interstitial changes in the right lung especially the right upper l obe.
--- NOTE | 2016-06-28 21:05 | XR ---
EXAMINATION TYPE: XR abdomen 1V DATE OF EXAM: 06/28/2016 8:44 PM CLINICAL HISTORY: Dobbhoff catheter placement with pooling on NG tube. TECHNIQUE: 2 AP portable supine views of the abdomen are obtained. COMPARISON:Abdominal x-ray from 3 days earlier. . FINDINGS: There is Dobbhoff feeding catheter going below left hemidiaphragm with tip felt at level of gastric antrum. There are scattered gas seen in nondistended small and large bowel loops. Numerous surgical clips are seen in the pelvic sidewalls. No pneumoperitoneum is present. Visualized osseous structures are inta ct. IMPRESSION: Dobbhoff feeding catheter present with tip at level of gastric antrum.
[2016-06-28 22:31] LABS: Glucose,Whole Blood 100 mg/dL (75-99)
[2016-06-29] MEDS: INSULIN LISPRO (humaLOG) 300 UNIT/3 ML VIAL SQ SCH ×6 (02:45→22:09)
[2016-06-29 02:59] LABS: Glucose,Whole Blood 263 mg/dL (75-99)
[2016-06-29 06:28] LABS: Glucose,Whole Blood 253 mg/dL (75-99)
[2016-06-29 07:31] LABS: ALT 30 U/L (21-72); AST 23 U/L (17-59); Alkaline Phosphatase 113 U/L (38-126); Blood Urea Nitrogen 54 mg/dL (9-20); Calcium 8.8 mg/dL (8.4-10.2); Chloride 97 mmol/L (98-107); Glucose 248 mg/dL (74-99); Magnesium 2.3 mg/dL (1.6-2.3); Non-African American GFR(MDRD) >60 (>60 ml/min/1.73 sqM); Phosphorous 2.9 mg/dL (2.5-4.5); Potassium 4.1 mmol/L (3.5-5.1); Sodium 147 mmol/L (137-145); Total Bilirubin 0.4 mg/dL (0.2-1.3); Total Protein 6.3 g/dL (6.3-8.2)
[2016-06-29 07:31] LABS: Basophils % (A) 0 %; CH 28.6; CHCM 29.1; Eosinophils % (A) 0 %; HCT 35.5 % (39.0-53.0); HDW 2.51; HGB 10.5 gm/dL (13.0-17.5); Hypochromasia Marked; Luc # (Auto) 0.13; Luc % (Auto) 1; Lymphocytes # (A) 0.4 k/uL (1.0-4.8); Lymphocytes % (A) 3 %; MCH 29.2 pg (25.0-35.0); MCHC 29.6 g/dL (31.0-37.0); MCV 98.6 fL (80.0-100.0); Mean Platelet Volume 7.2; Monocytes # (A) 0.8 k/uL (0-1.0); Monocytes % (A) 5 %; Neutrophils # (A) 14.5 k/uL (1.3-7.7); Neutrophils % (A) 91 %; RDW 13.5 % (11.5-15.5); WBC 15.9 k/uL (3.8-10.6); WBC (Perox) 16.19
[2016-06-29 07:37] LABS: Anion Gap 8 mmol/L
[2016-06-29 07:38] LABS: Carbon Dioxide 42 mmol/L (22-30)
--- NOTE | 2016-06-29 07:38 | XR ---
EXAMINATION TYPE: XR chest 1V portable DATE OF EXAM: 06/29/2016 7:13 AM HISTORY: Shortness of breath. COMPARISON: None. TECHNIQUE: Single view of the chest is submitted. FINDINGS: Demonstrated are scattered senescent parenchymal change. There is diffuse infiltrate throughout the left lung with underlying fibrosis suspected. More patchy, infiltrate is seen within the right upper lobe. Dobbhoff tube is noted to be in place. The heart is stable. Hilar and mediastinal structures are within normal limits. Degenerative changes are seen of the dorsal spine. IMPRESSION: 1. Essentially stable chest with diffuse infiltrate throughout the left hemithorax.
[2016-06-29] MEDS: IPRATROPIUM-ALBUTEROL 3 ML NEB INHALATION SCH ×4 (08:28→20:51)
[2016-06-29] MEDS: BUDESONIDE 1 MG/2 ML NEBU INHALATION SCH ×2 (08:28→20:51)
[2016-06-29] MEDS: FORMOTEROL FUMARATE 20 MCG/2 ML NEBU INHALATION SCH ×2 (08:28→20:51)
[2016-06-29] MEDS: methylPREDNISolone SOD SUCCI 40 MG/ML 1 ML VIAL IV SCH ×2 (08:30→21:55)
[2016-06-29] MEDS: PANTOPRAZOLE 40 MG/10 ML VIAL IVP SCH (08:30)
[2016-06-29] MEDS: HEPARIN SODIUM,PORCINE 5,000 UNIT/ML 1 ML VIAL SQ SCH ×2 (08:30→21:55)
[2016-06-29] MEDS: VANCOMYCIN 1,250 MG in SODIUM CHLORIDE 0.9% 250 ML IVPB SCH ×2 (08:35→21:55)
[2016-06-29] MEDS: INSULIN DETEMIR 100 UNIT/ML 10 ML VIAL SQ SCH (08:35)
[2016-06-29 10:03] LABS: Glucose,Whole Blood 157 mg/dL (75-99)
[2016-06-29 11:32] VITALS: BMI 19.1
[2016-06-29] MEDS: MULTIVITAMINS, THERA 1 EACH TAB PO SCH (12:47)
[2016-06-29] MEDS: VITAMIN E (DL,TOCOPHERYL ACET) 400 UNIT CAP PO SCH (12:47)
[2016-06-29] MEDS: SODIUM CHLORIDE 0.9% 1,000 ML IV SCH (12:47)
--- NOTE | 2016-06-29 13:27 | P.PN ---
Subjective Principal diagnosis: Acute hypoxic and hypercapnic respiratory failure secondary to pneumonia and honeycomb the left lung, bilateral pneumonia. 80-year-old male patient was admitted for acute hypoxic and hypercapnic respiratory failure and the patient has bilateral extensive pneumonia. Noted the patient also has advanced COPD with chronic fibrotic changes with significant volume loss in the left lung compared to the right. A prior CAT scan of the chest that showed chronic left-sided volume loss with underlying extensive bronchiectasis and fibrosis. The exact nature of this abnormalities are not known. The patient was in the hospital in March 2016 for bilateral pneumonia treated and discharged home. Has been using oxygen 2 L/m nasal cannula on outpatient basis. On 06/22/2016, the patient is being seen in follow-up. The patient is lightly sedated with Diprivan which is running at around 35-40 mics per KG pigmented. The patient was an assist-control mode of ventilation at the rate of 18, tidal volume 450, FiO2 of 40% and a PEEP of 5. The patient was intubated with a #8 orotracheal tube. He was still having respiratory secretions were quite considerably copious. At that point, a bronchoscopy was done at the bedside and therapeutic it was suctioning was done where more than 20-30 MO's of restless 6 she is were suctioned out and the secretions were essentially purulent in nature. The endobronchial airways were quite narrowed and there was significant scarring and mucosal inflammatory changes typical of an underlying pneumonia. The blood gases on this morning showed a pH of 7.42 with a pCO2 of 44 and pO2 of 102. The patient was afebrile hemodynamically stable. Ecchymotic coverage remain the same which includes a combination of Levaquin and vancomycin. The patient is receiving tube feeds in the form of vital 1.2 and he is at goal at 50 mL an hour. 06/23/2016, I'm seeing this patient in follow-up. Yesterday the patient underwent a bronchoscopy and therapeutic it was suctioning was done and the samples are all sent to microbial analysis. The preliminary AFB stain was negative. This gram-negative bacilli and gram-positive cocci and Gram stain. This morning, the patient was given a sedation holiday. He woke up any was opening his eyes and following some simple commands. He was however very anxious. Weaning parameters without poor. The measurement was not while the patient was on a pressure support of 5 and a PEEP of 5 and the patient was barely pulling tidal volumes of 200 and he was becoming tachypneic. At the same time the patient became tachycardic and he desaturated. Morning blood gases from today showed a pH of 7.35 with a pCO2 of 46 and pO2 of 107. This is that x-ray at all within normal limits. The chest x-ray from today is showing stable honeycombing throughout the left lung with left-sided volume loss and bilateral airspace infiltrates. Overall findings are stable compared to yesterday's chest x-ray. The patient was also seen by infectious disease. The patient was kept on an antibiotic coverage which included vancomycin and Levaquin. His echocardiogram from 2016 showed a preserved LV function with an ejection fraction of 6065% and mild degree of pulmonary hypertension. On 06/24/2016 I'm seeing this patient in follow-up. The bronchoscopy was completed and the bronchioloalveolar lavage is not showing any new microbial growth. Affect the findings are consistent with normal alexsander. The patient remains on a combination of Levaquin and vancomycin. Today chest x-ray remains unchanged. There is no new infiltration or consolidation. Nevertheless, any weaning parameters are improved and the patient was given a spelled his breathing trial with a pressure support of 5 and a PEEP of 5 and within 30 minutes the patient was extubated to a 40% Ventimask. He is comfortable. He remained comfortable postextubation. No use of excessive muscle breathing. Minimal congested cough with sputum production. No hemoptysis. No pleurisy. Mental status is appropriate. Hemodynamically stable. He is diuresing as the patient received a dose of Lasix yesterday and this will be repeated today. Echocardiogram showed preserved LV function. On , the patient remains extubated and today he is post extubation day # 1. Note that yesterday the patient had some reading difficulties and the patient was placed on BiPAP for respiratory support. Since then, the patient was taken off the BiPAP this morning and he is currently at 3-4 L of oxygen nasal cannula. He is on DuoNeb nebulized treatments. He is on Pulmicort and Perforomist neb last treatment twice a day. He remains on the same antibiotic coverage which includes a combination of vancomycin and Levaquin. The results of the bronchioloalveolar lavage came back negative for any microbial growth. Meanwhile, the patient is being diuresis with IV Lasix. He is a negative fluid balance. He is awake and alert however he is slow in answering questions. He is very hard of hearing and he does not communicate appropriately. He remains quite weak with a weak cough. The patient failed a swallow evaluation and based on that he was kept nothing by mouth. He is followed be reevaluated within next 24-48 hours. He is afebrile for now. On 06/26/2016, the patient is being seen in follow-up. He is post extubation day #2. The patient is a bit confused yet his, comfortable and there is no agitation. He is able to sit up on a chair. He is moving all 4 extremities without any limitation. He has a congested cough unable to bring up much of sputum. No fever. No chills. He failed a swallow evaluation and based on that a Dobbhoff catheter was inserted for enteral feeding and nutritional support. Currently is receiving enteral feeding at the rate of 30 mL an hour. Antibiotic coverage remains a combination of vancomycin and Levaquin. Hemodynamically stable. No nausea. No abdominal distention. No diarrhea. Afebrile for now. No other significant events over the past 24 hours. On 06/27/2016, the patient is also extubation day #3. He is less confused compared to yesterday. As mentioned earlier, there is no agitation. Received Haldol last night twice and he had a good night sleep. He is able to communicate. He follows some simple commands. No agitation. No restlessness. His swallow mechanism was poor and the patient has a Dobbhoff in place and we are supplementing this patient with enteral feeding with Glucerna which is currently running at the rate of 50 mL an hour. No residuals. Nausea. No vomiting. No bowel movements yet. Blood sugars have been elevated and the patient is still on sliding scale coverage and Levemir insulin 20 units will be started today. In terms of his breathing, the patient is not short of breath and his breathing is not labored. However he gets worked up and shortness of breath with minimal amount of activity even while being moved back and forth to the bedside chair. He has a congested cough. His chest x-ray findings are remarkable yet stable. He has extensive scarring and volume loss in the left lung with significant consolidation. He has chronic scarring in the right apex and on previous CAT scan of the chest there is bilateral bronchiectasis. The bronchioloalveolar lavage was collected in this patient showed no microbial growth. Most recent sputum analysis showed Maritza. He remains on bronchodilators including DuoNeb. He remains on Pulmicort Respules. He remains on the same antibiotic coverage which included a combination of Levaquin and vancomycin. No oropharyngeal thrush. Chest x-ray findings from today are stable. On 06/28/2016 I see a significant improvement in the patient's condition. The patient is post extubation day #4. He is had is more clear and he is able to communicate and interact freely without any significant confusion or being incoherent. He is also looking more active able to move out of bed without any major difficulties and he was able to sit up all day yesterday. He still has it minimal congested cough. He is receiving Dobbhoff feeding for nutritional support. I think he should be able to pass a swallow which is intended to be done tomorrow. The patient is hemodynamically stable. In fact his blood pressure is noted to be slightly elevated. X-ray findings are essentially stable for now. On 06/29/2016, patient is about the same, his post extubation day #5. Continues to have significantly abnormal chest x-ray with honeycombed left lung, patient however is feeling better breathing easier, less short of breath and less congested patient continues to have a Dobbhoff tube in place for nutritional support, he is hemodynamically stable, and again his chest x-ray is basically unchanged. I'm not expecting much improvement considering the left lung is actually honeycombed lung. Objective - Vital Signs Vital signs: Vital Signs Temp 96.3 F L 06/29/16 08:00 Pulse 76 06/29/16 12:09 Resp 18 06/29/16 04:00 BP 172/80 06/29/16 08:00 Pulse Ox 96 06/29/16 08:32 Intake & Output 06/28/16 06/29/16 06/29/16 18:59 06:59 18:59 Intake Total 660 1570 Output Total 415 1075 300 Balance 245 495 -300 Weight 80.8 kg 80.8 kg 62.1 kg Intake: IV 60 160 Sodium Chloride 0.9% 1, 60 160 000 ml @ 20 mls/hr IV . Q24H [facility] Rx#:[id number] Intake, IV Titration 250 250 Amount Vancomycin 1,250 mg In 250 250 Sodium Chloride 0.9% 250 ml @ 125 mls/hr IVPB Q12H [facility] Rx#:[id number] Tube Feeding 350 980 Other 180 Output: Urine 415 1075 300 Other: Voiding Method Indwelling Catheter Urinal # Voids 1 1 1 # Bowel Movements 1 - Exam Head exam was generally normal. There was no scleral icterus or corneal arcus. Mucous membranes were moist.Neck was supple and without jugular venous distension, thyromegaly, or carotid bruits. Carotids were easily palpable bilaterally. There was no adenopathy. The patient is extubated. Breath sounds are are diminished on the left compared to the right. There are some scattered rhonchi and expiratory wheezing bilaterally throughout the lung brandt.Cardiac exam revealed the PMI to be normally situated and sized. The rhythm was regular and no extrasystoles were noted during several minutes of auscultation. The first and second heart sounds were normal and physiologic splitting of the second heart sound was noted. There were no murmurs, rubs, clicks, or gallops.Abdominal exam revealed normal bowel sounds. The abdomen was soft, non- tender, and without masses, organomegaly, or appreciable enlargement of the abdominal aorta.Examination of the extremities revealed easily palpable radial, femoral and pedal pulses. There was no cyanosis, clubbing or edema. Neurologically the patient is awake. Alert. The patient refused and he is oriented 3. No focal neurological deficit. Weak yet the motor function and strength is improving in general. Swallow is weak and he failed a swallow evaluation and based on that the patient has a Dobbhoff catheter in place. - Labs CBC & Chem 7: 06/29/16 06:46 06/29/16 06:44 Labs: Abnormal Lab Results - Last 24 Hours (Table) 06/28/16 06/28/16 06/28/16 Range/Units 14:31 17:46 22:19 WBC (3.8-10.6) k/uL RBC (4.30-5.90) m/uL Hgb (13.0-17.5) gm/dL Hct (39.0-53.0) % MCHC (31.0-37.0) g/dL Neutrophils # (1.3-7.7) k/uL Lymphocytes # (1.0-4.8) k/uL Sodium (137-145) mmol/L Chloride (98-107) mmol/L Carbon Dioxide (22-30) mmol/L BUN (9-20) mg/dL Glucose (74-99) mg/dL POC Glucose (mg/dL) 219 H 148 H 100 H (75-99) mg/dL Albumin (3.5-5.0) g/dL 06/29/16 06/29/16 06/29/16 Range/Units 02:35 06:17 06:44 WBC (3.8-10.6) k/uL RBC (4.30-5.90) m/uL Hgb (13.0-17.5) gm/dL Hct (39.0-53.0) % MCHC (31.0-37.0) g/dL Neutrophils # (1.3-7.7) k/uL Lymphocytes # (1.0-4.8) k/uL Sodium 147 H (137-145) mmol/L Chloride 97 L (98-107) mmol/L Carbon Dioxide 42 H* (22-30) mmol/L BUN 54 H (9-20) mg/dL Glucose 248 H (74-99) mg/dL POC Glucose (mg/dL) 263 H 253 H (75-99) mg/dL Albumin 2.8 L (3.5-5.0) g/dL 06/29/16 06/29/16 Range/Units 06:46 10:00 WBC 15.9 H (3.8-10.6) k/uL RBC 3.60 L (4.30-5.90) m/uL Hgb 10.5 L (13.0-17.5) gm/dL Hct 35.5 L (39.0-53.0) % MCHC 29.6 L (31.0-37.0) g/dL Neutrophils # 14.5 H (1.3-7.7) k/uL Lymphocytes # 0.4 L (1.0-4.8) k/uL Sodium (137-145) mmol/L Chloride (98-107) mmol/L Carbon Dioxide (22-30) mmol/L BUN (9-20) mg/dL Glucose (74-99) mg/dL POC Glucose (mg/dL) 157 H (75-99) mg/dL Albumin (3.5-5.0) g/dL Assessment and Plan Plan: 1 acute hypoxic and hypercapnic respiratory failure, multifactorial. The patient has extensive honeycombing and fibrotic changes in the left lung compared to the right. The patient is also bilateral airspace disease. The patient is status post bronchoscopy and therapeutic it was suctioning and the bronchioloalveolar lavage was performed yesterday. Were still awaiting the results of the cultures. On 06/24/2016, the patient had a stable chest x-ray. Cultures obtained from the bronchioloalveolar lavage him back negative for any microbial growth. The patient had adequate weaning parameters and he was given a prescription his breathing trial for a total of 25-30 minutes and following that the patient was extubated today 40% Ventimask. On 06/25/2016, the patient remains extubated. His chest x-ray findings are essentially stable. Nevertheless his breathing remains quite borderline and the patient is requiring on and off on BPAP therapy for respiratory support. He has a congested cough. Unable to bring up much sputum. He has neuromuscular weakness. He failed swallow. As such, the patient has been kept nothing by mouth. On 06/26/2016The patient's respiratory status is stable. The patient is not using BiPAP for now. No worsening shortness of breath. He is able to cough, not bringing up much of sputum. The patient is on 2 L of oxygen by nasal cannula for now. On the patient remains extubated on 2 L of oxygen by nasal cannula. Chest x-ray findings remain stable. No recent sputum analysis. Remains on the same antibiotic coverage which includes a combination of Levaquin and vancomycin. He is on IV Solu-Medrol which will be tapered off. On 06/28/2016, the patient remains on 2 L of oxygen by nasal cannula. Chest x- ray findings are stable. He shortness of breath is improved. He remains on a combination of Levaquin and vancomycin. He is not having any major respiratory difficulties. All of the sputum analysis and a previous bronchioloalveolar lavage was negative. On 06/29/2016, patient is about the same compared to above. Remains on antibiotics, he is in no form of respiratory distress, continues to have a Dobbhoff tube in place, remains on antibiotics as above, I don't expect much change on the chest x-ray, but clinically the patient seems to be better. 2 severe COPD with chronic fibrotic changes bilaterally, left more than right 3 bilateral pneumonia with near complete opacification of the left lung with significant scarring and volume loss. No microbial cultures have been established. 4 acute cardio pulmonary arrest with a downtime of around 7 minutes from which the patient has recovered and there was return of spontaneous circulation after the successful resuscitation 5 prostate cancer 6 extensive bronchiectasis bilaterally 7 diabetes mellitus 8 hypertension 9 UTI with Enterococcus faecalis and Klebsiella. 10 anemia, chronic and multifactorial any hemoglobin is stable for now 11 altered mental status, delirium him a recovered 12 steroid-induced hyperglycemia 13 enteral feeding for nutritional support through a Dobbhoff catheter. Recommendation: Continue bronchodilators, incentive spirometry, nutritional support, address the swallow evaluation and consider discontinuing the Dobbhoff tube if the patient passes his swallow evaluation. Sodium is improving is down to 147 today, patient continues to have water flushes and his BUN remains elevated creatinine is 0.78, and that will improve with extra free water. Consider discharge planning in the next couple of days. Time with Patient: Less than 30
[2016-06-29 14:15] LABS: Glucose,Whole Blood 192 mg/dL (75-99)
--- NOTE | 2016-06-29 14:44 | FL ---
EXAMINATION TYPE: FL barium swallow w video DATE OF EXAM: 06/29/2016 2:29 PM MODIFIED SWALLOW / DEGLUTITION STUDY CLINICAL HISTORY: Dysphagia. Rule out silent aspiration. Recent abnormal swallow study. TECHNIQUE: Deglutition study is performed utilizing thin liquid barium, honey and nectar thick liqui d barium, barium thick applesauce, and barium coated cracker. A total 2 minutes 45 seconds of fluoros copic time was utilized during procedure. COMPARISON: Prior barium swallow report June 25, 2016. FINDINGS: Nasogastric tube is in place. The oral phase shows satisfactory initiation with all modalit ies tested. Some mild delayed epiglottis inversion is noted. Normal mastication is seen with solid m odalities tested. There is deep aspiration which does not initiate cough reflex with thin liquid bar ium. No isidra aspiration is present with this or other modalities. Mild to moderate pharyngeal residu e was appreciated with more viscous modalities. IMPRESSION: Improved study with silent deep penetration with thin liquid barium. No aspiration with o ther modalities tested. Please refer to speech therapist notes for further details if necessary.
[2016-06-29 18:47] LABS: Glucose,Whole Blood 333 mg/dL (75-99)
[2016-06-29] MEDS: LEVOFLOXACIN 750MG-D5W PMX 750 MG in DEXTROSE/WATER 1 150ML.BAG IVPB SCH (18:49)
--- NOTE | 2016-06-29 19:00 | P.PN ---
Subjective This is a 80-year-old gentleman that was admitted to the hospital with acute hypoxic respiratory failure. This was secondary to bilateral extensive pneumonia. Patient apparently underwent a cardiopulmonary arrest in hospital down time was apparently close to 7 minutes. Patient was thereafter triaged to the intensive care unit on vent support. Patient was noted to have significant amount of DVT and oral secretions. Patient is seen today status post extubation. Patient appears to be slightly tachypneic however is awake and answering questions appropriately. 06/25/16 No new overnight events Pt did well tolerated bipap on 3 l significant amount of thick yellowish sputum No fevers, chills reported. 06/26/16 tolerating tube feeding improved breathing no fevers, chills, nausea. Was confused this am, was pulling his tubes hence a dose of haloperidol was given sitter at bedside. 06/27/16 More appropriate denies having headaches, blurry vision, nausea, vomiting, diarrhea Has not been pulling on his tubes. 06/28/16 is doing well more appropriate No overnight events reported family is at bedside, who state he is more his normal self denies cp, mago, nausea, vomiting, diarrhea. 06/29/16 No significant change from previous exam passed swallow eval NO feves, chills, nausea, vomiting, abdominal pain , diarrhea Objective - Vital Signs Vital signs: Vital Signs Temp 96.3 F L 06/29/16 08:00 Pulse 80 06/29/16 16:12 Resp 18 06/29/16 04:00 BP 133/62 06/29/16 16:00 Pulse Ox 93 L 06/29/16 16:00 Intake & Output 06/28/16 06/29/16 06/29/16 18:59 06:59 18:59 Intake Total 660 1570 325 Output Total 415 1075 300 Balance 245 495 25 Weight 80.8 kg 80.8 kg 62.1 kg Intake: IV 60 160 200 Sodium Chloride 0.9% 1, 60 160 200 000 ml @ 20 mls/hr IV . Q24H [facility] Rx#:[id number] Intake, IV Titration 250 250 125 Amount Vancomycin 1,250 mg In 250 250 125 Sodium Chloride 0.9% 250 ml @ 125 mls/hr IVPB Q12H [facility] Rx#:[id number] Tube Feeding 350 980 Other 180 Output: Urine 415 1075 300 Other: Voiding Method Indwelling Catheter Urinal # Voids 1 1 1 # Bowel Movements 1 - Exam Gen. appearance improved more appropriate. Lungs diminished breath sounds, no significant rhonchi. Heart S1-S2 heard no significant abnormal sounds appreciated Abdomen is soft nontender no organomegaly No extremities no significant edema noted Neuro moves all four extremities. - Labs CBC & Chem 7: 06/29/16 06:46 06/29/16 06:44 Labs: Abnormal Lab Results - Last 24 Hours (Table) 06/28/16 06/29/16 06/29/16 Range/Units 22:19 02:35 06:17 WBC (3.8-10.6) k/uL RBC (4.30-5.90) m/uL Hgb (13.0-17.5) gm/dL Hct (39.0-53.0) % MCHC (31.0-37.0) g/dL Neutrophils # (1.3-7.7) k/uL Lymphocytes # (1.0-4.8) k/uL Sodium (137-145) mmol/L Chloride (98-107) mmol/L Carbon Dioxide (22-30) mmol/L BUN (9-20) mg/dL Glucose (74-99) mg/dL POC Glucose (mg/dL) 100 H 263 H 253 H (75-99) mg/dL Albumin (3.5-5.0) g/dL 06/29/16 06/29/16 06/29/16 Range/Units 06:44 06:46 10:00 WBC 15.9 H (3.8-10.6) k/uL RBC 3.60 L (4.30-5.90) m/uL Hgb 10.5 L (13.0-17.5) gm/dL Hct 35.5 L (39.0-53.0) % MCHC 29.6 L (31.0-37.0) g/dL Neutrophils # 14.5 H (1.3-7.7) k/uL Lymphocytes # 0.4 L (1.0-4.8) k/uL Sodium 147 H (137-145) mmol/L Chloride 97 L (98-107) mmol/L Carbon Dioxide 42 H* (22-30) mmol/L BUN 54 H (9-20) mg/dL Glucose 248 H (74-99) mg/dL POC Glucose (mg/dL) 157 H (75-99) mg/dL Albumin 2.8 L (3.5-5.0) g/dL 06/29/16 06/29/16 Range/Units 14:03 18:46 WBC (3.8-10.6) k/uL RBC (4.30-5.90) m/uL Hgb (13.0-17.5) gm/dL Hct (39.0-53.0) % MCHC (31.0-37.0) g/dL Neutrophils # (1.3-7.7) k/uL Lymphocytes # (1.0-4.8) k/uL Sodium (137-145) mmol/L Chloride (98-107) mmol/L Carbon Dioxide (22-30) mmol/L BUN (9-20) mg/dL Glucose (74-99) mg/dL POC Glucose (mg/dL) 192 H 333 H (75-99) mg/dL Albumin (3.5-5.0) g/dL Assessment and Plan Plan: Acute hypoxic and hypercapnic respiratory failure likely secondary to bilateral pneumonia in a patient with pulmonary fibrosis. 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 #UTI with multiple organs including Klebsiella and Enterococcus faecalis #8 anemia of chronic disease. 9. Acute delirium Plan dc tube feeding abx stable. continues to need supplemental o2 will need on dc, as pt has significant honey combing extubation day 5 dc SNF in the next 24 hrs. DVT prophylaxis.
--- NOTE | 2016-06-29 20:15 | P.PN ---
Subjective Principal diagnosis: Respiratory failure This is an 80-year-old male who presented to [facility] emergency center on June 18 with concerns for not feeling well and shortness of breath with recent treatment for pneumonia in March. He was found to have sepsis on presentation with fever of 101.1, leukocytosis of 19.9, tachycardia and tachypnea. Influenza testing was negative. Initial chest x- ray showed right lower lobe pneumonia with chronic consolidation of the left lung. Urinalysis was clear with nitrate negative leukoesterase trace with urine culture showing 10-49 colonies of Enterococcus faecalis and Klebsiella oxytoca. He was initially started on Azactam and Levaquin. On June 20 there was a CODE BLUE called. Patient was pulseless with no respirations. CPR was initiated and patient was given 1 dose of epinephrine. He was intubated and transferred to the intensive care unit. He has been followed by Dr. Richardson. Blood cultures 3 are showing no growth. Sputum culture is showing rare gram- positive cocci and normal alexsander. This morning, Azactam was discontinued and vancomycin started. It does not appear the patient was on antibiotics he has had adequate urine output. There is been no diarrhea and no skin breakdown. prior to his admission. Patient was extubated yesterday. However required some time on BiPAP. He's now been off BiPAP for many hours. Doing well. However failed his swallow study. And a Dobbhoff was placed and did tolerate some tube feeds. He seems to be comfortable less confused. He passed a swallow study today. Dobbhoff removed. Started be given liquids to drink. Much more comfortable. Objective - Vital Signs Vital signs: Vital Signs Temp 96.3 F L 06/29/16 08:00 Pulse 80 06/29/16 16:12 Resp 18 06/29/16 04:00 BP 133/62 06/29/16 16:00 Pulse Ox 93 L 06/29/16 16:00 Intake & Output 06/29/16 06/29/16 06/30/16 06:59 18:59 06:59 Intake Total 1570 325 Output Total 1075 300 Balance 495 25 Weight 80.8 kg 62.1 kg Intake: IV 160 200 Sodium Chloride 0.9% 1, 160 200 000 ml @ 20 mls/hr IV . Q24H [facility] Rx#:[id number] Intake, IV Titration 250 125 Amount Vancomycin 1,250 mg In 250 125 Sodium Chloride 0.9% 250 ml @ 125 mls/hr IVPB Q12H [facility] Rx#:[id number] Tube Feeding 980 Other 180 Output: Urine 1075 300 Other: Voiding Method Urinal # Voids 1 1 # Bowel Movements 1 - Exam Gen: This is an 80-year-old male. O2 by nasal cannula. Dobbhoff was removed HEENT: Head is atraumatic, normocephalic. Pupils equal, round. Sclerae is anicteric. Oral mucous membranes are very dry. No thrush noted. NECK: Supple. No JVD. No lymphadenopathy. No thyromegaly. LUNGS: Bilateral scattered rhonchi. No intercostal retractions. HEART: Regular rate and rhythm. No murmur. ABDOMEN: Soft. Bowel sounds are present. No masses. No tenderness. EXTREMITIES: Bilateral 1+ pedal edema and hand edema. Pedal pulses are 2+ and symmetric NEUROLOGICAL: Patient is comfortable agitation resolved - Labs CBC & Chem 7: 06/29/16 06:46 06/29/16 06:44 Labs: Abnormal Lab Results - Last 24 Hours (Table) 06/28/16 06/29/16 06/29/16 Range/Units 22:19 02:35 06:17 WBC (3.8-10.6) k/uL RBC (4.30-5.90) m/uL Hgb (13.0-17.5) gm/dL Hct (39.0-53.0) % MCHC (31.0-37.0) g/dL Neutrophils # (1.3-7.7) k/uL Lymphocytes # (1.0-4.8) k/uL Sodium (137-145) mmol/L Chloride (98-107) mmol/L Carbon Dioxide (22-30) mmol/L BUN (9-20) mg/dL Glucose (74-99) mg/dL POC Glucose (mg/dL) 100 H 263 H 253 H (75-99) mg/dL Albumin (3.5-5.0) g/dL 06/29/16 06/29/16 06/29/16 Range/Units 06:44 06:46 10:00 WBC 15.9 H (3.8-10.6) k/uL RBC 3.60 L (4.30-5.90) m/uL Hgb 10.5 L (13.0-17.5) gm/dL Hct 35.5 L (39.0-53.0) % MCHC 29.6 L (31.0-37.0) g/dL Neutrophils # 14.5 H (1.3-7.7) k/uL Lymphocytes # 0.4 L (1.0-4.8) k/uL Sodium 147 H (137-145) mmol/L Chloride 97 L (98-107) mmol/L Carbon Dioxide 42 H* (22-30) mmol/L BUN 54 H (9-20) mg/dL Glucose 248 H (74-99) mg/dL POC Glucose (mg/dL) 157 H (75-99) mg/dL Albumin 2.8 L (3.5-5.0) g/dL 06/29/16 06/29/16 Range/Units 14:03 18:46 WBC (3.8-10.6) k/uL RBC (4.30-5.90) m/uL Hgb (13.0-17.5) gm/dL Hct (39.0-53.0) % MCHC (31.0-37.0) g/dL Neutrophils # (1.3-7.7) k/uL Lymphocytes # (1.0-4.8) k/uL Sodium (137-145) mmol/L Chloride (98-107) mmol/L Carbon Dioxide (22-30) mmol/L BUN (9-20) mg/dL Glucose (74-99) mg/dL POC Glucose (mg/dL) 192 H 333 H (75-99) mg/dL Albumin (3.5-5.0) g/dL Assessment and Plan (1) Pneumonia Narrative/Plan: 80-year-old male presents to Hospital with evidence of significant pneumonia. Developed respiratory failure and sepsis. The patient did require CPR intubation and mechanical ventilation. Urine culture with Enterococcus faecalis and klebsiella oxytoca and he is on vancomycin and levofloxacin and tolerating that well. Plan 10 days BAL is pending the cultures are negative so far. AFB is negative. Rest of the viral screen is negative. Continue supportive care Extubated and now off of BiPAP. Pulmonary status is improving. Is on nasal cannula oxygen. Was receiving feeding through Dobbhoff. However past a swallow study. Dobbhoff was removed. I will be getting oral feeds. Watch closely for any further aspiration. Unclear if he will be a candidate for a PEG tube in the future. BAL is negative so far. Some Maritza is found but is not the etiology of his pneumonia. Status: Acute (2) Pulmonary fibrosis Status: Acute
[2016-06-29 20:49] LABS: Glucose,Whole Blood 293 mg/dL (75-99)
[2016-06-29 22:09] LABS: Glucose,Whole Blood 220 mg/dL (75-99)
[2016-06-29 22:48] LABS: Glucose,Whole Blood 234 mg/dL (75-99)
[2016-06-30 02:22] LABS: Glucose,Whole Blood 101 mg/dL (75-99)
[2016-06-30 05:40] LABS: Glucose,Whole Blood 182 mg/dL (75-99)
[2016-06-30] MEDS: INSULIN LISPRO (humaLOG) 300 UNIT/3 ML VIAL SQ SCH ×8 (06:46→17:10)
[2016-06-30] MEDS: FORMOTEROL FUMARATE 20 MCG/2 ML NEBU INHALATION SCH (07:32)
[2016-06-30] MEDS: IPRATROPIUM-ALBUTEROL 3 ML NEB INHALATION SCH ×3 (07:32→15:22)
[2016-06-30] MEDS: BUDESONIDE 1 MG/2 ML NEBU INHALATION SCH (07:32)
[2016-06-30] MEDS ORDERED: VANCOMYCIN TROUGH DUE 1 EACH MISC MISCELLANE ONE (08:00)
[2016-06-30 08:41] LABS: ALT 32 U/L (21-72); AST 19 U/L (17-59); Alkaline Phosphatase 80 U/L (38-126); Blood Urea Nitrogen 48 mg/dL (9-20); Chloride 97 mmol/L (98-107); Glucose 239 mg/dL (74-99); Non-African American GFR(MDRD) >60 (>60 ml/min/1.73 sqM); Phosphorous 3.5 mg/dL (2.5-4.5); Potassium 4.3 mmol/L (3.5-5.1); Sodium 144 mmol/L (137-145); Total Bilirubin 0.6 mg/dL (0.2-1.3); Total Protein 6.4 g/dL (6.3-8.2)
[2016-06-30 08:47] LABS: Anion Gap 5 mmol/L; Basophils % (A) 0 %; CH 29.2; CHCM 29.9; Eosinophils % (A) 0 %; HCT 35.3 % (39.0-53.0); HDW 2.62; Hypochromasia Marked; Luc # (Auto) 0.07; Luc % (Auto) 1; Lymphocytes # (A) 0.4 k/uL (1.0-4.8); Lymphocytes % (A) 3 %; MCH 30.5 pg (25.0-35.0); MCHC 31.2 g/dL (31.0-37.0); MCV 97.9 fL (80.0-100.0); Mean Platelet Volume 7.2; Monocytes # (A) 0.4 k/uL (0-1.0); Monocytes % (A) 4 %; Neutrophils # (A) 10.6 k/uL (1.3-7.7); Neutrophils % (A) 93 %; RBC 3.61 m/uL (4.30-5.90); RDW 13.4 % (11.5-15.5); WBC 11.4 k/uL (3.8-10.6); WBC (Perox) 11.78
[2016-06-30 08:52] LABS: Carbon Dioxide 42 mmol/L (22-30)
[2016-06-30] MEDS ORDERED: INSULIN DETEMIR 100 UNIT/ML 10 ML VIAL SQ SCH (09:00)
--- NOTE | 2016-06-30 09:35 | XR ---
EXAMINATION TYPE: XR chest 1V portable DATE OF EXAM: 06/30/2016 9:01 AM CLINICAL HISTORY: Difficulty breathing and pneumonia progress study. TECHNIQUE: Single AP portable upright view of the chest is obtained. COMPARISON: Chest x-ray from one day earlier FINDINGS: There is interval removal of Dobbhoff feeding catheter. There is reticular opacity left ila ng with left-sided volume loss, suspect honeycomb fibrosis. Some underlying acute infiltrate is diffi cult to exclude. There is chronic emphysematous change with right upper lung opacity redemonstrated f elt stable. Increasing right basilar opacity is seen. No large pleural effusion or pneumothorax is pr esent. Cardiac silhouette size is presumed within normal limits. Osseous structures are intact. IMPRESSION: Left-sided volume loss and chronic fibrosis with chronic parenchymal changes in the right lung and chronic right upper lung infiltrate and/or scarring all redemonstrated. New right basilar i nfiltrate is felt present.
[2016-06-30] MEDS: HEPARIN SODIUM,PORCINE 5,000 UNIT/ML 1 ML VIAL SQ SCH (10:06)
[2016-06-30] MEDS: methylPREDNISolone SOD SUCCI 40 MG/ML 1 ML VIAL IV SCH (10:06)
[2016-06-30] MEDS: VITAMIN E (DL,TOCOPHERYL ACET) 400 UNIT CAP PO SCH (10:06)
[2016-06-30] MEDS: PANTOPRAZOLE 40 MG/10 ML VIAL IVP SCH (10:07)
[2016-06-30] MEDS: VANCOMYCIN 1,250 MG in SODIUM CHLORIDE 0.9% 250 ML IVPB SCH (10:11)
[2016-06-30] MEDS: MULTIVITAMINS, THERA 1 EACH TAB PO SCH (10:12)
[2016-06-30 11:45] LABS: Glucose,Whole Blood 310 mg/dL (75-99)
[2016-06-30] MEDS ORDERED: FUROSEMIDE 10 MG/ML 4 ML VIAL IV SCH (12:30)
--- NOTE | 2016-06-30 14:32 | P.PN ---
Subjective Principal diagnosis: Acute hypoxic and hypercapnic respiratory failure secondary to pneumonia and honeycomb the left lung, bilateral pneumonia. 80-year-old male patient was admitted for acute hypoxic and hypercapnic respiratory failure and the patient has bilateral extensive pneumonia. Noted the patient also has advanced COPD with chronic fibrotic changes with significant volume loss in the left lung compared to the right. A prior CAT scan of the chest that showed chronic left-sided volume loss with underlying extensive bronchiectasis and fibrosis. The exact nature of this abnormalities are not known. The patient was in the hospital in March 2016 for bilateral pneumonia treated and discharged home. Has been using oxygen 2 L/m nasal cannula on outpatient basis. On 06/22/2016, the patient is being seen in follow-up. The patient is lightly sedated with Diprivan which is running at around 35-40 mics per KG pigmented. The patient was an assist-control mode of ventilation at the rate of 18, tidal volume 450, FiO2 of 40% and a PEEP of 5. The patient was intubated with a #8 orotracheal tube. He was still having respiratory secretions were quite considerably copious. At that point, a bronchoscopy was done at the bedside and therapeutic it was suctioning was done where more than 20-30 MO's of restless 6 she is were suctioned out and the secretions were essentially purulent in nature. The endobronchial airways were quite narrowed and there was significant scarring and mucosal inflammatory changes typical of an underlying pneumonia. The blood gases on this morning showed a pH of 7.42 with a pCO2 of 44 and pO2 of 102. The patient was afebrile hemodynamically stable. Ecchymotic coverage remain the same which includes a combination of Levaquin and vancomycin. The patient is receiving tube feeds in the form of vital 1.2 and he is at goal at 50 mL an hour. 06/23/2016, I'm seeing this patient in follow-up. Yesterday the patient underwent a bronchoscopy and therapeutic it was suctioning was done and the samples are all sent to microbial analysis. The preliminary AFB stain was negative. This gram-negative bacilli and gram-positive cocci and Gram stain. This morning, the patient was given a sedation holiday. He woke up any was opening his eyes and following some simple commands. He was however very anxious. Weaning parameters without poor. The measurement was not while the patient was on a pressure support of 5 and a PEEP of 5 and the patient was barely pulling tidal volumes of 200 and he was becoming tachypneic. At the same time the patient became tachycardic and he desaturated. Morning blood gases from today showed a pH of 7.35 with a pCO2 of 46 and pO2 of 107. This is that x-ray at all within normal limits. The chest x-ray from today is showing stable honeycombing throughout the left lung with left-sided volume loss and bilateral airspace infiltrates. Overall findings are stable compared to yesterday's chest x-ray. The patient was also seen by infectious disease. The patient was kept on an antibiotic coverage which included vancomycin and Levaquin. His echocardiogram from 2016 showed a preserved LV function with an ejection fraction of 6065% and mild degree of pulmonary hypertension. On 06/24/2016 I'm seeing this patient in follow-up. The bronchoscopy was completed and the bronchioloalveolar lavage is not showing any new microbial growth. Affect the findings are consistent with normal alexsander. The patient remains on a combination of Levaquin and vancomycin. Today chest x-ray remains unchanged. There is no new infiltration or consolidation. Nevertheless, any weaning parameters are improved and the patient was given a spelled his breathing trial with a pressure support of 5 and a PEEP of 5 and within 30 minutes the patient was extubated to a 40% Ventimask. He is comfortable. He remained comfortable postextubation. No use of excessive muscle breathing. Minimal congested cough with sputum production. No hemoptysis. No pleurisy. Mental status is appropriate. Hemodynamically stable. He is diuresing as the patient received a dose of Lasix yesterday and this will be repeated today. Echocardiogram showed preserved LV function. On , the patient remains extubated and today he is post extubation day # 1. Note that yesterday the patient had some reading difficulties and the patient was placed on BiPAP for respiratory support. Since then, the patient was taken off the BiPAP this morning and he is currently at 3-4 L of oxygen nasal cannula. He is on DuoNeb nebulized treatments. He is on Pulmicort and Perforomist neb last treatment twice a day. He remains on the same antibiotic coverage which includes a combination of vancomycin and Levaquin. The results of the bronchioloalveolar lavage came back negative for any microbial growth. Meanwhile, the patient is being diuresis with IV Lasix. He is a negative fluid balance. He is awake and alert however he is slow in answering questions. He is very hard of hearing and he does not communicate appropriately. He remains quite weak with a weak cough. The patient failed a swallow evaluation and based on that he was kept nothing by mouth. He is followed be reevaluated within next 24-48 hours. He is afebrile for now. On 06/26/2016, the patient is being seen in follow-up. He is post extubation day #2. The patient is a bit confused yet his, comfortable and there is no agitation. He is able to sit up on a chair. He is moving all 4 extremities without any limitation. He has a congested cough unable to bring up much of sputum. No fever. No chills. He failed a swallow evaluation and based on that a Dobbhoff catheter was inserted for enteral feeding and nutritional support. Currently is receiving enteral feeding at the rate of 30 mL an hour. Antibiotic coverage remains a combination of vancomycin and Levaquin. Hemodynamically stable. No nausea. No abdominal distention. No diarrhea. Afebrile for now. No other significant events over the past 24 hours. On 06/27/2016, the patient is also extubation day #3. He is less confused compared to yesterday. As mentioned earlier, there is no agitation. Received Haldol last night twice and he had a good night sleep. He is able to communicate. He follows some simple commands. No agitation. No restlessness. His swallow mechanism was poor and the patient has a Dobbhoff in place and we are supplementing this patient with enteral feeding with Glucerna which is currently running at the rate of 50 mL an hour. No residuals. Nausea. No vomiting. No bowel movements yet. Blood sugars have been elevated and the patient is still on sliding scale coverage and Levemir insulin 20 units will be started today. In terms of his breathing, the patient is not short of breath and his breathing is not labored. However he gets worked up and shortness of breath with minimal amount of activity even while being moved back and forth to the bedside chair. He has a congested cough. His chest x-ray findings are remarkable yet stable. He has extensive scarring and volume loss in the left lung with significant consolidation. He has chronic scarring in the right apex and on previous CAT scan of the chest there is bilateral bronchiectasis. The bronchioloalveolar lavage was collected in this patient showed no microbial growth. Most recent sputum analysis showed Maritza. He remains on bronchodilators including DuoNeb. He remains on Pulmicort Respules. He remains on the same antibiotic coverage which included a combination of Levaquin and vancomycin. No oropharyngeal thrush. Chest x-ray findings from today are stable. On 06/28/2016 I see a significant improvement in the patient's condition. The patient is post extubation day #4. He is had is more clear and he is able to communicate and interact freely without any significant confusion or being incoherent. He is also looking more active able to move out of bed without any major difficulties and he was able to sit up all day yesterday. He still has it minimal congested cough. He is receiving Dobbhoff feeding for nutritional support. I think he should be able to pass a swallow which is intended to be done tomorrow. The patient is hemodynamically stable. In fact his blood pressure is noted to be slightly elevated. X-ray findings are essentially stable for now. On 06/29/2016, patient is about the same, his post extubation day #5. Continues to have significantly abnormal chest x-ray with honeycombed left lung, patient however is feeling better breathing easier, less short of breath and less congested patient continues to have a Dobbhoff tube in place for nutritional support, he is hemodynamically stable, and again his chest x-ray is basically unchanged. I'm not expecting much improvement considering the left lung is actually honeycombed lung. On 06/30/2016, patient is doing well, his post extubation day #6. Chest x-ray is showing slight improvement, I believe the patient will likely benefit from more diuretics, hence I recommended Lasix 40 mg IV push every 12 hours. Jaya mendez is relatively asymptomatic, and wondering if he could be discharged home. Labs including CBC and basic metabolic profile were noted to be relatively normal, bicarb is 42. Chest x-ray again demonstrated left-sided volume loss and chronic fibrosis with chronic parenchymal changes in the right lung. Difficult to rule out underlying pulmonary edema or infiltrate. Objective - Vital Signs Vital signs: Vital Signs Temp 98.8 F 06/30/16 08:00 Pulse 82 06/30/16 12:00 Resp 16 06/30/16 12:00 BP 156/76 06/30/16 12:00 Pulse Ox 94 L 06/30/16 12:00 Intake & Output 06/29/16 06/30/16 06/30/16 18:59 06:59 18:59 Intake Total 325 490 Output Total 300 725 Balance 25 -235 Weight 62.1 kg 84.6 kg Intake: IV 200 240 Sodium Chloride 0.9% 1, 200 240 000 ml @ 20 mls/hr IV . Q24H [facility] Rx#:[id number] Intake, IV Titration 125 250 Amount Vancomycin 1,250 mg In 125 250 Sodium Chloride 0.9% 250 ml @ 125 mls/hr IVPB Q12H [facility] Rx#:[id number] Output: Urine 300 725 Other: Voiding Method Urinal Urinal # Voids 1 1 - Exam Head exam was generally normal. There was no scleral icterus or corneal arcus. Mucous membranes were moist.Neck was supple and without jugular venous distension, thyromegaly, or carotid bruits. Carotids were easily palpable bilaterally. There was no adenopathy. Breath sounds are are diminished on the left compared to the right. There are some scattered rhonchi and expiratory wheezing bilaterally throughout the lung brandt.Cardiac exam revealed the PMI to be normally situated and sized. The rhythm was regular and no extrasystoles were noted during several minutes of auscultation. The first and second heart sounds were normal and physiologic splitting of the second heart sound was noted. There were no murmurs, rubs, clicks, or gallops.Abdominal exam revealed normal bowel sounds. The abdomen was soft, non-tender, and without masses, organomegaly, or appreciable enlargement of the abdominal aorta.Examination of the extremities revealed easily palpable radial, femoral and pedal pulses. There was no cyanosis, clubbing or edema. Neurologically the patient is awake. Alert. The patient refused and he is oriented 3. No focal neurological deficit. Weak yet the motor function and strength is improving in general. - Labs CBC & Chem 7: 06/30/16 08:04 06/30/16 08:04 Labs: Abnormal Lab Results - Last 24 Hours (Table) 06/29/16 06/29/16 06/29/16 Range/Units 18:46 20:43 22:08 WBC (3.8-10.6) k/uL RBC (4.30-5.90) m/uL Hgb (13.0-17.5) gm/dL Hct (39.0-53.0) % Neutrophils # (1.3-7.7) k/uL Lymphocytes # (1.0-4.8) k/uL Chloride (98-107) mmol/L Carbon Dioxide (22-30) mmol/L BUN (9-20) mg/dL Glucose (74-99) mg/dL POC Glucose (mg/dL) 333 H 293 H 220 H (75-99) mg/dL Albumin (3.5-5.0) g/dL 06/29/16 06/30/16 06/30/16 Range/Units 22:38 02:20 05:37 WBC (3.8-10.6) k/uL RBC (4.30-5.90) m/uL Hgb (13.0-17.5) gm/dL Hct (39.0-53.0) % Neutrophils # (1.3-7.7) k/uL Lymphocytes # (1.0-4.8) k/uL Chloride (98-107) mmol/L Carbon Dioxide (22-30) mmol/L BUN (9-20) mg/dL Glucose (74-99) mg/dL POC Glucose (mg/dL) 234 H 101 H 182 H (75-99) mg/dL Albumin (3.5-5.0) g/dL 06/30/16 06/30/16 06/30/16 Range/Units 08:04 08:04 11:41 WBC 11.4 H (3.8-10.6) k/uL RBC 3.61 L (4.30-5.90) m/uL Hgb 11.0 L (13.0-17.5) gm/dL Hct 35.3 L (39.0-53.0) % Neutrophils # 10.6 H (1.3-7.7) k/uL Lymphocytes # 0.4 L (1.0-4.8) k/uL Chloride 97 L (98-107) mmol/L Carbon Dioxide 42 H* (22-30) mmol/L BUN 48 H (9-20) mg/dL Glucose 239 H (74-99) mg/dL POC Glucose (mg/dL) 310 H (75-99) mg/dL Albumin 2.9 L (3.5-5.0) g/dL Assessment and Plan Plan: 1 acute hypoxic and hypercapnic respiratory failure, multifactorial. The patient has extensive honeycombing and fibrotic changes in the left lung compared to the right. The patient is also bilateral airspace disease. The patient is status post bronchoscopy and therapeutic it was suctioning and the bronchioloalveolar lavage was performed yesterday. Were still awaiting the results of the cultures. On 06/24/2016, the patient had a stable chest x-ray. Cultures obtained from the bronchioloalveolar lavage him back negative for any microbial growth. The patient had adequate weaning parameters and he was given a prescription his breathing trial for a total of 25-30 minutes and following that the patient was extubated today 40% Ventimask. On 06/25/2016, the patient remains extubated. His chest x-ray findings are essentially stable. Nevertheless his breathing remains quite borderline and the patient is requiring on and off on BPAP therapy for respiratory support. He has a congested cough. Unable to bring up much sputum. He has neuromuscular weakness. He failed swallow. As such, the patient has been kept nothing by mouth. On 06/26/2016The patient's respiratory status is stable. The patient is not using BiPAP for now. No worsening shortness of breath. He is able to cough, not bringing up much of sputum. The patient is on 2 L of oxygen by nasal cannula for now. On the patient remains extubated on 2 L of oxygen by nasal cannula. Chest x-ray findings remain stable. No recent sputum analysis. Remains on the same antibiotic coverage which includes a combination of Levaquin and vancomycin. He is on IV Solu-Medrol which will be tapered off. On 06/28/2016, the patient remains on 2 L of oxygen by nasal cannula. Chest x- ray findings are stable. He shortness of breath is improved. He remains on a combination of Levaquin and vancomycin. He is not having any major respiratory difficulties. All of the sputum analysis and a previous bronchioloalveolar lavage was negative. On 06/29/2016, patient is about the same compared to above. Remains on antibiotics, he is in no form of respiratory distress, continues to have a Dobbhoff tube in place, remains on antibiotics as above, I don't expect much change on the chest x-ray, but clinically the patient seems to be better. On 06/30/2016, patient is having some improvement, I wrote for maintenance dose of Lasix 40 mg IV push every 12 hours, consider discharge planning in the next couple of days. 2 severe COPD with chronic fibrotic changes bilaterally, left more than right 3 bilateral pneumonia with near complete opacification of the left lung with significant scarring and volume loss. No microbial cultures have been established. 4 acute cardio pulmonary arrest with a downtime of around 7 minutes from which the patient has recovered and there was return of spontaneous circulation after the successful resuscitation 5 prostate cancer 6 extensive bronchiectasis bilaterally 7 diabetes mellitus 8 hypertension 9 UTI with Enterococcus faecalis and Klebsiella. 10 anemia, chronic and multifactorial any hemoglobin is stable for now 11 altered mental status, delirium him a recovered 12 steroid-induced hyperglycemia 13 enteral feeding for nutritional support through a Dobbhoff catheter. Recommendation: Continue bronchodilators, incentive spirometry, nutritional support, address the swallow evaluation study showed improved study with silent the deep penetration with thin liquid barium, no aspiration with other modalities tested. Hence we'll follow the recommendation of the speech therapist regarding feeding. Sodium is improving is down to 144 today, patient continues to have water flushes and his BUN remains elevated creatinine is 0.78 , and that will improve with extra free water. Consider discharge planning in the next couple of days. Recommend referral to a rehab facility. Time with Patient: Less than 30
--- NOTE | 2016-06-30 15:32 | P.DS ---
Providers Date of admission: 06/18/16 11:05 Attending physician: Marco Brito Consults: 06/21/16 15:43 Consult Physician Routine Consulting Provider: Scott Miramontes Reason/Comments: sepsis Do you want consulting provider notified?: Yes Primary care physician: [facility] Course: This is a 80-year-old gentleman that was admitted to the hospital with acute hypoxic respiratory failure. This was secondary to bilateral extensive pneumonia. Patient apparently underwent a cardiopulmonary arrest in hospital down time was apparently close to 7 minutes. Patient was thereafter triaged to the intensive care unit on vent support. Patient was noted to have significant amount of DVT and oral secretions. Patient is seen today status post extubation. Patient appears to be slightly tachypneic however is awake and answering questions appropriately. 06/25/16 No new overnight events Pt did well tolerated bipap on 3 l significant amount of thick yellowish sputum No fevers, chills reported. 06/26/16 tolerating tube feeding improved breathing no fevers, chills, nausea. Was confused this am, was pulling his tubes hence a dose of haloperidol was given sitter at bedside. 06/27/16 More appropriate denies having headaches, blurry vision, nausea, vomiting, diarrhea Has not been pulling on his tubes. 06/28/16 is doing well more appropriate No overnight events reported family is at bedside, who state he is more his normal self denies cp, mago, nausea, vomiting, diarrhea. 06/29/16 No significant change from previous exam passed swallow eval NO feves, chills, nausea, vomiting, abdominal pain , diarrhea 2016 Patient is currently on 3 L a supplement oxygen which is chronic denies having any additional complaints Denies having any cough with significant sputum production Chest x-rays reviewed - Exam Gen. appearance improved more appropriate. Lungs diminished breath sounds, no significant rhonchi. Heart S1-S2 heard no significant abnormal sounds appreciated Abdomen is soft nontender no organomegaly No extremities no significant edema noted Neuro moves all four extremities. Assessment and Plan Plan: Acute hypoxic and hypercapnic respiratory failure likely secondary to bilateral pneumonia in a patient with pulmonary fibrosis. #2 history of severe COPD causing some changes of fibrosis #3 acute cardiopulmonary status post ROSC in sinus rhythm at this time #4 history of prostate cancer #5 diabetes mellitus #6 hypertension. #UTI with multiple organs including Klebsiella and Enterococcus faecalis #8 anemia of chronic disease. 9. Acute delirium Status post 10 days of treatment with Levaquin and Zosyn On day of discharge chest x-ray was reviewed we'll discharge the patient on Augmentin Patient is tolerating diet. Will be sent on a modified diet per recommendations from speech therapist patient was fed on Dobbhoff tube postextubation Is not steady with independent ambulation. Patient Condition at Discharge: Serious Plan - Discharge Summary New Discharge Prescriptions: Amoxicillin/Potassium Clav [Augmentin 500-125 Tablet] 1 tab PO Q12HR #14 tab Furosemide [Lasix] 40 mg PO BID #60 tablet Discharge Medication List Vitamin E (Dl,Tocopheryl Acet) [Vitamin E] 400 unit PO DAILY 03/19/16 [History] Ipratropium-Albuterol Nebulize [Duoneb 0.5 mg-3 mg/3 ml Soln] 3 ml INHALATION RT -QID ampul.neb 03/25/16 [Rx] Lisinopril [Prinivil] 10 mg PO DAILY #1 tab 03/25/16 [Rx] Ascorbic Acid [Vitamin C] 1,000 mg PO DAILY 06/18/16 [History] Multivitamins, Thera [Multivitamin (formulary)] 1 tab PO DAILY 06/18/16 [History ] Amoxicillin/Potassium Clav [Augmentin 500-125 Tablet] 1 tab PO Q12HR #14 tab 04/17 [Rx] Budesonide [Pulmicort] 1 mg INHALATION RT-BID nebu 06/30/16 [Rx] Furosemide [Lasix] 40 mg PO BID #60 tablet 06/30/16 [Rx] INSULIN LISPRO (humaLOG) [humaLOG (formulary)] 7 unit SQ AC-TID vial 06/30/16 [ Rx] Insulin Detemir [Levemir] 30 unit SQ DAILY vial 06/30/16 [Rx] Follow up Appointment(s)/Referral(s): Laurita Obrien MD [STAFF PHYSICIAN] - 1 Week Zachery Posadas DO [Primary Care Provider] - 1-2 days Ambulatory/Diagnostic Orders: Complete Blood Count w/diff [LAB.AMB] Location: Determined By Patient Comprehensive Metabolic Panel [LAB.AMB] Time Frame: 3 Days, Location: Determined By Patient Discharge Disposition: TRANSFER TO SNF/ECF
[2016-06-30] MEDS: SODIUM CHLORIDE 0.9% 1,000 ML IV SCH (15:44)
[2016-06-30] MEDS: LEVOFLOXACIN 750MG-D5W PMX 750 MG in DEXTROSE/WATER 1 150ML.BAG IVPB SCH (15:46)
[2016-06-30 16:02] VITALS: BP 137/66; PULSE 79; RESP 18; TEMP 97.8
[2016-06-30 16:51] LABS: Glucose,Whole Blood 231 mg/dL (75-99)
== END 2016-06-30 18:05 | DRG 853 ==
LOC: EC 09:33 → 6SEL 11:05 → 6ICU 06-20 06:04 → 6SEL 06-28 16:08
PROVIDERS: ADMIT Hospitalist; ATTEND Hospitalist
PROC: 0BH17EZ Insertion of Endotracheal Airway into Trachea, Via Natural or Artificial Opening (ICD-10-PCS; 2016-06-20)
PROC: 5A1955Z Respiratory Ventilation, Greater than 96 Consecutive Hours (ICD-10-PCS; 2016-06-20)
PROC: 0B9J8ZX Drainage of Left Lower Lung Lobe, Via Natural or Artificial Opening Endoscopic, Diagnostic (ICD-10-PCS; principal; 2016-06-22 07:30)
PROC: 0B9G8ZX Drainage of Left Upper Lung Lobe, Via Natural or Artificial Opening Endoscopic, Diagnostic (ICD-10-PCS; principal; 2016-06-22 07:30)
PROC: 0B948ZX Drainage of Right Upper Lobe Bronchus, Via Natural or Artificial Opening Endoscopic, Diagnostic (ICD-10-PCS; principal; 2016-06-22 07:30)
PROC: 0B9D8ZX Drainage of Right Middle Lung Lobe, Via Natural or Artificial Opening Endoscopic, Diagnostic (ICD-10-PCS; principal; 2016-06-22 07:30)
PROC: 0B9F8ZX Drainage of Right Lower Lung Lobe, Via Natural or Artificial Opening Endoscopic, Diagnostic (ICD-10-PCS; principal; 2016-06-22 07:30)
PROC: 0B9B8ZX Drainage of Left Lower Lobe Bronchus, Via Natural or Artificial Opening Endoscopic, Diagnostic (ICD-10-PCS; principal; 2016-06-22 07:30)
PROC: 0B9H8ZX Drainage of Lung Lingula, Via Natural or Artificial Opening Endoscopic, Diagnostic (ICD-10-PCS; principal; 2016-06-22 07:30)
DX: A41.9 Sepsis, unspecified organism (principal); I46.9 Cardiac arrest, cause unspecified; J96.21 Acute and chronic respiratory failure with hypoxia; E11.65 Type 2 diabetes mellitus with hyperglycemia; J84.10 Pulmonary fibrosis, unspecified; I27.2 Other secondary pulmonary hypertension; E87.1 Hypo-osmolality and hyponatremia; B37.9 Candidiasis, unspecified; J96.22 Acute and chronic respiratory failure with hypercapnia; N39.0 Urinary tract infection, site not specified; E87.5 Hyperkalemia; D63.8 Anemia in other chronic diseases classified elsewhere; B95.2 Enterococcus as the cause of diseases classified elsewhere; F40.240 Claustrophobia; G70.9 Myoneural disorder, unspecified; H91.90 Unspecified hearing loss, unspecified ear; I10 Essential (primary) hypertension; J44.9 Chronic obstructive pulmonary disease, unspecified; J45.909 Unspecified asthma, uncomplicated; J47.9 Bronchiectasis, uncomplicated; M41.9 Scoliosis, unspecified; R65.20 Severe sepsis without septic shock; T38.0X5A Adverse effect of glucocorticoids and synthetic analogues, initial encounter; Z79.84 Long term (current) use of oral hypoglycemic drugs; Z79.899 Other long term (current) drug therapy; Z85.46 Personal history of malignant neoplasm of prostate; Z87.891 Personal history of nicotine dependence; Z96.1 Presence of intraocular lens; Z99.81 Dependence on supplemental oxygen; Z88.0 Allergy status to penicillin; R41.0 Disorientation, unspecified
CPT/HCPCS: 31624; 36415; 36600; 71010; 71020; 74000; 74230; 80048; 80053; 80202; 81001; 82805; 83036; 83605; 83735; 84100; 85025; 85027; 85610; 85730; 87040; 87070; 87077; 87086; 87102; 87116; 87186; 87205; 87206; 87252; 87299; 87449; 87496; 87498; 87502; 87529; 87798; 88108; 88305; 89050; 93005; 94002; 94003; 94640; 94660; 94760; 96365; 96368; 99291

== ENCOUNTER → 2016-08-19 | Outpatient (CLI) | payer MEDICARE ==
--- NOTE | 2016-08-19 12:08 | FL ---
EXAMINATION TYPE: FL barium swallow w video DATE OF EXAM: 08/19/2016 MODIFIED SWALLOW / DEGLUTITION STUDY CLINICAL HISTORY: Dysphagia. Recurrent pneumonia. TECHNIQUE: Deglutition study is performed utilizing thin liquid barium, honey and nectar thick liqui d barium, barium thick applesauce, and barium coated cracker. A total of 1 minute 30 seconds of fluor oscopic time was utilized during procedure. COMPARISON: None. FINDINGS: The oral and pharyngeal phases show satisfactory initiation and propagation with all modali ties tested. Normal mastication is seen with solid modalities tested. There is no evidence of penet ration or aspiration with any modality tested. No significant pharyngeal residue was appreciated. IMPRESSION: No penetration or aspiration on current study. Please refer to speech therapist notes fo r further details if necessary.
== END | disposition home or self-care (01) ==
LOC: RADFLWHC 10:40
PROVIDERS: ATTEND Physician Assistant
DX: R47.02 Dysphasia (principal)
CPT/HCPCS: 74230

== ENCOUNTER 2016-09-01 18:45 | Inpatient (IN) | payer MEDICARE ==
[2016-09-01] MEDS ORDERED: SODIUM CHLORIDE 0.9% 1,000 ML IV STA ×2 (18:52)
[2016-09-01] MEDS ORDERED: IPRATROPIUM-ALBUTEROL 3 ML NEB INHALATION STA (18:52)
[2016-09-01] MEDS ORDERED: ACETAMINOPHEN TAB 500 MG TAB PO STA (19:12)
[2016-09-01] MEDS ORDERED: LEVOFLOXACIN 750MG-D5W PMX 750 MG in DEXTROSE/WATER 1 150ML.BAG IVPB STA (19:12)
[2016-09-01] MEDS ORDERED: IBUPROFEN 800 MG TAB PO STA (19:12)
--- NOTE | 2016-09-01 19:12 | ED ---
General Adult HPI - General Chief complaint: Shortness of Breath Stated complaint: SOB Time Seen by Provider: 09/01/16 18:48 Source: patient, EMS, RN notes reviewed, old records reviewed Mode of arrival: EMS Limitations: no limitations - History of Present Illness Initial comments: This is an 81 male to the ED co SOB, cough and congestion, history of asthma, much improved at this point. SOB times two dayts with increasing weakness. noted to have fever and diaphoresis. Patient denies chest pain, no recent travel history no sick contacts or recent hospitalizations. Patient Doser from asthma, COPD, CVA. - Related Data Home Medications Medication Instructions Recorded Confirmed Vitamin E (Dl,Tocopheryl Acet) 400 unit PO DAILY 03/19/16 09/01/16 [Vitamin E] Albuterol Nebulized [Ventolin 2.5 mg INHALATION RT-Q6H PRN 09/01/16 09/01/16 Nebulized] Aspirin 325 mg PO DAILY 09/01/16 09/01/16 Fluticasone Nasal [place] [Flonase 2 spr EA NOSTRIL DAILY 09/01/16 09/01/16 Nasal [place]] Lisinopril-Hctz 10-12.5 mg 1 tab PO DAILY 09/01/16 09/01/16 [Zestoretic 10-12.5] Pioglitazone [Actos] 15 mg PO DAILY 09/01/16 09/01/16 glipiZIDE [Glucotrol] 10 mg PO BID 09/01/16 09/01/16 metFORMIN HCL [Glucophage] 1,000 mg PO BID 09/01/16 09/01/16 Previous Rx's Medication Instructions Recorded Ipratropium-Albuterol Nebulize 3 ml INHALATION RT-QID ampul.neb 03/25/16 [Duoneb 0.5 mg-3 mg/3 ml Soln] Allergies Allergy/AdvReac Type Severity Reaction Status Date / Time Penicillins Allergy Anaphylaxis Verified 09/01/16 19:27 Review of Systems ROS Statement: Those systems with pertinent positive or pertinent negative responses have been documented in the HPI. ROS Other: All systems not noted in ROS Statement are negative. Past Medical History Past Medical History: Asthma, Cancer, Diabetes Mellitus, Hypertension, Osteoarthritis (OA), Pneumonia, Respiratory Disorder Additional Past Medical History / Comment(s): Pulmonary fibrosis, CO2 retainer- pt's PCP suggested for pt to have tests run during this hospitalization to determine correct liter flow for his home O2- currently uses 2-3L/NC, NIDDM type II, prostate cancer with surgery, nose bleeds, arthritis multiple joints. PT/SPOUSE REQUESTING NO PHYSICAL THERAPY. History of Any Multi-Drug Resistant Organisms: None Reported Past Surgical History: Prostate Surgery Additional Past Surgical History / Comment(s): Prostatectomy, bronchoscopy(bx neg), bilateral cataracts removed with lens implants. Past Anesthesia/Blood Transfusion Reactions: No Reported Reaction Additional Past Anesthesia/Blood Transfusion Reaction / Comment(s): clausterphobia Past Psychological History: No Psychological Hx Reported Smoking Status: Former smoker Past Alcohol Use History: None Reported Past Drug Use History: None Reported - Past Family History Father History Unknown: Yes Additional Family Medical History / Comment(s): raised by great grandparents Mother History Unknown: Yes Additional Family Medical History / Comment(s): raised by great grandparents General Exam Limitations: no limitations General appearance: alert, in no apparent distress, anxious Head exam: Present: atraumatic, normocephalic, normal inspection Eye exam: Present: normal appearance, PERRL, EOMI. Absent: scleral icterus, conjunctival injection, periorbital swelling ENT exam: Present: mucous membranes dry, mucous membranes moist, other Neck exam: Present: normal inspection. Absent: tenderness, meningismus, lymphadenopathy Respiratory exam: Present: normal lung sounds bilaterally. Absent: respiratory distress, wheezes, rales, rhonchi, stridor Cardiovascular Exam: Present: regular rate, normal rhythm, normal heart sounds. Absent: systolic murmur, diastolic murmur, rubs, gallop, clicks GI/Abdominal exam: Present: soft, normal bowel sounds. Absent: distended, tenderness, guarding, rebound, rigid Extremities exam: Present: normal inspection, full ROM, normal capillary refill. Absent: tenderness, pedal edema, joint swelling, calf tenderness Back exam: Present: normal inspection Neurological exam: Present: alert, oriented X3, CN II-XII intact Psychiatric exam: Present: normal affect, normal mood Skin exam: Present: warm, dry, intact, normal color. Absent: rash Course Vital Signs 09/01/16 09/01/16 09/01/16 18:50 19:27 19:35 Temperature 103.1 F H Pulse Rate 111 H 108 H 109 H Respiratory 18 22 Rate Blood Pressure 145/44 150/67 O2 Sat by Pulse 94 L 100 Oximetry 09/01/16 09/01/16 19:37 19:38 Temperature Pulse Rate 108 H 108 H Respiratory Rate Blood Pressure O2 Sat by Pulse Oximetry - Reevaluation(s) Reevaluation #1: 09/01/16 19:46 Mild improvement in no acute distress after second breathing treatment Reevaluation #2: 09/01/16 19:46 feeling better with fever control , IV hydration EKG Findings - EKG Comments: EKG Findings:: EKG shows sinus tachycardia rate 110, MD 180, QRS 94, QTC 427 Medical Decision Making - Medical Decision Making 81-year-old EL or shortness with cough congestion positive fever, patient's positive pneumonia with sepsis, patient be admitted for severe IV hydration and resuscitation, hemodynamic and cardiopulmonary monitoring. - Lab Data Result diagrams: 09/01/16 19:04 09/01/16 19:04 Lab Results 09/01/16 09/01/16 09/01/16 Range/Units 19:04 19:04 19:04 WBC 11.5 H (3.8-10.6) k/uL RBC 3.21 L (4.30-5.90) m/uL Hgb 9.8 L (13.0-17.5) gm/dL Hct 30.1 L (39.0-53.0) % MCV 93.7 (80.0-100.0) fL MCH 30.7 (25.0-35.0) pg MCHC 32.7 (31.0-37.0) g/dL RDW 13.2 (11.5-15.5) % Plt Count 262 (150-450) k/uL Neutrophils % 91 % Lymphocytes % 3 % Monocytes % 5 % Eosinophils % 1 % Basophils % 0 % Neutrophils # 10.4 H (1.3-7.7) k/uL Lymphocytes # 0.3 L (1.0-4.8) k/uL Monocytes # 0.5 (0-1.0) k/uL Eosinophils # 0.1 (0-0.7) k/uL Basophils # 0.0 (0-0.2) k/uL Hypochromasia Slight Sodium 138 (137-145) mmol/L Potassium 4.0 (3.5-5.1) mmol/L Chloride 97 L (98-107) mmol/L Carbon Dioxide 30 (22-30) mmol/L Anion Gap 11 mmol/L BUN 21 H (9-20) mg/dL Creatinine 0.90 (0.66-1.25) mg/dL Est GFR (MDRD) Af Amer >60 (>60 ml/min/1.73 sqM) Est GFR (MDRD) Non-Af >60 (>60 ml/min/1.73 sqM) Glucose 186 H (74-99) mg/dL Plasma Lactic Acid Mike 1.3 (0.7-2.0) mmol/L Calcium 8.6 (8.4-10.2) mg/dL Magnesium 1.4 L (1.6-2.3) mg/dL Total Bilirubin 0.4 (0.2-1.3) mg/dL AST 15 L (17-59) U/L ALT 28 (21-72) U/L Alkaline Phosphatase 90 (38-126) U/L Total Protein 7.2 (6.3-8.2) g/dL Albumin 3.4 L (3.5-5.0) g/dL - Radiology Data Radiology results: report reviewed (Chest x-ray is positive for pneumonia), image reviewed Critical Care Time Critical Care Time: Yes Total Critical Care Time: 31 Disposition Clinical Impression: Pneumonia, Diabetes, Severe sepsis Disposition: ADMITTED IP TO THIS HOSP Referrals: Zachery Posadas DO [Primary Care Provider] - 1-2 days
[2016-09-01] MEDS ORDERED: CEFEPIME 2 GM in SODIUM CHLORIDE 0.9% 50 ML IVPB STA (19:16)
[2016-09-01 19:17] LABS: Basophils % (A) 0 %; CH 29.4; CHCM 31.5; Eosinophils # (A) 0.1 k/uL (0-0.7); Eosinophils % (A) 1 %; HCT 30.1 % (39.0-53.0); HDW 2.54; HGB 9.8 gm/dL (13.0-17.5); Hypochromasia Slight; Luc # (Auto) 0.12; Luc % (Auto) 1; Lymphocytes # (A) 0.3 k/uL (1.0-4.8); Lymphocytes % (A) 3 %; MCH 30.7 pg (25.0-35.0); MCHC 32.7 g/dL (31.0-37.0); MCV 93.7 fL (80.0-100.0); Mean Platelet Volume 7.4; Monocytes # (A) 0.5 k/uL (0-1.0); Monocytes % (A) 5 %; Neutrophils # (A) 10.4 k/uL (1.3-7.7); Neutrophils % (A) 91 %; RBC 3.21 m/uL (4.30-5.90); RDW 13.2 % (11.5-15.5); WBC 11.5 k/uL (3.8-10.6); WBC (Perox) 12.35
[2016-09-01 19:26] LABS: ALT 28 U/L (21-72); AST 15 U/L (17-59); Alkaline Phosphatase 90 U/L (38-126); Anion Gap 11 mmol/L; Blood Urea Nitrogen 21 mg/dL (9-20); Calcium 8.6 mg/dL (8.4-10.2); Carbon Dioxide 30 mmol/L (22-30); Chloride 97 mmol/L (98-107); Glucose 186 mg/dL (74-99); Magnesium 1.4 mg/dL (1.6-2.3); Non-African American GFR(MDRD) >60 (>60 ml/min/1.73 sqM); Sodium 138 mmol/L (137-145); Total Bilirubin 0.4 mg/dL (0.2-1.3); Total Protein 7.2 g/dL (6.3-8.2)
[2016-09-01 19:39] LABS: Creatine Kinase 23 U/L (55-170)
[2016-09-01 19:40] LABS: Partial Thromboplastin Time 23.1 sec (22.0-30.0); Prothrombin Time 10.4 sec (9.0-12.0)
[2016-09-01] MEDS ORDERED: PNEUMONIA PROTOCOL UTILIZED 1 EACH MISC PO PRN (19:44)
[2016-09-01 19:51] LABS: Creatine Kinase MB 1.5 ng/mL (0.0-2.4); Troponin I <0.012 ng/mL (0.000-0.034)
[2016-09-01] MEDS ORDERED: IPRATROPIUM-ALBUTEROL 3 ML NEB INHALATION PRN (20:07)
[2016-09-01] MEDS: IPRATROPIUM-ALBUTEROL 3 ML NEB INHALATION SCH (20:07)
--- NOTE | 2016-09-01 20:26 | XR ---
EXAMINATION TYPE: XR chest 2V DATE OF EXAM: 09/01/2016 COMPARISON: 07/15/2016 HISTORY: Short of breath FINDINGS: There is extensive interstitial coalescent infiltrates throughout the lungs and worse on the left lanny e. There is some shift of heart and mediastinum to the left side. Pulmonary vascularity is difficult to evaluate because of the extensive lung disease. There is pleural thickening at the left lung apex. There are chest leads. TECHNIQUE: Frontal and lateral views of the chest are obtained. Conclusion Extensive pulmonary fibrosis that is worse on the left side with consolidation and atelectasis. There is no significant change allowing for different technique compared to old exam.
[2016-09-01 20:47] LABS: Amorphous Sediment,Urine Rare /hpf; Appearance,Urine Clear (Clear); Bilirubin,Urine Negative (Negative); Glucose,Urine (UA) Negative (Negative); Ketones,Urine Negative (Negative); Leukocyte Esterase,Urine Trace (Negative); Mucus,Urine Rare /hpf; Nitrite,Urine Negative (Negative); PH, Urine 5.5 (5.0-8.0); Particle Count 1485; Protein,Urine Trace (Negative); RBC,Urine 1 /hpf (0-5); Specific Gravity,Urine 1.008 (1.001-1.035); UA Billing (MACRO vs. MICRO) MICRO; Urobilinogen,Urine <2.0 mg/dL (<2.0); WBC,Urine 3 /hpf (0-5)
[2016-09-01] MEDS: MAGNESIUM SULFATE-D5W PMX 1 GM in DEXTROSE/WATER 1 100ML.BAG IVPB SCH ×2 (20:49→22:21)
[2016-09-01] MEDS: SODIUM CHLORIDE 0.9% 1,000 ML IV SCH (21:59)
[2016-09-01 22:56] VITALS: RESP 18
[2016-09-02 05:44] VITALS: BMI 27.0
[2016-09-02 07:20] LABS: Glucose,Whole Blood 119 mg/dL (75-99)
--- NOTE | 2016-09-02 07:29 | XR ---
EXAMINATION TYPE: XR chest 2V DATE OF EXAM: 09/02/2016 COMPARISON: 09/01/2016, 07/15/2016 INDICATION: Pneumonia TECHNIQUE: Frontal and lateral views of the chest are obtained. FINDINGS: The heart size is normal. The pulmonary vasculature is normal. There is diffuse increased lung markings which appear greater than 09/01/2016 examination. Findings can be compatible with pulmonary edema. This is fairly diffuse suggesting pneumonia to BE less likely wi thin the differential. Thickening through the left apex is evident. Underlying pulmonary fibrosis is likely present. There is evident change however suggest an acute process is superimposed. IMPRESSION: 1. Worsening pulmonary edema, likely superimposed on pulmonary fibrosis. Follow-up is recommended.
[2016-09-02] MEDS: IPRATROPIUM-ALBUTEROL 3 ML NEB INHALATION SCH ×3 (07:47→15:39)
[2016-09-02] MEDS: SODIUM CHLORIDE 0.9% 1,000 ML IV SCH (08:44)
[2016-09-02] MEDS ORDERED: LISINOPRIL-HCTZ 10-12.5 MG 1 EACH TAB PO SCH (09:00)
[2016-09-02] MEDS ORDERED: metFORMIN 500 MG TAB PO SCH (09:00)
[2016-09-02] MEDS ORDERED: FLUTICASONE 50MCG/SPRAY NASAL 16GM EA NOSTRIL SCH (09:00)
[2016-09-02] MEDS ORDERED: glipiZIDE 10 MG TAB PO SCH (09:00)
[2016-09-02] MEDS ORDERED: ASPIRIN 325 MG TAB PO SCH (09:00)
[2016-09-02] MEDS ORDERED: ENOXAPARIN 40 MG/0.4 ML SYRINGE SQ SCH (09:00)
[2016-09-02] MEDS ORDERED: PIOGLITAZONE 15 MG TAB PO SCH (09:00)
[2016-09-02 11:57] LABS: Glucose,Whole Blood 157 mg/dL (75-99)
--- NOTE | 2016-09-02 13:13 | P.CNPUL ---
History of Present Illness Consult date: 09/02/16 Requesting physician: Marco Brito Reason for consult: pulmonary fibrosis Chief complaint: Cough and shortness of breath History of present illness: This is an 81-year-old white male with history of severe pulmonary fibrosis most likely occupational in nature, and secondary to exposure to silica. Patient has been aware of his pulmonary fibrosis for many years. And it seems to be involving the left lung more so than the right lung. His pulmonary fibrosis is chronic, patient is also known to have history of COPD related to smoking and history of chronic hypoxic respiratory failure requiring home O2. Patient was admitted this time with a few days' history of increased shortness of breath, cough, congestion, wheezing, and low-grade fever. Chest x-ray showed basically fibrosis, and traction bronchiectasis involving both lungs, but seems to be more so in the left lung. Again this finding is relatively chronic finding, and I have seen the same findings on previous CT of the chest going back to 2013. Few months ago, patient underwent a bronchoscopy and lavage , this was nondiagnostic, and there was no evidence of malignancy on the cytology. At that time the patient was treated empirically with Levaquin and vancomycin. And this was about 2 months ago. In late May, patient was admitted with respiratory failure requiring intubation and mechanical ventilation, and he was extubated after a few days on mechanical ventilation. Eventually discharged home on bronchodilators and home O2 as well as antibiotics. Apparently the patient was not seen on follow-up in our office. Patient is feeling a bit better compared to how he felt on admission, less cough and less wheezing less shortness of breath. Denies any headaches, no blurred vision, no dizziness, no hemoptysis, no chest pain, no palpitations, no nausea no vomiting no abdominal pain no melena no hematemesis is no dysuria and no frequency no urgency. Review of Systems 14 point review of systems were obtained, please refer to pertinent positives and negatives as per HPI. Past Medical History Past Medical History: Asthma, Cancer, Diabetes Mellitus, Hypertension, Osteoarthritis (OA), Pneumonia, Respiratory Disorder Additional Past Medical History / Comment(s): Pulmonary fibrosis, CO2 retainer- pt's PCP suggested for pt to have tests run during this hospitalization to determine correct liter flow for his home O2- currently uses 2-3L/NC, NIDDM type II, prostate cancer with surgery, nose bleeds, arthritis multiple joints. PT/SPOUSE REQUESTING NO PHYSICAL THERAPY. History of Any Multi-Drug Resistant Organisms: None Reported Past Surgical History: Prostate Surgery Additional Past Surgical History / Comment(s): Prostatectomy, bronchoscopy(bx neg), bilateral cataracts removed with lens implants. Past Anesthesia/Blood Transfusion Reactions: No Reported Reaction Additional Past Anesthesia/Blood Transfusion Reaction / Comment(s): clausterphobia Past Psychological History: No Psychological Hx Reported Smoking Status: Former smoker Past Alcohol Use History: None Reported Past Drug Use History: None Reported - Past Family History Father History Unknown: Yes Additional Family Medical History / Comment(s): raised by great grandparents Mother History Unknown: Yes Additional Family Medical History / Comment(s): raised by great grandparents Medications and Allergies Home Medications Medication Instructions Recorded Confirmed Type Vitamin E (Dl,Tocopheryl Acet) 400 unit PO DAILY 03/19/16 09/01/16 History [Vitamin E] Albuterol Nebulized [Ventolin 2.5 mg INHALATION RT-Q6H PRN 09/01/16 09/01/16 History Nebulized] Aspirin 325 mg PO DAILY 09/01/16 09/01/16 History Fluticasone Nasal [place] [Flonase 2 spr EA NOSTRIL DAILY 09/01/16 09/01/16 History Nasal [place]] Lisinopril-Hctz 10-12.5 mg 1 tab PO DAILY 09/01/16 09/01/16 History [Zestoretic 10-12.5] Pioglitazone [Actos] 15 mg PO DAILY 09/01/16 09/01/16 History glipiZIDE [Glucotrol] 10 mg PO BID 09/01/16 09/01/16 History metFORMIN HCL [Glucophage] 1,000 mg PO BID 09/01/16 09/01/16 History Allergies Allergy/AdvReac Type Severity Reaction Status Date / Time Penicillins Allergy Anaphylaxis Verified 09/01/16 19:27 Physical Exam Vitals: Vital Signs Temp Pulse Pulse Resp BP BP Pulse Ox 09/02/16 11:38 84 09/02/16 11:26 84 09/02/16 07:50 80 09/02/16 07:48 80 09/02/16 07:00 98 F 82 18 121/58 99 09/01/16 22:55 98.6 F 107 H 18 106/52 97 09/01/16 22:40 104 H 18 09/01/16 21:00 119 H 20 122/57 97 09/01/16 20:38 98.5 F 118 H 20 119/56 09/01/16 20:23 114 H 20 120/63 09/01/16 20:08 119 H 20 131/60 09/01/16 19:53 112 H 20 136/65 09/01/16 19:49 110 H 09/01/16 19:38 108 H 109 H 20 150/67 09/01/16 19:37 108 H 09/01/16 19:35 109 H 22 150/67 100 09/01/16 19:27 108 H 09/01/16 19:23 116 H 22 142/62 09/01/16 19:08 114 H 22 139/60 09/01/16 18:53 114 H 22 145/64 09/01/16 18:50 103.1 F H 111 H 18 145/44 94 L Intake and Output 09/01/16 09/02/16 09/02/16 22:59 06:59 14:59 Intake Total 1170 Balance 1170 Intake: Intake, IV Titration 1050 Amount Levofloxacin 750Mg-D5w 150 Pmx 750 mg In Dextrose/ Water 1 150ml.bag @ 100 mls/hr IVPB ONCE STA Rx#: [id number] Magnesium Sulfate-D5w Pmx 100 1 gm In Dextrose/Water 1 100ml.bag @ 100 mls/hr IVPB Q1H MICHAEL Rx#: [id number] Sodium Chloride 0.9% 1, 800 000 ml @ 100 mls/hr IV . Q10H MICHAEL Rx#:[id number] Oral 120 Other: # Voids 1 Weight 83.007 kg Physical Exam: Revealed an 81-year-old white male in no distress. On O2 at 2 L nasal cannula. HEENT:[Neck is supple.] [No neck masses.] [No thyromegaly.] [No JVD.] Chest: [Velcro rales and crackles at the bases, more so on the left side.] Cardiac Exam: [Normal S1 and S2, no S3 gallop, no murmur.] Abdomen: [Soft, nontender, no megaly, no rebound, no guarding, normal bowel sounds.] Extremities: [Mild clubbing, no edema, no cyanosis.] Neurological Exam: [No focal neurologic deficit.] Results - Laboratory Findings CBC and BMP: 09/01/16 19:04 09/01/16 19:04 PT/INR, D-dimer PT 10.4 sec (9.0-12.0) 09/01/16 19:04 INR 1.0 (<1.1) 09/01/16 19:04 Abnormal lab findings: Abnormal Labs 09/01/16 09/01/16 09/01/16 19:04 19:04 19:04 WBC 11.5 H RBC 3.21 L Hgb 9.8 L Hct 30.1 L Neutrophils # 10.4 H Lymphocytes # 0.3 L Chloride 97 L BUN 21 H Glucose 186 H POC Glucose (mg/dL) Magnesium 1.4 L AST 15 L Total Creatine Kinase 23 L Albumin 3.4 L Urine Protein Ur Leukocyte Esterase Amorphous Sediment Hyaline Casts Urine Mucus 09/01/16 09/02/16 09/02/16 20:00 07:19 11:55 WBC RBC Hgb Hct Neutrophils # Lymphocytes # Chloride BUN Glucose POC Glucose (mg/dL) 119 H 157 H Magnesium AST Total Creatine Kinase Albumin Urine Protein Trace H Ur Leukocyte Esterase Trace H Amorphous Sediment Rare H Hyaline Casts 4 H Urine Mucus Rare H - Diagnostic Findings Chest x-ray: image reviewed (Chest x-ray was reviewed,worsening pulmonary fibrosis and possible underlying pneumonitis, strongly doubt pulmonary edema.) Assessment and Plan Plan: Impression: 1 acute on chronic hypoxic respiratory failure secondary to pulmonary fibrosis, 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 2 severe traction bronchiectasis noted in the left lung 3 possibility of pneumonia is not entirely ruled out but felt to be less likely. However considering the patient's bronchiectasis, empiric antibiotics will be advisable. 4 multiple comorbidities including recent episode of respiratory failure second requiring mechanical ventilation, bilateral pneumonia superimposed on worsening pulmonary fibrosis, chronic hypoxic respiratory failure, history of cardiopulmonary arrest requiring CPR down time was 7 minutes previously. History of prostate cancer, history of diabetes, history of urinary tract infection secondary to Klebsiella and Enterococcus faecalis, history of chronic anemia history of steroid induced hyperglycemia Recommendation: Continue present course of antibiotics, bronchodilators, steroids, no need for diuretics at this point, consider discharge planning on home O2 which she already has, on bronchodilators in the form of DuoNeb, and on a course of prednisone burst and taper over 2 weeks, as well as oral antibiotics , would recommend mostly Levaquin. We'll continue to follow. Discussed his condition with Dr. Brito after my evaluation. Time with Patient: Greater than 30
[2016-09-02 15:06] VITALS: BP 151/67; TEMP 98.8
[2016-09-02 15:43] VITALS: PULSE 80
[2016-09-02 16:28] LABS: Glucose,Whole Blood 80 mg/dL (75-99)
[2016-09-02] MEDS ORDERED: PNEUMOCOCCAL VACC-PNEUMOVAX 23 25 MCG/0.5 ML VIAL IM ONE (16:31)
--- NOTE | 2016-09-02 17:31 | HP ---
COMBINED HISTORY AND PHYSICAL AND DISCHARGE SUMMARY CHIEF COMPLAINT: Shortness and breath and cough. HISTORY OF PRESENT ILLNESS: This 81-year-old gentleman with a past medical history of asthma, diabetes mellitus, type 2, history of hypertension, history of DJD, history of respiratory disorder, history of pulmonary fibrosis, history of CO2 retention, being followed by Dr. Zachery Posadas in the outpatient setting, was not feeling well for the past 3 or 4 days. The patient had increasing shortness of breath and cough and sputum. The patient came to [facility] and was admitted for further evaluation and treatment. Chest x- ray showed lesions in both lower lobes. The left-sided lesion is rather than chronic, according to Dr. Obrien. The patient was admitted for further evaluation and treatment. There is no history of any fever, rigor or chills. No history of headache, loss of consciousness, seizures. The patient was started on broad-spectrum IV antibiotics. PAST MEDICAL HISTORY: 1. History of asthma. 2. History of diabetes mellitus. 3. Hypertension. 4. History of DJD. 5. History of pneumonia. 6. History of pulmonary fibrosis. HOME MEDICATIONS: 1. Actos 15 mg p.o. daily. 2. Flonase 2 sprays daily. 3. Aspirin 325 mg daily. 4. Ventolin 2.5 q.6 p.r.n. 5. Glucophage 1000 mg p.o. b.i.d. 6. Glucotrol 10 mg p.o. b.i.d. 7. Lisinopril/hydrochlorothiazide 12/2.5 mg p.o. daily. 8. DuoNeb q.i.d. 9. Vitamin E 400 units p.o. daily. ALLERGIES: PENICILLIN. FAMILY HISTORY: No history of any heart disease or strokes in the family. SOCIAL HISTORY: Previous history of smoking. No current smoking or alcohol intake. REVIEW OF SYSTEMS: ENT: Diminished hearing. Diminished vision. CARDIOVASCULAR SYSTEM: No angina, palpitations. RESPIRATORY SYSTEM: No cough, hemoptysis. GI: No nausea, vomiting. : No dysuria, retention. NERVOUS SYSTEM: No numbness, weakness. ALLERGY/IMMUNOLOGY: No asthma, hayfever. MUSCULOSKELETAL: As mentioned earlier. HEMATOLOGY/ONCOLOGY: No history of anemia. ENDOCRINE: Diabetes mellitus, type 2. CONSTITUTIONAL: As mentioned earlier. DERMATOLOGIC: Negative. RHEUMATOLOGIC: Negative. PSYCHIATRY: Negative. NEUROLOGY: Negative. PHYSICAL EXAMINATION: Patient is alert and oriented x3. Pulse is 96, blood pressure 155/67, respirations 18, temperature 98.8, pulse ox 93% on 2 L. HEENT: Conjunctivae normal. Oral mucosa moist. NECK: No jugular venous congestion. No thyroid enlargement. No carotid bruit. No lymph node enlargement. CARDIAC: S1, S2 muffled. No S3. No S4. RESPIRATORY: Breath sounds diminished at the bases. A few scattered rhonchi and crackles. ABDOMEN: Soft, non-tender. No mass palpable. LEGS: No edema. No swelling. NERVOUS SYSTEM: Higher functions as mentioned earlier. Moves all 4 limbs. No focal motor or sensory deficit. LYMPHATICS: No lymph node palpable in neck, axillae or groin. SKIN: No ulcer, rash or bleeding. LABS: WBC 11.5, hemoglobin 9.8. Glucose 186. Magnesium is 1.4. UA noted. ASSESSMENT: 1. 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 2. Severe acute purulent tracheobronchitis. 3. Bilateral bronchiectasis. 4. Increased white count. 5. Anemia, normocytic; anemia of chronic disease. 6. Diabetes mellitus, type 2. 7. History of asthma. 8. History of degenerative joint disease. 9. History of hypertension, essential. 10. History of carbon dioxide retention. 11. Chronic hypoxic respiratory failure, hypercarbic respiratory failure with home oxygen nasal cannula at 2 to 3 liters. 12. History of epistaxis. 13. Remote history of nicotine dependence. 14. History of claustrophobia. RECOMMENDATIONS AND DISCUSSION/DISCHARGE RECOMMENDATIONS: In this 81-year-old gentleman who presented with multiple complex medical issues, I would recommend continuing with the current medications, continuing with symptomatic treatment. The patient was started on IV antibiotics. I also had a detailed discussion with Dr. Obrien, who recommended that the patient follow up in the outpatient setting. The possibility of pneumonia and sepsis is unlikely, per Dr. Obrien. Recommend outpatient antibiotics, as mentioned earlier. The patient had ( ) chronic changes, which may be followed up in the outpatient setting. Otherwise , please refer to the discharge medication reconciliation for discharge medications. Discussed with the patient, who understands and agrees. Further recommendations to follow. MTDD
[2016-09-02] MEDS ORDERED: LEVOFLOXACIN 750MG-D5W PMX 750 MG in DEXTROSE/WATER 1 150ML.BAG IVPB SCH (20:00)
== END 2016-09-02 17:25 | disposition home or self-care (01) | DRG 191 ==
LOC: EC 18:45 → 5MS5E 19:45
PROVIDERS: ADMIT Hospitalist; ATTEND Hospitalist
DX: J47.0 Bronchiectasis with acute lower respiratory infection (principal); J44.0 Chronic obstructive pulmonary disease with (acute) lower respiratory infection; J96.11 Chronic respiratory failure with hypoxia; J84.10 Pulmonary fibrosis, unspecified; Z86.74 Personal history of sudden cardiac arrest; I10 Essential (primary) hypertension; D63.8 Anemia in other chronic diseases classified elsewhere; E11.9 Type 2 diabetes mellitus without complications; J96.12 Chronic respiratory failure with hypercapnia; M19.91 Primary osteoarthritis, unspecified site; F40.240 Claustrophobia; Z99.81 Dependence on supplemental oxygen; Z87.01 Personal history of pneumonia (recurrent); Z87.891 Personal history of nicotine dependence; Z85.46 Personal history of malignant neoplasm of prostate; Z87.440 Personal history of urinary (tract) infections; Z98.42 Cataract extraction status, left eye; Z98.41 Cataract extraction status, right eye; Z96.1 Presence of intraocular lens; Z86.73 Personal history of transient ischemic attack (TIA), and cerebral infarction without residual deficits; Z79.82 Long term (current) use of aspirin; Z79.84 Long term (current) use of oral hypoglycemic drugs; Z79.899 Other long term (current) drug therapy
CPT/HCPCS: 36415; 71020; 80053; 81001; 82550; 82553; 83605; 83735; 83880; 84484; 85025; 85610; 85730; 87040; 87086; 90732; 93005; 94640

== ENCOUNTER → 2017-05-18 | Outpatient (CLI) | payer MEDICARE ==
--- NOTE | 2017-05-19 09:29 | CT ---
EXAMINATION TYPE: CT chest w con DATE OF EXAM: 05/18/2017 COMPARISON: CTA chest March 19, 2016 HISTORY: Patient complains of difficulty breathing and history of COPD and silicosis. CT DLP: 462 mGycm. Automated Exposure Control for Dose Reduction was Utilized. TECHNIQUE: CT scan of the thorax is performed following with IV Contrast, patient injected with 80 m L of Isovue 300. FINDINGS: LUNGS: There is significant left-sided volume loss with extensive honeycombing or end-stage fibrosis redemonstrated fairly diffusely. There are irregular areas of pleural thickening throughout the left lung most prominent in the lower lobe. No appreciable change from prior study. There is hyperexpanded right lung with moderate emphysematous change. There is moderate apical pleura l/parenchymal scarring. There is some peripheral reticulation in the right midlung redemonstrated. Th ere is interval improvement in scattered areas of groundglass opacity and focal consolidation lateral ly in the right middle lobe from prior. No significant pleural effusion or pneumothorax is seen bilat erally. Left-sided central bronchiectasis is redemonstrated. MEDIASTINUM: There are no greater than 1 cm noncalcified hilar or mediastinal lymph nodes. There are prominent but calcified anterior superior mediastinal, bilateral hilar, and subcarinal lymph nodes al l redemonstrated. There are additional calcified paraesophageal and perigastric lymph nodes inferiorl y. No pericardial effusion is seen. Heart size is stable and mildly enlarged. There is coronary vincenzo ry calcification which is noted marker for coronary artery disease. OTHER: There is persistent enlarged perigastric lymph node measuring 2.0 x 1.1 cm axial image 48. Tin y calcific foci in gallbladder do not layer dependently could reflect focal wall calcifications. Ther e is moderate to severe multilevel spurring in the thoracic spine. Debris-filled stomach suggests rec ent meal ingestion. IMPRESSION: Redemonstration of advanced fibrosis left lung. There is hyperexpanded emphysematous righ t lung with less prominent scattered areas of fibrosis upper to mid lung redemonstrated. No right-lanny ed acute pulmonary process identified on current study.
== END | disposition home or self-care (01) ==
LOC: RADCTMAIN 13:50
PROVIDERS: ATTEND Internal Medicine Critical Care Medicine
DX: J43.9 Emphysema, unspecified (principal); J84.10 Pulmonary fibrosis, unspecified; E11.9 Type 2 diabetes mellitus without complications; Z88.0 Allergy status to penicillin; Z88.8 Allergy status to other drugs, medicaments and biological substances
CPT/HCPCS: 82565; 84520; 71260; 36415; Q9967

== ENCOUNTER → 2018-03-14 | Outpatient (CLI) | payer MEDICARE ==
--- NOTE | 2018-03-14 14:11 | US ---
EXAMINATION TYPE: US kidneys/renal and bladder DATE OF EXAM: 03/14/2018 COMPARISON: NONE CLINICAL HISTORY: N18.3 CKD stage 3, D63.1, I12.9. EXAM MEASUREMENTS: Right Kidney: 10.9 x 6.2 x 4.9 cm Left Kidney: 11.9 x 5.3 x 5.1 cm Post Void Residual Volume: 12.0 mL Right Kidney: No hydronephrosis or masses seen. Left Kidney: No hydronephrosis or masses seen Bladder: wnl Bilateral Jets seen: Yes Normal Post Void Residual: Yes There is no evidence for hydronephrosis at this point in time. Slightly lobulated contour of the kidn eys and very mild cortical renal thinning bilaterally. No nephrolithiasis is seen. No masses are i dentified. The urinary bladder is anechoic. Bilateral ureteral jets are seen. IMPRESSION: No hydronephrosis nor nephrolithiasis. There is slightly lobulated Contour the kidneys and very mild cortical renal thinning relating to the patient's known medical renal disease.
== END | disposition home or self-care (01) ==
LOC: RADUSWWP 13:05
PROVIDERS: ATTEND Family Medicine
DX: N18.3 Chronic kidney disease, stage 3 (moderate) (principal)
CPT/HCPCS: 76770

== ENCOUNTER 2018-04-04 06:29 | Day surgery (SDC) | payer MEDICARE ==
[2018-03-31 09:11] VITALS: BMI 31.0
[~2018-04-04 06:29] MED LIST changes: -EPINEPHrine 10 ML SYRINGE (0.1 MG/ML) ONE; +LACTATED RINGERS 1,000 ML IV SCH
[2018-04-04 07:19] VITALS: TEMP 98.2
[2018-04-04 07:28] LABS: Glucose,Whole Blood 84 mg/dL (75-99)
[2018-04-04] MEDS ORDERED: PROPOFOL 10 MG/ML 20 ML VIAL IV ONE (07:59)
--- NOTE | 2018-04-04 08:36 | P.PCN ---
Date of Procedure: 04/04/18 Procedure(s) Performed: Procedure: Total colonoscopy. Preoperative diagnosis: Blood in the stools. Postoperative diagnosis: Diverticulosis with no evidence of acute diverticulitis , strictures, polyps or cancer. Preparation: HalfLytely prep. Sedation: Was provided by anesthesia. Brief clinical history: The patient is an 82-year-old male who is scheduled for this evaluation because of finding of blood in his stools. The patient has been having some issues with constipation while on iron. He denied overt bleeding. This would be his first colonoscopy. Procedure: With the patient on his left lateral decubitus position and after informed consent and adequate sedation, the perianal area was inspected and it did not show any fissures or fistulas. There were no masses felt on digital rectal examination. The Olympus CFH 190 L video colonoscope was then inserted in the rectum in the usual fashion and advanced to the cecum. The mucosa appeared healthy. Few diverticular orifices were seen scattered in the sigmoid and few around the hepatic flexure and on the right side. No evidence of diverticulitis or strictures. No polyps or tumors were seen or any evidence of bleeding. I retroflexed the endoscope in the rectum before the endoscope was withdrawn. Low-grade internal hemorrhoids were noted but there was no evidence of bleeding. The patient tolerated the procedure well. Plan: The patient was reassured. Discussed dietary measures. Consideration can be given for an upper GI evaluation if the patient develops upper GI complaints with evidence of ongoing bleeding in the GI tract and anemia. He will follow up with you as planned and I would be happy to see in the future.
[2018-04-04 08:37] VITALS: RESP 18
[2018-04-04 09:06] LABS: Glucose,Whole Blood 74 mg/dL (75-99)
[2018-04-04 09:17] VITALS: BP 154/85; PULSE 76
[2018-04-04 09:40] LABS: Glucose,Whole Blood 84 mg/dL (75-99)
== END 2018-04-04 09:40 | disposition home or self-care (01) ==
LOC: ORWHC2ENDO 06:29
DX: K57.30 Diverticulosis of large intestine without perforation or abscess without bleeding (principal); K64.8 Other hemorrhoids; J44.9 Chronic obstructive pulmonary disease, unspecified; E11.9 Type 2 diabetes mellitus without complications; I10 Essential (primary) hypertension; M19.90 Unspecified osteoarthritis, unspecified site; Z79.84 Long term (current) use of oral hypoglycemic drugs; Z79.899 Other long term (current) drug therapy; Z90.79 Acquired absence of other genital organ(s); Z88.0 Allergy status to penicillin
CPT/HCPCS: 45378; J2704

== ENCOUNTER 2020-01-08 23:34 | Inpatient (IN) | payer MEDICARE ==
[2020-01-08 23:53] LABS: Glucose,Whole Blood 261 mg/dL (75-99)
[2020-01-08 23:57] LABS: Basophils # (A) 0.1 k/uL (0-0.2); Basophils % (A) 2 %; Eosinophils # (A) 0.2 k/uL (0-0.7); Eosinophils % (A) 3 %; HGB 10.9 gm/dL (13.0-17.5); Hypochromasia Moderate; Lymphocytes # (A) 0.2 k/uL (1.0-4.8); Lymphocytes % (A) 4 %; MCH 31.1 pg (25.0-35.0); MCV 100.3 fL (80.0-100.0); Mean Platelet Volume 7.5; Monocytes # (A) 0.3 k/uL (0-1.0); Monocytes % (A) 6 %; Neutrophils % (A) 84 %; Platelet Count 145 k/uL (150-450); RBC 3.49 m/uL (4.30-5.90); RDW 13.1 % (11.5-15.5)
--- NOTE | 2020-01-09 00:03 | XR ---
EXAMINATION TYPE: XR chest 1V DATE OF EXAM: 01/08/2020 COMPARISON: 09/02/2016 HISTORY: Chest pain TECHNIQUE: FINDINGS: There is extensive pulmonary infiltrates bilaterally. This is both interstitial and airspac e infiltrate. Heart is deviated to the left side. There are chest leads. IMPRESSION: Extensive chronic pulmonary infiltrates consistent with advanced fibrosis unchanged adilene red to old exam.
[2020-01-09 00:05] LABS: Albumin 3.5 g/dL (3.5-5.0); Calcium 8.9 mg/dL (8.4-10.2); Potassium 4.9 mmol/L (3.5-5.1); Total Bilirubin 0.5 mg/dL (0.2-1.3); Total Protein 7.1 g/dL (6.3-8.2)
[2020-01-09 00:06] LABS: INR 0.9 (<1.2); Partial Thromboplastin Time 22.5 sec (22.0-30.0); Prothrombin Time 9.8 sec (9.0-12.0)
--- NOTE | 2020-01-09 00:16 | ED ---
General Adult HPI - General Chief complaint: Upper Respiratory Infection Stated complaint: NOL[place] Time Seen by Provider: 01/08/20 23:39 Source: patient, EMS Mode of arrival: EMS Limitations: no limitations - History of Present Illness Initial comments: Steven 84-year-old man with a extensive pulmonary history was brought to the emergency department today via EMS for evaluation of difficulty breathing. EMS was contacted because the patient was having difficulty breathing despite wearing his 4 L of nasal cannula. EMS arrived to find the patient cyanotic with oxygen saturations between the 40-60% range. Patient was transitioned to a nonrebreather and had improvement in his oxygenation. He received breathing treatments in route to the hospital and reported improvement in shortness of breath. She denies any cardiac history or history of heart failure. He is not on any Lasix or water pills. He does state that he is noted that his legs are swollen and his abdomen seems distended. He denies any recent chest pain fevers chills or body aches. - Related Data Home Medications Medication Instructions Recorded Confirmed Vitamin E (Dl,Tocopheryl Acet) 400 unit PO DAILY 03/19/16 04/04/18 [Vitamin E] Aspirin 2 tab PO DAILY 09/01/16 04/04/18 Pioglitazone [Actos] 15 mg PO DAILY 09/01/16 04/04/18 glipiZIDE [Glucotrol] 5 mg PO BID 09/01/16 04/04/18 Ascorbic Acid [Vitamin C] 500 mg PO DAILY 03/31/18 04/04/18 Cholecalciferol (Vitamin D3) 2,000 unit PO DAILY 03/31/18 04/04/18 [Vitamin D3] Ferrous Sulfate [Feosol] 325 mg PO DAILY 03/31/18 03/31/18 Multivitamins, Thera [Multivitamin 1 tab PO DAILY 03/31/18 03/31/18 (formulary)] amLODIPine [Norvasc] 5 mg PO DAILY 03/31/18 04/04/18 Previous Rx's Medication Instructions Recorded Budesonide/Formoterol Fumarate 1 puff IH BID #1 hfa.aer.ad 09/02/16 [Symbicort 160-4.5 Mcg Inhaler] Allergies Allergy/AdvReac Type Severity Reaction Status Date / Time Penicillins Allergy Anaphylaxis Verified 01/08/20 23:42 Review of Systems ROS Statement: Those systems with pertinent positive or pertinent negative responses have been documented in the HPI. ROS Other: All systems not noted in ROS Statement are negative. Past Medical History Past Medical History: Asthma, Cancer, Diabetes Mellitus, Hypertension, Osteoarthritis (OA), Pneumonia, Respiratory Disorder Additional Past Medical History / Comment(s): Pulmonary fibrosis, CO2 retainer- pt's PCP suggested for pt to have tests run during this hospitalization to determine correct liter flow for his home O2- currently uses 2-3L/NC, NIDDM type II, prostate cancer with surgery, nose bleeds, arthritis multiple joints. PT/SPOUSE REQUESTING NO PHYSICAL THERAPY. History of Any Multi-Drug Resistant Organisms: None Reported Past Surgical History: Prostate Surgery Additional Past Surgical History / Comment(s): Prostatectomy, bronchoscopy(bx neg), bilateral cataracts removed with lens implants. Past Anesthesia/Blood Transfusion Reactions: No Reported Reaction Additional Past Anesthesia/Blood Transfusion Reaction / Comment(s): clausterphobia Past Psychological History: No Psychological Hx Reported Smoking Status: Former smoker Past Alcohol Use History: None Reported Past Drug Use History: None Reported - Past Family History Father History Unknown: Yes Additional Family Medical History / Comment(s): raised by great grandparents Mother History Unknown: Yes Additional Family Medical History / Comment(s): raised by great grandparents General Exam - General Exam Comments Initial Comments: Physical Exam GENERAL: clinical he ill-appearing elderly male HENT: Normocephalic, Atraumatic. EYES: PERRL, EOMI PULMONARY: Diminished breath sounds throughout CARDIOVASCULAR: There is a regular rate and rhythm without any murmurs gallops or rubs. 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 Limitations: no limitations Course Vital Signs 01/08/20 01/08/20 01/08/20 23:36 23:46 23:50 Temperature 95.9 F L Pulse Rate 32 L 89 Respiratory 86 H 30 H 30 H Rate Blood Pressure 154/68 155/65 O2 Sat by Pulse 84 L 93 L Oximetry 01/09/20 00:53 Temperature Pulse Rate 75 Respiratory 28 H Rate Blood Pressure 147/61 O2 Sat by Pulse 93 L Oximetry EKG Findings - EKG Comments: EKG Findings:: EKG was obtained due to shortness breath EKG obtained at 2339 rate is 90 rhythm is sinus normal axis, intervals WV was prolonged at 194 QRS [address] elevations or depressions and was heme infarction or arrhythmia Medical Decision Making - Medical Decision Making patient was seen and evaluated history is obtained from patient Physical exam is concerning for heart failure as the patient has 2+ pitting edema in the lower extremities, hypoxia diminished lung sounds Labs and imaging were ordered Patient's influenza and COVID is negative Chest x-ray with no signs of pneumonia, chronic lung changes noted Labs with negative troponin but elevated BNP consistent with heart failure Patient will be admitted on the heart failure pathway with a consult to pulmonology and cardiology - Lab Data Result diagrams: 01/08/20 23:49 01/08/20 23:49 Lab Results 01/08/20 01/08/20 01/08/20 Range/Units 23:49 23:49 23:49 WBC 6.0 (3.8-10.6) k/uL RBC 3.49 L (4.30-5.90) m/uL Hgb 10.9 L (13.0-17.5) gm/dL Hct 35.0 L (39.0-53.0) % MCV 100.3 H (80.0-100.0) fL MCH 31.1 (25.0-35.0) pg MCHC 31.0 (31.0-37.0) g/dL RDW 13.1 (11.5-15.5) % Plt Count 145 L (150-450) k/uL Neutrophils % 84 % Lymphocytes % 4 % Monocytes % 6 % Eosinophils % 3 % Basophils % 2 % Neutrophils # 5.0 (1.3-7.7) k/uL Lymphocytes # 0.2 L (1.0-4.8) k/uL Monocytes # 0.3 (0-1.0) k/uL Eosinophils # 0.2 (0-0.7) k/uL Basophils # 0.1 (0-0.2) k/uL Hypochromasia Moderate PT 9.8 (9.0-12.0) sec INR 0.9 (<1.2) APTT 22.5 (22.0-30.0) sec Sodium 132 L (137-145) mmol/L Potassium 4.9 (3.5-5.1) mmol/L Chloride 88 L (98-107) mmol/L Carbon Dioxide 40 H (22-30) mmol/L Anion Gap 4 mmol/L BUN 36 H (9-20) mg/dL Creatinine 1.05 (0.66-1.25) mg/dL Est GFR (CKD-EPI)AfAm 76 (>60 ml/min/1.73 sqM) Est GFR (CKD-EPI)NonAf 65 (>60 ml/min/1.73 sqM) Glucose 274 H (74-99) mg/dL POC Glucose (mg/dL) (75-99) mg/dL POC Glu Profiler Operator ID Calcium 8.9 (8.4-10.2) mg/dL Magnesium 2.0 (1.6-2.3) mg/dL Total Bilirubin 0.5 (0.2-1.3) mg/dL AST 25 (17-59) U/L ALT 21 (4-49) U/L Alkaline Phosphatase 136 H (38-126) U/L Troponin I (0.000-0.034) ng/mL NT-Pro-B Natriuret Pep pg/mL Total Protein 7.1 (6.3-8.2) g/dL Albumin 3.5 (3.5-5.0) g/dL Coronavirus (PCR) (Not Detectd) Influenza Type A RNA (Not Detectd) Influenza Type B (PCR) (Not Detectd) 01/08/20 01/08/20 01/09/20 Range/Units 23:49 23:50 00:41 WBC (3.8-10.6) k/uL RBC (4.30-5.90) m/uL Hgb (13.0-17.5) gm/dL Hct (39.0-53.0) % MCV (80.0-100.0) fL MCH (25.0-35.0) pg MCHC (31.0-37.0) g/dL RDW (11.5-15.5) % Plt Count (150-450) k/uL Neutrophils % % Lymphocytes % % Monocytes % % Eosinophils % % Basophils % % Neutrophils # (1.3-7.7) k/uL Lymphocytes # (1.0-4.8) k/uL Monocytes # (0-1.0) k/uL Eosinophils # (0-0.7) k/uL Basophils # (0-0.2) k/uL Hypochromasia PT (9.0-12.0) sec INR (<1.2) APTT (22.0-30.0) sec Sodium (137-145) mmol/L Potassium (3.5-5.1) mmol/L Chloride (98-107) mmol/L Carbon Dioxide (22-30) mmol/L Anion Gap mmol/L BUN (9-20) mg/dL Creatinine (0.66-1.25) mg/dL Est GFR (CKD-EPI)AfAm (>60 ml/min/1.73 sqM) Est GFR (CKD-EPI)NonAf (>60 ml/min/1.73 sqM) Glucose (74-99) mg/dL POC Glucose (mg/dL) 261 H (75-99) mg/dL POC Glu Profiler Operator ID Tish Betancourt Calcium (8.4-10.2) mg/dL Magnesium (1.6-2.3) mg/dL Total Bilirubin (0.2-1.3) mg/dL AST (17-59) U/L ALT (4-49) U/L Alkaline Phosphatase (38-126) U/L Troponin I <0.012 (0.000-0.034) ng/mL NT-Pro-B Natriuret Pep 1410 pg/mL Total Protein (6.3-8.2) g/dL Albumin (3.5-5.0) g/dL Coronavirus (PCR) (Not Detectd) Influenza Type A RNA (Not Detectd) Influenza Type B (PCR) (Not Detectd) 01/09/20 Range/Units 00:41 WBC (3.8-10.6) k/uL RBC (4.30-5.90) m/uL Hgb (13.0-17.5) gm/dL Hct (39.0-53.0) % MCV (80.0-100.0) fL MCH (25.0-35.0) pg MCHC (31.0-37.0) g/dL RDW (11.5-15.5) % Plt Count (150-450) k/uL Neutrophils % % Lymphocytes % % Monocytes % % Eosinophils % % Basophils % % Neutrophils # (1.3-7.7) k/uL Lymphocytes # (1.0-4.8) k/uL Monocytes # (0-1.0) k/uL Eosinophils # (0-0.7) k/uL Basophils # (0-0.2) k/uL Hypochromasia PT (9.0-12.0) sec INR (<1.2) APTT (22.0-30.0) sec Sodium (137-145) mmol/L Potassium (3.5-5.1) mmol/L Chloride (98-107) mmol/L Carbon Dioxide (22-30) mmol/L Anion Gap mmol/L BUN (9-20) mg/dL Creatinine (0.66-1.25) mg/dL Est GFR (CKD-EPI)AfAm (>60 ml/min/1.73 sqM) Est GFR (CKD-EPI)NonAf (>60 ml/min/1.73 sqM) Glucose (74-99) mg/dL POC Glucose (mg/dL) (75-99) mg/dL POC Glu Profiler Operator ID Calcium (8.4-10.2) mg/dL Magnesium (1.6-2.3) mg/dL Total Bilirubin (0.2-1.3) mg/dL AST (17-59) U/L ALT (4-49) U/L Alkaline Phosphatase (38-126) U/L Troponin I (0.000-0.034) ng/mL NT-Pro-B Natriuret Pep pg/mL Total Protein (6.3-8.2) g/dL Albumin (3.5-5.0) g/dL Coronavirus (PCR) Not Detected (Not Detectd) Influenza Type A RNA Not Detected (Not Detectd) Influenza Type B (PCR) Not Detected (Not Detectd) Disposition Clinical Impression: Pulmonary fibrosis, Hypoxia, Heart failure Disposition: ADMITTED IP TO THIS HOSP Condition: Stable Is patient prescribed a controlled substance at d/c from ED?: No Referrals: Zachery Posadas DO [Primary Care Provider] - 1-2 days
[2020-01-09 01:28] LABS: SARS-CoV-2 RNA Rapid Abbott Not Detected (Not Detectd)
[2020-01-09] MEDS: FUROSEMIDE 10 MG/ML 4 ML VIAL IV SCH ×2 (03:32→15:38)
[2020-01-09 06:42] LABS: Glucose,Whole Blood 178 mg/dL (75-99)
[2020-01-09] MEDS ORDERED: FAMOTIDINE 20 MG/2 ML VIAL IV SCH (09:00)
[2020-01-09] MEDS: HEPARIN SODIUM,PORCINE 5,000 UNIT/ML 1 ML VIAL SQ SCH ×2 (10:37→21:40)
[2020-01-09] MEDS: LEVOFLOXACIN 500 MG TAB PO SCH (10:37)
[2020-01-09] MEDS: methylPREDNISolone SOD SUCCI 40 MG/ML 1 ML VIAL IV SCH ×3 (10:38→23:15)
--- NOTE | 2020-01-09 11:00 | ECHOF ---
Referral Reason:Heart Failure MEASUREMENTS -------- HEIGHT: 157.5 cm WEIGHT: 95.7 kg BP: IVSd: 1.5 cm (0.6 - 1.1) LVIDd: 4.5 cm (3.9 - 5.3) LVPWd: 1.2 cm (0.6 - 1.1) IVSs: 1.6 cm LVIDs: 3.6 cm LVPWs: 1.3 cm LA Diam: 4.0 cm (2.7 - 3.8) RVIDd: 3.6 cm (< 3.3) Ao Diam: 3.4 cm (2.0 - 3.7) AV Cusp: 2.1 cm (1.5 - 2.6) EPSS: 0.8 cm MV E Lenny: 0.41 m/s MV DecT: 234 ms MV A Lenny: 0.86 m/s MV E/A Ratio: 0.48 RAP: 5.00 mmHg RVSP: 35.64 mmHg MV EF SLOPE: 100.50 mm/s (70 - 150) MV EXCURSION: 16.90 mm (> 18.000) FINDINGS -------- Sinus rhythm. This was a technically adequate study. The left ventricular size is normal. There is mild concentric left ventricular hypertrophy. Overa ll left ventricular systolic function is mildly impaired with, an EF between 45 - 50 %. The right ventricle is moderately enlarged. The left atrium is mildly dilated. The right atrial size is normal. There is mild aortic valve sclerosis. There is no evidence of aortic regurgitation. Mild mitral annular calcification present. Mild mitral regurgitation is present. Mild tricuspid regurgitation present. There is mild pulmonary hypertension. The pulmonic valve was not well visualized. The aortic root size is normal. Echo free space indicative of a pericardial fat pad. CONCLUSIONS -------- 1. The left ventricular size is normal. 2. There is mild concentric left ventricular hypertrophy. 3. Overall left ventricular systolic function is mildly impaired with, an EF between 45 - 50 %. 4. The right ventricle is moderately enlarged. 5. The left atrium is mildly dilated. 6. The right atrial size is normal. 7. There is mild aortic valve sclerosis. 8. Mild mitral annular calcification present. 9. Mild mitral regurgitation is present. 10. Mild tricuspid regurgitation present. 11. There is mild pulmonary hypertension. 12. The pulmonic valve was not well visualized. 13. The aortic root size is normal. 14. Echo free space indicative of a pericardial fat pad. STRINGED INSTRUMENT REPAIRER: Teri Feng RDCS
[2020-01-09] MEDS: IPRATROPIUM-ALBUTEROL 3 ML NEB INHALATION PRN ×2 (11:28→20:04)
[2020-01-09 12:01] LABS: Glucose,Whole Blood 107 mg/dL (75-99)
--- NOTE | 2020-01-09 15:43 | CONS ---
CONSULTATION PULMONARY/CRITICAL CARE CONSULTATION: DATE OF SERVICE: 01/09/2020 REASON FOR CONSULTATION: Shortness of breath and hypoxemic respiratory failure. This is an 84-year-old gentleman who sees Dr. Posadas as a primary. I see him in the office for his underlying pulmonary disease. He has an extensive history of underlying pulmonary fibrosis as well as pneumonia and asthma as well as other medical problems such as diabetes, hypertension, DJD, prostate cancer and epistaxis. The patient presented to the emergency room on January 07 at 2334 complaining of upper respiratory tract infection and difficulty breathing. He was brought in by EMS. The patient was wearing his oxygen at home at 4 L. Apparently when the patient was seen initially by EMS, he was cyanotic and his saturations were in the 40% to 60% range. The patient was placed on a non-rebreather and transported into the emergency room. The patient is feeling a bit better now. Currently he is getting an echocardiogram. In addition, he was placed on average volume-assured pressure support (AVAPS). We have asked the nurse to switch him over to BiPAP at 12/5 and 40%. Currently the patient does feel a bit better. I apparently saw him recently in the office earlier this month. CURRENT MEDICATIONS: His current medications include vitamin E, aspirin, Actos, Glucotrol, ascorbic acid, vitamin D3, iron, multiple vitamins, amlodipine and Symbicort. ALLERGIES: PENICILLIN. MEDICAL HISTORY: His medical history includes chronic bronchial asthma, prostate cancer, diabetes mellitus, essential hypertension, DJD, pneumonia and pulmonary fibrosis. Other medical history includes epistaxis. SURGICAL HISTORY: His surgical history includes bronchoscopy and biopsy, bilateral cataract surgery with lens implants, and prostatectomy. SOCIAL HISTORY: Positive for previous tobacco use. No alcohol use or illicit drug use. FAMILY HISTORY: Positive for father with no clear-cut medical history. He apparently was raised by his grandparents. Same with his mother. His mother's medical history is not known, as he was apparently raised by his grandparents. REVIEW OF SYSTEMS: CONSTITUTIONAL: Negative. NEUROLOGIC: Negative. HEENT: Negative. CARDIOVASCULAR: Negative. PULMONARY: Shortness of breath, chest congestion. GI: Negative. : Negative. RHEUMATOLOGIC: Negative. IMMUNOLOGIC: Negative. ENDOCRINOLOGIC: Negative. DERMATOLOGIC: Negative. PHYSICAL EXAMINATION: VITAL SIGNS: Current vital signs are reviewed. Temperature is 98, heart rate 73, respiratory rate 20, blood pressure 137/72 with mean of 93. Saturations are 98% on the average volume-assured pressure support. FiO2 is 45%. GENERAL APPEARANCE: He appears in no acute distress. Mildly tachypneic. Mild conversational dyspnea. The BiPAP mask is in place. HEENT: Examination is grossly unremarkable. NECK: Supple. Full range of motion. No adenopathy. Neck veins are flat. CARDIOVASCULAR: Examination reveals regular rhythm and rate. Heart sounds are distant. Heart rate 73. No distinct murmur. LUNGS: Bibasilar crackles, greater on the left than on the right side. Breath sounds are severely diminished in the left lung compared to the right lung. A few scattered rhonchi are noted as well. No wheezes. ABDOMEN: Soft. Bowel sounds are heard. EXTREMITIES: Extremities reveal 1+ pitting edema. SKIN: Without rash. NEUROLOGIC: Neurologic examination is brief but nonfocal. LABS/IMAGING: Reviewed. White count is 6, hemoglobin 10.9, hematocrit 35.0, platelet count 145,000. PT, INR, PTT all normal. Sodium 132, potassium 4.9, chloride 88, CO2 40. Anion gap is 4. BUN and creatinine were 36 and 1.05. Glucose 274. Alkaline phosphatase 136. N- terminal proBNP 1410. COVID testing was negative. Influenza A and B testing was negative as well. Based on his bicarbonate concentration of 40 on his electrolyte profile, his baseline PaCO2 would be about 68+/- 2 mmHg. Microbiology is negative. Chest x-ray shows extensive bilateral pulmonary infiltrates consistent with underlying pulmonary fibrosis. Cannot rule out underlying pneumonia. CURRENT MEDICATIONS: Current medications are reviewed. He is on aspirin, Pepcid, Lasix, subcutaneous heparin and DuoNeb. ASSESSMENT: 1. Acute hypoxemic and hypercapnic respiratory failure secondary to extensive pulmonary fibrosis involving the left lung more so than the right. 2. Chronic hypoxemic respiratory failure. 3. Chronic hypercapnic respiratory failure with a baseline PaCO2 estimated to be about 68+/- 2 mmHg. 4. History of prostate cancer, status post prostatectomy. 5. History of diabetes mellitus. 6. History of hypertension. 7. History of asthma. 8. History of degenerative joint disease. 9. Prior history of pneumonia. 10.History of epistaxis. PLAN: Medications are reviewed. Will add some corticosteroids. I will also add some Pulmicort and budesonide. Also add some antibiotics. Additional recommendations and suggestions are forthcoming. Prognosis is guarded. Will continue to follow closely. MMODL / IJN: [id number] /
[2020-01-09 16:48] LABS: Glucose,Whole Blood 161 mg/dL (75-99)
[2020-01-09] MEDS: INSULIN ASPART (NovoLOG) 100 UNIT/ML VIAL SQ SCH ×2 (18:14→21:40)
[2020-01-09] MEDS: FORMOTEROL FUMARATE 20 MCG/2 ML NEBU INHALATION SCH (20:04)
[2020-01-09] MEDS: BUDESONIDE 1 MG/2 ML NEBU INHALATION SCH (20:04)
[2020-01-09 20:26] LABS: Glucose,Whole Blood 242 mg/dL (75-99)
[2020-01-09] MEDS ORDERED: ACETAMINOPHEN TAB 325 MG TAB PO PRN (21:07)
[2020-01-09] MEDS: FAMOTIDINE 20 MG TAB PO SCH (21:40)
--- NOTE | 2020-01-09 22:28 | P.HPIM ---
History of Present Illness This is a pleasant 84 years old male with past medical history of diabetes mellitus, hypertension, pulmonary fibrosis,, vya-ohspixe-brfcokdgx diabetes mellitus type 2, prostate cancer with history of surgery, history of GI bleed with diverticulosis. He is a patient of Dr. Posadas and he follow-up with Dr. vicky eden for his pulmonary fibrosis. Presents because of few days of difficulty breathing. He was found to be hypoxic in the emergency room around 40-60%, he was placed on nonrebreather at 15 L and admitted to the hospital. Patient with no chest pain or significant coughing. On admission patient was tachycardic and tachypneic, he was saturating 84% on 6 L oxygen via nasal cannula. Later on patient had to be placed on BiPAP and he tolerated that well. CBC and BMP are unremarkable except for mild low sodium at 130, glucose is elevated at 274, liver enzymes elevated. Gutierrez virus is not detected, influenza virus not detected EKG showing normal sinus rhythm Chest x-rays, from pulmonary infiltrates consistent with advanced fibrosis, and change compared to old exam Pulmonary and cardiology team were consulted from the emergency room. Upon patient was started on aspirin and iv Lasix. Levaquin and several maternal was admitted by pulmonary team Covid test was negative as well as influenza test. Review of Systems CONSTITUTIONAL: No fever, no malaise, no fatigue. HEENT: No recent visual problems or hearing problems. Denied any sore throat. CARDIOVASCULAR: No orthopnea, PND, no palpitations, no syncope. PULMONARY: no cough, no hemoptysis. GASTROINTESTINAL: No diarrhea, no nausea, no vomiting, no abdominal pain. Normoactive bowel sounds. NEUROLOGICAL: No headaches, no weakness, no numbness. HEMATOLOGICAL: Denies any bleeding or petechiae. GENITOURINARY: Denies any burning micturition, frequency, or urgency. MUSCULOSKELETAL/RHEUMATOLOGICAL: Denies any joint pain, swelling, or any muscle pain. ENDOCRINE: Denies any polyuria or polydipsia. Past Medical History Past Medical History: Asthma, Cancer, Diabetes Mellitus, Hypertension, Osteoarthritis (OA), Pneumonia, Respiratory Disorder Additional Past Medical History / Comment(s): Pulmonary fibrosis, CO2 retainer- pt's PCP suggested for pt to have tests run during this hospitalization to determine correct liter flow for his home O2- currently uses 2-3L/NC, NIDDM type II, prostate cancer with surgery, nose bleeds, arthritis multiple joints. PT/SPOUSE REQUESTING NO PHYSICAL THERAPY. History of Any Multi-Drug Resistant Organisms: None Reported Past Surgical History: Prostate Surgery Additional Past Surgical History / Comment(s): Prostatectomy, bronchoscopy(bx neg), bilateral cataracts removed with lens implants. Past Anesthesia/Blood Transfusion Reactions: No Reported Reaction Additional Past Anesthesia/Blood Transfusion Reaction / Comment(s): clausterphobia Past Psychological History: No Psychological Hx Reported Smoking Status: Former smoker Past Alcohol Use History: None Reported Past Drug Use History: None Reported - Past Family History Father History Unknown: Yes Additional Family Medical History / Comment(s): raised by great grandparents Mother History Unknown: Yes Additional Family Medical History / Comment(s): raised by great grandparents Medications and Allergies Home Medications Medication Instructions Recorded Confirmed Type Aspirin 650 mg PO DAILY 09/01/16 01/09/20 History Pioglitazone [Actos] 15 mg PO DAILY 09/01/16 01/09/20 History glipiZIDE [Glucotrol] 10 mg PO BID 09/01/16 01/09/20 History Ascorbic Acid [Vitamin C] 500 mg PO DAILY 03/31/18 01/09/20 History Cholecalciferol (Vitamin D3) 2,000 unit PO DAILY 03/31/18 01/09/20 History [Vitamin D3] Ferrous Sulfate [Feosol] 325 mg PO DAILY 03/31/18 01/09/20 History amLODIPine [Norvasc] 5 mg PO DAILY 03/31/18 01/09/20 History Budesonide/Formoterol Fumarate 2 puff INHALATION RT-BID 01/09/20 01/09/20 History [Symbicort 160-4.5 Mcg Inhaler] Ipratropium-Albuterol Nebulize 3 ml INHALATION RT-QID 01/09/20 01/09/20 History [Duoneb 0.5 mg-3 mg/3 ml Soln] Allergies Allergy/AdvReac Type Severity Reaction Status Date / Time Penicillins Allergy Anaphylaxis Verified 01/09/20 09:59 Physical Exam Vitals: Vital Signs Temp Pulse Pulse Resp BP BP Pulse Ox 01/09/20 05:30 98.0 F 73 20 137/72 98 01/09/20 05:08 76 28 H 129/75 93 L 01/09/20 04:00 73 20 11/10/20 03:29 75 18 137/61 95 01/09/20 00:53 75 28 H 147/61 93 L 01/08/20 23:50 89 30 H 155/65 93 L 01/08/20 23:46 30 H 01/08/20 23:36 95.9 F L 32 L 86 H 154/68 84 L Intake and Output 01/08/20 01/09/20 01/09/20 22:59 06:59 14:59 Intake Total 100 Output Total 675 Balance -575 Intake: Oral 100 Output: Urine 675 Other: Voiding Method Urinal # Voids 2 Weight 99.79 kg GENERAL: The patient is alert and oriented x3, not in any acute distress. Well developed, well nourished. HEENT: Pupils are round and equally reacting to light. EOMI. No scleral icterus. No conjunctival pallor. Normocephalic, atraumatic. No pharyngeal erythema. No thyromegaly. CARDIOVASCULAR: S1 and S2 present. No murmurs, rubs, or gallops. -PULMONARY: Chest is clear to auscultation, bilateral crepitation with decrease in internal ABDOMEN: Soft, nontender, nondistended, normoactive bowel sounds. No palpable organomegaly. MUSCULOSKELETAL: No joint swelling or deformity. EXTREMITIES: No cyanosis, clubbing, or pedal edema. NEUROLOGICAL: Gross neurological examination did not reveal any focal deficits. SKIN: No rashes. No petechiae Results CBC & Chem 7: 01/08/20 23:49 01/08/20 23:49 Labs: Abnormal Lab Results - Last 24 Hours (Table) 01/08/20 01/08/20 01/08/20 Range/Units 23:49 23:49 23:50 RBC 3.49 L (4.30-5.90) m/uL Hgb 10.9 L (13.0-17.5) gm/dL Hct 35.0 L (39.0-53.0) % MCV 100.3 H (80.0-100.0) fL Plt Count 145 L (150-450) k/uL Lymphocytes # 0.2 L (1.0-4.8) k/uL Sodium 132 L (137-145) mmol/L Chloride 88 L (98-107) mmol/L Carbon Dioxide 40 H (22-30) mmol/L BUN 36 H (9-20) mg/dL Glucose 274 H (74-99) mg/dL POC Glucose (mg/dL) 261 H (75-99) mg/dL Alkaline Phosphatase 136 H (38-126) U/L 01/09/20 Range/Units 06:40 RBC (4.30-5.90) m/uL Hgb (13.0-17.5) gm/dL Hct (39.0-53.0) % MCV (80.0-100.0) fL Plt Count (150-450) k/uL Lymphocytes # (1.0-4.8) k/uL Sodium (137-145) mmol/L Chloride (98-107) mmol/L Carbon Dioxide (22-30) mmol/L BUN (9-20) mg/dL Glucose (74-99) mg/dL POC Glucose (mg/dL) 178 H (75-99) mg/dL Alkaline Phosphatase (38-126) U/L Assessment and Plan Assessment: Acute hypoxic respiratory failure in view of advanced pulmonary fibrosis Possible pneumonia Diabetes mellitus Hypertension Osteoarthritis Pulmonary fibrosis with chronic hypoxic respiratory failure on 2-3 L of oxygen via and see History of prostate cancer status post surgery Diverticulosis with history of GI bleed Plan: This is a pleasant 84 years old male who presents with CHF, pneumonia and pulmonary fibrosis. Continue with Lasix. Continue with Levaquin. Continue with steroids Monitor vitals and creatinine with electrolytes. Continue with aspirin. Pulmonary consult Labs and medication were reviewed.. Continue same treatment. Continue with symptomatic treatment. Resume home medication. Monitor lytes and vitals. DVT and GI prophylaxis. Further recommendations depends on the clinical course of the patient DVT prophylaxis: Subcutaneous heparin GI Prophylaxis: Pepcid PT/OT: Pending Prognosis is guarded
[2020-01-10] MEDS: ASPIRIN 325 MG TAB PO SCH ×2 (01:24→08:06)
[2020-01-10] MEDS: FUROSEMIDE 10 MG/ML 4 ML VIAL IV SCH ×2 (01:24→14:19)
[2020-01-10 06:26] LABS: Glucose,Whole Blood 276 mg/dL (75-99)
[2020-01-10] MEDS ORDERED: INSULIN ASPART (NovoLOG) 100 UNIT/ML VIAL SQ ONE ×3 (06:34→17:57)
[2020-01-10] MEDS: INSULIN ASPART (NovoLOG) 100 UNIT/ML VIAL SQ SCH ×4 (06:40→20:34)
[2020-01-10] MEDS: methylPREDNISolone SOD SUCCI 40 MG/ML 1 ML VIAL IV SCH ×3 (06:40→18:03)
[2020-01-10] MEDS: FORMOTEROL FUMARATE 20 MCG/2 ML NEBU INHALATION SCH ×2 (08:00→21:04)
[2020-01-10] MEDS: BUDESONIDE 1 MG/2 ML NEBU INHALATION SCH ×2 (08:00→21:04)
[2020-01-10] MEDS: IPRATROPIUM-ALBUTEROL 3 ML NEB INHALATION PRN ×4 (08:00→21:04)
[2020-01-10] MEDS: HEPARIN SODIUM,PORCINE 5,000 UNIT/ML 1 ML VIAL SQ SCH ×2 (08:04→20:37)
[2020-01-10] MEDS: FAMOTIDINE 20 MG TAB PO SCH (08:04)
[2020-01-10] MEDS: LEVOFLOXACIN 500 MG TAB PO SCH (08:04)
--- NOTE | 2020-01-10 09:41 | P.PN ---
Subjective This is a pleasant 84 years old male with past medical history of diabetes mellitus, hypertension, pulmonary fibrosis,, ryn-rlgyesl-wgyqwuwzh diabetes mellitus type 2, prostate cancer with history of surgery, history of GI bleed with diverticulosis. He is a patient of Dr. Posadas and he follow-up with Dr. vicky eden for his pulmonary fibrosis. Presents because of few days of difficulty breathing. He was found to be hypoxic in the emergency room around 40-60%, he was placed on nonrebreather at 15 L and admitted to the hospital. Patient with no chest pain or significant coughing. On admission patient was tachycardic and tachypneic, he was saturating 84% on 6 L oxygen via nasal cannula. Later on patient had to be placed on BiPAP and he t olerated that well. CBC and BMP are unremarkable except for mild low sodium at 130, glucose is elevated at 274, liver enzymes elevated. Gutierrez virus is not detected, influenza virus not detected EKG showing normal sinus rhythm Chest x-rays, from pulmonary infiltrates consistent with advanced fibrosis, and change compared to old exam Pulmonary and cardiology team were consulted from the emergency room. Upon patient was started on aspirin and iv Lasix. Levaquin and several maternal was admitted by pulmonary team Covid test was negative as well as influenza test. 01/10/2020 Patient is breathing easier today he was BiPAP all night and this morning his oxygen requirements downgraded to 3 L/m. His total little dyspneic with wheezing and crepitation. Patient is talking easily. He saturating 99% on 3 a significant nasal cannula. He still tachypneic. He had low-grade fever yesterday at 100.4. Echocardiogram showed ejection fraction of 45-50% with right ventricle moderately enlarged, Patient remains on Lasix IV 40 mg twice daily, oral Levaquin 500 mg daily and Solu-Medrol 40 mg every 6 hours. Review of Systems CONSTITUTIONAL: No fever, no malaise, no fatigue. HEENT: No recent visual problems or hearing problems. Denied any sore throat. CARDIOVASCULAR: No orthopnea, PND, no palpitations, no syncope. PULMONARY: no cough, no hemoptysis. GASTROINTESTINAL: No diarrhea, no nausea, no vomiting, no abdominal pain. Normoactive bowel sounds. NEUROLOGICAL: No headaches, no weakness, no numbness. HEMATOLOGICAL: Denies any bleeding or petechiae. GENITOURINARY: Denies any burning micturition, frequency, or urgency. Active Medications Generic Name Dose Route Start Last Admin Trade Name Freq PRN Reason Stop Dose Admin Acetaminophen 650 mg 01/09/20 21:07 01/09/20 22:08 Acetaminophen Tab 325 Mg Tab PO 650 mg Q6HR PRN Administration Fever and/ or Pain Albuterol/Ipratropium 3 ml 01/09/20 08:56 01/10/20 08:00 Ipratropium-Albuterol 3 Ml Neb INHALATION 3 ml RT-QID PRN Administration Shortness Of Breath Or Wheezing Aspirin 325 mg 01/10/20 01:59 01/10/20 08:06 Aspirin 325 Mg Tab PO 325 mg DAILY MICHAEL Administration Budesonide 1 mg 01/09/20 20:00 01/10/20 08:00 Budesonide 1 Mg/2 Ml Nebu INHALATION 1 mg RT-BID MICHAEL Administration Famotidine 20 mg 01/09/20 21:00 01/10/20 08:04 Famotidine 20 Mg Tab PO 20 mg Q12HR MICHAEL Administration Formoterol Fumarate 20 mcg 01/09/20 20:00 01/10/20 08:00 Formoterol Fumarate 20 Mcg/2 Ml Nebu INHALATION 20 mcg RT-BID MICHAEL Administration Furosemide 40 mg 01/09/20 02:00 01/10/20 01:24 Furosemide 10 Mg/Ml 4 Ml Vial IV 40 mg Q12H MICHAEL Administration Heparin Sodium (Porcine) 5,000 unit 01/09/20 09:00 01/10/20 08:04 Heparin Sodium,Porcine 5,000 Unit/Ml 1 Ml Vial SQ 5,000 unit Q12HR MICHAEL Administration Insulin Aspart 0 unit 01/09/20 17:47 01/10/20 06:40 Insulin Aspart (Novolog) 100 Unit/Ml Vial SQ 8 unit ACHS MICHAEL Administration Protocol Levofloxacin 500 mg 01/09/20 10:00 01/10/20 08:04 Levofloxacin 500 Mg Tab PO 500 mg Q24H MICHAEL Administration Methylprednisolone Sodium Succinate 40 mg 01/09/20 12:00 01/10/20 06:40 Methylprednisolone Sod Succi 40 Mg/Ml 1 Ml Vial IV 40 mg Q6HR MICHAEL Administration Objective - Vital Signs Vital signs: Vital Signs Temp 98.3 F 01/10/20 08:00 Pulse 76 11/11/20 08:21 Resp 20 01/10/20 08:00 BP 153/67 01/10/20 08:00 Pulse Ox 99 01/10/20 08:00 Intake & Output 01/09/20 01/10/20 01/10/20 18:59 06:59 18:59 Intake Total 120 Output Total 1150 1150 Balance -1030 -1150 Weight 99.79 kg 87.7 kg Intake: Oral 120 Output: Urine 1150 1150 Other: Voiding Method Urinal Urinal - Exam GENERAL: The patient is alert and oriented x3, not in any acute distress. Well developed, well nourished. HEENT: Pupils are round and equally reacting to light. EOMI. No scleral icterus. No conjunctival pallor. Normocephalic, atraumatic. No pharyngeal erythema. No thyromegaly. CARDIOVASCULAR: S1 and S2 present. No murmurs, rubs, or gallops. -PULMONARY: Chest is clear to auscultation, bilateral expiratory wheezing and crepitation ABDOMEN: Soft, nontender, nondistended, normoactive bowel sounds. No palpable organomegaly. MUSCULOSKELETAL: No joint swelling or deformity. -EXTREMITIES: No cyanosis, clubbing, . Bilateral pitting leg edema NEUROLOGICAL: Gross neurological examination did not reveal any focal deficits. SKIN: No rashes. no petechiae. - Labs CBC & Chem 7: 01/08/20 23:49 01/08/20 23:49 Labs: Abnormal Lab Results - Last 24 Hours (Table) 01/09/20 01/09/20 01/09/20 Range/Units 11:59 16:45 20:25 POC Glucose (mg/dL) 107 H 161 H 242 H (75-99) mg/dL 01/10/20 Range/Units 06:24 POC Glucose (mg/dL) 276 H (75-99) mg/dL Assessment and Plan Assessment: Possible acute systolic CHF with ejection fraction 45-50% Acute hypoxic respiratory failure in view of advanced pulmonary fibrosis Possible community-acquired pneumonia Diabetes mellitus Hypertension Osteoarthritis Pulmonary fibrosis with chronic hypoxic respiratory failure on 2-3 L of oxygen via and see History of prostate cancer status post surgery Diverticulosis with history of GI bleed Plan: This is a pleasant 84 years old male who presents with CHF, pneumonia and pulmonary fibrosis. Continue with Lasix. Continue with Levaquin. Continue with steroids Monitor vitals and creatinine with electrolytes. Continue with aspirin. Pulmonary consult Labs and medication were reviewed.. Continue same treatment. Continue with symptomatic treatment. Resume home medication. Monitor lytes and vitals. DVT and GI prophylaxis. Further recommendations depends on the clinical course of the patient DVT prophylaxis: Subcutaneous heparin GI Prophylaxis: Pepcid PT/OT: Pending Prognosis is guarded
[2020-01-10 10:20] LABS: Calcium 8.7 mg/dL (8.4-10.2); Magnesium 1.9 mg/dL (1.6-2.3); Potassium 4.3 mmol/L (3.5-5.1)
[2020-01-10 11:44] VITALS: BMI 26.9
[2020-01-10 12:04] LABS: Glucose,Whole Blood 372 mg/dL (75-99)
--- NOTE | 2020-01-10 15:03 | P.PN ---
Subjective Progress Note Date: 01/10/20 Principal diagnosis: Acute on chronic hypoxic/hypercapnic respiratory failure secondary to extensive pulmonary fibrosis The patient is seen today 01/10/2020 in follow-up on the cardiac floor. He is currently sitting up in a chair at the bedside. Awake and alert in no acute dis tress. He still remains quite dyspneic on minimal exertion. Dyspneic with conversation. He does have extensive pulmonary fibrosis involving the left lung more so than the right. Currently maintaining O2 saturation the high 80s low 90s on 3 L/m per nasal cannula. She's afebrile. Hemodynamically stable. Sodium 132. Potassium 4.3. Creatinine 1.37. He remains on IV Solu-Medrol, IV diuretics, bronchodilators, Levaquin. Objective - Vital Signs Vital signs: Vital Signs Temp 98 F 01/10/20 11:58 Pulse 84 01/10/20 11:58 Resp 20 01/10/20 11:58 BP 147/73 01/10/20 11:58 Pulse Ox 89 L 01/10/20 11:58 Intake & Output 01/09/20 01/10/20 01/10/20 18:59 06:59 18:59 Intake Total 120 Output Total 1150 1150 Balance -1030 -1150 Weight 99.79 kg 87.7 kg 87.7 kg Intake: Oral 120 Output: Urine 1150 1150 Other: Voiding Method Urinal Urinal - Exam GENERAL EXAM: Alert, is an 84-year-old gentleman, on 3 L nasal cannula comfortable in no apparent distress. HEAD: Normocephalic. EYES: Normal reaction of pupils, equal size. NOSE: Clear with pink turbinates. THROAT: No erythema or exudates. NECK: No masses, no JVD. CHEST: No chest wall deformity. LUNGS: Equal air entry with with coarse crackles in the posterior bases left greater than right. CVS: S1 and S2 normal with no audible murmur, regular rhythm. ABDOMEN: No hepatosplenomegaly, normal bowel sounds, no guarding or rigidity. SPINE: No scoliosis or deformity SKIN: No rashes CENTRAL NERVOUS SYSTEM: No focal deficits, tone is normal in all 4 extremities. EXTREMITIES: There is no peripheral edema. No clubbing, no cyanosis. Peripheral pulses are intact. - Labs CBC & Chem 7: 01/08/20 23:49 01/10/20 09:08 Labs: Abnormal Lab Results - Last 24 Hours (Table) 01/09/20 01/09/20 01/10/20 Range/Units 16:45 20:25 06:24 Sodium (137-145) mmol/L Chloride (98-107) mmol/L Carbon Dioxide (22-30) mmol/L BUN (9-20) mg/dL Creatinine (0.66-1.25) mg/dL Glucose (74-99) mg/dL POC Glucose (mg/dL) 161 H 242 H 276 H (75-99) mg/dL 01/10/20 01/10/20 Range/Units 09:08 12:03 Sodium 132 L (137-145) mmol/L Chloride 79 L (98-107) mmol/L Carbon Dioxide 40 H (22-30) mmol/L BUN 46 H (9-20) mg/dL Creatinine 1.37 H (0.66-1.25) mg/dL Glucose 277 H (74-99) mg/dL POC Glucose (mg/dL) 372 H (75-99) mg/dL Assessment and Plan Assessment: 1 Acute on chronic hypoxemic/hypercapnic respiratory failure secondary to extensive pulmonary fibrosis evolving left lung more so than right. 2 Chronic hypoxemic respiratory failure secondary to pulmonary fibrosis 3 Chronic hypercapnic respiratory failure with a baseline PaCO2 approximate 68+ or -2 mmHg 4 History of prostate cancer status post prostatectomy 5 Diabetes mellitus 6 Hypertension 7 History of asthma 8 Degenerative joint disease Plan: The patient was seen and evaluated by Dr. Richardson We'll continue with the current treatment plan Titrate the FiO2 as tolerated Overall prognosis remains guarded Will continue to follow I, the cosigning physician, performed a history & physical examination of the patient. Lungs sounds with coarse crackles in the bilateral posterior bases left greater than right Maintaining good O2 saturations in the 90s on 3 L/m per nasal cannula. I discussed the assessment and plan of care with my nurse practitioner, Cinda Martines. I attest to the above note as dictated by her.
[2020-01-10 16:22] LABS: Glucose,Whole Blood 350 mg/dL (75-99)
[2020-01-10] MEDS ORDERED: INSULIN DETEMIR (LEVEMIR) 100 UNIT/ML SYR SQ ONE (17:57)
[2020-01-10 20:27] LABS: Glucose,Whole Blood 348 mg/dL (75-99)
[2020-01-10 20:44] VITALS: RESP 18
[2020-01-11] MEDS: FUROSEMIDE 10 MG/ML 4 ML VIAL IV SCH ×2 (03:19→13:00)
[2020-01-11 06:04] LABS: Glucose,Whole Blood 165 mg/dL (75-99)
[2020-01-11] MEDS: INSULIN ASPART (NovoLOG) 100 UNIT/ML VIAL SQ SCH ×2 (06:27→13:00)
[2020-01-11 08:36] LABS: Calcium 8.7 mg/dL (8.4-10.2); Potassium 4.1 mmol/L (3.5-5.1)
[2020-01-11] MEDS: BUDESONIDE 1 MG/2 ML NEBU INHALATION SCH (08:58)
[2020-01-11] MEDS: FORMOTEROL FUMARATE 20 MCG/2 ML NEBU INHALATION SCH (08:58)
[2020-01-11] MEDS: IPRATROPIUM-ALBUTEROL 3 ML NEB INHALATION PRN ×2 (08:58→12:18)
[2020-01-11] MEDS ORDERED: FAMOTIDINE 20 MG TAB PO SCH (09:00)
[2020-01-11] MEDS: ASPIRIN 325 MG TAB PO SCH (09:39)
[2020-01-11] MEDS: LEVOFLOXACIN 500 MG TAB PO SCH (09:39)
[2020-01-11] MEDS: HEPARIN SODIUM,PORCINE 5,000 UNIT/ML 1 ML VIAL SQ SCH (09:40)
[2020-01-11 11:08] VITALS: TEMP 98
[2020-01-11 12:43] LABS: Glucose,Whole Blood 247 mg/dL (75-99)
--- NOTE | 2020-01-11 14:21 | P.PN ---
Subjective Progress Note Date: 01/11/20 Principal diagnosis: Acute on chronic hypoxic/hypercapnic respiratory failure secondary to extensive pulmonary fibrosis The patient is seen today 01/10/2020 in follow-up on the cardiac floor. He is currently sitting up in a chair at the bedside. Awake and alert in no acute dis tress. He still remains quite dyspneic on minimal exertion. Dyspneic with conversation. He does have extensive pulmonary fibrosis involving the left lung more so than the right. Currently maintaining O2 saturation the high 80s low 90s on 3 L/m per nasal cannula. She's afebrile. Hemodynamically stable. Sodium 132. Potassium 4.3. Creatinine 1.37. He remains on IV Solu-Medrol, IV diuretics, bronchodilators, Levaquin. The patient is seen today 01/11/2020 in follow-up on the selective care unit. He is currently awake. He is quite hard of hearing. He denies any worsening shortness of breath. He is dyspneic with exertion. He does have significant pulmonary fibrosis. O2 saturations between 88-92% are acceptable. He is currently maintaining O2 saturations in the low 90s on 3 L/m per nasal cannula. Sodium 134. Potassium 4.1. Bicarb 49. Creatinine 1.20. Glucose 156. Objective - Vital Signs Vital signs: Vital Signs Temp 98.0 F 01/11/20 08:00 Pulse 84 01/11/20 12:33 Resp 18 01/11/20 08:00 BP 122/64 01/11/20 08:00 Pulse Ox 90 L 01/11/20 08:00 Intake & Output 01/10/20 01/11/20 01/11/20 18:59 06:59 18:59 Intake Total 720 118 Output Total 1600 Balance 720 -1600 118 Weight 87.7 kg 90.5 kg Intake: Oral 720 118 Output: Urine 1600 Other: Voiding Method Urinal Urinal Urinal # Voids 3 1 # Bowel Movements 1 - Exam GENERAL EXAM: Alert, is an 84-year-old gentleman, on 3 L nasal cannula comfortab le in no apparent distress. HEAD: Normocephalic. EYES: Normal reaction of pupils, equal size. NOSE: Clear with pink turbinates. THROAT: No erythema or exudates. NECK: No masses, no JVD. CHEST: No chest wall deformity. LUNGS: Equal air entry with with coarse crackles in the posterior bases left greater than right. CVS: S1 and S2 normal with no audible murmur, regular rhythm. ABDOMEN: No hepatosplenomegaly, normal bowel sounds, no guarding or rigidity. SPINE: No scoliosis or deformity SKIN: No rashes CENTRAL NERVOUS SYSTEM: No focal deficits, tone is normal in all 4 extremities. EXTREMITIES: There is no peripheral edema. No clubbing, no cyanosis. Peripheral pulses are intact. - Labs CBC & Chem 7: 01/08/20 23:49 01/11/20 07:16 Labs: Abnormal Lab Results - Last 24 Hours (Table) 01/10/20 01/10/20 01/11/20 Range/Units 16:21 20:26 06:02 Sodium (137-145) mmol/L Chloride (98-107) mmol/L Carbon Dioxide (22-30) mmol/L BUN (9-20) mg/dL Glucose (74-99) mg/dL POC Glucose (mg/dL) 350 H 348 H 165 H (75-99) mg/dL 01/11/20 01/11/20 Range/Units 07:16 12:25 Sodium 134 L (137-145) mmol/L Chloride 78 L (98-107) mmol/L Carbon Dioxide 49 H* (22-30) mmol/L BUN 47 H (9-20) mg/dL Glucose 156 H (74-99) mg/dL POC Glucose (mg/dL) 247 H (75-99) mg/dL Assessment and Plan Assessment: 1 Acute on chronic hypoxemic/hypercapnic respiratory failure secondary to extensive pulmonary fibrosis evolving left lung more so than right. 2 Chronic hypoxemic respiratory failure secondary to pulmonary fibrosis 3 Chronic hypercapnic respiratory failure with a baseline PaCO2 approximate 68+ or -2 mmHg 4 History of prostate cancer status post prostatectomy 5 Diabetes mellitus 6 Hypertension 7 History of asthma 8 Degenerative joint disease Plan: The patient was seen and evaluated by Dr. Richardson He did have a conversation with the patient's daughter Christina He is to be a DO NOT RESUSCITATE/DO NOT INTUBATE CODE STATUS Overall prognosis remains guarded Home once cleared medically He does have home oxygen in place. I, the cosigning physician, performed a history & physical examination of the patient. Lungs sounds with coarse crackles in the bilateral posterior bases left greater than right Maintaining good O2 saturations in the 90s on 3 L/m per nasal cannula. I discussed the assessment and plan of care with my nurse practitioner, Cinda Martines. I attest to the above note as dictated by her.
[2020-01-11 14:23] VITALS: BP 124/56; PULSE 78
--- NOTE | 2020-01-12 06:49 | CDI ---
Documentation Clarification Form Date: 01/12/2020 06:40:00 AM From: Kayla Morgan Phone: If you have a question about this query, please contact Jannie Medina Geriatric Nurse at [phone] between 8am and 5pm. Admit Date: 01/09/2020 01:58:00 AM Patient Name: Steven Thrasher Visit Number: [id number] Discharge Date: 01/11/2020 05:39:00 PM ATTENTION: The Clinical Documentation Specialists (CDI) and [facility] Coding Staff appreciate your assistance in clarifying documentation. Please respond to the clarification below the line at the bottom and electronically sign. The CDI & [facility] Coding staff will review the response and follow-up if needed. Please note: Queries are made part of the Legal Health Record. If you have any questions, please contact the author of this message via ITS. Dr. Boothe E Sheet CHF is documented in H and P, ED notes and your PN. Please clarify type of CHF and acuity. History/Risk Factors: A/C respiratory failure, pulmonary fibrosis Clinical Indicators: VS/Pulse OX: 84% 6 NC BNP: 1410 Echocardiogram Results: ventricular systolic function mildly impaired Chest X Ray: infiltrate and fibrosis Treatment: Lasix In your professional opinion, can you please clarify the acuity and type of CHF if known? Systolic Heart Failure: Acute Chronic Acute on Chronic Diastolic Heart Failure: Acute Chronic Acute on Chronic Systolic & Diastolic Heart Failure: Acute Chronic Acute on Chronic Heart Failure Unable to Determine Other, please specify mild acute chf MTDD
== END 2020-01-11 17:39 | disposition home health service (06) | DRG 291 ==
LOC: EC 23:34 → 3SCARD 01-09 01:58
PROVIDERS: ADMIT Hospitalist; ATTEND Hospitalist
PROC: 5A09357 Assistance with Respiratory Ventilation, Less than 24 Consecutive Hours, Continuous Positive Airway Pressure (ICD-10-PCS; principal; 2020-01-08)
DX: I11.0 Hypertensive heart disease with heart failure (principal); J96.21 Acute and chronic respiratory failure with hypoxia; J96.22 Acute and chronic respiratory failure with hypercapnia; I50.9 Heart failure, unspecified; J84.10 Pulmonary fibrosis, unspecified; H91.90 Unspecified hearing loss, unspecified ear; E11.9 Type 2 diabetes mellitus without complications; J45.909 Unspecified asthma, uncomplicated; K57.90 Diverticulosis of intestine, part unspecified, without perforation or abscess without bleeding; M15.9 Polyosteoarthritis, unspecified; Z20.828 Contact with and (suspected) exposure to other viral communicable diseases; Z79.51 Long term (current) use of inhaled steroids; Z79.84 Long term (current) use of oral hypoglycemic drugs; Z79.899 Other long term (current) drug therapy; Z85.46 Personal history of malignant neoplasm of prostate; Z90.79 Acquired absence of other genital organ(s); Z87.01 Personal history of pneumonia (recurrent); Z87.891 Personal history of nicotine dependence; Z98.42 Cataract extraction status, left eye; Z98.41 Cataract extraction status, right eye; Z96.1 Presence of intraocular lens; Z87.19 Personal history of other diseases of the digestive system; Z66 Do not resuscitate; Z88.0 Allergy status to penicillin; Z88.8 Allergy status to other drugs, medicaments and biological substances; Z99.81 Dependence on supplemental oxygen
CPT/HCPCS: 36415; 71045; 80048; 80053; 83735; 83880; 84484; 85025; 85610; 85730; 87502; 87635; 93005; 93306; 94640; 94660; 99285

== ENCOUNTER 2021-10-19 13:36 | Inpatient (IN) | payer MEDICARE, OTHER ==
[2021-10-19] MEDS ORDERED: IPRATROPIUM-ALBUTEROL 3 ML NEB INHALATION STA (13:49)
[2021-10-19] MEDS ORDERED: IPRATROPIUM 0.5 MG/2.5 ML NEBU INHALATION STA (13:52)
[2021-10-19] MEDS ORDERED: methylPREDNISolone SOD SUCCI 125 MG/2 ML VIAL IV STA (13:52)
[2021-10-19] MEDS ORDERED: FUROSEMIDE 10 MG/ML 4 ML VIAL IV STA (13:52)
[2021-10-19] MEDS ORDERED: ASPIRIN 81 MG PO STA (13:55)
[2021-10-19] MEDS ORDERED: NITROGLYCERIN OINT 1 INCH/GM PACKET TOPICAL STA (13:55)
[2021-10-19 14:06] LABS: Basophils % (A) 0 %; Eosinophils # (A) 0.1 k/uL (0-0.7); Eosinophils % (A) 1 %; HCT 37.6 % (39.0-53.0); HGB 11.1 gm/dL (13.0-17.5); Hypochromasia Marked; Lymphocytes # (A) 0.2 k/uL (1.0-4.8); Lymphocytes % (A) 3 %; MCH 30.7 pg (25.0-35.0); MCHC 29.4 g/dL (31.0-37.0); MCV 104.5 fL (80.0-100.0); Macrocytosis Slight; Mean Platelet Volume 8.5; Monocytes # (A) 0.3 k/uL (0-1.0); Monocytes % (A) 4 %; Neutrophils # (A) 7.1 k/uL (1.3-7.7); Neutrophils % (A) 92 %; Platelet Count 116 k/uL (150-450); RDW 12.8 % (11.5-15.5); WBC 7.7 k/uL (3.8-10.6)
[2021-10-19 14:14] LABS: INR 0.9 (<1.2); Partial Thromboplastin Time 24.6 sec (22.0-30.0); Prothrombin Time 10.2 sec (9.0-12.0)
[2021-10-19 14:16] LABS: Albumin 3.9 g/dL (3.5-5.0); Calcium 8.7 mg/dL (8.4-10.2); Potassium 4.5 mmol/L (3.5-5.1); Total Bilirubin 0.3 mg/dL (0.2-1.3); Total Protein 7.2 g/dL (6.3-8.2)
--- NOTE | 2021-10-19 14:28 | XR ---
EXAMINATION TYPE: XR chest 1V portable DATE OF EXAM: 10/19/2021 COMPARISON: 01/08/2020 HISTORY: Short of breath TECHNIQUE: Single view FINDINGS: Heart and mediastinum are shifted to the left side. There is extensive coarse infiltrate in the lungs. There are chest leads. There are chest leads. IMPRESSION: There is extensive chronic left-sided infiltrate with volume loss which is not significan tly different than exam 2 years ago. This is consistent with pulmonary fibrosis and chronic pneumonia . There are interstitial fibrotic changes in the right lung without change. No definite heart failure .
--- NOTE | 2021-10-19 14:36 | ED ---
SOB HPI - General Chief Complaint: Shortness of Breath Stated Complaint: SOB Time Seen by Provider: 10/19/21 13:45 Source: patient Mode of arrival: ambulatory Limitations: no limitations - History of Present Illness Initial Comments: This 86 old male presents with a complaint of shortness of breath. This is been progressing over the last 1 week. He states that he does have a history of COPD. He wears oxygen 3 L via nasal cannula all the time. He did have some slight chest pain approximately one week ago but none since. He states that he has had worsening lower extremity edema last week but it is improved currently but still present. He has significant exertional dyspnea. He has orthopnea as well. He denies any fevers or chills. There is no cough or production. He does see Dr. Richardson from pulmonology in regards to his lungs. He does utilize breathing treatments regularly. He denies any cardiac history or history of congestive heart failure. He presents at 68% on 3 L per nasal cannula. No other complaints or modifying factors. He also relates that he underwent 2 courses of Zithromax in the past couple of weeks with last dose 4 days ago. Also, his prednisone was increased from 5 mg per day to 10 mg per day. - Related Data Home Medications Medication Instructions Recorded Confirmed Aspirin 650 mg PO DAILY 09/01/16 01/09/20 glipiZIDE [Glucotrol] 10 mg PO BID 09/01/16 01/09/20 Cholecalciferol (Vitamin D3) 2,000 unit PO DAILY 03/31/18 01/09/20 [Vitamin D3] Ferrous Sulfate [Iron (65 MG 325 mg PO DAILY 03/31/18 01/09/20 Elemental)] Budesonide/Formoterol Fumarate 2 puff INHALATION RT-BID 01/09/20 01/09/20 [Symbicort 160-4.5 Mcg Inhaler] Ipratropium-Albuterol Nebulize 3 ml INHALATION RT-QID 01/09/20 01/09/20 [Duoneb 0.5 mg-3 mg/3 ml Soln] Previous Rx's Medication Instructions Recorded Acetaminophen Tab [Tylenol] 650 mg PO Q6HR PRN tab 01/11/20 Furosemide [Lasix] 40 mg PO DAILY #30 tablet 01/11/20 Levofloxacin [Levaquin] 500 mg PO Q24H #5 tab 01/11/20 Allergies Allergy/AdvReac Type Severity Reaction Status Date / Time Penicillins Allergy Anaphylaxis Verified 10/19/21 13:40 Review of Systems ROS Statement: Those systems with pertinent positive or pertinent negative responses have been documented in the HPI. ROS Other: All systems not noted in ROS Statement are negative. Past Medical History Past Medical History: Asthma, Cancer, Diabetes Mellitus, Hypertension, Os teoarthritis (OA), Pneumonia, Respiratory Disorder Additional Past Medical History / Comment(s): Pulmonary fibrosis, CO2 retainer- pt's PCP suggested for pt to have tests run during this hospitalization to determine correct liter flow for his home O2- currently uses 2-3L/NC, NIDDM type II, prostate cancer with surgery, nose bleeds, arthritis multiple joints. PT/SPOUSE REQUESTING NO PHYSICAL THERAPY. History of Any Multi-Drug Resistant Organisms: None Reported Past Surgical History: Prostate Surgery Additional Past Surgical History / Comment(s): Prostatectomy, bronchoscopy(bx neg), bilateral cataracts removed with lens implants. Past Anesthesia/Blood Transfusion Reactions: No Reported Reaction Additional Past Anesthesia/Blood Transfusion Reaction / Comment(s): clausterphobia Past Psychological History: No Psychological Hx Reported Smoking Status: Former smoker Past Alcohol Use History: None Reported Past Drug Use History: None Reported - Past Family History Father History Unknown: Yes Additional Family Medical History / Comment(s): raised by great grandparents Mother History Unknown: Yes Additional Family Medical History / Comment(s): raised by great grandparents General Exam - General Exam Comments Initial Comments: GENERAL: The patient is well nourished and well hydrated. VITAL SIGNS: Heart rate, blood pressure, respiratory rate reviewed as recorded in nurse's notes. EYES: Pupils are round and reactive. Extraocular movements are intact. No conjunctival / lid redness or swelling. ENT: No external evidence of injury, swelling, or ecchymosis. Airway is patent. Throat is clear. NECK: Nontender. No swelling or evidence of injury. No subcutaneous emphysema. Trachea is midline. No thyroid mass. HEART: Regular rate and rhythm. Good peripheral pulses. Bilateral moderate lower extremity edema noted. LUNGS/CHEST: Decreased aeration noted bilaterally, suspect slight Rales bilaterally. No ecchymosis, subcutaneous emphysema, or tenderness. ABDOMEN: Abdomen soft without tenderness. No palpable masses or organomegaly. No peritoneal signs. No abdominal wall swelling or ecchymosis. EXTREMITIES: No extremity tenderness. Normal muscle tone and function. No thoracolumbar tenderness. NEUROLOGIC: Sensation is grossly intact. Cranial nerve exam reveals face is symmetrical, tongue is midline, speech is clear. SKIN: No abrasions or ecchymosis is noted. No induration or masses noted. PSYCHIATRIC: Alert and oriented. Appropriate behavior and judgment. Limitations: no limitations Course Vital Signs 10/19/21 10/19/21 10/19/21 13:38 13:52 14:07 Temperature 98.1 F Pulse Rate 88 88 73 Respiratory 20 20 Rate Blood Pressure 124/83 146/68 O2 Sat by Pulse 78 L 97 Oximetry Medical Decision Making - Medical Decision Making The patient was seen and examined. All diagnostics are reviewed. The EKG shows a normal sinus rhythm at a rate of 71. There is no acute ST-T wave changes noted. Mild artifact noted. The CT intervals 180, QRS duration is 90, and the QTC intervals 389. The laboratory shows increase in the CO2 level is likely fairly consistent with his severe COPD. His sodium and chloride are slightly decreased as well. White blood cell count is normal. Hemoglobin is slightly decreased. The chest x-ray shows significant interstitial changes in the left lung which is fairly comparable with prior chest x-ray. There is also pulmonary fibrosis noted in the right side but worse on the left. 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 He sees pulmonology regularly. His oxygenation does improve with 6 L per nasal cannula. Last recheck was 97%. He receives mul tiple breathing treatments in the ER. He also received Solu-Medrol. His BNP is slightly elevated but not severe. No definite CHF noted on chest x-ray. Case is discussed with internal medicine, Dr. Llanes, and he is agreeable with admission. Patient feels somewhat improved on recheck. He received some Lasix as well as had some urine output. Approximately 30 minutes of critical care time was utilized and the treatment of the patient. - Lab Data Result diagrams: 10/19/21 13:59 10/19/21 13:59 Lab Results 10/19/21 10/19/21 10/19/21 Range/Units 13:59 13:59 13:59 WBC 7.7 (3.8-10.6) k/uL RBC 3.60 L (4.30-5.90) m/uL Hgb 11.1 L (13.0-17.5) gm/dL Hct 37.6 L (39.0-53.0) % MCV 104.5 H (80.0-100.0) fL MCH 30.7 (25.0-35.0) pg MCHC 29.4 L (31.0-37.0) g/dL RDW 12.8 (11.5-15.5) % Plt Count 116 L (150-450) k/uL MPV 8.5 Neutrophils % 92 % Lymphocytes % 3 % Monocytes % 4 % Eosinophils % 1 % Basophils % 0 % Neutrophils # 7.1 (1.3-7.7) k/uL Lymphocytes # 0.2 L (1.0-4.8) k/uL Monocytes # 0.3 (0-1.0) k/uL Eosinophils # 0.1 (0-0.7) k/uL Basophils # 0.0 (0-0.2) k/uL Hypochromasia Marked Macrocytosis Slight PT 10.2 (9.0-12.0) sec INR 0.9 (<1.2) APTT 24.6 (22.0-30.0) sec Sodium 130 L (137-145) mmol/L Potassium 4.5 (3.5-5.1) mmol/L Chloride 81 L (98-107) mmol/L Carbon Dioxide 43 H* (22-30) mmol/L Anion Gap 6 mmol/L BUN 33 H (9-20) mg/dL Creatinine 1.12 (0.66-1.25) mg/dL Est GFR (CKD-EPI)AfAm 69 (>60 ml/min/1.73 sqM) Est GFR (CKD-EPI)NonAf 59 (>60 ml/min/1.73 sqM) Glucose 189 H (74-99) mg/dL Plasma Lactic Acid Mike (0.7-2.0) mmol/L Calcium 8.7 (8.4-10.2) mg/dL Magnesium 2.0 (1.6-2.3) mg/dL Total Bilirubin 0.3 (0.2-1.3) mg/dL AST 26 (17-59) U/L ALT 19 (4-49) U/L Alkaline Phosphatase 101 (38-126) U/L Troponin I (0.000-0.034) ng/mL NT-Pro-B Natriuret Pep pg/mL Total Protein 7.2 (6.3-8.2) g/dL Albumin 3.9 (3.5-5.0) g/dL Coronavirus (PCR) (Not Detectd) Influenza Type A RNA (Not Detectd) Influenza Type B (PCR) (Not Detectd) 10/19/21 10/19/21 10/19/21 Range/Units 13:59 13:59 13:59 WBC (3.8-10.6) k/uL RBC (4.30-5.90) m/uL Hgb (13.0-17.5) gm/dL Hct (39.0-53.0) % MCV (80.0-100.0) fL MCH (25.0-35.0) pg MCHC (31.0-37.0) g/dL RDW (11.5-15.5) % Plt Count (150-450) k/uL MPV Neutrophils % % Lymphocytes % % Monocytes % % Eosinophils % % Basophils % % Neutrophils # (1.3-7.7) k/uL Lymphocytes # (1.0-4.8) k/uL Monocytes # (0-1.0) k/uL Eosinophils # (0-0.7) k/uL Basophils # (0-0.2) k/uL Hypochromasia Macrocytosis PT (9.0-12.0) sec INR (<1.2) APTT (22.0-30.0) sec Sodium (137-145) mmol/L Potassium (3.5-5.1) mmol/L Chloride (98-107) mmol/L Carbon Dioxide (22-30) mmol/L Anion Gap mmol/L BUN (9-20) mg/dL Creatinine (0.66-1.25) mg/dL Est GFR (CKD-EPI)AfAm (>60 ml/min/1.73 sqM) Est GFR (CKD-EPI)NonAf (>60 ml/min/1.73 sqM) Glucose (74-99) mg/dL Plasma Lactic Acid Mike 1.9 (0.7-2.0) mmol/L Calcium (8.4-10.2) mg/dL Magnesium (1.6-2.3) mg/dL Total Bilirubin (0.2-1.3) mg/dL AST (17-59) U/L ALT (4-49) U/L Alkaline Phosphatase (38-126) U/L Troponin I 0.012 (0.000-0.034) ng/mL NT-Pro-B Natriuret Pep 596 pg/mL Total Protein (6.3-8.2) g/dL Albumin (3.5-5.0) g/dL Coronavirus (PCR) (Not Detectd) Influenza Type A RNA (Not Detectd) Influenza Type B (PCR) (Not Detectd) 10/19/21 10/19/21 Range/Units 14:02 14:02 WBC (3.8-10.6) k/uL RBC (4.30-5.90) m/uL Hgb (13.0-17.5) gm/dL Hct (39.0-53.0) % MCV (80.0-100.0) fL MCH (25.0-35.0) pg MCHC (31.0-37.0) g/dL RDW (11.5-15.5) % Plt Count (150-450) k/uL MPV Neutrophils % % Lymphocytes % % Monocytes % % Eosinophils % % Basophils % % Neutrophils # (1.3-7.7) k/uL Lymphocytes # (1.0-4.8) k/uL Monocytes # (0-1.0) k/uL Eosinophils # (0-0.7) k/uL Basophils # (0-0.2) k/uL Hypochromasia Macrocytosis PT (9.0-12.0) sec INR (<1.2) APTT (22.0-30.0) sec Sodium (137-145) mmol/L Potassium (3.5-5.1) mmol/L Chloride (98-107) mmol/L Carbon Dioxide (22-30) mmol/L Anion Gap mmol/L BUN (9-20) mg/dL Creatinine (0.66-1.25) mg/dL Est GFR (CKD-EPI)AfAm (>60 ml/min/1.73 sqM) Est GFR (CKD-EPI)NonAf (>60 ml/min/1.73 sqM) Glucose (74-99) mg/dL Plasma Lactic Acid Mike (0.7-2.0) mmol/L Calcium (8.4-10.2) mg/dL Magnesium (1.6-2.3) mg/dL Total Bilirubin (0.2-1.3) mg/dL AST (17-59) U/L ALT (4-49) U/L Alkaline Phosphatase (38-126) U/L Troponin I (0.000-0.034) ng/mL NT-Pro-B Natriuret Pep pg/mL Total Protein (6.3-8.2) g/dL Albumin (3.5-5.0) g/dL Coronavirus (PCR) Not Detected (Not Detectd) Influenza Type A RNA Not Detected (Not Detectd) Influenza Type B (PCR) Not Detected (Not Detectd) Disposition Clinical Impression: Acute respiratory failure, Acute exacerbation of chronic obstructive pulmonary disease, Anemia, Hypochloremia, Hyponatremia, Elevated CO2 level, Pulmonary fibrosis Disposition: ADMITTED IP TO THIS HOSP Condition: Fair Is patient prescribed a controlled substance at d/c from ED?: No Referrals: Zachery Posadas DO [Primary Care Provider] - 1-2 days Time of Disposition: 15:41 Decision Date: 10/19/21 Decision Time: 15:42
[2021-10-19] MEDS ORDERED: NALOXONE 0.4 MG/ML 1 ML VIAL IV PRN (15:43)
[2021-10-19] MEDS ORDERED: ACETAMINOPHEN TAB 325 MG TAB PO PRN ×2 (15:43→17:45)
[2021-10-19] MEDS: ENOXAPARIN 40 MG/0.4 ML SYRINGE SQ SCH (16:50)
[2021-10-19 17:19] LABS: Glucose,Whole Blood 217 mg/dL (70-110)
--- NOTE | 2021-10-19 17:54 | P.HPIM ---
History of Present Illness H&P Date: 10/19/21 Chief Complaint: sob 86 old male with hx of severe pulmonary fibrosis on 3L, follows up with Dylan presents with a complaint of shortness of breath which has been progressing over the last 1 week, worse with exertion. Had associated chest pain. He states that he has had worsening lower extremity edema last week . He has orthopnea, paroxysmal nocturnal dyspnea as well. No fevers or chills. There is no cough or production. He took 2 courses of steroids and Zithromax in the past couple of weeks with last dose 4 days ago. In the emergency department his O2 saturation was 68% on 3 L per nasal cannula. Laboratory analysis showed sodium 130, potassium 4.5, chloride 81, bicarb 43, BUN 33, creatinine 1.12. Troponin negative, and proBNP 596. Chest x-ray showed chronic extensive left-sided infiltrate and volume loss as well as right-sided interstitial fibrotic changes. Review of Systems Complete review of system performed, pertinent positives per HPI, otherwise negative Past Medical History Past Medical History: Asthma, Cancer, Diabetes Mellitus, Hypertension, Osteoarthritis (OA), Pneumonia, Respiratory Disorder Additional Past Medical History / Comment(s): Pulmonary fibrosis, CO2 retainer- pt's PCP suggested for pt to have tests run during this hospitalization to determine correct liter flow for his home O2- currently uses 2-3L/NC, NIDDM type II, prostate cancer with surgery, nose bleeds, arthritis multiple joints. PT/SPOUSE REQUESTING NO PHYSICAL THERAPY. History of Any Multi-Drug Resistant Organisms: None Reported Past Surgical History: Prostate Surgery Additional Past Surgical History / Comment(s): Prostatectomy, bronchoscopy(bx neg), bilateral cataracts removed with lens implants. Past Anesthesia/Blood Transfusion Reactions: No Reported Reaction Additional Past Anesthesia/Blood Transfusion Reaction / Comment(s): clauster phobia Past Psychological History: No Psychological Hx Reported Smoking Status: Former smoker Past Alcohol Use History: None Reported Past Drug Use History: None Reported - Past Family History Father History Unknown: Yes Additional Family Medical History / Comment(s): raised by great grandparents Mother History Unknown: Yes Additional Family Medical History / Comment(s): raised by great grandparents Medications and Allergies Home Medications Medication Instructions Recorded Confirmed Type Aspirin 650 mg PO DAILY 09/01/16 01/09/20 History glipiZIDE [Glucotrol] 10 mg PO BID 09/01/16 01/09/20 History Cholecalciferol (Vitamin D3) 2,000 unit PO DAILY 03/31/18 01/09/20 History [Vitamin D3] Ferrous Sulfate [Iron (65 MG 325 mg PO DAILY 03/31/18 01/09/20 History Elemental)] Budesonide/Formoterol Fumarate 2 puff INHALATION RT-BID 01/09/20 01/09/20 History [Symbicort 160-4.5 Mcg Inhaler] Ipratropium-Albuterol Nebulize 3 ml INHALATION RT-QID 01/09/20 01/09/20 History [Duoneb 0.5 mg-3 mg/3 ml Soln] Acetaminophen Tab [Tylenol] 650 mg PO Q6HR PRN tab 01/11/20 Rx Furosemide [Lasix] 40 mg PO DAILY #30 tablet 01/11/20 Rx Levofloxacin [Levaquin] 500 mg PO Q24H #5 tab 01/11/20 Rx Allergies Allergy/AdvReac Type Severity Reaction Status Date / Time Penicillins Allergy Anaphylaxis Verified 10/19/21 13:40 Physical Exam Vitals: Vital Signs Temp Pulse Resp BP Pulse Ox 10/19/21 14:07 73 20 146/68 97 10/19/21 13:52 88 10/19/21 13:38 98.1 F 88 20 124/83 78 L Intake and Output 10/19/21 10/19/21 10/19/21 06:59 14:59 22:59 Other: Weight 95.254 kg Constitutional: No acute distress, conversant, pleasant Eyes:Anicteric sclerae, moist conjunctiva, no lid-lag, PERRLA, ENMT: Oropharynx clear, no erythema, exudates Neck: Supple, FROM, no masses, or JVD, No carotid bruits, No thyromegaly Lungs: Scattered bilateral rhonchi, Clear to percussion, Normal respiratory effort, no accessory muscle use Cardiovascular: Heart regular in rate and rhythm, No murmurs, gallops, or rubs, No peripheral edema Abdominal: Soft, Nontender, no guarding, rebound or rigidity, Normoactive bowel sounds, No hepatomegaly, No splenomegaly, No palpable mass Skin: Normal temperature, tone, texture, turgor, no induration, No subcutaneous nodules, No rash, lesions, No ulcers Extremities: No digital cyanosis, No clubbing, Pedal pulses intact and symmetrical, Radial pulses intact and symmetrical, No calf tenderness Psychiatric: Alert and oriented to person, place and time, appropriate affect, intact judgement Neuro: Muscles Strength 5/5 in all 4 extremities, Sensation to light touch grossly present throughout, Cranial nerves II-XII grossly intact, no focal sensory deficits Results CBC & Chem 7: 10/19/21 13:59 10/19/21 13:59 Labs: Abnormal Lab Results - Last 24 Hours (Table) 10/19/21 10/19/21 Range/Units 13:59 13:59 RBC 3.60 L (4.30-5.90) m/uL Hgb 11.1 L (13.0-17.5) gm/dL Hct 37.6 L (39.0-53.0) % MCV 104.5 H (80.0-100.0) fL MCHC 29.4 L (31.0-37.0) g/dL Plt Count 116 L (150-450) k/uL Lymphocytes # 0.2 L (1.0-4.8) k/uL Sodium 130 L (137-145) mmol/L Chloride 81 L (98-107) mmol/L Carbon Dioxide 43 H* (22-30) mmol/L BUN 33 H (9-20) mg/dL Glucose 189 H (74-99) mg/dL Assessment and Plan Plan: Acute exacerbation of COPD Acute on chronic hypoxic respiratory failure Currently requiring 5 L of oxygen Dounebs IV steroids IV Levaquin Consult pulmonary Acute exacerbation of chronic systolic congestive heart failure Echocardiogram from 2019 reviewed, ejection fraction was 45-50%. Repeat echocardiogram IV Lasix Monitor I's and O's Consult cardiology Diabetes type 2 Hold oral hypoglycemics Sliding scale insulin Chronic Hypertension, Osteoarthritis (OA), Resume meds Admit to inpatient, expected length of stay more than 2 midnights CODE STATUS discussed with patient, he does not want to be vegetable on machines but he is okay with short-term resuscitation attempts including CPR and ventilator.
[2021-10-19] MEDS ORDERED: LEVOFLOXACIN 500MG-D5W PMX 500 MG in DEXTROSE/WATER 1 100ML.BAG IVPB SCH (18:00)
[2021-10-19] MEDS ORDERED: DEXTROSE 50% SYRINGE 50 ML IVP PRN ×2 (18:19)
[2021-10-19] MEDS: methylPREDNISolone SOD SUCCI 125 MG/2 ML VIAL IV SCH ×2 (18:19→22:27)
[2021-10-19] MEDS: IPRATROPIUM-ALBUTEROL 3 ML NEB INHALATION SCH ×4 (19:20→23:45)
[2021-10-19] MEDS: SYMBICORT 160-4.5 MCG INHALER INHALATION SCH (19:21)
[2021-10-19 19:46] LABS: Glucose,Whole Blood 410 mg/dL (70-110)
[2021-10-19] MEDS: INSULIN ASPART (NovoLOG) 100 UNIT/ML VIAL SQ SCH (20:01)
[2021-10-19] MEDS ORDERED: INSULIN ASPART (NovoLOG) 100 UNIT/ML VIAL SQ SCH (21:00)
[2021-10-20 01:37] LABS: Glucose,Whole Blood 321 mg/dL (70-110)
[2021-10-20] MEDS: IPRATROPIUM-ALBUTEROL 3 ML NEB INHALATION SCH ×7 (04:22→20:50)
[2021-10-20 06:01] LABS: Glucose,Whole Blood 293 mg/dL (70-110)
[2021-10-20 07:17] LABS: Glucose,Whole Blood 292 mg/dL (70-110)
[2021-10-20] MEDS: CHOLECALCIFEROL 25 MCG (1000 IU) TABLET PO SCH (07:19)
[2021-10-20] MEDS: FERROUS SULFATE 325 MG TAB PO SCH (07:19)
[2021-10-20] MEDS: ENOXAPARIN 40 MG/0.4 ML SYRINGE SQ SCH (07:19)
[2021-10-20] MEDS: INSULIN ASPART (NovoLOG) 100 UNIT/ML VIAL SQ SCH ×4 (07:19→21:09)
[2021-10-20] MEDS: methylPREDNISolone SOD SUCCI 125 MG/2 ML VIAL IV SCH ×4 (07:20→21:09)
[2021-10-20] MEDS: SYMBICORT 160-4.5 MCG INHALER INHALATION SCH ×2 (08:52→20:50)
[2021-10-20] MEDS ORDERED: FUROSEMIDE 10 MG/ML 4 ML VIAL IV SCH (09:00)
[2021-10-20] MEDS ORDERED: ASPIRIN 325 MG TAB PO SCH ×2 (09:00)
[2021-10-20] MEDS: ASPIRIN 81 MG PO SCH (09:27)
[2021-10-20 10:11] LABS: African American GFR (CKD) 54.2 (60.0-200.0); Anion Gap 10.3 mmol/L (10.00-18.00); BUN/Creat Ratio 25.66 Ratio (12.00-20.00); Blood Urea Nitrogen 34.9 mg/dL (9.0-27.0); Calcium 8.9 mg/dL (8.7-10.3); Carbon Dioxide 39.1 mmol/L (20.0-27.5); Non-African American GFR(CKD) 46.8 (60.0-200.0); Potassium 5.3 mmol/L (3.5-5.5)
--- NOTE | 2021-10-20 11:20 | P.CRDCN ---
History of Present Illness Consult date: 10/20/21 Requesting physician: Carol Llanes Reason for Consult (text): CHF Chief complaint: shortness of breath History of present illness: This pleasant 86-year-old gentleman with a history of severe pulmonary fibrosis on home oxygen. He follows with Dr. Rihcardson. This is a history of diabetes, h ypertension. No past history of CAD. Presented to the emergency department with progressively worsening shortness of breath and upon presentation oxygen saturation was 60% on 3 L via nasal cannula. He had been complaining of orthopnea and PND as well. He has chronic lower extremity edema no worse than usual. Chest x-ray on admission showed extensive chronic left-sided infiltrate with volume loss which is not significantly different than exam 2 years ago, consistent with pulmonary fibrosis and chronic pneumonia, interstitial fibrotic changes in the right lung without change, no definite heart failure. We are asked to see the patient in consultation for congestive heart failure. NT proB PATHOLOGY TRANSCRIPTIONIST was not elevated and came back at 596. Upon examination he is resting comfortably sitting up at the side of the bed. He is in no acute distress. Feels his breathing has improved some. He is currently on DuoNeb and IV Solu- Medrol as well as IV Lasix 40 mg daily. Past Medical History Past Medical History: Asthma, Cancer, Diabetes Mellitus, Hypertension, Osteoarthritis (OA), Pneumonia, Respiratory Disorder Additional Past Medical History / Comment(s): Pulmonary fibrosis, CO2 retainer- pt's PCP suggested for pt to have tests run during this hospitalization to determine correct liter flow for his home O2- currently uses 2-3L/NC, NIDDM type II, prostate cancer with surgery, nose bleeds, arthritis multiple joints. PT/SPOUSE REQUESTING NO PHYSICAL THERAPY. History of Any Multi-Drug Resistant Organisms: None Reported Past Surgical History: Prostate Surgery Additional Past Surgical History / Comment(s): Prostatectomy, bronchoscopy(bx neg), bilateral cataracts removed with lens implants. Past Anesthesia/Blood Transfusion Reactions: No Reported Reaction Additional Past Anesthesia/Blood Transfusion Reaction / Comment(s): clausterphobia Smoking Status: Former smoker - Past Family History Father History Unknown: Yes Additional Family Medical History / Comment(s): raised by great grandparents Mother History Unknown: Yes Additional Family Medical History / Comment(s): raised by great grandparents Medications and Allergies Home Medications Medication Instructions Recorded Confirmed Type Aspirin 650 mg PO DAILY 09/01/16 10/19/21 History glipiZIDE [Glucotrol] 20 mg PO BID 09/01/16 10/19/21 History Ferrous Sulfate [Iron (65 MG 325 mg PO DAILY 03/31/18 10/19/21 History Elemental)] Furosemide [Lasix] 40 mg PO DAILY #30 tablet 01/11/20 10/19/21 Rx Ascorbic Acid [Vitamin C] 1,000 mg PO DAILY 10/19/21 10/19/21 History Cholecalciferol [Vitamin D3 (25 50 mcg PO DAILY 10/19/21 10/19/21 History Mcg = 1000 Iu)] Fluticasone Nasal [place] [Flonase 2 spray EA NOSTRIL DAILY 10/19/21 10/19/21 History Nasal [place]] Pioglitazone [Actos] 45 mg PO DAILY 10/19/21 10/19/21 History Vitamin E (Dl,Tocopheryl Acet) 400 unit PO DAILY 10/19/21 10/19/21 History [Vitamin E (400 Iu = 180 mg)] predniSONE 5 mg PO DAILY 10/19/21 10/19/21 History Allergies Allergy/AdvReac Type Severity Reaction Status Date / Time Penicillins Allergy Anaphylaxis Verified 10/19/21 13:40 Physical Exam Vitals: Vital Signs Temp Pulse Pulse Resp BP BP Pulse Ox 10/20/21 09:04 90 10/20/21 08:52 88 10/20/21 07:53 97.7 F 82 16 119/48 90 L 10/20/21 02:00 98.3 F 80 17 131/95 95 10/19/21 19:52 78 18 10/19/21 19:35 89 10/19/21 19:21 85 10/19/21 19:11 98.0 F 87 18 146/67 91 L 10/19/21 17:24 97.8 F 78 18 165/56 96 10/19/21 17:00 72 18 156/74 97 10/19/21 16:30 71 20 149/70 96 10/19/21 16:00 74 24 134/62 98 10/19/21 15:30 85 22 163/58 97 10/19/21 15:00 80 22 152/68 97 10/19/21 14:30 71 20 146/68 97 10/19/21 14:07 77 24 152/81 96 10/19/21 13:52 88 10/19/21 13:38 98.1 F 88 20 124/83 78 L Intake and Output 10/19/21 10/20/21 10/20/21 22:59 06:59 14:59 Intake Total 240 Output Total 0 600 Balance 240 -600 Intake: Oral 240 Output: Urine 0 600 Other: Weight 95.254 kg PHYSICAL EXAMINATION: This is a 86-year-old male in no apparent distress at the time of my examination. VITAL SIGNS: Blood pressure 119/48, heart rate 82, respirations 16, temp 97.7F. Patient is 90 % on 5 L via nasal cannula. HEENT: Head is atraumatic, normocephalic. Pupils are equal, round. Sclerae anicteric. Conjunctivae are clear. Mucous membranes of the mouth are moist. Neck is supple. There is no elevated jugular venous pressure. No carotid bruit is heard. CHEST EXAMINATION: Lungs reveal dry crackles throughout with scattered rhonchi. Respirations even and nonlabored. HEART EXAMINATION: Heart regular, positive S1 and S2. No S3. No S4. No clicks, rubs or murmurs. ABDOMEN: Soft, nontender. Bowel sounds are heard. No organomegaly noted. EXTREMITIES: 2+ peripheral pulses with evidence of mild peripheral edema and no calf tenderness noted. NEUROLOGIC EXAMINATION: Patient is awake, alert and oriented x3. Results 10/19/21 13:59 10/20/21 06:03 Cardiac Enzymes 10/19/21 10/19/21 10/19/21 Range/Units 13:59 13:59 17:57 AST 26 (17-59) U/L Troponin I 0.012 <0.012 (0.000-0.034) ng/mL 10/19/21 Range/Units 20:54 AST (17-59) U/L Troponin I <0.012 (0.000-0.034) ng/mL Coagulation 10/19/21 Range/Units 13:59 PT 10.2 (9.0-12.0) sec APTT 24.6 (22.0-30.0) sec CBC 10/19/21 Range/Units 13:59 WBC 7.7 (3.8-10.6) k/uL RBC 3.60 L (4.30-5.90) m/uL Hgb 11.1 L (13.0-17.5) gm/dL Hct 37.6 L (39.0-53.0) % Plt Count 116 L (150-450) k/uL Comprehensive Metabolic Panel 10/19/21 10/20/21 Range/Units 13:59 06:03 Sodium 130 L 132 L (137-145) mmol/L Potassium 4.5 5.3 (3.5-5.1) mmol/L Chloride 81 L 83 L (98-107) mmol/L Carbon Dioxide 43 H* 39.1 H (22-30) mmol/L BUN 33 H 34.9 H (9-20) mg/dL Creatinine 1.12 1.4 (0.66-1.25) mg/dL Glucose 189 H 296 H (74-99) mg/dL Calcium 8.7 8.9 (8.4-10.2) mg/dL AST 26 (17-59) U/L ALT 19 (4-49) U/L Alkaline Phosphatase 101 (38-126) U/L Total Protein 7.2 (6.3-8.2) g/dL Albumin 3.9 (3.5-5.0) g/dL Current Medications Generic Name Dose Route Start Last Admin Trade Name Freq PRN Reason Stop Dose Admin Acetaminophen 650 mg 10/19/21 15:43 Acetaminophen Tab 325 Mg Tab PO Q6HR PRN Mild Pain or Fever > 100.5 Acetaminophen 650 mg 10/19/21 17:45 Acetaminophen Tab 325 Mg Tab PO Q6HR PRN Fever and/ or Pain Albuterol/Ipratropium 3 ml 10/19/21 16:00 10/20/21 08:52 Ipratropium-Albuterol 3 Ml Neb INHALATION 3 ml RT-Q4H MICHAEL Administration Albuterol/Ipratropium 3 ml 10/19/21 20:00 10/20/21 09:04 Ipratropium-Albuterol 3 Ml Neb INHALATION Not Given RT-QID MICHAEL Aspirin 81 mg 10/20/21 09:00 10/20/21 09:27 Aspirin 81 Mg PO Not Given DAILY MICHAEL Budesonide/Formoterol Fumarate 2 puff 10/19/21 20:00 10/20/21 08:52 Symbicort 160-4.5 Mcg Inhaler INHALATION 2 puff RT-BID MICHAEL Administration Cholecalciferol 50 mcg 10/20/21 09:00 10/20/21 07:19 Cholecalciferol 25 Mcg (1000 Iu) Tablet PO 50 mcg DAILY MICHAEL Administration Dextrose/Water 25 ml 10/19/21 18:19 Dextrose 50% Syringe 50 Ml IVP PER PROTOCOL PRN Hypoglycemia Protocol Dextrose/Water 50 ml 10/19/21 18:19 Dextrose 50% Syringe 50 Ml IVP PER PROTOCOL PRN Hypoglycemia Protocol Enoxaparin Sodium 40 mg 10/19/21 16:00 10/20/21 07:19 Enoxaparin 40 Mg/0.4 Ml Syringe SQ 40 mg DAILY MICHAEL Administration Ferrous Sulfate 325 mg 10/20/21 09:00 10/20/21 07:19 Ferrous Sulfate 325 Mg Tab PO 325 mg DAILY MICHAEL Administration Furosemide 40 mg 10/20/21 09:00 10/20/21 07:20 Furosemide 10 Mg/Ml 4 Ml Vial IV 40 mg DAILY MICHAEL Administration Levofloxacin 500 mg/ IV 100 mls @ 100 mls/hr 10/19/21 18:00 10/19/21 18:19 Solution IVPB 100 mls/hr Q24H MICHAEL Administration Protocol Insulin Aspart 0 unit 10/19/21 21:00 10/20/21 07:19 Insulin Aspart (Novolog) 100 Unit/Ml Vial SQ 6 unit ACHS [facility] Administration Protocol Insulin Detemir 12 unit 10/20/21 11:00 Insulin Detemir (Levemir) 100 Unit/Ml Syr SQ DAILY@0700 [facility] Methylprednisolone Sodium Succinate 60 mg 10/19/21 18:00 10/20/21 07:20 Methylprednisolone Sod Succi 125 Mg/2 Ml Vial IV 60 mg QID MICHAEL Administration Naloxone HCl 0.2 mg 10/19/21 15:43 Naloxone 0.4 Mg/Ml 1 Ml Vial IV Q2M PRN Opioid Reversal Intake and Output 10/19/21 10/20/21 10/20/21 22:59 06:59 14:59 Intake Total 240 Output Total 0 600 Balance 240 -600 Intake: Oral 240 Output: Urine 0 600 Other: Weight 95.254 kg 10/19/21 13:59 10/20/21 06:03 Assessment and Plan Assessment: #1 acute on chronic respiratory failure secondary to severe pulmonary fibrosis, acute exacerbation of COPD #2 diabetes #3 hypertension Plan: On cardiology's perspective worsening shortness of breath likely secondary to pulmonary fibrosis and underlying COPD exacerbation not likely to be related to congestive heart failure, NT proBNP is not elevated. Could have some aspect of right-sided heart failure and cor pulmonale. Today's labs show worsening renal function. We will obtain a 2-D echo with Doppler study to assess cardiac structure and function. We will stop IV Lasix and switch to oral Lasix. We will continue to follow the patient provide further recommendations accordingly. PATHOLOGY TRANSCRIPTIONIST note has been reviewed, I agree with a documented findings and plan of care. Patient was seen and examined.
[2021-10-20 11:45] LABS: Glucose,Whole Blood 394 mg/dL (70-110)
[2021-10-20] MEDS: INSULIN DETEMIR (LEVEMIR) 100 UNIT/ML SYR SQ SCH (12:12)
--- NOTE | 2021-10-20 13:02 | P.CNPUL ---
History of Present Illness Consult date: 10/20/21 Requesting physician: Carol Llanes Chief complaint: Shortness of breath History of present illness: 86-year-old male patient with known history of pulmonary fibrosis, with chronic hypoxic respiratory failure patient usually wears 3 L of oxygen around the clock. His pulmonary fibrosis changes are worse in the left lung. In addition patient does have history of COPD, his most recent PFT from 2018 showed FEV1 of 1.1 L or 41% predicted, FVC of 1.68 or 44% of predicted, with FEV1 to FVC ratio of 93%, FEV of 38%, total lung capacity of 65% of predicted, consistent with severe obstruction and severe restriction. Other medical history includes hypertension, diabetes mellitus type 2, former smoker, prostate cancer status post prostatectomy, osteoarthritis. Patient follows with Dr. Richardson in the pulmonary clinic, patient is maintained on prednisone 5 mg daily, DuoNeb, Symbicort and Ventolin inhaler. Patient came into the emergency department on 10/19/2021 with complaints of progressive dyspnea over the past one week. Did report some slight chest discomfort and worsening lower extremity edema. Reported positive orthopnea. Denied any fever or chills, no cough or phlegm production. On presentation his pulse ox was noted to be at 60% on his usual 3 L/m. He states he took 2 courses of azithromycin in the past couple weeks and his prednisone was increased from 5 mg to 10 mg per day. Chest x-ray showed extensive chronic left-sided infiltrate with volume loss, not significantly different from 2 years ago. Lab evaluation showed white blood cell, 7.7, hemoglobin of 11.1, coagulation profile was within normal limits, proBNP was 596, troponins were less than 0.0123, chloride 19 PCR, influenza A and B and legionella urine antigen were all negative. BNP was reviewed showing sodium of 130, chloride of 81, bicarbonate concentration 43, BUN of 33, creatinine 1.12. LFTs were within normal limits. Patient was placed on empiric medical large with Levaquin, IV steroids, nebulized bronchodilators and given a dose of IV Lasix. Review of Systems All systems: negative Constitutional: Denies chills, Denies fever Eyes: denies blurred vision, denies pain Ears, nose, mouth and throat: Denies headache, Denies sore throat Cardiovascular: Denies chest pain, Denies shortness of breath Respiratory: Reports dyspnea, Denies cough Gastrointestinal: Denies abdominal pain, Denies diarrhea, Denies nausea, Denies vomiting Musculoskeletal: Denies myalgias Musculoskeletal: bilateral: ankle swelling, foot swelling Integumentary: Denies pruritus, Denies rash Neurological: Denies numbness, Denies weakness Psychiatric: Denies anxiety, Denies depression Endocrine: Denies fatigue, Denies weight change Past Medical History Past Medical History: Asthma, Cancer, Diabetes Mellitus, Hypertension, Osteoarthritis (OA), Pneumonia, Respiratory Disorder Additional Past Medical History / Comment(s): Pulmonary fibrosis, CO2 retainer- pt's PCP suggested for pt to have tests run during this hospitalization to det ermine correct liter flow for his home O2- currently uses 2-3L/NC, NIDDM type II, prostate cancer with surgery, nose bleeds, arthritis multiple joints. PT/SPOUSE REQUESTING NO PHYSICAL THERAPY. History of Any Multi-Drug Resistant Organisms: None Reported Past Surgical History: Prostate Surgery Additional Past Surgical History / Comment(s): Prostatectomy, bronchoscopy(bx neg), bilateral cataracts removed with lens implants. Past Anesthesia/Blood Transfusion Reactions: No Reported Reaction Additional Past Anesthesia/Blood Transfusion Reaction / Comment(s): clausterphobia Smoking Status: Former smoker - Past Family History Father History Unknown: Yes Additional Family Medical History / Comment(s): raised by great grandparents Mother History Unknown: Yes Additional Family Medical History / Comment(s): raised by great grandparents Medications and Allergies Home Medications Medication Instructions Recorded Confirmed Type Aspirin 650 mg PO DAILY 09/01/16 10/19/21 History glipiZIDE [Glucotrol] 20 mg PO BID 09/01/16 10/19/21 History Ferrous Sulfate [Iron (65 MG 325 mg PO DAILY 03/31/18 10/19/21 History Elemental)] Furosemide [Lasix] 40 mg PO DAILY #30 tablet 01/11/20 10/19/21 Rx Ascorbic Acid [Vitamin C] 1,000 mg PO DAILY 10/19/21 10/19/21 History Cholecalciferol [Vitamin D3 (25 50 mcg PO DAILY 10/19/21 10/19/21 History Mcg = 1000 Iu)] Fluticasone Nasal [place] [Flonase 2 spray EA NOSTRIL DAILY 10/19/21 10/19/21 History Nasal [place]] Pioglitazone [Actos] 45 mg PO DAILY 10/19/21 10/19/21 History Vitamin E (Dl,Tocopheryl Acet) 400 unit PO DAILY 10/19/21 10/19/21 History [Vitamin E (400 Iu = 180 mg)] predniSONE 5 mg PO DAILY 10/19/21 10/19/21 History Allergies Allergy/AdvReac Type Severity Reaction Status Date / Time Penicillins Allergy Anaphylaxis Verified 10/19/21 13:40 Physical Exam Vitals: Vital Signs Temp Pulse Pulse Resp BP BP Pulse Ox 10/20/21 11:48 84 10/20/21 11:38 84 10/20/21 09:04 90 10/20/21 08:52 88 10/20/21 07:53 97.7 F 82 16 119/48 90 L 10/20/21 02:00 98.3 F 80 17 131/95 95 10/19/21 19:52 78 18 10/19/21 19:35 89 10/19/21 19:21 85 10/19/21 19:11 98.0 F 87 18 146/67 91 L 10/19/21 17:24 97.8 F 78 18 165/56 96 10/19/21 17:00 72 18 156/74 97 10/19/21 16:30 71 20 149/70 96 10/19/21 16:00 74 24 134/62 98 10/19/21 15:30 85 22 163/58 97 10/19/21 15:00 80 22 152/68 97 10/19/21 14:30 71 20 146/68 97 10/19/21 14:07 77 24 152/81 96 10/19/21 13:52 88 10/19/21 13:38 98.1 F 88 20 124/83 78 L Intake and Output 10/19/21 10/20/21 10/20/21 22:59 06:59 14:59 Intake Total 240 Output Total 0 600 Balance 240 -600 Intake: Oral 240 Output: Urine 0 600 Other: Weight 95.254 kg GENERAL EXAM: Alert, very pleasant, 86-year-old male, on 5 L of oxygen, comfortable in no apparent distress. HEAD: Normocephalic/atraumatic. EYES: Normal reaction of pupils, equal size. Conjunctiva pink, sclera white. NOSE: Clear with pink turbinates. THROAT: No erythema or exudates. NECK: No masses, no JVD, no thyroid enlargement, no adenopathy. CHEST: No chest wall deformity. Symmetrical expansion. LUNGS: Equal air entry with dim breath sounds, crackles CVS: Regular rate and rhythm, normal S1 and S2, no gallops, no murmurs, no rubs ABDOMEN: Soft, nontender. No hepatosplenomegaly, normal bowel sounds, no guarding or rigidity. EXTREMITIES: No clubbing, mild pretibial and pedal edema, no cyanosis, 2+ pulses and upper and lower extremities. MUSCULOSKELETAL: Muscle strength and tone normal. SPINE: No scoliosis or deformity SKIN: No rashes CENTRAL NERVOUS SYSTEM: Alert and oriented -3. No focal deficits, tone is normal in all 4 extremities. PSYCHIATRIC: Alert and oriented -3. Appropriate affect. Intact judgment and insight. Results - Laboratory Findings CBC and BMP: 10/19/21 13:59 10/20/21 06:03 PT/INR, D-dimer PT 10.2 sec (9.0-12.0) 10/19/21 13:59 INR 0.9 (<1.2) 10/19/21 13:59 Abnormal lab findings: Abnormal Labs 10/19/21 10/19/21 10/19/21 13:59 13:59 17:17 RBC 3.60 L Hgb 11.1 L Hct 37.6 L MCV 104.5 H MCHC 29.4 L Plt Count 116 L Lymphocytes # 0.2 L Sodium 130 L Chloride 81 L Carbon Dioxide 43 H* BUN 33 H Est GFR (CKD-EPI)AfAm Est GFR (CKD-EPI)NonAf BUN/Creatinine Ratio Glucose 189 H POC Glucose (mg/dL) 217 H 10/19/21 10/20/21 10/20/21 19:45 01:36 05:59 RBC Hgb Hct MCV MCHC Plt Count Lymphocytes # Sodium Chloride Carbon Dioxide BUN Est GFR (CKD-EPI)AfAm Est GFR (CKD-EPI)NonAf BUN/Creatinine Ratio Glucose POC Glucose (mg/dL) 410 H 321 H 293 H 10/20/21 10/20/21 10/20/21 06:03 07:14 11:43 RBC Hgb Hct MCV MCHC Plt Count Lymphocytes # Sodium 132 L Chloride 83 L Carbon Dioxide 39.1 H BUN 34.9 H Est GFR (CKD-EPI)AfAm 54.2 L Est GFR (CKD-EPI)NonAf 46.8 L BUN/Creatinine Ratio 25.66 H Glucose 296 H POC Glucose (mg/dL) 292 H 394 H - Diagnostic Findings Chest x-ray: report reviewed, image reviewed Assessment and Plan Plan: Assessment: #1. Acute on chronic hypoxic respiratory failure related to acute exacerbation of COPD #2. Chronic IPF, with chronic hypoxic respiratory failure usually wears 3 L of oxygen on a regular basis #3. History of COPD, on home oxygen #4. Hypertension #5. History of prostate cancer with prostatectomy #6. Type 2 diabetes mellitus #7. Former smoker Plan: Continue current medical treatment Continue IV steroids and bronchodilators Continue antibiotics Continue Lasix We'll send the procalcitonin level Follow-up labs including CBC and BMP, and a chest x-ray tomorrow We'll continue to follow his clinical course I have personally seen and examined the patient, performed the documentation and the assessment and plan as written. Number of minutes spent on the visit: [15] Time with Patient: Greater than 30
--- NOTE | 2021-10-20 16:54 | P.PN ---
Subjective Progress Note Date: 10/20/21 Principal diagnosis: sob Doing well. Feeling better compared to yesterday. He states he still gets short of breath when he ambulates. No cp or fevers. Objective - Vital Signs Vital signs: Vital Signs Temp 97.6 F 10/20/21 14:33 Pulse 79 10/20/21 15:53 Resp 16 10/20/21 14:33 BP 119/52 10/20/21 14:33 Pulse Ox 97 10/20/21 14:33 FiO2 Intake & Output 10/19/21 10/20/21 10/20/21 18:59 06:59 18:59 Intake Total 240 Output Total 0 600 Balance 240 -600 Weight 95.254 kg Intake: Oral 240 Output: Urine 0 600 - Exam Constitutional: No acute distress, conversant, pleasant Eyes:Anicteric sclerae, moist conjunctiva, no lid-lag, PERRLA, ENMT: Oropharynx clear, no erythema, exudates Neck: Supple, FROM, no masses, or JVD, No carotid bruits, No thyromegaly Lungs: Bilateral rhonchi, Clear to percussion, Normal respiratory effort, no accessory muscle use Cardiovascular: Heart regular in rate and rhythm, No murmurs, gallops, or rubs, No peripheral edema Abdominal: Soft, Nontender, no guarding, rebound or rigidity, Normoactive bowel sounds, No hepatomegaly, No splenomegaly, No palpable mass Skin: Normal temperature, tone, texture, turgor, no induration, No subcutaneous nodules, No rash, lesions, No ulcers Extremities: No digital cyanosis, No clubbing, Pedal pulses intact and symmetrical, Radial pulses intact and symmetrical, No calf tenderness Psychiatric: Alert and oriented to person, place and time, appropriate affect, intact judgement Neuro: Muscles Strength 5/5 in all 4 extremities, Sensation to light touch grossly present throughout, Cranial nerves II-XII grossly intact, no focal sensory deficits - Labs CBC & Chem 7: 10/19/21 13:59 10/20/21 06:03 Labs: Abnormal Lab Results - Last 24 Hours (Table) 10/19/21 10/19/21 10/20/21 Range/Units 17:17 19:45 01:36 Sodium (135-145) mmol/L Chloride (96-109) mmol/L Carbon Dioxide (20.0-27.5) mmol/L BUN (9.0-27.0) mg/dL Est GFR (CKD-EPI)AfAm (60.0-200.0) Est GFR (CKD-EPI)NonAf (60.0-200.0) BUN/Creatinine Ratio (12.00-20.00) Ratio Glucose (70-110) mg/dL POC Glucose (mg/dL) 217 H 410 H 321 H (70-110) mg/dL 10/20/21 10/20/21 10/20/21 Range/Units 05:59 06:03 07:14 Sodium 132 L (135-145) mmol/L Chloride 83 L (96-109) mmol/L Carbon Dioxide 39.1 H (20.0-27.5) mmol/L BUN 34.9 H (9.0-27.0) mg/dL Est GFR (CKD-EPI)AfAm 54.2 L (60.0-200.0) Est GFR (CKD-EPI)NonAf 46.8 L (60.0-200.0) BUN/Creatinine Ratio 25.66 H (12.00-20.00) Ratio Glucose 296 H (70-110) mg/dL POC Glucose (mg/dL) 293 H 292 H (70-110) mg/dL 10/20/21 Range/Units 11:43 Sodium (135-145) mmol/L Chloride (96-109) mmol/L Carbon Dioxide (20.0-27.5) mmol/L BUN (9.0-27.0) mg/dL Est GFR (CKD-EPI)AfAm (60.0-200.0) Est GFR (CKD-EPI)NonAf (60.0-200.0) BUN/Creatinine Ratio (12.00-20.00) Ratio Glucose (70-110) mg/dL POC Glucose (mg/dL) 394 H (70-110) mg/dL Assessment and Plan Plan: Acute exacerbation of COPD Acute on chronic hypoxic respiratory failure Currently requiring 5 L of oxygen Dounebs IV steroids IV Levaquin Pulmonary following Check pro calcitonin Acute exacerbation of chronic systolic congestive heart failure Echocardiogram from 2019 reviewed, ejection fraction was 45-50%. Repeat echocardiogram Monitor I's and O's Cardiology switched IV Lasix to oral. Diabetes type 2 with hyperglycemia, uncontrolled Start Lantus 12 units daily Hold oral hypoglycemics Sliding scale insulin Chronic Hypertension, Osteoarthritis (OA), Resume meds CODE STATUS discussed with patient, he does not want to be vegetable on machines but he is okay with short-term resuscitation attempts including CPR and ventilator. Anticipated discharge: 1-2 days, likely home
[2021-10-20 16:55] LABS: Glucose,Whole Blood 371 mg/dL (70-110)
--- NOTE | 2021-10-20 18:07 | CA ---
Transthoracic Echo Report Name: Steven Thrasher Age: 86 Gender: M : 1935 Exam Date: 10/20/2021 09:17 Exam Location: [facility] Ht (in): 71 Wt (lb): 210 Ordering Physician: Jersey Boyd DO Attending/Referring Phys: [id number], [employer] Juju Cannon, RD Procedure CPT: Indications: sob Cardiac Hx: Technical Quality: Fair Contrast 1: Total Dose (mL): Contrast 2: Total Dose (mL): MEASUREMENTS (Male / Female) Normal Values 2D ECHO LV Diastolic Diameter PLAX 4.2 cm 4.2 - 5.9 / 3.9 - 5.3 cm LV Systolic Diameter PLAX 3.2 cm IVS Diastolic Thickness 1.5 cm 0.6 - 1.0 / 0.6 - 0.9 cm LVPW Diastolic Thickness 1.6 cm 0.6 - 1.0 / 0.6 - 0.9 cm LV Relative Wall Thickness 0.7 RV Internal Dim ED PLAX 3.3 cm LA Systolic Diameter LX 3.5 cm 3.0 - 4.0 / 2.7 - 3.8 cm M-MODE Aortic Root Diameter MM 3.6 cm MV E Point Septal Separation 0.7 cm AV Cusp Separation MM 2.4 cm DOPPLER MV Area PHT 3.0 cm??? Mitral E Point Velocity 105.3 cm/s Mitral A Point Velocity 130.4 cm/s Mitral E to A Ratio 0.8 MV Deceleration Time 251.4 ms MV E' Velocity 7.4 cm/s Mitral E to MV E' Ratio 14.1 TR Peak Velocity 175.8 cm/s TR Peak Gradient 12.4 mmHg Right Ventricular Systolic Press 17.4 mmHg FINDINGS Left Ventricle Left ventricular ejection fraction is estimated at 55-60 %. Left ventricular cavity size normal. Moderate concentric left ventricular hypertrophy. Right Ventricle Mild right ventricular dilatation. Right ventricular systolic pressure within normal limits. Right Atrium Normal right atrial size. Left Atrium Normal left atrial size. No evidence for an atrial septal defect. Mitral Valve Mitral annular calcification. Trace to mild mitral regurgitation. Aortic Valve Trileaflet aortic valve. No aortic valve stenosis or regurgitation. Tricuspid Valve Trace to mild tricuspid regurgitation.structurally normal tricuspid valve. Pulmonic Valve Pulmonic valve not well visualized. Pericardium Normal pericardium. No pericardial effusion. Aorta Normal size aortic root and proximal ascending aorta. CONCLUSIONS 1. normal left ventricle size and systolic function 2. Trace to mild mitral and tricuspid regurgitation 3. No pericardial effusion Previewed by: Dr. Liana Crook MD (Electronically Signed) Final Date: 20 October 2021 18:07
[2021-10-20 20:33] LABS: Glucose,Whole Blood 282 mg/dL (70-110)
[2021-10-21] MEDS: IPRATROPIUM-ALBUTEROL 3 ML NEB INHALATION SCH ×7 (00:21→23:42)
[2021-10-21 06:28] LABS: Glucose,Whole Blood 291 mg/dL (70-110)
--- NOTE | 2021-10-21 06:46 | XR ---
EXAMINATION TYPE: XR chest 1V portable DATE OF EXAM: 10/21/2021 CLINICAL HISTORY: Difficulty breathing progress study. History of COPD and silicosis. TECHNIQUE: Single AP portable upright view of the chest is obtained. COMPARISON: Chest x-ray from 2 days earlier and older studies. FINDINGS: Chronic parenchymal changes bilaterally redemonstrated. Low lung volumes with increased le ft lung opacity and left-sided volume loss redemonstrated. Silhouetting of left heart border again se en. Osseous structures are intact. IMPRESSION: Low lung volumes and chronic changes with persistent left lung opacity and volume loss ar e redemonstrated. No significant change from older studies. Areas of subtle acute infiltrate difficul t to exclude on chronic change but favor chronic changes.
[2021-10-21 07:17] LABS: ABG PO2 266 mmHg (83-108); Allen Test Performed? Yes
[2021-10-21 07:36] LABS: Glucose,Whole Blood 306 mg/dL (70-110)
[2021-10-21] MEDS: SYMBICORT 160-4.5 MCG INHALER INHALATION SCH ×2 (07:44→19:26)
[2021-10-21] MEDS: INSULIN DETEMIR (LEVEMIR) 100 UNIT/ML SYR SQ SCH ×2 (07:59→13:08)
[2021-10-21] MEDS: FERROUS SULFATE 325 MG TAB PO SCH (08:16)
[2021-10-21] MEDS: ASPIRIN 81 MG PO SCH (08:17)
[2021-10-21] MEDS: CHOLECALCIFEROL 25 MCG (1000 IU) TABLET PO SCH (08:17)
[2021-10-21] MEDS: INSULIN ASPART (NovoLOG) 100 UNIT/ML VIAL SQ SCH ×4 (08:27→22:01)
[2021-10-21] MEDS: ENOXAPARIN 40 MG/0.4 ML SYRINGE SQ SCH (08:27)
[2021-10-21] MEDS: methylPREDNISolone SOD SUCCI 125 MG/2 ML VIAL IV SCH ×3 (08:28→17:47)
[2021-10-21] MEDS: FUROSEMIDE 10 MG/ML 4 ML VIAL IV SCH (08:28)
[2021-10-21] MEDS: LEVOFLOXACIN 500MG-D5W PMX 500 MG in DEXTROSE/WATER 1 100ML.BAG IVPB SCH (08:28)
[2021-10-21 08:57] LABS: ABG PCO2 >120 mmHg (35-45); ABG PH 7.15 (7.35-7.45)
[2021-10-21] MEDS ORDERED: FUROSEMIDE 40 MG TAB PO SCH (09:00)
[2021-10-21 10:10] LABS: ABG Base Excess 22.6 mmol/L; ABG Oxygen Saturation 92.3 % (94-97); ABG PH 7.28 (7.35-7.45); ABG PO2 60 mmHg (83-108); ABG TCO2 53 mmol/L (19-24); Allen Test Performed? Yes
[2021-10-21 10:12] LABS: ABG HCO3 49 mmol/L (21-25); ABG PCO2 104 mmHg (35-45)
--- NOTE | 2021-10-21 10:23 | P.PN ---
Subjective Progress Note Date: 10/21/21 Principal diagnosis: Hypoxemic respiratory failure. 86-year-old male patient with known history of pulmonary fibrosis, with chronic hypoxic respiratory failure patient usually wears 3 L of oxygen around the clock. His pulmonary fibrosis changes are worse in the left lung. In addition patient does have history of COPD, his most recent PFT from 2017 showed FEV1 of 1.1 L or 41% predicted, FVC of 1.68 or 44% of predicted, with FEV1 to FVC ratio of 93%, FEV of 38%, total lung capacity of 65% of predicted, consistent with severe obstruction and severe restriction. Other medical history includes hypertension, diabetes mellitus type 2, former smoker, prostate cancer status po st prostatectomy, osteoarthritis. Patient follows with Dr. Richardson in the pulmonary clinic, patient is maintained on prednisone 5 mg daily, DuoNeb, Symbicort and Ventolin inhaler. Patient came into the emergency department on 10/19/2021 with complaints of progressive dyspnea over the past one week. Did report some slight chest discomfort and worsening lower extremity edema. Reported positive orthopnea. Denied any fever or chills, no cough or phlegm production. On presentation his pulse ox was noted to be at 60% on his usual 3 L/m. He states he took 2 courses of azithromycin in the past couple weeks and his prednisone was increased from 5 mg to 10 mg per day. Chest x-ray showed extensive chronic left-sided infiltrate with volume loss, not significantly different from 2 years ago. Lab evaluation showed white blood cell, 7.7, hemoglobin of 11.1, coagulation profile was within normal limits, proBNP was 596, troponins were less than 0.0123, chloride 19 PCR, influenza A and B and legionella urine antigen were all negative. BNP was reviewed showing sodium of 130, chloride of 81, bicarbonate concentration 43, BUN of 33, creatinine 1.12. LFTs were within normal limits. Patient was placed on empiric medical large with Levaquin, IV steroids, nebulized bronchodilators and given a dose of IV Lasix. Progress note dated 10/21/2021. Apparently last night the patient became more short of breath, and, was provided with increasing concentrations of oxygen. Unfortunately, for a variety reasons including ventilation perfusion mismatch, as well as decreased ventilatory drive, the patient became very hypercapnic, and lethargic/somnolent. Currently, he is on BiPAP, the settings have been increased to 16/6, and the FiO2 was reduced down to 40%. The gas was ordered. In addition, he had an opportunity to speak to his , and the patient was clear about not being placed on mec hanical ventilation. I did speak to the [facility] physician about the situation last night. Currently, the most recent blood gas shows a pO2 of 60, pCO2 104, and a pH of 7.28. This is certainly an improvement. The previous blood gas showed a pO2 of 66, a pCO2 of greater than 120, and a pH is 7.15. I've asked respiratory to titrate the oxygen, so that his saturations are between 85 and 90%. Objective - Vital Signs Vital signs: Vital Signs Temp 97.8 F 10/21/21 02:09 Pulse 70 10/21/21 07:56 Resp 16 10/21/21 06:38 BP 124/54 10/21/21 02:09 Pulse Ox 99 10/21/21 06:38 FiO2 40 10/21/21 07:33 Intake & Output 10/20/21 10/21/21 10/21/21 18:59 06:59 18:59 Intake Total 100 Balance 100 Intake: Oral 100 Other: # Voids 3 1 # Bowel Movements 0 - Exam Lethargic and somnolent, currently on BiPAP, with mild respiratory difficulty/distress. HEENT examination is grossly unremarkable. Neck supple. Full range of motion. No adenopathy thyromegaly or neck vein distention. Cardiovascular examination reveals regular rhythm rate. S1-S2 normal. No S3 or S4. No discernible murmur noted. Heart rate about 85 bpm. Lungs reveal coarse bilateral rhonchi and bilateral crackles. Breath sounds equal bilaterally but diminished throughout. Saturations are in the 87% range. Abdomen soft, without bowel sounds. No masses. Extremities are intact. No cyanosis clubbing or edema. Skin is without rash or lesion. Neurologic examination is difficult to assess as the patient's very somnolent/lethargic, from the elevated PaCO2. - Labs CBC & Chem 7: 10/19/21 13:59 10/20/21 06:03 Labs: Abnormal Lab Results - Last 24 Hours (Table) 10/20/21 10/20/21 10/20/21 Range/Units 06:03 11:43 16:51 ABG pH (7.35-7.45) ABG pCO2 (35-45) mmHg ABG pO2 (83-108) mmHg ABG HCO3 (21-25) mmol/L ABG Total CO2 (19-24) mmol/L ABG O2 Saturation (94-97) % POC Glucose (mg/dL) 394 H 371 H (70-110) mg/dL Procalcitonin 0.11 H (0.02-0.09) ng/mL 10/20/21 10/21/21 10/21/21 Range/Units 20:31 06:26 07:08 ABG pH 7.15 L* (7.35-7.45) ABG pCO2 >120 H* (35-45) mmHg ABG pO2 266 H (83-108) mmHg ABG HCO3 (21-25) mmol/L ABG Total CO2 (19-24) mmol/L ABG O2 Saturation 100.0 H (94-97) % POC Glucose (mg/dL) 282 H 291 H (70-110) mg/dL Procalcitonin (0.02-0.09) ng/mL 10/21/21 10/21/21 Range/Units 07:34 10:07 ABG pH 7.28 L (7.35-7.45) ABG pCO2 104 H* (35-45) mmHg ABG pO2 60 L (83-108) mmHg ABG HCO3 49 H* (21-25) mmol/L ABG Total CO2 53 H (19-24) mmol/L ABG O2 Saturation 92.3 L (94-97) % POC Glucose (mg/dL) 306 H (70-110) mg/dL Procalcitonin (0.02-0.09) ng/mL Microbiology - Last 24 Hours (Table) 10/19/21 14:02 Blood Culture - Preliminary Blood No Growth after 24 hours Assessment and Plan Assessment: Acute on chronic hypoxemic and hypercapnic respiratory failure, secondary to un derlying COPD, and pulmonary fibrosis. Chronic hypercapnic respiratory failure. History of COPD, on home oxygen. History of hypertension. History of prostate cancer, status post prostatectomy. Type 2 diabetes mellitus. Previous history of tobacco use. Plan: Plan dated 10/21/2021. Blood gas was ordered by the hospital. The patient's BiPAP was changed to 16/6, and FiO2 was reduced. The most recent blood gas, shows improvement. I did have an opportunity to speak to the patient's , who is adamant that the patient not be placed on the ventilator. We'll continue to follow and provide all appropriate medications for this patient, and hope that we can turn him around. Additional recommendations and suggestions are forthcoming. He is very bad lung disease. It's a combination of both COPD and interstitial lung disease/pulmonary fibrosis. Prognosis is certainly guarded. Labs, x-rays, and medications are all reviewed. Time with Patient: Less than 30
[2021-10-21 11:15] LABS: Basophils # (A) 0.01 X 10*3/uL (0.00-0.10); Basophils % (A) 0.1 %; Eosinophils # (A) 0 X 10*3/uL (0.04-0.35); Eosinophils % (A) 0 %; HCT 35.2 % (39.6-50.0); HGB 10.4 g/dL (13.0-17.0); Immature Grans, Automated 0.7 %; Lymphocytes # (A) 0.11 X 10*3/uL (0.90-5.00); Lymphocytes % (A) 0.8 %; MCH 31.4 pg (27.0-32.0); MCHC 29.5 g/dL (32.0-37.0); MCV 106.3 fL (80.0-97.0); Macrocytosis (M) 2+; Mean Platelet Volume 11.2 fL (9.5-12.2); Monocytes # (A) 0.52 X 10*3/uL (0.20-1.00); Monocytes % (A) 3.6 %; NRBC Per 100 WBC 0 /100 WBCS (0.0-0.0); Neutrophils # (A) 13.52 X 10*3/uL (1.80-7.70); Neutrophils % (A) 94.8 %; Platelet Count 136 X 10*3/uL (140-440); RBC 3.31 X 10*6/uL (4.40-5.60); RDW 12.9 % (11.5-14.5); WBC 14.26 X 10*3/uL (4.50-10.00)
[2021-10-21 11:59] LABS: Glucose,Whole Blood 300 mg/dL (70-110)
[2021-10-21 12:27] LABS: ALT 20 U/L (10-49); AST 22 U/L (14-35); African American GFR (CKD) 52.4 (60.0-200.0); Albumin 3.9 g/dL (3.8-4.9); Albumin/Globulin Ratio 1.34 (1.60-3.17); Alkaline Phosphatase 99 U/L (41-126); BUN/Creat Ratio 30.57 Ratio (12.00-20.00); Blood Urea Nitrogen 42.8 mg/dL (9.0-27.0); Carbon Dioxide 38.8 mmol/L (20.0-27.5); Chloride 84 mmol/L (96-109); Globulin 2.9 g/dL (1.6-3.3); Glucose 278 mg/dL (70-110); Non-African American GFR(CKD) 45.2 (60.0-200.0); Potassium 5.8 mmol/L (3.5-5.5); Sodium 131 mmol/L (135-145); Total Bilirubin <0.15 mg/dL (0.30-1.20); Total Protein 6.8 g/dL (6.2-8.2)
--- NOTE | 2021-10-21 12:29 | P.PN ---
Subjective Progress Note Date: 10/21/21 This pleasant 86-year-old gentleman with a history of severe pulmonary fibrosis on home oxygen. He follows with Dr. Richardson. This is a history of diabetes, hypertension. No past history of CAD. Presented to the emergency department with progressively worsening shortness of breath and upon presentation oxygen saturation was 60% on 3 L via nasal cannula. He had been complaining of orthopnea and PND as well. He has chronic lower extremity edema no worse than usual. Chest x-ray on admission showed extensive chronic left-sided infiltrate with volume loss which is not significantly different than exam 2 years ago, consistent with pulmonary fibrosis and chronic pneumonia, interstitial fibrotic changes in the right lung without change, no definite heart failure. We are asked to see the patient in consultation for congestive heart failure. NT proBNP was not elevated and came back at 596. Upon examination he is resting comfortably sitting up at the side of the bed. He is in no acute distress. Feels his breathing has improved some. He is currently on DuoNeb and IV Solu- Medrol as well as IV Lasix 40 mg daily. 10/21/2021 Apparently last night the patient became more short of breath and was provided with increased concentrations of oxygen. He became quite lethargic and subsequently required BiPAP. Patient was seen and examined this morning patient remains quite lethargic with minimal verbal response. Continues to be on BiPAP. Patient had echocardiogram Doppler study done yesterday which showed a normal LV systolic function. Objective - Vital Signs Vital signs: Vital Signs Temp 97.5 F L 10/21/21 08:00 Pulse 73 10/21/21 11:42 Resp 18 10/21/21 08:00 BP 124/67 10/21/21 08:00 Pulse Ox 93 L 10/21/21 08:00 FiO2 35 10/21/21 11:28 Intake & Output 10/20/21 10/21/21 10/21/21 18:59 06:59 18:59 Intake Total 100 Balance 100 Intake: Oral 100 Other: # Voids 3 1 # Bowel Movements 0 - Exam HEENT: Head is atraumatic, normocephalic. Pupils are equal, round. Sclerae anicteric. Conjunctivae are clear. Mucous membranes of the mouth are moist. Neck is supple. There is no elevated jugular venous pressure. No carotid bruit is heard. CHEST EXAMINATION: Lungs reveal dry crackles throughout with scattered rhonchi. On Bi-PAP HEART EXAMINATION: Heart regular, positive S1 and S2. No S3. No S4. No clicks, rubs or murmurs. ABDOMEN: Soft, nontender. Bowel sounds are heard. No organomegaly noted. EXTREMITIES: 2+ peripheral pulses with evidence of mild peripheral edema and no calf tenderness noted. NEUROLOGIC EXAMINATION: Patient is lethargic. - Labs CBC & Chem 7: 10/21/21 06:02 10/20/21 06:03 Labs: Abnormal Lab Results - Last 24 Hours (Table) 10/20/21 10/20/21 10/20/21 Range/Units 06:03 16:51 20:31 WBC (4.50-10.00) X 10*3/uL RBC (4.40-5.60) X 10*6/uL Hgb (13.0-17.0) g/dL Hct (39.6-50.0) % MCV (80.0-97.0) fL MCHC (32.0-37.0) g/dL Plt Count (140-440) X 10*3/uL Plt Count Comment Immature Gran # (0.00-0.04) X 10*3/uL Neutrophils # (1.80-7.70) X 10*3/uL Lymphocytes # (0.90-5.00) X 10*3/uL Eosinophils # (0.04-0.35) X 10*3/uL ABG pH (7.35-7.45) ABG pCO2 (35-45) mmHg ABG pO2 (83-108) mmHg ABG HCO3 (21-25) mmol/L ABG Total CO2 (19-24) mmol/L ABG O2 Saturation (94-97) % POC Glucose (mg/dL) 371 H 282 H (70-110) mg/dL Procalcitonin 0.11 H (0.02-0.09) ng/mL 10/21/21 10/21/21 10/21/21 Range/Units 06:02 06:26 07:08 WBC 14.26 H (4.50-10.00) X 10*3/uL RBC 3.31 L (4.40-5.60) X 10*6/uL Hgb 10.4 L (13.0-17.0) g/dL Hct 35.2 L (39.6-50.0) % MCV 106.3 H (80.0-97.0) fL MCHC 29.5 L (32.0-37.0) g/dL Plt Count 136 L (140-440) X 10*3/uL Plt Count Comment DECREASED A Immature Gran # 0.10 H (0.00-0.04) X 10*3/uL Neutrophils # 13.52 H (1.80-7.70) X 10*3/uL Lymphocytes # 0.11 L (0.90-5.00) X 10*3/uL Eosinophils # 0 L (0.04-0.35) X 10*3/uL ABG pH 7.15 L* (7.35-7.45) ABG pCO2 >120 H* (35-45) mmHg ABG pO2 266 H (83-108) mmHg ABG HCO3 (21-25) mmol/L ABG Total CO2 (19-24) mmol/L ABG O2 Saturation 100.0 H (94-97) % POC Glucose (mg/dL) 291 H (70-110) mg/dL Procalcitonin (0.02-0.09) ng/mL 10/21/21 10/21/21 10/21/21 Range/Units 07:34 10:07 11:57 WBC (4.50-10.00) X 10*3/uL RBC (4.40-5.60) X 10*6/uL Hgb (13.0-17.0) g/dL Hct (39.6-50.0) % MCV (80.0-97.0) fL MCHC (32.0-37.0) g/dL Plt Count (140-440) X 10*3/uL Plt Count Comment Immature Gran # (0.00-0.04) X 10*3/uL Neutrophils # (1.80-7.70) X 10*3/uL Lymphocytes # (0.90-5.00) X 10*3/uL Eosinophils # (0.04-0.35) X 10*3/uL ABG pH 7.28 L (7.35-7.45) ABG pCO2 104 H* (35-45) mmHg ABG pO2 60 L (83-108) mmHg ABG HCO3 49 H* (21-25) mmol/L ABG Total CO2 53 H (19-24) mmol/L ABG O2 Saturation 92.3 L (94-97) % POC Glucose (mg/dL) 306 H 300 H (70-110) mg/dL Procalcitonin (0.02-0.09) ng/mL Microbiology - Last 24 Hours (Table) 10/19/21 14:02 Blood Culture - Preliminary Blood No Growth after 24 hours Assessment and Plan Assessment: #1 acute on chronic respiratory failure secondary to severe pulmonary fibrosis, acute exacerbation of COPD #2 diabetes #3 hypertension Plan: From cardiology's perspective worsening shortness of breath likely secondary to pulmonary fibrosis and underlying COPD exacerbation not likely to be related to congestive heart failure, NT proBNP is not elevated an echocardiogram showed normal LV systolic function. At this time will follow the patient on an as- needed basis. Please do not hesitate to contact us with questions. INVENTORY CONTROL/SHIPPING RECEIVING note has been reviewed, I agree with a documented findings and plan of care. Patient was seen and examined.
[2021-10-21] MEDS ORDERED: SODIUM POLYSTYRENE SULFONATE 15 GM/60 ML BOTTLE PO STA (13:00)
--- NOTE | 2021-10-21 13:06 | P.PN ---
Subjective Progress Note Date: 10/21/21 Principal diagnosis: sob He was very lethargic this morning. Had to use sternal rubs to wake him up. ABG showed PH 7.15, PCO2>120. He was placed on bipap then his mental status improved and became more responsive. Still with sob. Objective - Vital Signs Vital signs: Vital Signs Temp 97.5 F L 10/21/21 08:00 Pulse 73 10/21/21 11:42 Resp 18 10/21/21 08:00 BP 124/67 10/21/21 08:00 Pulse Ox 93 L 10/21/21 08:00 FiO2 35 10/21/21 11:28 Intake & Output 10/20/21 10/21/21 10/21/21 18:59 06:59 18:59 Intake Total 100 Output Total 1999 Balance -1900 Intake: Oral 100 Output: Urine 1999 Other: # Voids 3 1 # Bowel Movements 0 - Exam Constitutional: No acute distress, conversant, pleasant Eyes:Anicteric sclerae, moist conjunctiva, no lid-lag, PERRLA, ENMT: Oropharynx clear, no erythema, exudates Neck: Supple, FROM, no masses, or JVD, No carotid bruits, No thyromegaly Lungs: Bilateral rhonchi, Clear to percussion, Normal respiratory effort, no accessory muscle use Cardiovascular: Heart regular in rate and rhythm, No murmurs, gallops, or rubs, No peripheral edema Abdominal: Soft, Nontender, no guarding, rebound or rigidity, Normoactive bowel sounds, No hepatomegaly, No splenomegaly, No palpable mass Skin: Normal temperature, tone, texture, turgor, no induration, No subcutaneous nodules, No rash, lesions, No ulcers Extremities: No digital cyanosis, No clubbing, Pedal pulses intact and sy mmetrical, Radial pulses intact and symmetrical, No calf tenderness Psychiatric: Alert and oriented to person, place and time, appropriate affect, intact judgement Neuro: Muscles Strength 5/5 in all 4 extremities, Sensation to light touch grossly present throughout, Cranial nerves II-XII grossly intact, no focal sensory deficits - Labs CBC & Chem 7: 10/21/21 06:02 10/21/21 06:02 Labs: Abnormal Lab Results - Last 24 Hours (Table) 10/20/21 10/20/21 10/20/21 Range/Units 06:03 16:51 20:31 WBC (4.50-10.00) X 10*3/uL RBC (4.40-5.60) X 10*6/uL Hgb (13.0-17.0) g/dL Hct (39.6-50.0) % MCV (80.0-97.0) fL MCHC (32.0-37.0) g/dL Plt Count (140-440) X 10*3/uL Plt Count Comment Immature Gran # (0.00-0.04) X 10*3/uL Neutrophils # (1.80-7.70) X 10*3/uL Lymphocytes # (0.90-5.00) X 10*3/uL Eosinophils # (0.04-0.35) X 10*3/uL ABG pH (7.35-7.45) ABG pCO2 (35-45) mmHg ABG pO2 (83-108) mmHg ABG HCO3 (21-25) mmol/L ABG Total CO2 (19-24) mmol/L ABG O2 Saturation (94-97) % Sodium (135-145) mmol/L Potassium (3.5-5.5) mmol/L Chloride (96-109) mmol/L Carbon Dioxide (20.0-27.5) mmol/L Anion Gap (10.00-18.00) mmol/L BUN (9.0-27.0) mg/dL Est GFR (CKD-EPI)AfAm (60.0-200.0) Est GFR (CKD-EPI)NonAf (60.0-200.0) BUN/Creatinine Ratio (12.00-20.00) Ratio Glucose (70-110) mg/dL POC Glucose (mg/dL) 371 H 282 H (70-110) mg/dL Total Bilirubin (0.30-1.20) mg/dL Albumin/Globulin Ratio (1.60-3.17) g/dL Procalcitonin 0.11 H (0.02-0.09) ng/mL 10/21/21 10/21/21 10/21/21 Range/Units 06:02 06:02 06:26 WBC 14.26 H (4.50-10.00) X 10*3/uL RBC 3.31 L (4.40-5.60) X 10*6/uL Hgb 10.4 L (13.0-17.0) g/dL Hct 35.2 L (39.6-50.0) % MCV 106.3 H (80.0-97.0) fL MCHC 29.5 L (32.0-37.0) g/dL Plt Count 136 L (140-440) X 10*3/uL Plt Count Comment DECREASED A Immature Gran # 0.10 H (0.00-0.04) X 10*3/uL Neutrophils # 13.52 H (1.80-7.70) X 10*3/uL Lymphocytes # 0.11 L (0.90-5.00) X 10*3/uL Eosinophils # 0 L (0.04-0.35) X 10*3/uL ABG pH (7.35-7.45) ABG pCO2 (35-45) mmHg ABG pO2 (83-108) mmHg ABG HCO3 (21-25) mmol/L ABG Total CO2 (19-24) mmol/L ABG O2 Saturation (94-97) % Sodium 131 L (135-145) mmol/L Potassium 5.8 H (3.5-5.5) mmol/L Chloride 84 L (96-109) mmol/L Carbon Dioxide 38.8 H (20.0-27.5) mmol/L Anion Gap 8.20 L (10.00-18.00) mmol/L BUN 42.8 H (9.0-27.0) mg/dL Est GFR (CKD-EPI)AfAm 52.4 L (60.0-200.0) Est GFR (CKD-EPI)NonAf 45.2 L (60.0-200.0) BUN/Creatinine Ratio 30.57 H (12.00-20.00) Ratio Glucose 278 H (70-110) mg/dL POC Glucose (mg/dL) 291 H (70-110) mg/dL Total Bilirubin <0.15 L (0.30-1.20) mg/dL Albumin/Globulin Ratio 1.34 L (1.60-3.17) g/dL Procalcitonin (0.02-0.09) ng/mL 10/21/21 10/21/21 10/21/21 Range/Units 07:08 07:34 10:07 WBC (4.50-10.00) X 10*3/uL RBC (4.40-5.60) X 10*6/uL Hgb (13.0-17.0) g/dL Hct (39.6-50.0) % MCV (80.0-97.0) fL MCHC (32.0-37.0) g/dL Plt Count (140-440) X 10*3/uL Plt Count Comment Immature Gran # (0.00-0.04) X 10*3/uL Neutrophils # (1.80-7.70) X 10*3/uL Lymphocytes # (0.90-5.00) X 10*3/uL Eosinophils # (0.04-0.35) X 10*3/uL ABG pH 7.15 L* 7.28 L (7.35-7.45) ABG pCO2 >120 H* 104 H* (35-45) mmHg ABG pO2 266 H 60 L (83-108) mmHg ABG HCO3 49 H* (21-25) mmol/L ABG Total CO2 53 H (19-24) mmol/L ABG O2 Saturation 100.0 H 92.3 L (94-97) % Sodium (135-145) mmol/L Potassium (3.5-5.5) mmol/L Chloride (96-109) mmol/L Carbon Dioxide (20.0-27.5) mmol/L Anion Gap (10.00-18.00) mmol/L BUN (9.0-27.0) mg/dL Est GFR (CKD-EPI)AfAm (60.0-200.0) Est GFR (CKD-EPI)NonAf (60.0-200.0) BUN/Creatinine Ratio (12.00-20.00) Ratio Glucose (70-110) mg/dL POC Glucose (mg/dL) 306 H (70-110) mg/dL Total Bilirubin (0.30-1.20) mg/dL Albumin/Globulin Ratio (1.60-3.17) g/dL Procalcitonin (0.02-0.09) ng/mL 10/21/21 Range/Units 11:57 WBC (4.50-10.00) X 10*3/uL RBC (4.40-5.60) X 10*6/uL Hgb (13.0-17.0) g/dL Hct (39.6-50.0) % MCV (80.0-97.0) fL MCHC (32.0-37.0) g/dL Plt Count (140-440) X 10*3/uL Plt Count Comment Immature Gran # (0.00-0.04) X 10*3/uL Neutrophils # (1.80-7.70) X 10*3/uL Lymphocytes # (0.90-5.00) X 10*3/uL Eosinophils # (0.04-0.35) X 10*3/uL ABG pH (7.35-7.45) ABG pCO2 (35-45) mmHg ABG pO2 (83-108) mmHg ABG HCO3 (21-25) mmol/L ABG Total CO2 (19-24) mmol/L ABG O2 Saturation (94-97) % Sodium (135-145) mmol/L Potassium (3.5-5.5) mmol/L Chloride (96-109) mmol/L Carbon Dioxide (20.0-27.5) mmol/L Anion Gap (10.00-18.00) mmol/L BUN (9.0-27.0) mg/dL Est GFR (CKD-EPI)AfAm (60.0-200.0) Est GFR (CKD-EPI)NonAf (60.0-200.0) BUN/Creatinine Ratio (12.00-20.00) Ratio Glucose (70-110) mg/dL POC Glucose (mg/dL) 300 H (70-110) mg/dL Total Bilirubin (0.30-1.20) mg/dL Albumin/Globulin Ratio (1.60-3.17) g/dL Procalcitonin (0.02-0.09) ng/mL Microbiology - Last 24 Hours (Table) 10/19/21 14:02 Blood Culture - Preliminary Blood No Growth after 24 hours Assessment and Plan Plan: Acute exacerbation of COPD Acute on chronic hypoxic respiratory failure Currently requiring 5 L of oxygen Dounebs IV steroids IV Levaquin Pulmonary following Mildly elevated pro calcitonin 0.11 Acute exacerbation of chronic systolic congestive heart failure Echocardiogram from 2019 reviewed, ejection fraction was 45-50%. Repeat echocardiogram Monitor I's and O's Cardiology switched IV Lasix to oral. Diabetes type 2 with hyperglycemia, uncontrolled Lantus 12 units daily Hold oral hypoglycemics Sliding scale insulin Chronic Hypertension, Osteoarthritis (OA), Resume meds CODE STATUS discussed with patient, he does not want to be vegetable on machines but he is okay with short-term resuscitation attempts including CPR and ventilator. Anticipated discharge: 2 days, likely home
[2021-10-21] MEDS ORDERED: FUROSEMIDE 10 MG/ML 4 ML VIAL IV ONE (14:00)
[2021-10-21 15:39] LABS: ALT 20 U/L (4-49); AST 21 U/L (17-59); African American GFR (CKD) 63 (>60 ml/min/1.73 sqM); Albumin 3.4 g/dL (3.5-5.0); Albumin/Globulin Ratio 1.1; Alkaline Phosphatase 86 U/L (38-126); Blood Urea Nitrogen 53 mg/dL (9-20); Calcium 8.6 mg/dL (8.4-10.2); Chloride 78 mmol/L (98-107); Glucose 263 mg/dL (74-99); Non-African American GFR(CKD) 54 (>60 ml/min/1.73 sqM); Potassium 4.6 mmol/L (3.5-5.1); Sodium 131 mmol/L (137-145); Total Bilirubin 0.2 mg/dL (0.2-1.3); Total Protein 6.4 g/dL (6.3-8.2)
[2021-10-21 15:45] LABS: Anion Gap 6 mmol/L
[2021-10-21 15:50] LABS: Carbon Dioxide 47 mmol/L (22-30)
[2021-10-21 16:48] LABS: Glucose,Whole Blood 261 mg/dL (70-110)
[2021-10-21 20:51] LABS: Glucose,Whole Blood 145 mg/dL (70-110)
[2021-10-22] MEDS: methylPREDNISolone SOD SUCCI 125 MG/2 ML VIAL IV SCH ×4 (01:25→17:20)
[2021-10-22] MEDS: IPRATROPIUM-ALBUTEROL 3 ML NEB INHALATION SCH ×6 (03:37→23:52)
[2021-10-22 07:12] LABS: Glucose,Whole Blood 169 mg/dL (70-110)
[2021-10-22] MEDS: SYMBICORT 160-4.5 MCG INHALER INHALATION SCH ×3 (07:20→20:10)
[2021-10-22] MEDS: ASPIRIN 81 MG PO SCH (07:30)
[2021-10-22] MEDS: ENOXAPARIN 40 MG/0.4 ML SYRINGE SQ SCH (07:30)
[2021-10-22] MEDS: INSULIN DETEMIR (LEVEMIR) 100 UNIT/ML SYR SQ SCH (07:30)
[2021-10-22] MEDS: INSULIN ASPART (NovoLOG) 100 UNIT/ML VIAL SQ SCH ×4 (07:30→21:35)
[2021-10-22] MEDS: FERROUS SULFATE 325 MG TAB PO SCH (07:31)
[2021-10-22] MEDS: CHOLECALCIFEROL 25 MCG (1000 IU) TABLET PO SCH (07:31)
[2021-10-22] MEDS: FUROSEMIDE 10 MG/ML 4 ML VIAL IV SCH (09:08)
--- NOTE | 2021-10-22 11:05 | P.PN ---
Subjective Progress Note Date: 10/22/21 Principal diagnosis: Shortness of breath 86-year-old male patient with known history of pulmonary fibrosis, with chronic hypoxic respiratory failure patient usually wears 3 L of oxygen around the clock. His pulmonary fibrosis changes are worse in the left lung. In addition patient does have history of COPD, his most recent PFT from 2017 showed FEV1 of 1.1 L or 41% predicted, FVC of 1.68 or 44% of predicted, with FEV1 to FVC ratio of 93%, FEV of 38%, total lung capacity of 65% of predicted, consistent with severe obstruction and severe restriction. Other medical history includes hypertension, diabetes mellitus type 2, former smoker, prostate cancer status post prostatectomy, osteoarthritis. Patient follows with Dr. Richardson in the pulmonary clinic, patient is maintained on prednisone 5 mg daily, DuoNeb, Symbicort and Ventolin inhaler. Patient came into the emergency department on 10/19/2021 with complaints of progressive dyspnea over the past one week. Did report some slight chest discomfort and worsening lower extremity edema. Reported positive orthopnea. Denied any fever or chills, no cough or phlegm production. On presentation his pulse ox was noted to be at 60% on his usual 3 L/m. He states he took 2 courses of azithromycin in the past couple weeks and his prednisone was increased from 5 mg to 10 mg per day. Chest x-ray showed extensive chronic left-sided infiltrate with volume loss, not significantly different from 2 years ago. Lab evaluation showed white blood cell, 7.7, hemoglobin of 11.1, coagulation profile was within normal limits, proBNP was 596, troponins were less than 0.0123, chloride 19 PCR, influenza A and B and legionella urine antigen were all negative. BNP was reviewed showing sodium of 130, chloride of 81, bicarbonate concentration 43, BUN of 33, creatinine 1.12. LFTs were within normal limits. Patient was placed on empiric medical large with Levaquin, IV steroids, nebulized bronchodilators and given a dose of IV Lasix. Progress note dated 10/21/2021. Apparently last night the patient became more short of breath, and, was provided with increasing concentrations of oxygen. Unfortunately, for a variety reasons including ventilation perfusion mismatch, as well as decreased ventilatory drive, the patient became very hypercapnic, and lethargic/somnolent. Currently, he is on BiPAP, the settings have been increased to 16/6, and the FiO2 was reduced down to 40%. The gas was ordered. In addition, he had an opportunity to speak to his , and the patient was clear about not being placed on mechanical ventilation. I did speak to the [facility] physician about the situation last night. Currently, the most recent blood gas shows a pO2 of 60, pCO2 104, and a pH of 7.28. This is certainly an improvement. The previous blood gas showed a pO2 of 66, a pCO2 of greater than 120, and a pH is 7.15. I've asked respiratory to titrate the oxygen, so that his saturations are between 85 and 90%. On 10/22/2021 patient is seen in follow-up on the general medical floor. Patient is feeling better today, he was taken off BiPAP, he is more awake, answering questions, he was placed on 4 L of oxygen per nasal cannula and he states 4 L is what she usually wears at home on a regular basis. BiPAP settings were 16/6 and FiO2 was 35% overnight. He has diuresed 4 L and urine output, he is in -4.9 L of fluid in the last 24 hours. Breathing much better, lower extremity edema is improved. He continues on empiric antibiotics, IV steroids and nebulized bronchodilators. Objective - Vital Signs Vital signs: Vital Signs Temp 98.0 F 10/22/21 08:00 Pulse 76 10/22/21 08:00 Resp 21 10/22/21 08:00 BP 135/67 10/22/21 08:00 Pulse Ox 93 L 10/22/21 09:16 FiO2 35 10/22/21 07:21 Intake & Output 10/21/21 10/22/21 10/22/21 18:59 06:59 18:59 Intake Total 100 0 Output Total 4000 900 Balance -3900 0 -900 Weight 90.3 kg Intake: Oral 100 0 Output: Urine 4000 900 Other: Voiding Method Indwelling Catheter Indwelling Catheter # Voids 1 # Bowel Movements 0 - Exam GENERAL EXAM: Alert, very pleasant, 86-year-old male, on 4 L of oxygen, co mfortable in no apparent distress. HEAD: Normocephalic/atraumatic. EYES: Normal reaction of pupils, equal size. Conjunctiva pink, sclera white. NOSE: Clear with pink turbinates. THROAT: No erythema or exudates. NECK: No masses, no JVD, no thyroid enlargement, no adenopathy. CHEST: No chest wall deformity. Symmetrical expansion. LUNGS: Equal air entry with dim breath sounds, crackles CVS: Regular rate and rhythm, normal S1 and S2, no gallops, no murmurs, no rubs ABDOMEN: Soft, nontender. No hepatosplenomegaly, normal bowel sounds, no guarding or rigidity. EXTREMITIES: No clubbing, mild pretibial and pedal edema, no cyanosis, 2+ pulses and upper and lower extremities. MUSCULOSKELETAL: Muscle strength and tone normal. SPINE: No scoliosis or deformity SKIN: No rashes CENTRAL NERVOUS SYSTEM: Alert and oriented -3. No focal deficits, tone is normal in all 4 extremities. PSYCHIATRIC: Alert and oriented -3. Appropriate affect. Intact judgment and insight. - Labs CBC & Chem 7: 10/21/21 06:02 10/21/21 15:14 Labs: Abnormal Lab Results - Last 24 Hours (Table) 10/21/21 10/21/21 10/21/21 Range/Units 06:02 06:02 11:57 WBC 14.26 H (4.50-10.00) X 10*3/uL RBC 3.31 L (4.40-5.60) X 10*6/uL Hgb 10.4 L (13.0-17.0) g/dL Hct 35.2 L (39.6-50.0) % MCV 106.3 H (80.0-97.0) fL MCHC 29.5 L (32.0-37.0) g/dL Plt Count 136 L (140-440) X 10*3/uL Plt Count Comment DECREASED A Immature Gran # 0.10 H (0.00-0.04) X 10*3/uL Neutrophils # 13.52 H (1.80-7.70) X 10*3/uL Lymphocytes # 0.11 L (0.90-5.00) X 10*3/uL Eosinophils # 0 L (0.04-0.35) X 10*3/uL Sodium 131 L (135-145) mmol/L Potassium 5.8 H (3.5-5.5) mmol/L Chloride 84 L (96-109) mmol/L Carbon Dioxide 38.8 H (20.0-27.5) mmol/L Anion Gap 8.20 L (10.00-18.00) mmol/L BUN 42.8 H (9.0-27.0) mg/dL Est GFR (CKD-EPI)AfAm 52.4 L (60.0-200.0) Est GFR (CKD-EPI)NonAf 45.2 L (60.0-200.0) BUN/Creatinine Ratio 30.57 H (12.00-20.00) Ratio Glucose 278 H (70-110) mg/dL POC Glucose (mg/dL) 300 H (70-110) mg/dL Total Bilirubin <0.15 L (0.30-1.20) mg/dL Albumin (3.5-5.0) g/dL Albumin/Globulin Ratio 1.34 L (1.60-3.17) g/dL 10/21/21 10/21/21 10/21/21 Range/Units 15:14 16:47 20:49 WBC (4.50-10.00) X 10*3/uL RBC (4.40-5.60) X 10*6/uL Hgb (13.0-17.0) g/dL Hct (39.6-50.0) % MCV (80.0-97.0) fL MCHC (32.0-37.0) g/dL Plt Count (140-440) X 10*3/uL Plt Count Comment Immature Gran # (0.00-0.04) X 10*3/uL Neutrophils # (1.80-7.70) X 10*3/uL Lymphocytes # (0.90-5.00) X 10*3/uL Eosinophils # (0.04-0.35) X 10*3/uL Sodium 131 L (135-145) mmol/L Potassium (3.5-5.5) mmol/L Chloride 78 L (96-109) mmol/L Carbon Dioxide 47 H* (20.0-27.5) mmol/L Anion Gap (10.00-18.00) mmol/L BUN 53 H (9.0-27.0) mg/dL Est GFR (CKD-EPI)AfAm (60.0-200.0) Est GFR (CKD-EPI)NonAf (60.0-200.0) BUN/Creatinine Ratio (12.00-20.00) Ratio Glucose 263 H (70-110) mg/dL POC Glucose (mg/dL) 261 H 145 H (70-110) mg/dL Total Bilirubin (0.30-1.20) mg/dL Albumin 3.4 L (3.5-5.0) g/dL Albumin/Globulin Ratio (1.60-3.17) g/dL 10/22/21 Range/Units 07:10 WBC (4.50-10.00) X 10*3/uL RBC (4.40-5.60) X 10*6/uL Hgb (13.0-17.0) g/dL Hct (39.6-50.0) % MCV (80.0-97.0) fL MCHC (32.0-37.0) g/dL Plt Count (140-440) X 10*3/uL Plt Count Comment Immature Gran # (0.00-0.04) X 10*3/uL Neutrophils # (1.80-7.70) X 10*3/uL Lymphocytes # (0.90-5.00) X 10*3/uL Eosinophils # (0.04-0.35) X 10*3/uL Sodium (135-145) mmol/L Potassium (3.5-5.5) mmol/L Chloride (96-109) mmol/L Carbon Dioxide (20.0-27.5) mmol/L Anion Gap (10.00-18.00) mmol/L BUN (9.0-27.0) mg/dL Est GFR (CKD-EPI)AfAm (60.0-200.0) Est GFR (CKD-EPI)NonAf (60.0-200.0) BUN/Creatinine Ratio (12.00-20.00) Ratio Glucose (70-110) mg/dL POC Glucose (mg/dL) 169 H (70-110) mg/dL Total Bilirubin (0.30-1.20) mg/dL Albumin (3.5-5.0) g/dL Albumin/Globulin Ratio (1.60-3.17) g/dL Microbiology - Last 24 Hours (Table) 10/19/21 14:02 Blood Culture - Preliminary Blood No Growth after 48 hours Assessment and Plan Plan: Assessment: #1. Acute on chronic hypoxic and hypercapnic respiratory failure related to acute exacerbation of COPD #2. Chronic IPF, with chronic hypoxic respiratory failure usually wears 3-4 L of oxygen on a regular basis #3. History of COPD, on home oxygen #4. Hypertension #5. History of prostate cancer with prostatectomy #6. Type 2 diabetes mellitus #7. Former smoker #8. Chronic hypercapnic respiratory failure related to history of COPD Plan: Patient is much more awake and alert, breathing easier today Tolerating nasal cannula trials at 4 L Maintain O2 saturations between 85 to 89% BiPAP support as needed Continue breathing treatments, steroids and diuretics I have personally seen and examined the patient, performed the documentation and the assessment and plan as written. Number of minutes spent on the visit: [15] Time with Patient: Less than 30
[2021-10-22 12:04] LABS: Glucose,Whole Blood 163 mg/dL (70-110)
[2021-10-22 12:52] LABS: African American GFR (CKD) 52.4 (60.0-200.0); Albumin 3.6 g/dL (3.8-4.9); Albumin/Globulin Ratio 1.33 (1.60-3.17); Anion Gap 9.1 mmol/L (10.00-18.00); BUN/Creat Ratio 35.64 Ratio (12.00-20.00); Blood Urea Nitrogen 49.9 mg/dL (9.0-27.0); Calcium 9.1 mg/dL (8.7-10.3); Carbon Dioxide 44.9 mmol/L (20.0-27.5); Globulin 2.7 g/dL (1.6-3.3); Non-African American GFR(CKD) 45.2 (60.0-200.0); Potassium 4.4 mmol/L (3.5-5.5); Total Bilirubin 0.3 mg/dL (0.30-1.20); Total Protein 6.3 g/dL (6.2-8.2)
[2021-10-22 13:40] LABS: Basophils # (A) 0.01 X 10*3/uL (0.00-0.10); Basophils % (A) 0.1 %; Eosinophils # (A) 0 X 10*3/uL (0.04-0.35); Eosinophils % (A) 0 %; HCT 31.4 % (39.6-50.0); HGB 9.7 g/dL (13.0-17.0); Immature Grans, Automated 0.6 %; MCH 31.5 pg (27.0-32.0); MCHC 30.9 g/dL (32.0-37.0); MCV 101.9 fL (80.0-97.0); Mean Platelet Volume 10.8 fL (9.5-12.2); Monocytes % (A) 1.9 %; NRBC Per 100 WBC 0 /100 WBCS (0.0-0.0); Neutrophils # (A) 10.15 X 10*3/uL (1.80-7.70); Neutrophils % (A) 96.4 %; Platelet Count 124 X 10*3/uL (140-440); RBC 3.08 X 10*6/uL (4.40-5.60); Stomatocytes 2+; WBC 10.52 X 10*3/uL (4.50-10.00)
--- NOTE | 2021-10-22 13:54 | P.PN ---
Subjective Progress Note Date: 10/22/21 Principal diagnosis: sob Patient is doing better today. He has been off BiPAP since this morning, doing well with that. No pain. Breathing is a little better. No fevers or chills. Objective - Vital Signs Vital signs: Vital Signs Temp 98.0 F 10/22/21 08:00 Pulse 80 10/22/21 11:17 Resp 21 10/22/21 08:00 BP 135/67 10/22/21 08:00 Pulse Ox 93 L 10/22/21 09:16 FiO2 35 10/22/21 07:21 Intake & Output 10/21/21 10/22/21 10/22/21 18:59 06:59 18:59 Intake Total 100 0 Output Total 4000 900 Balance -3900 0 -900 Weight 90.3 kg Intake: Oral 100 0 Output: Urine 4000 900 Other: Voiding Method Indwelling Catheter Indwelling Catheter # Voids 1 # Bowel Movements 0 - Exam Constitutional: No acute distress, conversant, pleasant Eyes:Anicteric sclerae, moist conjunctiva, no lid-lag, PERRLA, ENMT: Oropharynx clear, no erythema, exudates Neck: Supple, FROM, no masses, or JVD, No carotid bruits, No thyromegaly Lungs: Bilateral rhonchi, Clear to percussion, Normal respiratory effort, no accessory muscle use Cardiovascular: Heart regular in rate and rhythm, No murmurs, gallops, or rubs, No peripheral edema Abdominal: Soft, Nontender, no guarding, rebound or rigidity, Normoactive bowel sounds, No hepatomegaly, No splenomegaly, No palpable mass Skin: Normal temperature, tone, texture, turgor, no induration, No subcutaneous nodules, No rash, lesions, No ulcers Extremities: No digital cyanosis, No clubbing, Pedal pulses intact and symmetrical, Radial pulses intact and symmetrical, No calf tenderness Psychiatric: Alert and oriented to person, place and time, appropriate affect, intact judgement Neuro: Muscles Strength 5/5 in all 4 extremities, Sensation to light touch grossly present throughout, Cranial nerves II-XII grossly intact, no focal sensory deficits - Labs CBC & Chem 7: 10/22/21 07:17 10/22/21 07:17 Labs: Abnormal Lab Results - Last 24 Hours (Table) 10/21/21 10/21/21 10/21/21 Range/Units 15:14 16:47 20:49 WBC (4.50-10.00) X 10*3/uL RBC (4.40-5.60) X 10*6/uL Hgb (13.0-17.0) g/dL Hct (39.6-50.0) % MCV (80.0-97.0) fL MCHC (32.0-37.0) g/dL Plt Count (140-440) X 10*3/uL Plt Count Comment Immature Gran # (0.00-0.04) X 10*3/uL Neutrophils # (1.80-7.70) X 10*3/uL Lymphocytes # (0.90-5.00) X 10*3/uL Eosinophils # (0.04-0.35) X 10*3/uL Sodium 131 L (137-145) mmol/L Chloride 78 L (98-107) mmol/L Carbon Dioxide 47 H* (22-30) mmol/L Anion Gap (10.00-18.00) mmol/L BUN 53 H (9-20) mg/dL Est GFR (CKD-EPI)AfAm (60.0-200.0) Est GFR (CKD-EPI)NonAf (60.0-200.0) BUN/Creatinine Ratio (12.00-20.00) Ratio Glucose 263 H (74-99) mg/dL POC Glucose (mg/dL) 261 H 145 H (70-110) mg/dL Albumin 3.4 L (3.5-5.0) g/dL Albumin/Globulin Ratio (1.60-3.17) g/dL 10/22/21 10/22/21 10/22/21 Range/Units 07:10 07:17 07:17 WBC 10.52 H (4.50-10.00) X 10*3/uL RBC 3.08 L (4.40-5.60) X 10*6/uL Hgb 9.7 L (13.0-17.0) g/dL Hct 31.4 L (39.6-50.0) % MCV 101.9 H (80.0-97.0) fL MCHC 30.9 L (32.0-37.0) g/dL Plt Count 124 L (140-440) X 10*3/uL Plt Count Comment DECREASED A Immature Gran # 0.06 H (0.00-0.04) X 10*3/uL Neutrophils # 10.15 H (1.80-7.70) X 10*3/uL Lymphocytes # 0.10 L (0.90-5.00) X 10*3/uL Eosinophils # 0 L (0.04-0.35) X 10*3/uL Sodium (137-145) mmol/L Chloride 84 L (98-107) mmol/L Carbon Dioxide 44.9 H* (22-30) mmol/L Anion Gap 9.10 L (10.00-18.00) mmol/L BUN 49.9 H (9-20) mg/dL Est GFR (CKD-EPI)AfAm 52.4 L (60.0-200.0) Est GFR (CKD-EPI)NonAf 45.2 L (60.0-200.0) BUN/Creatinine Ratio 35.64 H (12.00-20.00) Ratio Glucose 152 H (74-99) mg/dL POC Glucose (mg/dL) 169 H (70-110) mg/dL Albumin 3.6 L (3.5-5.0) g/dL Albumin/Globulin Ratio 1.33 L (1.60-3.17) g/dL 10/22/21 Range/Units 11:42 WBC (4.50-10.00) X 10*3/uL RBC (4.40-5.60) X 10*6/uL Hgb (13.0-17.0) g/dL Hct (39.6-50.0) % MCV (80.0-97.0) fL MCHC (32.0-37.0) g/dL Plt Count (140-440) X 10*3/uL Plt Count Comment Immature Gran # (0.00-0.04) X 10*3/uL Neutrophils # (1.80-7.70) X 10*3/uL Lymphocytes # (0.90-5.00) X 10*3/uL Eosinophils # (0.04-0.35) X 10*3/uL Sodium (137-145) mmol/L Chloride (98-107) mmol/L Carbon Dioxide (22-30) mmol/L Anion Gap (10.00-18.00) mmol/L BUN (9-20) mg/dL Est GFR (CKD-EPI)AfAm (60.0-200.0) Est GFR (CKD-EPI)NonAf (60.0-200.0) BUN/Creatinine Ratio (12.00-20.00) Ratio Glucose (74-99) mg/dL POC Glucose (mg/dL) 163 H (70-110) mg/dL Albumin (3.5-5.0) g/dL Albumin/Globulin Ratio (1.60-3.17) g/dL Microbiology - Last 24 Hours (Table) 10/19/21 14:02 Blood Culture - Preliminary Blood No Growth after 48 hours Assessment and Plan Plan: Acute exacerbation of COPD Acute on chronic hypoxic respiratory failure Currently requiring 5 L of oxygen Dounebs IV steroids IV Levaquin Pulmonary following Mildly elevated pro calcitonin 0.11 Leg swelling No congestive heart failure per cardiology Echocardiogram from 2019 reviewed, ejection fraction was 45-50%. Repeat echocardiogram showed normal EF. Cardiology switched IV Lasix to oral. Diabetes type 2 with hyperglycemia, now better controlled Lantus 12 units daily Hold oral hypoglycemics Sliding scale insulin Chronic Hypertension, Osteoarthritis (OA), Resume meds CODE STATUS discussed with patient, he does not want to be vegetable on machines but he is okay with short-term resuscitation attempts including CPR and ventilator. Anticipated discharge: Tomorrow, likely home
[2021-10-22 16:55] LABS: Glucose,Whole Blood 349 mg/dL (70-110)
[2021-10-22 20:40] LABS: Glucose,Whole Blood 415 mg/dL (70-110)
[2021-10-23] MEDS: methylPREDNISolone SOD SUCCI 125 MG/2 ML VIAL IV SCH ×3 (00:45→11:26)
[2021-10-23 00:49] LABS: Glucose,Whole Blood 255 mg/dL (70-110)
[2021-10-23] MEDS: IPRATROPIUM-ALBUTEROL 3 ML NEB INHALATION SCH ×6 (03:22→23:32)
[2021-10-23 07:11] LABS: Glucose,Whole Blood 305 mg/dL (70-110)
[2021-10-23] MEDS: SYMBICORT 160-4.5 MCG INHALER INHALATION SCH ×2 (07:23→19:27)
[2021-10-23] MEDS: CHOLECALCIFEROL 25 MCG (1000 IU) TABLET PO SCH (07:35)
[2021-10-23] MEDS: ENOXAPARIN 40 MG/0.4 ML SYRINGE SQ SCH (07:35)
[2021-10-23] MEDS: INSULIN DETEMIR (LEVEMIR) 100 UNIT/ML SYR SQ SCH (07:35)
[2021-10-23] MEDS: INSULIN ASPART (NovoLOG) 100 UNIT/ML VIAL SQ SCH ×3 (07:35→17:01)
[2021-10-23] MEDS: ASPIRIN 81 MG PO SCH (07:36)
[2021-10-23] MEDS: FERROUS SULFATE 325 MG TAB PO SCH (07:36)
[2021-10-23 08:20] LABS: African American GFR (CKD) 69 (>60 ml/min/1.73 sqM); Blood Urea Nitrogen 59 mg/dL (9-20); Calcium 8.4 mg/dL (8.4-10.2); Chloride 81 mmol/L (98-107); Glucose 299 mg/dL (74-99); Magnesium 2.3 mg/dL (1.6-2.3); Non-African American GFR(CKD) 60 (>60 ml/min/1.73 sqM); Potassium 4.2 mmol/L (3.5-5.1); Sodium 135 mmol/L (137-145)
[2021-10-23 08:26] LABS: Anion Gap 6 mmol/L
[2021-10-23 08:35] LABS: Carbon Dioxide 48 mmol/L (22-30)
[2021-10-23] MEDS: LEVOFLOXACIN 500MG-D5W PMX 500 MG in DEXTROSE/WATER 1 100ML.BAG IVPB SCH (09:52)
[2021-10-23 11:29] LABS: Glucose,Whole Blood 312 mg/dL (70-110)
[2021-10-23 12:23] LABS: Basophils # (A) 0.01 X 10*3/uL (0.00-0.10); Basophils % (A) 0.1 %; Eosinophils # (A) 0 X 10*3/uL (0.04-0.35); Eosinophils % (A) 0 %; HCT 33.2 % (39.6-50.0); HGB 10.1 g/dL (13.0-17.0); Immature Grans, Automated 0.9 %; Lymphocytes # (A) 0.08 X 10*3/uL (0.90-5.00); Lymphocytes % (A) 0.9 %; MCHC 30.4 g/dL (32.0-37.0); MCV 101.8 fL (80.0-97.0); Mean Platelet Volume 10.6 fL (9.5-12.2); Monocytes # (A) 0.26 X 10*3/uL (0.20-1.00); Monocytes % (A) 2.9 %; NRBC Per 100 WBC 0 /100 WBCS (0.0-0.0); Neutrophils # (A) 8.48 X 10*3/uL (1.80-7.70); Neutrophils % (A) 95.2 %; Platelet Count 120 X 10*3/uL (140-440); RBC 3.26 X 10*6/uL (4.40-5.60); WBC 8.91 X 10*3/uL (4.50-10.00)
--- NOTE | 2021-10-23 12:25 | P.PN ---
Subjective Progress Note Date: 10/23/21 Principal diagnosis: Hypoxemic respiratory failure. 86-year-old male patient with known history of pulmonary fibrosis, with chronic hypoxic respiratory failure patient usually wears 3 L of oxygen around the clock. His pulmonary fibrosis changes are worse in the left lung. In addition patient does have history of COPD, his most recent PFT from 2017 showed FEV1 of 1.1 L or 41% predicted, FVC of 1.68 or 44% of predicted, with FEV1 to FVC ratio of 93%, FEV of 38%, total lung capacity of 65% of predicted, consistent with severe obstruction and severe restriction. Other medical history includes hypertension, diabetes mellitus type 2, former smoker, prostate cancer status po st prostatectomy, osteoarthritis. Patient follows with Dr. Richardson in the pulmonary clinic, patient is maintained on prednisone 5 mg daily, DuoNeb, Symbicort and Ventolin inhaler. Patient came into the emergency department on 10/19/2021 with complaints of progressive dyspnea over the past one week. Did report some slight chest discomfort and worsening lower extremity edema. Reported positive orthopnea. Denied any fever or chills, no cough or phlegm production. On presentation his pulse ox was noted to be at 60% on his usual 3 L/m. He states he took 2 courses of azithromycin in the past couple weeks and his prednisone was increased from 5 mg to 10 mg per day. Chest x-ray showed extensive chronic left-sided infiltrate with volume loss, not significantly different from 2 years ago. Lab evaluation showed white blood cell, 7.7, hemoglobin of 11.1, coagulation profile was within normal limits, proBNP was 596, troponins were less than 0.0123, chloride 19 PCR, influenza A and B and legionella urine antigen were all negative. BNP was reviewed showing sodium of 130, chloride of 81, bicarbonate concentration 43, BUN of 33, creatinine 1.12. LFTs were within normal limits. Patient was placed on empiric medical large with Levaquin, IV steroids, nebulized bronchodilators and given a dose of IV Lasix. Progress note dated 10/21/2021. Apparently last night the patient became more short of breath, and, was provided with increasing concentrations of oxygen. Unfortunately, for a variety reasons including ventilation perfusion mismatch, as well as decreased ventilatory drive, the patient became very hypercapnic, and lethargic/somnolent. Currently, he is on BiPAP, the settings have been increased to 16/6, and the FiO2 was reduced down to 40%. The gas was ordered. In addition, he had an opportunity to speak to his , and the patient was clear about not being placed on mec hanical ventilation. I did speak to the [facility] physician about the situation last night. Currently, the most recent blood gas shows a pO2 of 60, pCO2 104, and a pH of 7.28. This is certainly an improvement. The previous blood gas showed a pO2 of 66, a pCO2 of greater than 120, and a pH is 7.15. I've asked respiratory to titrate the oxygen, so that his saturations are between 85 and 90%. Progress note dated 10/23/2021. The patient's doing well again today. He did need some time on BiPAP earlier today, for about 1-2 hours. His BiPAP settings were 16/6, with an FiO2 of 40%. He's not receiving any IV fluids. He is currently on 4 L. Saturations are 90%. I told the nurses and respiratory therapist, to try to maintain a saturation between 85-90%. Sodium 135, potassium 4.2, chlorides 81, CO2 48, anion gap 6, BUN 59, with creatinine 1.11. Magnesium is 2.3. Objective - Vital Signs Vital signs: Vital Signs Temp 97.8 F 10/23/21 07:33 Pulse 80 10/23/21 11:03 Resp 19 10/23/21 07:33 BP 143/68 10/23/21 07:33 Pulse Ox 94 L 10/23/21 07:33 FiO2 35 10/22/21 15:56 Intake & Output 10/22/21 10/23/21 10/23/21 18:59 06:59 18:59 Output Total 1300 1600 Balance -1300 -1600 Weight 87.5 kg Output: Urine 1300 1600 Uretheral (Yeung) 400 Other: Voiding Method Indwelling Catheter Indwelling Catheter - Exam Awake and alert, on 4 L of oxygen. Oriented. No respiratory distress. HEENT examination is grossly unremarkable. Neck supple. Full range of motion. No adenopathy thyromegaly or neck vein dis tention. Cardiovascular examination reveals regular rhythm rate. S1-S2 normal. No S3 or S4. No discernible murmur noted. Heart rate about 80 bpm. Lungs reveal bilateral rhonchi, and fine crackles. Breath sounds equal. He is mildly restricted in his breathing. His saturations are between 88 and 92% on 3-4 L of oxygen. Abdomen soft, without bowel sounds. No masses. Extremities are intact. No cyanosis clubbing or edema. Skin is without rash or lesion. Neurologic examination is brief but nonfocal. He is awake and alert. - Labs CBC & Chem 7: 10/22/21 07:17 10/23/21 07:06 Labs: Abnormal Lab Results - Last 24 Hours (Table) 10/22/21 10/22/21 10/22/21 Range/Units 07:17 07:17 16:54 WBC 10.52 H (4.50-10.00) X 10*3/uL RBC 3.08 L (4.40-5.60) X 10*6/uL Hgb 9.7 L (13.0-17.0) g/dL Hct 31.4 L (39.6-50.0) % MCV 101.9 H (80.0-97.0) fL MCHC 30.9 L (32.0-37.0) g/dL Plt Count 124 L (140-440) X 10*3/uL Plt Count Comment DECREASED A Immature Gran # 0.06 H (0.00-0.04) X 10*3/uL Neutrophils # 10.15 H (1.80-7.70) X 10*3/uL Lymphocytes # 0.10 L (0.90-5.00) X 10*3/uL Eosinophils # 0 L (0.04-0.35) X 10*3/uL Sodium (137-145) mmol/L Chloride 84 L (96-109) mmol/L Carbon Dioxide 44.9 H* (20.0-27.5) mmol/L Anion Gap 9.10 L (10.00-18.00) mmol/L BUN 49.9 H (9.0-27.0) mg/dL Est GFR (CKD-EPI)AfAm 52.4 L (60.0-200.0) Est GFR (CKD-EPI)NonAf 45.2 L (60.0-200.0) BUN/Creatinine Ratio 35.64 H (12.00-20.00) Ratio Glucose 152 H (70-110) mg/dL POC Glucose (mg/dL) 349 H (70-110) mg/dL Albumin 3.6 L (3.8-4.9) g/dL Albumin/Globulin Ratio 1.33 L (1.60-3.17) g/dL 10/22/21 10/23/21 10/23/21 Range/Units 20:38 00:47 07:06 WBC (4.50-10.00) X 10*3/uL RBC (4.40-5.60) X 10*6/uL Hgb (13.0-17.0) g/dL Hct (39.6-50.0) % MCV (80.0-97.0) fL MCHC (32.0-37.0) g/dL Plt Count (140-440) X 10*3/uL Plt Count Comment Immature Gran # (0.00-0.04) X 10*3/uL Neutrophils # (1.80-7.70) X 10*3/uL Lymphocytes # (0.90-5.00) X 10*3/uL Eosinophils # (0.04-0.35) X 10*3/uL Sodium 135 L (137-145) mmol/L Chloride 81 L (96-109) mmol/L Carbon Dioxide 48 H* (20.0-27.5) mmol/L Anion Gap (10.00-18.00) mmol/L BUN 59 H (9.0-27.0) mg/dL Est GFR (CKD-EPI)AfAm (60.0-200.0) Est GFR (CKD-EPI)NonAf (60.0-200.0) BUN/Creatinine Ratio (12.00-20.00) Ratio Glucose 299 H (70-110) mg/dL POC Glucose (mg/dL) 415 H 255 H (70-110) mg/dL Albumin (3.8-4.9) g/dL Albumin/Globulin Ratio (1.60-3.17) g/dL 10/23/21 10/23/21 Range/Units 07:09 11:27 WBC (4.50-10.00) X 10*3/uL RBC (4.40-5.60) X 10*6/uL Hgb (13.0-17.0) g/dL Hct (39.6-50.0) % MCV (80.0-97.0) fL MCHC (32.0-37.0) g/dL Plt Count (140-440) X 10*3/uL Plt Count Comment Immature Gran # (0.00-0.04) X 10*3/uL Neutrophils # (1.80-7.70) X 10*3/uL Lymphocytes # (0.90-5.00) X 10*3/uL Eosinophils # (0.04-0.35) X 10*3/uL Sodium (137-145) mmol/L Chloride (96-109) mmol/L Carbon Dioxide (20.0-27.5) mmol/L Anion Gap (10.00-18.00) mmol/L BUN (9.0-27.0) mg/dL Est GFR (CKD-EPI)AfAm (60.0-200.0) Est GFR (CKD-EPI)NonAf (60.0-200.0) BUN/Creatinine Ratio (12.00-20.00) Ratio Glucose (70-110) mg/dL POC Glucose (mg/dL) 305 H 312 H (70-110) mg/dL Albumin (3.8-4.9) g/dL Albumin/Globulin Ratio (1.60-3.17) g/dL Microbiology - Last 24 Hours (Table) 10/19/21 14:02 Blood Culture - Preliminary Blood No Growth after 72 hours Assessment and Plan Assessment: Acute on chronic hypoxemic and hypercapnic respiratory failure, secondary to underlying COPD, and pulmonary fibrosis. Chronic hypercapnic respiratory failure. History of COPD, on home oxygen. History of hypertension. History of prostate cancer, status post prostatectomy. Type 2 diabetes mellitus. Previous history of tobacco use. Plan: Plan dated 10/21/2021. Blood gas was ordered by the hospital. The patient's BiPAP was changed to 16/6, and FiO2 was reduced. The most recent blood gas, shows improvement. I did have an opportunity to speak to the patient's , who is adamant that the patient not be placed on the ventilator. We'll continue to follow and provide all appropriate medications for this patient, and hope that we can turn him around. Additional recommendations and suggestions are forthcoming. He is very bad lung disease. It's a combination of both COPD and interstitial lung disease/pulmonary fibrosis. Prognosis is certainly guarded. Labs, x-rays, and medications are all reviewed. Plan dated 10/23/2021. The patient's doing well. He is on 4 L of oxygen. He's not receiving any IV fluids. I did have a long conversation with his . He is a DO NOT RESUSCITATE/DO NOT INTUBATE patient. She would agree to BiPAP therapy. He did spend some time this morning on BiPAP. Currently on nasal cannula. I will set parameters the nurses and respiratory therapist. Labs, x-rays, and medications are reviewed. Corticosteroids are reduced to 40 mg every 6, from 60 mg every 6. Prognosis is guarded. Time with Patient: Less than 30
--- NOTE | 2021-10-23 15:10 | P.PN ---
Subjective Progress Note Date: 10/23/21 Principal diagnosis: sob Patient was severely hypoxic this am, his pulse ox wsa in the 60s overnight. He was restarted on bipap. He states that he feels fine currently. Objective - Vital Signs Vital signs: Vital Signs Temp 97.8 F 10/23/21 07:33 Pulse 80 10/23/21 11:03 Resp 19 10/23/21 07:33 BP 143/68 10/23/21 07:33 Pulse Ox 94 L 10/23/21 07:33 FiO2 35 10/22/21 15:56 Intake & Output 10/22/21 10/23/21 10/23/21 18:59 06:59 18:59 Output Total 1300 1600 Balance -1300 -1600 Weight 87.5 kg Output: Urine 1300 1600 Uretheral (Yeung) 400 Other: Voiding Method Indwelling Catheter Indwelling Catheter - Exam Constitutional: No acute distress, conversant, pleasant Eyes:Anicteric sclerae, moist conjunctiva, no lid-lag, PERRLA, ENMT: Oropharynx clear, no erythema, exudates Neck: Supple, FROM, no masses, or JVD, No carotid bruits, No thyromegaly Lungs: Bilateral rhonchi, Clear to percussion, Normal respiratory effort, no accessory muscle use Cardiovascular: Heart regular in rate and rhythm, No murmurs, gallops, or rubs, No peripheral edema Abdominal: Soft, Nontender, no guarding, rebound or rigidity, Normoactive bowel sounds, No hepatomegaly, No splenomegaly, No palpable mass Skin: Normal temperature, tone, texture, turgor, no induration, No subcutaneous nodules, No rash, lesions, No ulcers Extremities: No digital cyanosis, No clubbing, Pedal pulses intact and symmetrical, Radial pulses intact and symmetrical, No calf tenderness Psychiatric: Alert and oriented to person, place and time, appropriate affect, intact judgement Neuro: Muscles Strength 5/5 in all 4 extremities, Sensation to light touch grossly present throughout, Cranial nerves II-XII grossly intact, no focal sensory deficits - Labs CBC & Chem 7: 10/23/21 07:06 10/23/21 07:06 Labs: Abnormal Lab Results - Last 24 Hours (Table) 10/22/21 10/22/21 10/22/21 Range/Units 07:17 07:17 16:54 WBC 10.52 H (4.50-10.00) X 10*3/uL RBC 3.08 L (4.40-5.60) X 10*6/uL Hgb 9.7 L (13.0-17.0) g/dL Hct 31.4 L (39.6-50.0) % MCV 101.9 H (80.0-97.0) fL MCHC 30.9 L (32.0-37.0) g/dL Plt Count 124 L (140-440) X 10*3/uL Plt Count Comment DECREASED A Immature Gran # 0.06 H (0.00-0.04) X 10*3/uL Neutrophils # 10.15 H (1.80-7.70) X 10*3/uL Lymphocytes # 0.10 L (0.90-5.00) X 10*3/uL Eosinophils # 0 L (0.04-0.35) X 10*3/uL Sodium (137-145) mmol/L Chloride 84 L (96-109) mmol/L Carbon Dioxide 44.9 H* (20.0-27.5) mmol/L Anion Gap 9.10 L (10.00-18.00) mmol/L BUN 49.9 H (9.0-27.0) mg/dL Est GFR (CKD-EPI)AfAm 52.4 L (60.0-200.0) Est GFR (CKD-EPI)NonAf 45.2 L (60.0-200.0) BUN/Creatinine Ratio 35.64 H (12.00-20.00) Ratio Glucose 152 H (70-110) mg/dL POC Glucose (mg/dL) 349 H (70-110) mg/dL Albumin 3.6 L (3.8-4.9) g/dL Albumin/Globulin Ratio 1.33 L (1.60-3.17) g/dL 10/22/21 10/23/21 10/23/21 Range/Units 20:38 00:47 07:06 WBC (4.50-10.00) X 10*3/uL RBC 3.26 L (4.40-5.60) X 10*6/uL Hgb 10.1 L (13.0-17.0) g/dL Hct 33.2 L (39.6-50.0) % MCV 101.8 H (80.0-97.0) fL MCHC 30.4 L (32.0-37.0) g/dL Plt Count 120 L (140-440) X 10*3/uL Plt Count Comment Immature Gran # 0.08 H (0.00-0.04) X 10*3/uL Neutrophils # 8.48 H (1.80-7.70) X 10*3/uL Lymphocytes # 0.08 L (0.90-5.00) X 10*3/uL Eosinophils # 0 L (0.04-0.35) X 10*3/uL Sodium (137-145) mmol/L Chloride (96-109) mmol/L Carbon Dioxide (20.0-27.5) mmol/L Anion Gap (10.00-18.00) mmol/L BUN (9.0-27.0) mg/dL Est GFR (CKD-EPI)AfAm (60.0-200.0) Est GFR (CKD-EPI)NonAf (60.0-200.0) BUN/Creatinine Ratio (12.00-20.00) Ratio Glucose (70-110) mg/dL POC Glucose (mg/dL) 415 H 255 H (70-110) mg/dL Albumin (3.8-4.9) g/dL Albumin/Globulin Ratio (1.60-3.17) g/dL 10/23/21 10/23/21 10/23/21 Range/Units 07:06 07:09 11:27 WBC (4.50-10.00) X 10*3/uL RBC (4.40-5.60) X 10*6/uL Hgb (13.0-17.0) g/dL Hct (39.6-50.0) % MCV (80.0-97.0) fL MCHC (32.0-37.0) g/dL Plt Count (140-440) X 10*3/uL Plt Count Comment Immature Gran # (0.00-0.04) X 10*3/uL Neutrophils # (1.80-7.70) X 10*3/uL Lymphocytes # (0.90-5.00) X 10*3/uL Eosinophils # (0.04-0.35) X 10*3/uL Sodium 135 L (137-145) mmol/L Chloride 81 L (96-109) mmol/L Carbon Dioxide 48 H* (20.0-27.5) mmol/L Anion Gap (10.00-18.00) mmol/L BUN 59 H (9.0-27.0) mg/dL Est GFR (CKD-EPI)AfAm (60.0-200.0) Est GFR (CKD-EPI)NonAf (60.0-200.0) BUN/Creatinine Ratio (12.00-20.00) Ratio Glucose 299 H (70-110) mg/dL POC Glucose (mg/dL) 305 H 312 H (70-110) mg/dL Albumin (3.8-4.9) g/dL Albumin/Globulin Ratio (1.60-3.17) g/dL Microbiology - Last 24 Hours (Table) 10/19/21 14:02 Blood Culture - Preliminary Blood No Growth after 72 hours Assessment and Plan Plan: Acute exacerbation of COPD Acute on chronic hypoxic respiratory failure Currently requiring 3 L of oxygen Still requiring bipap on and off. Dounebs IV steroids--wean down per pulm IV Levaquin Pulmonary following Mildly elevated pro calcitonin 0.11 Leg swelling No congestive heart failure per cardiology Echocardiogram from 2019 reviewed, ejection fraction was 45-50%. Repeat echocardiogram showed normal EF. Cardiology switched IV Lasix to oral. Diabetes type 2 with hyperglycemia, uncontrolled Increase lantus to 20 units daily. Hold oral hypoglycemics Sliding scale insulin Chronic Hypertension, Osteoarthritis (OA), Resume meds CODE STATUS discussed with patient, he does not want to be vegetable on machines but he is okay with short-term resuscitation attempts including CPR and ventilator. Anticipated discharge: 2 days
[2021-10-23 16:34] LABS: Glucose,Whole Blood 270 mg/dL (70-110)
[2021-10-23] MEDS ORDERED: INSULIN DETEMIR (LEVEMIR) 100 UNIT/ML SYR SQ ONE (17:00)
[2021-10-23] MEDS: methylPREDNISolone SOD SUCCI 40 MG/ML 1 ML VIAL IV SCH (17:14)
[2021-10-23 20:53] LABS: Glucose,Whole Blood 230 mg/dL (70-110)
[2021-10-24] MEDS: INSULIN ASPART (NovoLOG) 100 UNIT/ML VIAL SQ SCH ×5 (00:25→21:13)
[2021-10-24] MEDS: methylPREDNISolone SOD SUCCI 40 MG/ML 1 ML VIAL IV SCH ×5 (00:25→23:57)
[2021-10-24] MEDS: IPRATROPIUM-ALBUTEROL 3 ML NEB INHALATION SCH ×6 (04:48→23:57)
[2021-10-24 06:49] LABS: Glucose,Whole Blood 193 mg/dL (70-110)
[2021-10-24] MEDS: SYMBICORT 160-4.5 MCG INHALER INHALATION SCH ×2 (07:44→20:56)
[2021-10-24] MEDS: LEVOFLOXACIN 500MG-D5W PMX 500 MG in DEXTROSE/WATER 1 100ML.BAG IVPB SCH (08:54)
[2021-10-24] MEDS: FERROUS SULFATE 325 MG TAB PO SCH (08:54)
[2021-10-24] MEDS: CHOLECALCIFEROL 25 MCG (1000 IU) TABLET PO SCH (08:54)
[2021-10-24] MEDS: INSULIN DETEMIR (LEVEMIR) 100 UNIT/ML SYR SQ SCH (08:55)
[2021-10-24] MEDS: ASPIRIN 81 MG PO SCH (08:55)
[2021-10-24] MEDS: ENOXAPARIN 40 MG/0.4 ML SYRINGE SQ SCH (08:56)
[2021-10-24 12:05] LABS: Glucose,Whole Blood 262 mg/dL (70-110)
--- NOTE | 2021-10-24 12:45 | P.PN ---
Subjective Progress Note Date: 10/24/21 86-year-old male patient with known history of pulmonary fibrosis, with chronic hypoxic respiratory failure patient usually wears 3 L of oxygen around the clock. His pulmonary fibrosis changes are worse in the left lung. In addition patient does have history of COPD, his most recent PFT from 2017 showed FEV1 of 1.1 L or 41% predicted, FVC of 1.68 or 44% of predicted, with FEV1 to FVC ratio of 93%, FEV of 38%, total lung capacity of 65% of predicted, consistent with severe obstruction and severe restriction. Other medical history includes hypertension, diabetes mellitus type 2, former smoker, prostate cancer status post prostatectomy, osteoarthritis. Patient follows with Dr. Richardson in the pulmonary clinic, patient is maintained on prednisone 5 mg daily, DuoNeb, Symbicort and Ventolin inhaler. Patient came into the emergency department on 10/19/2021 with complaints of progressive dyspnea over the past one week. Did report some slight chest discomfort and worsening lower extremity edema. Reported positive orthopnea. Denied any fever or chills, no cough or phlegm production. On presentation his pulse ox was noted to be at 60% on his usual 3 L/m. He states he took 2 courses of azithromycin in the past couple weeks and his prednisone was increased from 5 mg to 10 mg per day. Chest x-ray showed extensive chronic left-sided infiltrate with volume loss, not significantly different from 2 years ago. Lab evaluation showed white blood cell, 7.7, hemoglobin of 11.1, coagulation profile was within normal limits, proBNP was 596, troponins were less than 0.0123, chloride 19 PCR, influenza A and B and legionella urine antigen were all negative. BNP was reviewed showing sodium of 130, chloride of 81, bicarbonate concentration 43, BUN of 33, creatinine 1.12. LFTs were within normal limits. Patient was placed on empiric medical large with Levaquin, IV steroids, nebulized bronchodilators and given a dose of IV Lasix. Progress note dated 10/21/2021. Apparently last night the patient became more short of breath, and, was provided with increasing concentrations of oxygen. Unfortunately, for a variety reasons including ventilation perfusion mismatch, as well as decreased ventilatory drive, the patient became very hypercapnic, and lethargic/somnolent. Currently, he is on BiPAP, the settings have been increased to 16/6, and the FiO2 was reduced down to 40%. The gas was ordered. In addition, he had an opportunity to speak to his , and the patient was clear about not being placed on mechanical ventilation. I did speak to the [facility] physician about the situation last night. Currently, the most recent blood gas shows a pO2 of 60, pCO2 104, and a pH of 7.28. This is certainly an improvement. The previous blood gas showed a pO2 of 66, a pCO2 of greater than 120, and a pH is 7.15. I've asked respiratory to titrate the oxygen, so that his saturations are between 85 and 90%. Progress note dated 10/23/2021. The patient's doing well again today. He did need some time on BiPAP earlier today, for about 1-2 hours. His BiPAP settings were 16/6, with an FiO2 of 40%. He's not receiving any IV fluids. He is currently on 4 L. Saturations are 90%. I told the nurses and respiratory therapist, to try to maintain a saturation between 85-90%. Sodium 135, potassium 4.2, chlorides 81, CO2 48, anion gap 6, BUN 59, with creatinine 1.11. Magnesium is 2.3. The patient is seen today 10/25/2019 to follow up on the regular medical floor. He is currently sitting up in a chair at the bedside. Awake and alert. Currently off his BiPAP and on 4 L nasal cannula. He did wear her BiPAP throughout the night 16/6 at 40% FiO2. He is still confused at times. Blood cultures reveal no growth. Blood sugar 262. He remains on DuoNeb inhalations, Symbicort, IV Solu-Medrol, antibiotics in the form of Levaquin. Lovenox for DVT prophylaxis. Objective - Vital Signs Vital signs: Vital Signs Temp 98 F 10/24/21 08:00 Pulse 88 10/24/21 11:26 Resp 16 10/24/21 08:00 BP 143/64 10/24/21 08:00 Pulse Ox 97 10/24/21 08:00 FiO2 35 10/22/21 15:56 Intake & Output 10/23/21 10/24/21 10/24/21 18:59 06:59 18:59 Intake Total 480 Output Total 1000 1350 Balance -1000 -870 Intake: Oral 480 Output: Urine 1000 1350 Uretheral (Yeung) 1350 Other: Voiding Method Indwelling Catheter Indwelling Catheter - Exam GENERAL EXAM: Alert, confused at times, up in a chair at the bedside, on 4 L nasal cannula, comfortable in no apparent distress. HEAD: Normocephalic. EYES: Normal reaction of pupils, equal size. NOSE: Clear with pink turbinates. THROAT: No erythema or exudates. NECK: No masses, no JVD. CHEST: No chest wall deformity. LUNGS: Equal air entry with bilateral rhonchi. CVS: S1 and S2 normal with no audible murmur, regular rhythm. ABDOMEN: No hepatosplenomegaly, normal bowel sounds, no guarding or rigidity. SPINE: No scoliosis or deformity SKIN: No rashes CENTRAL NERVOUS SYSTEM: No focal deficits, tone is normal in all 4 extremities. EXTREMITIES: There is 1+ peripheral edema. No clubbing, no cyanosis. Peripheral pulses are intact. - Labs CBC & Chem 7: 10/23/21 07:06 10/23/21 07:06 Labs: Abnormal Lab Results - Last 24 Hours (Table) 10/23/21 10/23/21 10/24/21 Range/Units 16:32 20:51 06:47 POC Glucose (mg/dL) 270 H 230 H 193 H (70-110) mg/dL 10/24/21 Range/Units 12:04 POC Glucose (mg/dL) 262 H (70-110) mg/dL Microbiology - Last 24 Hours (Table) 10/19/21 14:02 Blood Culture - Preliminary Blood No Growth after 96 hours Assessment and Plan Assessment: Acute on chronic hypoxemic and hypercapnic respiratory failure, secondary to underlying COPD, and pulmonary fibrosis. Chronic hypercapnic respiratory failure. History of COPD, on home oxygen. History of hypertension. History of prostate cancer, status post prostatectomy. Type 2 diabetes mellitus. Previous history of tobacco use. Plan: The patient was seen and evaluated Continues to alternate between BiPAP and nasal cannula Continue the current treatment plan Prognosis remains guarded DO NOT RESUSCITATE/DO NOT INTUBATE CODE STATUS We will continue to follow I have personally seen and examined the patient, performed the documentation and the assessment and plan as written. Number of minutes spent on the visit: 10.
[2021-10-24 13:06] VITALS: BMI 26.9
--- NOTE | 2021-10-24 14:17 | P.PN ---
Subjective Progress Note Date: 10/24/21 Principal diagnosis: sob Patient still requiring BiPAP on and off. Last night he required it for a couple hours. His oxygen saturation was low according to nursing. Objective - Vital Signs Vital signs: Vital Signs Temp 98 F 10/24/21 08:00 Pulse 88 10/24/21 11:26 Resp 16 10/24/21 08:00 BP 143/64 10/24/21 08:00 Pulse Ox 97 10/24/21 08:00 FiO2 35 10/22/21 15:56 Intake & Output 10/23/21 10/24/21 10/24/21 18:59 06:59 18:59 Intake Total 480 Output Total 1000 1350 Balance -1000 -870 Weight 87.5 kg Intake: Oral 480 Output: Urine 1000 1350 Uretheral (Yeung) 1350 Other: Voiding Method Indwelling Catheter Indwelling Catheter - Exam Constitutional: No acute distress, conversant, pleasant Eyes:Anicteric sclerae, moist conjunctiva, no lid-lag, PERRLA, ENMT: Oropharynx clear, no erythema, exudates Neck: Supple, FROM, no masses, or JVD, No carotid bruits, No thyromegaly Lungs: Bilateral rhonchi, Clear to percussion, Normal respiratory effort, no accessory muscle use Cardiovascular: Heart regular in rate and rhythm, No murmurs, gallops, or rubs, No peripheral edema Abdominal: Soft, Nontender, no guarding, rebound or rigidity, Normoactive bowel sounds, No hepatomegaly, No splenomegaly, No palpable mass Skin: Normal temperature, tone, texture, turgor, no induration, No subcutaneous nodules, No rash, lesions, No ulcers Extremities: No digital cyanosis, No clubbing, Pedal pulses intact and symmetrical, Radial pulses intact and symmetrical, No calf tenderness Psychiatric: Alert and oriented to person, place and time, appropriate affect, intact judgement Neuro: Muscles Strength 5/5 in all 4 extremities, Sensation to light touch grossly present throughout, Cranial nerves II-XII grossly intact, no focal sensory deficits - Labs CBC & Chem 7: 10/23/21 07:06 10/23/21 07:06 Labs: Abnormal Lab Results - Last 24 Hours (Table) 10/23/21 10/23/21 10/24/21 Range/Units 16:32 20:51 06:47 POC Glucose (mg/dL) 270 H 230 H 193 H (70-110) mg/dL 10/24/21 Range/Units 12:04 POC Glucose (mg/dL) 262 H (70-110) mg/dL Microbiology - Last 24 Hours (Table) 10/19/21 14:02 Blood Culture - Preliminary Blood No Growth after 96 hours Assessment and Plan Plan: Acute exacerbation of COPD Acute on chronic hypoxic respiratory failure Currently requiring 3 L of oxygen Still requiring bipap on and off. Dounebs IV steroids--wean down per pulm IV Levaquin Pulmonary following Mildly elevated pro calcitonin 0.11 Leg swelling No congestive heart failure per cardiology Echocardiogram from 2019 reviewed, ejection fraction was 45-50%. Repeat echocardiogram showed normal EF. Cardiology switched IV Lasix to oral. Diabetes type 2 with hyperglycemia, uncontrolled Increase lantus to 20 units daily. Hold oral hypoglycemics Sliding scale insulin End-of-life care Consult palliative care Chronic Hypertension, Osteoarthritis (OA), Resume meds CODE STATUS discussed with patient, he does not want to be vegetable on machines but he is okay with short-term resuscitation attempts including CPR and ventilator. Anticipated discharge: 2 days
--- NOTE | 2021-10-24 14:46 | P.PN ---
Progress Note - Text Progress Note Date: 10/24/21 Spoke with patient's . She does not plan on coming in until later this evening. Meeting set up for Wednesday10/27/21 at 2:00pm. Estefani Hoang [facility] Spectralink [id number] Email: [email or web address]
[2021-10-24 16:52] LABS: Glucose,Whole Blood 383 mg/dL (70-110)
[2021-10-24 20:34] LABS: Glucose,Whole Blood 369 mg/dL (70-110)
[2021-10-25] MEDS: IPRATROPIUM-ALBUTEROL 3 ML NEB INHALATION SCH ×5 (03:37→20:38)
[2021-10-25] MEDS: methylPREDNISolone SOD SUCCI 40 MG/ML 1 ML VIAL IV SCH (05:32)
[2021-10-25 07:01] LABS: Glucose,Whole Blood 301 mg/dL (70-110)
[2021-10-25] MEDS: INSULIN DETEMIR (LEVEMIR) 100 UNIT/ML SYR SQ SCH (07:34)
[2021-10-25] MEDS: INSULIN ASPART (NovoLOG) 100 UNIT/ML VIAL SQ SCH ×4 (07:34→21:20)
[2021-10-25] MEDS: ENOXAPARIN 40 MG/0.4 ML SYRINGE SQ SCH (07:34)
[2021-10-25] MEDS: CHOLECALCIFEROL 25 MCG (1000 IU) TABLET PO SCH (07:34)
[2021-10-25] MEDS: FERROUS SULFATE 325 MG TAB PO SCH (07:34)
[2021-10-25] MEDS: ASPIRIN 81 MG PO SCH (07:34)
[2021-10-25] MEDS: SYMBICORT 160-4.5 MCG INHALER INHALATION SCH ×2 (08:07→20:38)
[2021-10-25] MEDS: LEVOFLOXACIN 500MG-D5W PMX 500 MG in DEXTROSE/WATER 1 100ML.BAG IVPB SCH (09:00)
--- NOTE | 2021-10-25 11:34 | P.PN ---
Subjective Progress Note Date: 10/25/21 86-year-old male patient with known history of pulmonary fibrosis, with chronic hypoxic respiratory failure patient usually wears 3 L of oxygen around the clock. His pulmonary fibrosis changes are worse in the left lung. In addition patient does have history of COPD, his most recent PFT from 2017 showed FEV1 of 1.1 L or 41% predicted, FVC of 1.68 or 44% of predicted, with FEV1 to FVC ratio of 93%, FEV of 38%, total lung capacity of 65% of predicted, consistent with severe obstruction and severe restriction. Other medical history includes hypertension, diabetes mellitus type 2, former smoker, prostate cancer status post prostatectomy, osteoarthritis. Patient follows with Dr. Richardson in the pulmonary clinic, patient is maintained on prednisone 5 mg daily, DuoNeb, Symbicort and Ventolin inhaler. Patient came into the emergency department on 10/19/2021 with complaints of progressive dyspnea over the past one week. Did report some slight chest discomfort and worsening lower extremity edema. Reported positive orthopnea. Denied any fever or chills, no cough or phlegm production. On presentation his pulse ox was noted to be at 60% on his usual 3 L/m. He states he took 2 courses of azithromycin in the past couple weeks and his prednisone was increased from 5 mg to 10 mg per day. Chest x-ray showed extensive chronic left-sided infiltrate with volume loss, not significantly different from 2 years ago. Lab evaluation showed white blood cell, 7.7, hemoglobin of 11.1, coagulation profile was within normal limits, proBNP was 596, troponins were less than 0.0123, chloride 19 PCR, influenza A and B and legionella urine antigen were all negative. BNP was reviewed showing sodium of 130, chloride of 81, bicarbonate concentration 43, BUN of 33, creatinine 1.12. LFTs were within normal limits. Patient was placed on empiric medical large with Levaquin, IV steroids, nebulized bronchodilators and given a dose of IV Lasix. Progress note dated 10/21/2021. Apparently last night the patient became more short of breath, and, was provided with increasing concentrations of oxygen. Unfortunately, for a variety reasons including ventilation perfusion mismatch, as well as decreased ventilatory drive, the patient became very hypercapnic, and lethargic/somnolent. Currently, he is on BiPAP, the settings have been increased to 16/6, and the FiO2 was reduced down to 40%. The gas was ordered. In addition, he had an opportunity to speak to his , and the patient was clear about not being placed on mechanical ventilation. I did speak to the [facility] physician about the situation last night. Currently, the most recent blood gas shows a pO2 of 60, pCO2 104, and a pH of 7.28. This is certainly an improvement. The previous blood gas showed a pO2 of 66, a pCO2 of greater than 120, and a pH is 7.15. I've asked respiratory to titrate the oxygen, so that his saturations are between 85 and 90%. Progress note dated 10/23/2021. The patient's doing well again today. He did need some time on BiPAP earlier today, for about 1-2 hours. His BiPAP settings were 16/6, with an FiO2 of 40%. He's not receiving any IV fluids. He is currently on 4 L. Saturations are 90%. I told the nurses and respiratory therapist, to try to maintain a saturation between 85-90%. Sodium 135, potassium 4.2, chlorides 81, CO2 48, anion gap 6, BUN 59, with creatinine 1.11. Magnesium is 2.3. The patient is seen today 10/25/2019 to follow up on the regular medical floor. He is currently sitting up in a chair at the bedside. Awake and alert. Currently off his BiPAP and on 4 L nasal cannula. He did wear her BiPAP throughout the night 16/6 at 40% FiO2. He is still confused at times. Blood cultures reveal no growth. Blood sugar 262. He remains on DuoNeb inhalations, Symbicort, IV Solu-Medrol, antibiotics in the form of Levaquin. Lovenox for DVT prophylaxis. The patient was seen today 10/25/2021 in follow-up on the regular medical floor. He is currently sitting up in bed. Awake and alert and no acute distress. A bit more oriented today compared to yesterday. Currently off the BiPAP and maintaining O2 saturations in the 90s on 3 L/m per nasal cannula. Blood cultures revealed no growth. He is continued on Symbicort, DuoNeb inhalations, prednisone. Remains on antibiotics in the form of Levaquin. Objective - Vital Signs Vital signs: Vital Signs Temp 98.4 F 10/25/21 07:56 Pulse 70 10/25/21 11:27 Resp 16 10/25/21 07:56 BP 165/82 10/25/21 07:56 Pulse Ox 93 L 10/25/21 07:56 FiO2 40 10/25/21 03:35 Intake & Output 10/24/21 10/25/21 10/25/21 18:59 06:59 18:59 Output Total 1200 700 Balance -1200 -700 Weight 87.5 kg 88.5 kg Output: Urine 1200 700 Other: Voiding Method Indwelling Catheter Indwelling Catheter Indwelling Catheter - Exam GENERAL EXAM: Alert, confused at times, 86-year-old male patient, resting in bed, on 3 L nasal cannula, comfortable in no apparent distress. HEAD: Normocephalic. EYES: Normal reaction of pupils, equal size. NOSE: Clear with pink turbinates. THROAT: No erythema or exudates. NECK: No masses, no JVD. CHEST: No chest wall deformity. LUNGS: Equal air entry with bilateral rhonchi. CVS: S1 and S2 normal with no audible murmur, regular rhythm. ABDOMEN: No hepatosplenomegaly, normal bowel sounds, no guarding or rigidity. SPINE: No scoliosis or deformity SKIN: No rashes CENTRAL NERVOUS SYSTEM: No focal deficits, tone is normal in all 4 extremities. EXTREMITIES: There is 1+ peripheral edema. No clubbing, no cyanosis. Peripheral pulses are intact. - Labs CBC & Chem 7: 10/23/21 07:06 10/23/21 07:06 Labs: Abnormal Lab Results - Last 24 Hours (Table) 10/24/21 10/24/21 10/24/21 Range/Units 12:04 16:49 20:32 POC Glucose (mg/dL) 262 H 383 H 369 H (70-110) mg/dL 10/25/21 Range/Units 07:00 POC Glucose (mg/dL) 301 H (70-110) mg/dL Microbiology - Last 24 Hours (Table) 10/19/21 14:02 Blood Culture - Preliminary Blood No Growth after 120 hours Assessment and Plan Assessment: Acute on chronic hypoxemic and hypercapnic respiratory failure, secondary to underlying COPD, and pulmonary fibrosis. Chronic hypercapnic respiratory failure. History of COPD, on home oxygen. History of hypertension. History of prostate cancer, status post prostatectomy. Type 2 diabetes mellitus. Previous history of tobacco use. Plan: The patient was seen and evaluated Continues to alternate between BiPAP and nasal cannula Remains on bronchodilators, steroids, antibiotics Prognosis remains guarded DO NOT RESUSCITATE/DO NOT INTUBATE CODE STATUS We will continue to follow I have personally seen and examined the patient, performed the documentation and the assessment and plan as written. Number of minutes spent on the visit: 10.
[2021-10-25 11:40] LABS: Glucose,Whole Blood 516 mg/dL (70-110)
--- NOTE | 2021-10-25 12:26 | P.PN ---
Subjective Progress Note Date: 10/25/21 Principal diagnosis: sob Doing well. Requiring bipap at night time. On 3L of O2 during the day. He is ambulating with a walker. No fevers. Eating well. Objective - Vital Signs Vital signs: Vital Signs Temp 98.4 F 10/25/21 07:56 Pulse 70 10/25/21 11:27 Resp 16 10/25/21 07:56 BP 165/82 10/25/21 07:56 Pulse Ox 93 L 10/25/21 07:56 FiO2 40 10/25/21 03:35 Intake & Output 10/24/21 10/25/21 10/25/21 18:59 06:59 18:59 Output Total 1200 700 Balance -1200 -700 Weight 87.5 kg 88.5 kg Output: Urine 1200 700 Other: Voiding Method Indwelling Catheter Indwelling Catheter Indwelling Catheter - Exam Constitutional: No acute distress, conversant, pleasant Eyes:Anicteric sclerae, moist conjunctiva, no lid-lag, PERRLA, ENMT: Oropharynx clear, no erythema, exudates Neck: Supple, FROM, no masses, or JVD, No carotid bruits, No thyromegaly Lungs: Bilateral rhonchi, Clear to percussion, Normal respiratory effort, no accessory muscle use Cardiovascular: Heart regular in rate and rhythm, No murmurs, gallops, or rubs, No peripheral edema Abdominal: Soft, Nontender, no guarding, rebound or rigidity, Normoactive bowel sounds, No hepatomegaly, No splenomegaly, No palpable mass Skin: Normal temperature, tone, texture, turgor, no induration, No subcutaneous nodules, No rash, lesions, No ulcers Extremities: No digital cyanosis, No clubbing, Pedal pulses intact and symmetrical, Radial pulses intact and symmetrical, No calf tenderness Psychiatric: Alert and oriented to person, place and time, appropriate affect, intact judgement Neuro: Muscles Strength 5/5 in all 4 extremities, Sensation to light touch grossly present throughout, Cranial nerves II-XII grossly intact, no focal sensory deficits - Labs CBC & Chem 7: 10/23/21 07:06 10/23/21 07:06 Labs: Abnormal Lab Results - Last 24 Hours (Table) 10/24/21 10/24/21 10/25/21 Range/Units 16:49 20:32 07:00 POC Glucose (mg/dL) 383 H 369 H 301 H (70-110) mg/dL 10/25/21 Range/Units 11:38 POC Glucose (mg/dL) 516 H (70-110) mg/dL Microbiology - Last 24 Hours (Table) 10/19/21 14:02 Blood Culture - Preliminary Blood No Growth after 120 hours Assessment and Plan Plan: Acute exacerbation of COPD Acute on chronic hypoxic respiratory failure Currently requiring 3 L of oxygen Still requiring bipap on and off. Dounebs IV steroids--wean down per pulm IV Levaquin Pulmonary following Mildly elevated pro calcitonin 0.11 Leg swelling No congestive heart failure per cardiology Echocardiogram from 2019 reviewed, ejection fraction was 45-50%. Repeat echocardiogram showed normal EF. Continue oral lasix. Diabetes type 2 with hyperglycemia, uncontrolled Increase lantus to 20 units daily. Hold oral hypoglycemics Sliding scale insulin End-of-life care Consult palliative care--family meeting arranged for Wednesday. Chronic Hypertension, Osteoarthritis (OA), Resume meds CODE STATUS discussed with patient, he does not want to be vegetable on machines but he is okay with short-term resuscitation attempts including CPR and ventilator. Anticipated discharge: 2 days
[2021-10-25] MEDS ORDERED: INSULIN ASPART (NovoLOG) 100 UNIT/ML VIAL SQ ONE (12:38)
[2021-10-25 16:46] LABS: Glucose,Whole Blood 363 mg/dL (70-110)
[2021-10-25] MEDS: LEVOFLOXACIN 500 MG TAB PO SCH (17:02)
[2021-10-25 20:30] LABS: Glucose,Whole Blood 236 mg/dL (70-110)
[2021-10-25] MEDS ORDERED: IPRATROPIUM-ALBUTEROL 3 ML NEB INHALATION PRN (21:14)
[2021-10-26 07:29] LABS: Glucose,Whole Blood 107 mg/dL (70-110)
[2021-10-26] MEDS: INSULIN ASPART (NovoLOG) 100 UNIT/ML VIAL SQ SCH ×4 (07:29→21:49)
[2021-10-26] MEDS: IPRATROPIUM-ALBUTEROL 3 ML NEB INHALATION SCH ×4 (07:43→20:25)
[2021-10-26] MEDS: SYMBICORT 160-4.5 MCG INHALER INHALATION SCH ×2 (07:43→20:25)
[2021-10-26] MEDS: FERROUS SULFATE 325 MG TAB PO SCH (08:03)
[2021-10-26] MEDS: CHOLECALCIFEROL 25 MCG (1000 IU) TABLET PO SCH (08:03)
[2021-10-26] MEDS: predniSONE 20 MG TAB PO SCH (08:03)
[2021-10-26] MEDS: LEVOFLOXACIN 500 MG TAB PO SCH (08:03)
[2021-10-26] MEDS: ASPIRIN 81 MG PO SCH (08:03)
[2021-10-26] MEDS: INSULIN DETEMIR (LEVEMIR) 100 UNIT/ML SYR SQ SCH (08:04)
[2021-10-26] MEDS: ENOXAPARIN 40 MG/0.4 ML SYRINGE SQ SCH (08:04)
[2021-10-26] MEDS ORDERED: LEVOFLOXACIN 500 MG TAB PO SCH (09:00)
[2021-10-26 11:34] LABS: Glucose,Whole Blood 158 mg/dL (70-110)
--- NOTE | 2021-10-26 11:39 | P.PN ---
Subjective Progress Note Date: 10/26/21 86-year-old male patient with known history of pulmonary fibrosis, with chronic hypoxic respiratory failure patient usually wears 3 L of oxygen around the clock. His pulmonary fibrosis changes are worse in the left lung. In addition patient does have history of COPD, his most recent PFT from 2017 showed FEV1 of 1.1 L or 41% predicted, FVC of 1.68 or 44% of predicted, with FEV1 to FVC ratio of 93%, FEV of 38%, total lung capacity of 65% of predicted, consistent with severe obstruction and severe restriction. Other medical history includes hypertension, diabetes mellitus type 2, former smoker, prostate cancer status post prostatectomy, osteoarthritis. Patient follows with Dr. Richardson in the pulmonary clinic, patient is maintained on prednisone 5 mg daily, DuoNeb, Symbicort and Ventolin inhaler. Patient came into the emergency department on 10/19/2021 with complaints of progressive dyspnea over the past one week. Did report some slight chest discomfort and worsening lower extremity edema. Reported positive orthopnea. Denied any fever or chills, no cough or phlegm production. On presentation his pulse ox was noted to be at 60% on his usual 3 L/m. He states he took 2 courses of azithromycin in the past couple weeks and his prednisone was increased from 5 mg to 10 mg per day. Chest x-ray showed extensive chronic left-sided infiltrate with volume loss, not significantly different from 2 years ago. Lab evaluation showed white blood cell, 7.7, hemoglobin of 11.1, coagulation profile was within normal limits, proBNP was 596, troponins were less than 0.0123, chloride 19 PCR, influenza A and B and legionella urine antigen were all negative. BNP was reviewed showing sodium of 130, chloride of 81, bicarbonate concentration 43, BUN of 33, creatinine 1.12. LFTs were within normal limits. Patient was placed on empiric medical large with Levaquin, IV steroids, nebulized bronchodilators and given a dose of IV Lasix. Progress note dated 10/21/2021. Apparently last night the patient became more short of breath, and, was provided with increasing concentrations of oxygen. Unfortunately, for a variety reasons including ventilation perfusion mismatch, as well as decreased ventilatory drive, the patient became very hypercapnic, and lethargic/somnolent. Currently, he is on BiPAP, the settings have been increased to 16/6, and the FiO2 was reduced down to 40%. The gas was ordered. In addition, he had an opportunity to speak to his , and the patient was clear about not being placed on mechanical ventilation. I did speak to the [facility] physician about the situation last night. Currently, the most recent blood gas shows a pO2 of 60, pCO2 104, and a pH of 7.28. This is certainly an improvement. The previous blood gas showed a pO2 of 66, a pCO2 of greater than 120, and a pH is 7.15. I've asked respiratory to titrate the oxygen, so that his saturations are between 85 and 90%. Progress note dated 10/23/2021. The patient's doing well again today. He did need some time on BiPAP earlier today, for about 1-2 hours. His BiPAP settings were 16/6, with an FiO2 of 40%. He's not receiving any IV fluids. He is currently on 4 L. Saturations are 90%. I told the nurses and respiratory therapist, to try to maintain a saturation between 85-90%. Sodium 135, potassium 4.2, chlorides 81, CO2 48, anion gap 6, BUN 59, with creatinine 1.11. Magnesium is 2.3. The patient is seen today 10/25/2019 to follow up on the regular medical floor. He is currently sitting up in a chair at the bedside. Awake and alert. Currently off his BiPAP and on 4 L nasal cannula. He did wear her BiPAP throughout the night 16/6 at 40% FiO2. He is still confused at times. Blood cultures reveal no growth. Blood sugar 262. He remains on DuoNeb inhalations, Symbicort, IV Solu-Medrol, antibiotics in the form of Levaquin. Lovenox for DVT prophylaxis. The patient was seen today 10/25/2021 in follow-up on the regular medical floor. He is currently sitting up in bed. Awake and alert and no acute distress. A bit more oriented today compared to yesterday. Currently off the BiPAP and maintaining O2 saturations in the 90s on 3 L/m per nasal cannula. Blood cultures revealed no growth. He is continued on Symbicort, DuoNeb inhalations, prednisone. Remains on antibiotics in the form of Levaquin. The patient is seen today 10/26/2021 in follow-up on the regular medical floor. He is awake and alert in no acute distress. Sitting up in a chair at the bedside. He is maintaining O2 saturations in the 90s on 3 L/m per nasal cannula. He is continued on Symbicort, DuoNeb inhalations, prednisone. Antibiotics in the form of Levaquin. Lovenox for DVT prophylaxis. Blood glucose 158. Objective - Vital Signs Vital signs: Vital Signs Temp 98.9 F 10/26/21 02:00 Pulse 82 10/26/21 11:17 Resp 17 10/26/21 08:00 BP 138/84 10/26/21 08:00 Pulse Ox 95 10/26/21 08:00 FiO2 40 10/26/21 03:06 Intake & Output 10/25/21 10/26/21 10/26/21 18:59 06:59 18:59 Output Total 800 550 Balance -800 -550 Weight 90.5 kg Output: Urine 800 550 Other: Voiding Method Indwelling Catheter Indwelling Catheter Indwelling Catheter - Exam GENERAL EXAM: Alert, 86-year-old male patient, resting in bed, on 3 L nasal cannula, comfortable in no apparent distress. HEAD: Normocephalic. EYES: Normal reaction of pupils, equal size. NOSE: Clear with pink turbinates. THROAT: No erythema or exudates. NECK: No masses, no JVD. CHEST: No chest wall deformity. LUNGS: Equal air entry with bilateral rhonchi. CVS: S1 and S2 normal with no audible murmur, regular rhythm. ABDOMEN: No hepatosplenomegaly, normal bowel sounds, no guarding or rigidity. SPINE: No scoliosis or deformity SKIN: No rashes CENTRAL NERVOUS SYSTEM: No focal deficits, tone is normal in all 4 extremities. EXTREMITIES: There is 1+ peripheral edema. No clubbing, no cyanosis. Peripheral pulses are intact. - Labs CBC & Chem 7: 10/23/21 07:06 10/23/21 07:06 Labs: Abnormal Lab Results - Last 24 Hours (Table) 10/25/21 10/25/21 10/25/21 Range/Units 11:38 16:45 20:28 POC Glucose (mg/dL) 516 H 363 H 236 H (70-110) mg/dL 10/26/21 Range/Units 11:32 POC Glucose (mg/dL) 158 H (70-110) mg/dL Microbiology - Last 24 Hours (Table) 10/19/21 14:02 Blood Culture - Final Blood No Growth after 144 hours Assessment and Plan Assessment: Acute on chronic hypoxemic and hypercapnic respiratory failure, secondary to underlying COPD, and pulmonary fibrosis. Chronic hypercapnic respiratory failure. History of COPD, on home oxygen. History of hypertension. History of prostate cancer, status post prostatectomy. Type 2 diabetes mellitus. Previous history of tobacco use. Plan: The patient was seen and evaluated Continues to alternate between BiPAP and nasal cannula Remains on bronchodilators, steroids, antibiotics Prognosis remains guarded DO NOT RESUSCITATE/DO NOT INTUBATE CODE STATUS Discharge planning in place I have personally seen and examined the patient, performed the documentation and the assessment and plan as written. Number of minutes spent on the visit: 10.
--- NOTE | 2021-10-26 13:05 | P.PN ---
Subjective Progress Note Date: 10/26/21 Principal diagnosis: sob Patient has been requiring BiPAP during the nighttime throughout his hospital stay. While asleep he dropped to 72% oxygen saturation last night. BiPAP was placed. During the day and according to nursing he is only requiring nasal cannula. Objective - Vital Signs Vital signs: Vital Signs Temp 98.9 F 10/26/21 02:00 Pulse 82 10/26/21 11:17 Resp 17 10/26/21 08:00 BP 138/84 10/26/21 08:00 Pulse Ox 95 10/26/21 08:00 FiO2 40 10/26/21 03:06 Intake & Output 10/25/21 10/26/21 10/26/21 18:59 06:59 18:59 Output Total 800 550 Balance -800 -550 Weight 90.5 kg Output: Urine 800 550 Other: Voiding Method Indwelling Catheter Indwelling Catheter Indwelling Catheter - Exam Constitutional: No acute distress, conversant, pleasant Eyes:Anicteric sclerae, moist conjunctiva, no lid-lag, PERRLA, ENMT: Oropharynx clear, no erythema, exudates Neck: Supple, FROM, no masses, or JVD, No carotid bruits, No thyromegaly Lungs: Bilateral rhonchi, Clear to percussion, Normal respiratory effort, no accessory muscle use Cardiovascular: Heart regular in rate and rhythm, No murmurs, gallops, or rubs, No peripheral edema Abdominal: Soft, Nontender, no guarding, rebound or rigidity, Normoactive bowel sounds, No hepatomegaly, No splenomegaly, No palpable mass Skin: Normal temperature, tone, texture, turgor, no induration, No subcutaneous nodules, No rash, lesions, No ulcers Extremities: No digital cyanosis, No clubbing, Pedal pulses intact and symmetrical, Radial pulses intact and symmetrical, No calf tenderness Psychiatric: Alert and oriented to person, place and time, appropriate affect, intact judgement Neuro: Muscles Strength 5/5 in all 4 extremities, Sensation to light touch grossly present throughout, Cranial nerves II-XII grossly intact, no focal sensory deficits - Labs CBC & Chem 7: 10/23/21 07:06 10/23/21 07:06 Labs: Abnormal Lab Results - Last 24 Hours (Table) 10/25/21 10/25/21 10/26/21 Range/Units 16:45 20:28 11:32 POC Glucose (mg/dL) 363 H 236 H 158 H (70-110) mg/dL Microbiology - Last 24 Hours (Table) 10/19/21 14:02 Blood Culture - Final Blood No Growth after 144 hours Assessment and Plan Plan: Acute exacerbation of COPD Acute on chronic hypoxic respiratory failure Currently requiring 3 L of oxygen Requiring nighttime bipap, we'll need to arrange for outpatient Dounebs IV steroids--switched to oral prednisone. Levaquin Pulmonary following Mildly elevated pro calcitonin 0.11 Leg swelling No congestive heart failure per cardiology Echocardiogram from 2019 reviewed, ejection fraction was 45-50%. Repeat echocardiogram showed normal EF. Continue oral lasix. Diabetes type 2 with hyperglycemia, uncontrolled Lantus titrated up to 30 units daily due to persistent hypoglycemia, he is not on insulin at home. Blood sugars now better controlled. Hold oral hypoglycemics Sliding scale insulin End-of-life care Consult palliative care--family meeting arranged for Wednesday. Chronic Hypertension, Osteoarthritis (OA), Resume meds CODE STATUS discussed with patient, he does not want to be vegetable on machines but he is okay with short-term resuscitation attempts including CPR and ventilator. Anticipated discharge: in am, care management to arrange for home BiPAP device.
[2021-10-26 16:26] LABS: Glucose,Whole Blood 388 mg/dL (70-110)
[2021-10-26 20:16] LABS: Glucose,Whole Blood 397 mg/dL (70-110)
[2021-10-27 06:56] LABS: Glucose,Whole Blood 55 mg/dL (70-110)
[2021-10-27 07:12] LABS: Glucose,Whole Blood 87 mg/dL (70-110)
[2021-10-27] MEDS: IPRATROPIUM-ALBUTEROL 3 ML NEB INHALATION SCH ×4 (07:15→20:50)
[2021-10-27] MEDS: SYMBICORT 160-4.5 MCG INHALER INHALATION SCH ×2 (07:16→20:50)
[2021-10-27] MEDS: INSULIN ASPART (NovoLOG) 100 UNIT/ML VIAL SQ SCH ×4 (08:05→21:28)
[2021-10-27] MEDS: ENOXAPARIN 40 MG/0.4 ML SYRINGE SQ SCH (08:11)
[2021-10-27] MEDS: CHOLECALCIFEROL 25 MCG (1000 IU) TABLET PO SCH (08:11)
[2021-10-27] MEDS: ASPIRIN 81 MG PO SCH (08:11)
[2021-10-27] MEDS: LEVOFLOXACIN 500 MG TAB PO SCH (08:11)
[2021-10-27] MEDS: predniSONE 20 MG TAB PO SCH (08:11)
[2021-10-27] MEDS: FERROUS SULFATE 325 MG TAB PO SCH (08:11)
[2021-10-27 11:19] LABS: Glucose,Whole Blood 170 mg/dL (70-110)
--- NOTE | 2021-10-27 13:09 | P.PN ---
Subjective Progress Note Date: 10/27/21 10/27/2021, the patient is being seen for a follow-up. The patient is currently resting comfortably on his chair at 3 L per minute nasal cannula. He is known to have chronic hypoxic and hypercapnic respiratory failure due to COPD. Nevertheless, he chest x-ray shows extensive bulky ectatic changes and fibrotic changes in the lungs more so on the left lung compared to the right. Note that the patient has significant volume loss because of the chronic scarring which is probably related to previous pneumonias. This is a noted also on previous chest x-rays done over the years. 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 He is arousable. His communicating. He has no specific complaints. The medical team is ranging at home BiPAP for this patient on the basis of COPD and chronic hypercapnic respiratory failure. The patient remains on Symbicort for now. The patient remains on a prednisone burst taper. The patient is using DuoNeb nebulized treatments [id number] and Levemir insulin 30 units and a sliding scale coverage for now. No new labs are available from today. Objective - Vital Signs Vital signs: Vital Signs Temp 97.9 F 10/27/21 08:00 Pulse 89 10/27/21 12:05 Resp 15 10/27/21 08:00 BP 123/62 10/27/21 08:00 Pulse Ox 93 L 10/27/21 08:00 FiO2 40 10/26/21 03:06 Intake & Output 10/26/21 10/27/21 10/27/21 18:59 06:59 18:59 Output Total 1000 900 Balance -1000 -900 Weight 91 kg Output: Urine 1000 900 Other: Voiding Method Indwelling Catheter Indwelling Catheter Indwelling Catheter # Bowel Movements 1 - Exam GENERAL EXAM: Alert, 86-year-old male patient, resting in bed, on 3 L nasal cannula, comfortable in no apparent distress. HEAD: Normocephalic. EYES: Normal reaction of pupils, equal size. NOSE: Clear with pink turbinates. THROAT: No erythema or exudates. NECK: No masses, no JVD. CHEST: No chest wall deformity. LUNGS: Equal air entry with bilateral rhonchi. CVS: S1 and S2 normal with no audible murmur, regular rhythm. ABDOMEN: No hepatosplenomegaly, normal bowel sounds, no guarding or rigidity. SPINE: No scoliosis or deformity SKIN: No rashes CENTRAL NERVOUS SYSTEM: No focal deficits, tone is normal in all 4 extremities. EXTREMITIES: There is 1+ peripheral edema. No clubbing, no cyanosis. Peripheral pulses are intact. - Labs CBC & Chem 7: 10/23/21 07:06 10/23/21 07:06 Labs: Abnormal Lab Results - Last 24 Hours (Table) 10/26/21 10/26/21 10/27/21 Range/Units 16:25 20:08 06:54 POC Glucose (mg/dL) 388 H 397 H 55 L (70-110) mg/dL 10/27/21 Range/Units 11:18 POC Glucose (mg/dL) 170 H (70-110) mg/dL Assessment and Plan Plan: Acute on chronic hypoxemic and hypercapnic respiratory failure, secondary to underlying COPD, and pulmonary fibrosis involving the lungs most on the left with significant amount of volume loss on the left side which is essentially chronic finding greater previous pneumonias and scarring. Acute on chronic hypoxic and hypercapnic respiratory failure, improving Chronic hypercapnic respiratory failure, with a component of chronic metabolic alkalosis History of COPD, on home oxygen. History of hypertension. History of prostate cancer, status post prostatectomy. Type 2 diabetes mellitus. Previous history of tobacco use. Plan: Patient is stable for now No signs of any CO2 narcosis Reasonable to repeat the blood gas to evaluate acid base status on this study state Continue bronchodilators and the patient is currently on Symbicort and DuoNeb nebulized treatment [id number] Lovenox 40 mg subcu for DVT prophylaxis BiPAP if the patient qualifies Continue to follow
[2021-10-27] MEDS: INSULIN DETEMIR (LEVEMIR) 100 UNIT/ML SYR SQ SCH (13:31)
[2021-10-27 13:38] LABS: ABG Base Excess 21.5 mmol/L; ABG Hematocrit 32 % (34.0-46.0); ABG Oxygen Saturation 90.9 % (94-97); ABG PH 7.35 (7.35-7.45); ABG TCO2 50 mmol/L (19-24); Allen Test Performed? Yes
[2021-10-27 13:40] LABS: ABG PCO2 86 mmHg (35-45)
[2021-10-27 13:41] LABS: ABG HCO3 47 mmol/L (21-25); ABG PO2 57 mmHg (83-108)
--- NOTE | 2021-10-27 15:04 | P.CONS ---
History of Present Illness - Reason for Consult Consult date: 10/27/21 Severe COPD Requesting physician: Jersey Richardson - Chief Complaint Shortness of breath - History of Present Illness The patient is an 86 year-old male with a past medical history significant for a combination of restrictive and obstructive COPD, CHF, DM, HTN, pneumonia, and p ulmonary fibrosis. He has chronic hypoxic respiratory failure patient usually wears 3 L of oxygen around the clock. He presented to the emergency room on 10/19/21 with progressive shortness of breath over the course of one week, and chest pain. He also had worsening lower extremity edema last week. He had orthopnea, paroxysmal nocturnal dyspnea as well. Chest x-ray showed extensive chronic left-sided infiltrate with volume loss, not significantly different from 2 years ago. No fevers or chills. There is no cough or production. He took 2 courses of steroids and Zithromax in the past couple of weeks with last dose 4 days ago. Ther are pulmonary fibrosis changes are worse in the left lung. His most recent PFT from 2018 showed FEV1 of 1.1 L or 41% predicted, FVC of 1.68 or 44% of predicted, with FEV1 to FVC ratio of 93%, FEV of 38%, total lung capacity of 65% of predicted, consistent with severe obstruction and severe restriction. Patient was placed on empiric medical large with Levaquin, IV steroids, nebulized bronchodilators and given a dose of IV Lasix. On 10/20/21 the patient became more short of breath, and, was provided with increasing concentrations of oxygen. Unfortunately, for a variety reasons including ventilation perfusion mismatch, as well as decreased ventilatory drive, the patient became very hypercapnic, and lethargic/somnolent. He was on BiPAP and the settings had to be increased to 16/6, and the FiO2 was reduced down to 40%. The patient and his were clear about not being placed on mechanical ventilation. Hia ABG showed a pO2 of 60, pCO2 104, and a pH of 7.28. which was an improvement. The previous blood gas showed a pO2 of 66, a pCO2 of greater than 120, and a pH is 7.15. The patient improved and continued to alternate between BiPAP and nasal cannula. He still remains on bronchodilators, steroids, antibiotics. Prognosis remains guarded. Review of Systems Constitutional: Reports as per HPI Past Medical History Past Medical History: Asthma, Cancer, Diabetes Mellitus, Hypertension, Osteoarthritis (OA), Pneumonia, Respiratory Disorder Additional Past Medical History / Comment(s): Pulmonary fibrosis, CO2 retainer- pt's PCP suggested for pt to have tests run during this hospitalization to determine correct liter flow for his home O2- currently uses 2-3L/NC, NIDDM type II, prostate cancer with surgery, nose bleeds, arthritis multiple joints. PT/SPOUSE REQUESTING NO PHYSICAL THERAPY. History of Any Multi-Drug Resistant Organisms: None Reported Past Surgical History: Prostate Surgery Additional Past Surgical History / Comment(s): Prostatectomy, bronchoscopy(bx neg), bilateral cataracts removed with lens implants. Past Anesthesia/Blood Transfusion Reactions: No Reported Reaction Additional Past Anesthesia/Blood Transfusion Reaction / Comm: clausterphobia Smoking Status: Former smoker - Past Family History Father History Unknown: Yes Additional Family Medical History / Comment(s): raised by great grandparents Mother History Unknown: Yes Additional Family Medical History / Comment(s): raised by great grandparents Medications and Allergies Home Medications Medication Instructions Recorded Confirmed Type Aspirin 650 mg PO DAILY 09/01/16 10/19/21 History glipiZIDE [Glucotrol] 20 mg PO BID 09/01/16 10/19/21 History Ferrous Sulfate [Iron (65 MG 325 mg PO DAILY 03/31/18 10/19/21 History Elemental)] Furosemide [Lasix] 40 mg PO DAILY #30 tablet 01/11/20 10/19/21 Rx Ascorbic Acid [Vitamin C] 1,000 mg PO DAILY 10/19/21 10/19/21 History Cholecalciferol [Vitamin D3 (25 50 mcg PO DAILY 10/19/21 10/19/21 History Mcg = 1000 Iu)] Fluticasone Nasal Lisman [Flonase 2 spray EA NOSTRIL DAILY 10/19/21 10/19/21 History Nasal Lisman] Pioglitazone [Actos] 45 mg PO DAILY 10/19/21 10/19/21 History Vitamin E (Dl,Tocopheryl Acet) 400 unit PO DAILY 10/19/21 10/19/21 History [Vitamin E (400 Iu = 180 mg)] predniSONE 5 mg PO DAILY 10/19/21 10/19/21 History Allergies Allergy/AdvReac Type Severity Reaction Status Date / Time Penicillins Allergy Anaphylaxis Verified 10/19/21 13:40 Physical Exam Vitals: Vital Signs Temp Pulse Pulse Resp BP Pulse Ox 10/27/21 12:05 89 10/27/21 11:56 76 10/27/21 08:00 97.9 F 81 15 123/62 93 L 10/27/21 07:31 74 10/27/21 07:19 78 10/27/21 07:18 90 L 10/27/21 01:37 98.7 F 95 20 119/59 96 10/26/21 21:48 98.7 F 91 16 135/51 10/26/21 20:34 92 10/26/21 20:26 89 10/26/21 20:00 91 16 10/26/21 15:48 82 10/26/21 15:39 89 10/26/21 15:06 98.5 F 91 17 124/85 94 L Intake and Output 10/26/21 10/27/21 10/27/21 22:59 06:59 14:59 Output Total 1000 900 Balance -1000 -900 Output: Urine 1000 900 Other: Voiding Method Indwelling Catheter Indwelling Catheter # Bowel Movements 1 Weight 91 kg General: Well developed, well nourished. No acute distress. Chronically ill appearing HEENT: Head is atraumatic, normocephalic. Sclerae are clear. Pupils equal, round and reactive to light bilaterally. Mucus membranes moist. + THREE AFFILIATED CV: Heart regular in rate and rhythm positive S1 and S2. No clicks, rubs or murmurs. Peripheral pulses equal. 2/4 Lungs: Clear to auscultation bilaterally. No wheezes rales or rhonchi. Respirations even and nonlabored. 3L NC Abdomen/GI: Soft. Bowel sounds present in all 4 quadrants.No gaurding, rigidity, or abdominal tenderness. Musculoskeletal/ Extremities: MEDELLIN, no joint deformity or swelling. No gross atrophy. + generalized weakness Vascular: Radial pulses equal. 2/4. Trace peripheral edema Skin: Warm and dry, No rash or lesions. Neurologic: Awake, alert and oriented times 3. CN II-XII grossly intact. No focal deficits. Psychiatric: Appropriate mood and affect. 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 * Marital status - for approximately 3 years * Children/grandchildren - 2 biological and 2 step children * Residence - 2 story house * Who do you reside with - , Dawn * ETOH - No * Tobacco - Remote history * Illicit drugs - No Spiritual/Cultural * A spiritual person - Yes * Congregational - [employer] * Belong to a particular samaritan - No * Beliefs a source of comfort and strength - YEs * Hoahaoism or cultural practices restrictions - No * EOL considerations/rituals - No Functional Assessment * Able to walk independently - Yes * Assistive devices - Walker or cane for long distances * Able to use the bathroom independently - Yes * Continent - Yes * Require assistance bathing- No * Able to feed self - Yes * Who prepares meals - Patient * How many meals a day eaten - 2-3 * What percentage of meals eaten daily - > 50% * Able to clean house/do laundry - Yes, but does this * Transportation - Patient still drove occasionally up until approx 1 month ago * Able to shop - Yes * Who manages medications - Patient * Who manages finances - Patient Psychological/Emotional * Dementia present - No * Insight and judgment - Yes * Depression - No * Suicidal thoughts - No * Good support system - Yes * Patients goals - prolonged survival * Frequent hospitalizations - Yes * Desire to keep coming back to the hospital for treatment - Yes Symptoms * Pain - 0/10, continue Tylenol * Fatigue - Yes, continue Feosol * SOB - Yes, with exertion. Continue Prednisone, Duoneb, Symbicort, and Levquin * Insomnia - No * N/V - No * Anxiety - No * Depression - No * Confusion - Resolved * Agitation - No * Hallucinations - No * Appetite/weight loss - Good appetite, no recent weight loss. Continue Consistent carbohydrate diet * Dysphagia - No * Constipation - No LBM 10/27 * Incontinence - No * Itch - No Plan: Summary/Goals - The patient is resting in bed. He is hard of hearing, even with his hearing aids in. His and his daughter are at the bedside. Education provided regarding the patient's COPD. The patient has a combination of severe obstructive and restrictive disease. There is significant volume loss from scarring caused by previous pneumonia infections. His COPD can not be reversed or cured. It is not possible to stop the progression of the disease, only slow it down. There are limited treatment options for his symptoms. Each time he has an exacerbation, his baseline will not return to the level it was previously. Also, with progression of the disease, his exacerbations will become more frequent and eventually the medications become less effective.. Information regarding palliative care and hospice philosophies and services was provided. The patient states his goal is prolonged survival. There goal is not realistic given his advanced age and co-morbidities. The states that he is still too active at home to consider either one of theses services. She was informed that the goal of outpatient palliative care is to manage his symptoms at home to prevent exacerbations and hospitalizations. She stated she will wait and see how he does at home before deciding. She is also declining any home care at this point. Code status discussed, patient wishes to remain a DNR. Recommendations - Discharge home Advanced Directives - No Code Status - DNR Thank you for this consult Estefani Hoang [facility] Palliative Care [facility] [id number] Email: [email or web address] Time with Patient: Greater than 30
[2021-10-27 16:37] LABS: Glucose,Whole Blood 336 mg/dL (70-110)
--- NOTE | 2021-10-27 17:51 | P.PN ---
Subjective Progress Note Date: 10/27/21 Hospital course: Patient is a very pleasant 86-year-old male with a past medical history of severe pulmonary fibrosis home oxygen dependent on 3 L at all times follows [employer] Dr. Richardson. He presented to the emergency department on 10/19/21 with a chief complaint of worsening shortness of breath. Patient was found to have acute on chronic hypoxic respiratory failure with SpO2 of 68% on 3 L O2 upon arrival to our facility requiring additional oxygenation needs up to and including BiPAP at times. Physical exam: Vital signs reviewed and stable. General: Nontoxic, no distress and appears stated age. Derm: Skin warm and dry, normal coloration for ethnicity. Head: Atraumatic, normocephalic and symmetric. Eyes: EOMs intact, no lid lag, and anicteric sclera Mouth: no lip lesions, mucus membranes moist Cardiovascular: regular rate and rhythm with normal S1S2, no murmur, positive posterior tibial pulses bilaterally, and cap refill < 2 seconds. Lungs: Respirations even, regular, and unlabored on room air. Lungs diminished with bilateral expiratory wheezes. no rhonchi, no rales, and no accessory muscle usage. Abdominal: soft, nontender to palpation, no guarding, no appreciable organomegaly Ext: ROM intact. No gross muscle atrophy, no edema, no contractures Neuro: Speech clear, face symmetrical and CN II-XII grossly intact with no noted focal neuro deficits Psych: Alert and oriented to person, place, time, and situation. Appropriate and pleasant affect. Assessment and Plan of Care: Acute exacerbation of COPD Acute on chronic hypoxic and hypercapnic respiratory failure -Pulmonology following -Oxygenation to be administered and titrated as needed to maintain SPO2 equal to or greater than 90% -Telemetry monitoring. -Monitor Pulse-oximetry -Duonebs scheduled and as needed for SOB and/or wheezing -Incentive Spirometry -Steroids: Prednisone -Continue Pulmicort and empiric Levaquin Hypertension -Monitor vital signs, Patient no longer on antihypertensive medications and blood pressures have been stable throughout hospitalization. [id number] Type 2 diabetes mellitus -Hold glipizide and continue glycemic protocol with NovoLog sliding scale. History of prostate cancer, status post prostatectomy CODE STATUS: DO NOT RESUSCITATE/DO NOT INTUBATE DVT prophylaxis: Lovenox Discussed with: Patient and RN Anticipated discharge date: Within the next 24-[address]: Home with home care and palliative care A total of 38 minutes was spent on the care of this complex patient more than 50% of the time was spent in counseling and care coordination. Objective - Vital Signs Vital signs: Vital Signs Temp 98.0 F 10/27/21 14:00 Pulse 77 10/27/21 15:56 Resp 18 10/27/21 14:00 BP 126/61 10/27/21 14:00 Pulse Ox 92 L 10/27/21 14:00 FiO2 40 10/26/21 03:06 Intake & Output 10/26/21 10/27/21 10/27/21 18:59 06:59 18:59 Output Total 1000 900 Balance -1000 -900 Weight 91 kg Output: Urine 1000 900 Other: Voiding Method Indwelling Catheter Indwelling Catheter Indwelling Catheter # Bowel Movements 1 - Labs CBC & Chem 7: 10/23/21 07:06 10/23/21 07:06 Labs: Abnormal Lab Results - Last 24 Hours (Table) 10/26/21 10/27/21 10/27/21 Range/Units 20:08 06:54 11:18 ABG pCO2 (35-45) mmHg ABG pO2 (83-108) mmHg ABG HCO3 (21-25) mmol/L ABG Total CO2 (19-24) mmol/L ABG O2 Saturation (94-97) % ABG Hematocrit (34.0-46.0) % Hemoglobin (13.0-17.5) gm/dL POC Glucose (mg/dL) 397 H 55 L 170 H (70-110) mg/dL 10/27/21 10/27/21 Range/Units 13:32 16:36 ABG pCO2 86 H* (35-45) mmHg ABG pO2 57 L* (83-108) mmHg ABG HCO3 47 H* (21-25) mmol/L ABG Total CO2 50 H (19-24) mmol/L ABG O2 Saturation 90.9 L (94-97) % ABG Hematocrit 32 L (34.0-46.0) % Hemoglobin 10.4 L (13.0-17.5) gm/dL POC Glucose (mg/dL) 336 H (70-110) mg/dL
[2021-10-27 21:26] LABS: Glucose,Whole Blood 324 mg/dL (70-110)
[2021-10-28 06:55] LABS: Glucose,Whole Blood 133 mg/dL (70-110)
[2021-10-28] MEDS: INSULIN ASPART (NovoLOG) 100 UNIT/ML VIAL SQ SCH ×4 (07:02→21:27)
[2021-10-28] MEDS: ASPIRIN 81 MG PO SCH (07:29)
[2021-10-28] MEDS: CHOLECALCIFEROL 25 MCG (1000 IU) TABLET PO SCH (07:29)
[2021-10-28] MEDS: FERROUS SULFATE 325 MG TAB PO SCH (07:29)
[2021-10-28] MEDS: LEVOFLOXACIN 500 MG TAB PO SCH (07:30)
[2021-10-28] MEDS: ENOXAPARIN 40 MG/0.4 ML SYRINGE SQ SCH (07:30)
[2021-10-28] MEDS: predniSONE 20 MG TAB PO SCH (07:30)
[2021-10-28] MEDS: INSULIN DETEMIR (LEVEMIR) 100 UNIT/ML SYR SQ SCH (07:30)
[2021-10-28] MEDS: IPRATROPIUM-ALBUTEROL 3 ML NEB INHALATION SCH ×4 (07:39→21:17)
[2021-10-28] MEDS: SYMBICORT 160-4.5 MCG INHALER INHALATION SCH ×2 (07:39→21:17)
[2021-10-28 08:52] LABS: HCT 34.4 % (39.6-50.0); MCH 30.7 pg (27.0-32.0); MCHC 29.1 g/dL (32.0-37.0); MCV 105.5 fL (80.0-97.0); NRBC Per 100 WBC 0 /100 WBCS (0.0-0.0); Platelet Count 90 X 10*3/uL (140-440); RBC 3.26 X 10*6/uL (4.40-5.60); RDW 12.8 % (11.5-14.5); WBC 6.47 X 10*3/uL (4.50-10.00)
[2021-10-28 09:12] LABS: Magnesium 2.2 mg/dL (1.5-2.4)
[2021-10-28 09:15] LABS: African American GFR (CKD) 70.1 (60.0-200.0); Albumin 3.4 g/dL (3.8-4.9); Albumin/Globulin Ratio 1.55 (1.60-3.17); Anion Gap 3.4 mmol/L (10.00-18.00); BUN/Creat Ratio 33.09 Ratio (12.00-20.00); Blood Urea Nitrogen 36.4 mg/dL (9.0-27.0); Calcium 8.8 mg/dL (8.7-10.3); Carbon Dioxide 45.6 mmol/L (20.0-27.5); Globulin 2.2 g/dL (1.6-3.3); Non-African American GFR(CKD) 60.5 (60.0-200.0); Potassium 4.6 mmol/L (3.5-5.5); Total Bilirubin 0.5 mg/dL (0.30-1.20); Total Protein 5.6 g/dL (6.2-8.2)
[2021-10-28 11:04] LABS: Glucose,Whole Blood 192 mg/dL (70-110)
[2021-10-28] MEDS: acetaZOLAMIDE 250 MG TAB PO SCH ×2 (11:50→21:27)
--- NOTE | 2021-10-28 12:51 | P.PN ---
Subjective Progress Note Date: 10/28/21 86-year-old male patient with known history of pulmonary fibrosis, with chronic hypoxic respiratory failure patient usually wears 3 L of oxygen around the clock. His pulmonary fibrosis changes are worse in the left lung. In addition patient does have history of COPD, his most recent PFT from 2017 showed FEV1 of 1.1 L or 41% predicted, FVC of 1.68 or 44% of predicted, with FEV1 to FVC ratio of 93%, FEV of 38%, total lung capacity of 65% of predicted, consistent with severe obstruction and severe restriction. Other medical history includes hypertension, diabetes mellitus type 2, former smoker, prostate cancer status post prostatectomy, osteoarthritis. Patient follows with Dr. Richardson in the pulmonary clinic, patient is maintained on prednisone 5 mg daily, DuoNeb, Symbicort and Ventolin inhaler. Patient came into the emergency department on 10/19/2021 with complaints of progressive dyspnea over the past one week. Did report some slight chest discomfort and worsening lower extremity edema. Reported positive orthopnea. Denied any fever or chills, no cough or phlegm production. On presentation his pulse ox was noted to be at 60% on his usual 3 L/m. He states he took 2 courses of azithromycin in the past couple weeks and his prednisone was increased from 5 mg to 10 mg per day. Chest x-ray showed extensive chronic left-sided infiltrate with volume loss, not significantly different from 2 years ago. Lab evaluation showed white blood cell, 7.7, hemoglobin of 11.1, coagulation profile was within normal limits, proBNP was 596, troponins were less than 0.0123, chloride 19 PCR, influenza A and B and legionella urine antigen were all negative. BNP was reviewed showing sodium of 130, chloride of 81, bicarbonate concentration 43, BUN of 33, creatinine 1.12. LFTs were within normal limits. Patient was placed on empiric medical large with Levaquin, IV steroids, nebulized bronchodilators and given a dose of IV Lasix. Progress note dated 10/21/2021. Apparently last night the patient became more short of breath, and, was provided with increasing concentrations of oxygen. Unfortunately, for a variety reasons including ventilation perfusion mismatch, as well as decreased ventilatory drive, the patient became very hypercapnic, and lethargic/somnolent. Currently, he is on BiPAP, the settings have been increased to 16/6, and the FiO2 was reduced down to 40%. The gas was ordered. In addition, he had an opportunity to speak to his , and the patient was clear about not being placed on mechanical ventilation. I did speak to the Sound physician about the situation last night. Currently, the most recent blood gas shows a pO2 of 60, pCO2 104, and a pH of 7.28. This is certainly an improvement. The previous blood gas showed a pO2 of 66, a pCO2 of greater than 120, and a pH is 7.15. I've asked respiratory to titrate the oxygen, so that his saturations are between 85 and 90%. Progress note dated 10/23/2021. The patient's doing well again today. He did need some time on BiPAP earlier today, for about 1-2 hours. His BiPAP settings were 16/6, with an FiO2 of 40%. He's not receiving any IV fluids. He is currently on 4 L. Saturations are 90%. I told the nurses and respiratory therapist, to try to maintain a saturation between 85-90%. Sodium 135, potassium 4.2, chlorides 81, CO2 48, anion gap 6, BUN 59, with creatinine 1.11. Magnesium is 2.3. The patient is seen today 10/25/2019 to follow up on the regular medical floor. He is currently sitting up in a chair at the bedside. Awake and alert. Currently off his BiPAP and on 4 L nasal cannula. He did wear her BiPAP throughout the night 16/6 at 40% FiO2. He is still confused at times. Blood cultures reveal no growth. Blood sugar 262. He remains on DuoNeb inhalations, Symbicort, IV Solu-Medrol, antibiotics in the form of Levaquin. Lovenox for DVT prophylaxis. The patient was seen today 10/25/2021 in follow-up on the regular medical floor. He is currently sitting up in bed. Awake and alert and no acute distress. A bit more oriented today compared to yesterday. Currently off the BiPAP and maintaining O2 saturations in the 90s on 3 L/m per nasal cannula. Blood cultures revealed no growth. He is continued on Symbicort, DuoNeb inhalations, prednisone. Remains on antibiotics in the form of Levaquin. The patient is seen today 10/26/2021 in follow-up on the regular medical floor. He is awake and alert in no acute distress. Sitting up in a chair at the bedside. He is maintaining O2 saturations in the 90s on 3 L/m per nasal cannula. He is continued on Symbicort, DuoNeb inhalations, prednisone. Antibiotics in the form of Levaquin. Lovenox for DVT prophylaxis. Blood glucose 158. The patient is seen today 10/28/2021 in follow-up on the regular medical floor. He is currently sitting up in a chair at the bedside. Awake and alert in no acute distress. The patient is maintaining O2 saturations in the low 90s on 2 L/m per nasal cannula. He is afebrile. Hemodynamically stable. Blood cultures revealed no growth. White count 6.4. Hematoma 10.0. Platelets 90,000. Sodium 142. Potassium 4.6. Bicarb 46. BUN 36. Creatinine 1.1. Glucose 123. Most recent arterial blood gases revealed a PaO2 of 57, pCO2 of 86 and a pH of 7.35 and 32% FiO2. Objective - Vital Signs Vital signs: Vital Signs Temp 98.1 F 10/28/21 08:00 Pulse 77 10/28/21 11:44 Resp 18 10/28/21 11:44 BP 113/62 10/28/21 08:00 Pulse Ox 91 L 10/28/21 08:00 FiO2 40 10/28/21 07:40 Intake & Output 10/27/21 10/28/21 10/28/21 18:59 06:59 18:59 Output Total 600 1700 Balance -600 -1700 Weight 90.5 kg Output: Urine 600 1700 Other: Voiding Method Indwelling Catheter Indwelling Catheter Indwelling Catheter # Bowel Movements 1 - Exam GENERAL EXAM: Alert, 86-year-old male patient, up in a chair at the bedside, on 2 L nasal cannula, comfortable in no apparent distress. HEAD: Normocephalic. EYES: Normal reaction of pupils, equal size. NOSE: Clear with pink turbinates. THROAT: No erythema or exudates. NECK: No masses, no JVD. CHEST: No chest wall deformity. LUNGS: Equal air entry with bilateral rhonchi. CVS: S1 and S2 normal with no audible murmur, regular rhythm. ABDOMEN: No hepatosplenomegaly, normal bowel sounds, no guarding or rigidity. SPINE: No scoliosis or deformity SKIN: No rashes CENTRAL NERVOUS SYSTEM: No focal deficits, tone is normal in all 4 extremities. EXTREMITIES: There is 1+ peripheral edema. No clubbing, no cyanosis. Peripheral pulses are intact. - Labs CBC & Chem 7: 10/28/21 05:15 10/28/21 05:15 Labs: Abnormal Lab Results - Last 24 Hours (Table) 10/27/21 10/27/21 10/27/21 Range/Units 13:32 16:36 21:25 RBC (4.40-5.60) X 10*6/uL Hgb (13.0-17.0) g/dL Hct (39.6-50.0) % MCV (80.0-97.0) fL MCHC (32.0-37.0) g/dL Plt Count (140-440) X 10*3/uL ABG pCO2 86 H* (35-45) mmHg ABG pO2 57 L* (83-108) mmHg ABG HCO3 47 H* (21-25) mmol/L ABG Total CO2 50 H (19-24) mmol/L ABG O2 Saturation 90.9 L (94-97) % ABG Hematocrit 32 L (34.0-46.0) % Hemoglobin 10.4 L (13.0-17.5) gm/dL Chloride (96-109) mmol/L Carbon Dioxide (20.0-27.5) mmol/L Anion Gap (10.00-18.00) mmol/L BUN (9.0-27.0) mg/dL BUN/Creatinine Ratio (12.00-20.00) Ratio Glucose (70-110) mg/dL POC Glucose (mg/dL) 336 H 324 H (70-110) mg/dL Total Protein (6.2-8.2) g/dL Albumin (3.8-4.9) g/dL Albumin/Globulin Ratio (1.60-3.17) g/dL 10/28/21 10/28/21 10/28/21 Range/Units 05:15 05:15 06:53 RBC 3.26 L (4.40-5.60) X 10*6/uL Hgb 10.0 L (13.0-17.0) g/dL Hct 34.4 L (39.6-50.0) % MCV 105.5 H (80.0-97.0) fL MCHC 29.1 L (32.0-37.0) g/dL Plt Count 90 L (140-440) X 10*3/uL ABG pCO2 (35-45) mmHg ABG pO2 (83-108) mmHg ABG HCO3 (21-25) mmol/L ABG Total CO2 (19-24) mmol/L ABG O2 Saturation (94-97) % ABG Hematocrit (34.0-46.0) % Hemoglobin (13.0-17.5) gm/dL Chloride 93 L (96-109) mmol/L Carbon Dioxide 45.6 H* (20.0-27.5) mmol/L Anion Gap 3.40 L (10.00-18.00) mmol/L BUN 36.4 H (9.0-27.0) mg/dL BUN/Creatinine Ratio 33.09 H (12.00-20.00) Ratio Glucose 123 H (70-110) mg/dL POC Glucose (mg/dL) 133 H (70-110) mg/dL Total Protein 5.6 L (6.2-8.2) g/dL Albumin 3.4 L (3.8-4.9) g/dL Albumin/Globulin Ratio 1.55 L (1.60-3.17) g/dL 10/28/21 Range/Units 11:02 RBC (4.40-5.60) X 10*6/uL Hgb (13.0-17.0) g/dL Hct (39.6-50.0) % MCV (80.0-97.0) fL MCHC (32.0-37.0) g/dL Plt Count (140-440) X 10*3/uL ABG pCO2 (35-45) mmHg ABG pO2 (83-108) mmHg ABG HCO3 (21-25) mmol/L ABG Total CO2 (19-24) mmol/L ABG O2 Saturation (94-97) % ABG Hematocrit (34.0-46.0) % Hemoglobin (13.0-17.5) gm/dL Chloride (96-109) mmol/L Carbon Dioxide (20.0-27.5) mmol/L Anion Gap (10.00-18.00) mmol/L BUN (9.0-27.0) mg/dL BUN/Creatinine Ratio (12.00-20.00) Ratio Glucose (70-110) mg/dL POC Glucose (mg/dL) 192 H (70-110) mg/dL Total Protein (6.2-8.2) g/dL Albumin (3.8-4.9) g/dL Albumin/Globulin Ratio (1.60-3.17) g/dL Assessment and Plan Assessment: Acute on chronic hypoxemic and hypercapnic respiratory failure, secondary to underlying COPD, and pulmonary fibrosis. Chronic hypercapnic respiratory failure. History of COPD, on home oxygen. History of hypertension. History of prostate cancer, status post prostatectomy. Type 2 diabetes mellitus. Previous history of tobacco use. Plan: The patient was seen and evaluated Medications and labs reviewed Add Diamox 250 mg by mouth twice a day 2 doses Remains on bronchodilators, steroids, antibiotics Prognosis remains guarded Unsure that the patient would be compliant with home BiPAP DO NOT RESUSCITATE/DO NOT INTUBATE CODE STATUS Discharge planning in place I have personally seen and examined the patient, performed the documentation and the assessment and plan as written. Number of minutes spent on the visit: 10. I have personally seen and examined the patient and reviewed the documentation. I performed a joint evaluation with the nurse practitioner in this evaluation was done more than 20 minutes. I fully agree with the documentation above and the plan of care.. The patient is doing well. The patient is stable. Repeat blood gases showed improvement and acid base status from yesterday. We'll give additional dose of Diamox 2 and repeat a blood gas in the morning. Discharge planning is in progress.
--- NOTE | 2021-10-28 13:36 | P.PN ---
Subjective Progress Note Date: 10/28/21 Principal diagnosis: Respiratory failure The patient is an 86 year-old male with a past medical history significant for a combination of restrictive and obstructive COPD, CHF, DM, HTN, pneumonia, and pulmonary fibrosis. He has chronic hypoxic respiratory failure patient usually wears 3 L of oxygen around the clock. He presented to the emergency room on 10/19/21 with progressive shortness of breath over the course of one week, and chest pain. He also had worsening lower extremity edema last week. He had orthopnea, paroxysmal nocturnal dyspnea as well. Chest x-ray showed extensive chronic left-sided infiltrate with volume loss, not significantly different from 2 years ago. No fevers or chills. There is no cough or production. He took 2 courses of steroids and Zithromax in the past couple of weeks with last dose 4 days ago. Ther are pulmonary fibrosis changes are worse in the left lung. His most recent PFT from 2017 showed FEV1 of 1.1 L or 41% predicted, FVC of 1.68 or 44% of predicted, with FEV1 to FVC ratio of 93%, FEV of 38%, total lung capacity of 65% of predicted, consistent with severe obstruction and severe restriction. Patient was placed on empiric medical large with Levaquin, IV steroids, nebulized bronchodilators and given a dose of IV Lasix. On 10/20/21 the patient became more short of breath, and, was provided with increasing concentrations of oxygen. Unfortunately, for a variety reasons including ventilation perfusion mismatch, as well as decreased ventilatory drive, the patient became very hypercapnic, and lethargic/somnolent. He was on BiPAP and the settings had to be increased to 16/6, and the FiO2 was reduced down to 40%. The patient and his were clear about not being placed on mechanical ventilation. Hia ABG showed a pO2 of 60, pCO2 104, and a pH of 7.28. which was an improvement. The previous blood gas showed a pO2 of 66, a pCO2 of greater than 120, and a pH is 7.15. The patient improved and continued to alternate between BiPAP and nasal cannula. He still remains on bronchodilators, steroids, antibiotics. Prognosis remains guarded. 10/27 The patient is resting in bed. He is hard of hearing, even with his hearing aids in. His and his daughter are at the bedside. Education provided regarding the patient's COPD. The patient has a combination of severe obstructive and restrictive disease. There is significant volume loss from scarring caused by previous pneumonia infections. His COPD can not be reversed or cured. It is not possible to stop the progression of the disease, only slow it down. There are limited treatment options for his symptoms. Each time he has an exacerbation, his baseline will not return to the level it was previously. Also, with progression of the disease, his exacerbations will become more frequent and eventually the medications become less effective.. Information regarding palliative care and hospice philosophies and services was provided. The patient states his goal is prolonged survival. There goal is not realistic given his advanced age and co-morbidities. The states that he is still too active at home to consider either one of theses services. She was informed that the goal of outpatient palliative care is to manage his symptoms at home to prevent exacerbations and hospitalizations. She stated she will wait and see how he does at home before deciding. She is also declining any home care at this point. Code status discussed, patient wishes to remain a DNR. Objective - Vital Signs Vital signs: Vital Signs Temp 98.1 F 10/28/21 08:00 Pulse 77 10/28/21 11:44 Resp 18 10/28/21 11:44 BP 113/62 10/28/21 08:00 Pulse Ox 91 L 10/28/21 08:00 FiO2 40 10/28/21 07:40 Intake & Output 10/27/21 10/28/21 10/28/21 18:59 06:59 18:59 Output Total 600 1700 Balance -600 -1700 Weight 90.5 kg Output: Urine 600 1700 Other: Voiding Method Indwelling Catheter Indwelling Catheter Indwelling Catheter # Bowel Movements 1 - Exam General: Well developed, well nourished. No acute distress. Chronically ill appearing HEENT: Head is atraumatic, normocephalic. Sclerae are clear. Pupils equal, round and reactive to light bilaterally. Mucus membranes moist. + [place] CV: Heart regular in rate and rhythm positive S1 and S2. No clicks, rubs or murmurs. Peripheral pulses equal. 2/4 Lungs: Clear to auscultation bilaterally. No wheezes rales or rhonchi. Respirations even and nonlabored. 2L NC Abdomen/GI: Soft. Bowel sounds present in all 4 quadrants.No gaurding, rigidity, or abdominal tenderness. Musculoskeletal/ Extremities: MEDELLIN, no joint deformity or swelling. No gross atrophy. Vascular: Radial pulses equal. 2/4. Trace peripheral edema Skin: Warm and dry, No rash or lesions. Neurologic: Awake, alert and oriented times 3. CN II-XII grossly intact. No foc al deficits. Psychiatric: Appropriate mood and affect. - Labs CBC & Chem 7: 10/28/21 05:15 10/28/21 05:15 Labs: Abnormal Lab Results - Last 24 Hours (Table) 10/27/21 10/27/21 10/27/21 Range/Units 13:32 16:36 21:25 RBC (4.40-5.60) X 10*6/uL Hgb (13.0-17.0) g/dL Hct (39.6-50.0) % MCV (80.0-97.0) fL MCHC (32.0-37.0) g/dL Plt Count (140-440) X 10*3/uL ABG pCO2 86 H* (35-45) mmHg ABG pO2 57 L* (83-108) mmHg ABG HCO3 47 H* (21-25) mmol/L ABG Total CO2 50 H (19-24) mmol/L ABG O2 Saturation 90.9 L (94-97) % ABG Hematocrit 32 L (34.0-46.0) % Hemoglobin 10.4 L (13.0-17.5) gm/dL Chloride (96-109) mmol/L Carbon Dioxide (20.0-27.5) mmol/L Anion Gap (10.00-18.00) mmol/L BUN (9.0-27.0) mg/dL BUN/Creatinine Ratio (12.00-20.00) Ratio Glucose (70-110) mg/dL POC Glucose (mg/dL) 336 H 324 H (70-110) mg/dL Total Protein (6.2-8.2) g/dL Albumin (3.8-4.9) g/dL Albumin/Globulin Ratio (1.60-3.17) g/dL 10/28/21 10/28/21 10/28/21 Range/Units 05:15 05:15 06:53 RBC 3.26 L (4.40-5.60) X 10*6/uL Hgb 10.0 L (13.0-17.0) g/dL Hct 34.4 L (39.6-50.0) % MCV 105.5 H (80.0-97.0) fL MCHC 29.1 L (32.0-37.0) g/dL Plt Count 90 L (140-440) X 10*3/uL ABG pCO2 (35-45) mmHg ABG pO2 (83-108) mmHg ABG HCO3 (21-25) mmol/L ABG Total CO2 (19-24) mmol/L ABG O2 Saturation (94-97) % ABG Hematocrit (34.0-46.0) % Hemoglobin (13.0-17.5) gm/dL Chloride 93 L (96-109) mmol/L Carbon Dioxide 45.6 H* (20.0-27.5) mmol/L Anion Gap 3.40 L (10.00-18.00) mmol/L BUN 36.4 H (9.0-27.0) mg/dL BUN/Creatinine Ratio 33.09 H (12.00-20.00) Ratio Glucose 123 H (70-110) mg/dL POC Glucose (mg/dL) 133 H (70-110) mg/dL Total Protein 5.6 L (6.2-8.2) g/dL Albumin 3.4 L (3.8-4.9) g/dL Albumin/Globulin Ratio 1.55 L (1.60-3.17) g/dL 10/28/21 Range/Units 11:02 RBC (4.40-5.60) X 10*6/uL Hgb (13.0-17.0) g/dL Hct (39.6-50.0) % MCV (80.0-97.0) fL MCHC (32.0-37.0) g/dL Plt Count (140-440) X 10*3/uL ABG pCO2 (35-45) mmHg ABG pO2 (83-108) mmHg ABG HCO3 (21-25) mmol/L ABG Total CO2 (19-24) mmol/L ABG O2 Saturation (94-97) % ABG Hematocrit (34.0-46.0) % Hemoglobin (13.0-17.5) gm/dL Chloride (96-109) mmol/L Carbon Dioxide (20.0-27.5) mmol/L Anion Gap (10.00-18.00) mmol/L BUN (9.0-27.0) mg/dL BUN/Creatinine Ratio (12.00-20.00) Ratio Glucose (70-110) mg/dL POC Glucose (mg/dL) 192 H (70-110) mg/dL Total Protein (6.2-8.2) g/dL Albumin (3.8-4.9) g/dL Albumin/Globulin Ratio (1.60-3.17) g/dL Assessment and Plan Assessment: Symptoms * Pain - 0/10, continue Tylenol * Fatigue - Yes, continue Feosol * SOB - Yes, with exertion. Continue Prednisone, Duoneb, Symbicort, and Levquin * Insomnia - No * N/V - No * Anxiety - No * Depression - No * Confusion - Resolved * Agitation - No * Hallucinations - No * Appetite/weight loss - Good appetite, no recent weight loss. Continue Consistent carbohydrate diet * Dysphagia - No * Constipation - No LBM 10/27 * Incontinence - No * Itch - No Plan: Summary/Goals - The patient up in a chair eating lunch. He is hard of hearing, even with his hearing aids in. No visitors are present. The patient states his plan is to go home today and is wondering when. Per caseworker, the family has agreed to home health care, but still does not feel they need palliative care yet. Explained the benefits of palliative care to the patient again. He states that his daughter lives close by and can help them with anything they need. He does not seem to be grasping the concept that by having better control his symptoms at home, he can prevent exacerbations and having to come back to the hospital frequently. He stated that his said they can figure things out as they go. Recommendations - Discharge home with home health care Advanced Directives - No Code Status - DNR Thank you for this consult Estefani Hoang [facility] Palliative Care [facility] [id number] Email: [email or web address] Time with Patient: Less than 30
--- NOTE | 2021-10-28 15:08 | P.PN ---
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 Richardson. He presented to the emergency department on 10/19/21 with a chief complaint of worsening shortness of breath. Patient was found to have acute on chronic hypoxic respiratory failure with SpO2 of 68% on 3 L O2 upon arrival to our facility requiring additional oxygenation needs up to and including BiPAP at times. Physical exam Patient seen and fully evaluated at bedside this morning. Patient significantly short of breath with minimal exertion. Upon assessment PT was assistance sitting up outpatient with standing and pivoting to bedside chair, patient's oxygen saturations dropped to 84% on 3 L during this short time and took pt approximately 2 minutes to recover. Discussed with patient that he may benefit from long term facility for rehab upon discharge and patient adamantly declined stating he will go home. Pulmonology added on Diamox 250 mg 2 doses to be administered and we will reevaluate patient tomorrow morning for likely discharge. Vital signs reviewed and stable. General: Nontoxic, no distress and appears stated age. Derm: Skin warm and dry, normal coloration for ethnicity. Bruising in different stages of healing to bilateral upper and lower extremities and left hip. Head: Atraumatic, normocephalic and symmetric. Eyes: EOMs intact, no lid lag, and anicteric sclera Mouth: no lip lesions, mucus membranes moist Cardiovascular: regular rate and rhythm with normal S1S2, no murmur, positive posterior tibial pulses bilaterally, and cap refill < 2 seconds. Lungs: Respirations even, regular, and unlabored on room air. Lungs diminished with diffuse rhonchi, no wheezes, no rales, and no accessory muscle usage. Patient significantly short of breath with minimal exertion. Abdominal: soft, nontender to palpation, no guarding, no appreciable organom egaly Ext: ROM intact. No gross muscle atrophy, no edema, no contractures Neuro: Speech clear, face symmetrical and CN II-XII grossly intact with no noted focal neuro deficits Psych: Alert and oriented to person, place, time, and situation. Appropriate and pleasant affect. Assessment and Plan of Care: Acute exacerbation of COPD Acute on chronic hypoxic and hypercapnic respiratory failure -Pulmonology following, ordered Diamox 250 mg twice daily 2 doses to be given. -Oxygenation to be administered and titrated as needed to maintain SPO2 equal to or greater than 90% -Telemetry monitoring. -Monitor Pulse-oximetry -Duonebs scheduled and as needed for SOB and/or wheezing -Incentive Spirometry -Steroids: Prednisone -Continue Pulmicort and empiric Levaquin Hypertension -Monitor vital signs, Patient no longer on antihypertensive medications and blood pressures have been stable throughout hospitalization. [id number] Type 2 diabetes mellitus -Hold glipizide and continue glycemic protocol with NovoLog sliding scale. History of prostate cancer, status post prostatectomy CODE STATUS: DO NOT RESUSCITATE/DO NOT INTUBATE DVT prophylaxis: Lovenox Discussed with: Patient and RN Anticipated discharge date: Likely tomorrow Anticipated discharge place: Home with home care and palliative care A total of 35 minutes was spent on the care of this complex patient more than 50% of the time was spent in counseling and care coordination. I reviewed the documentation as provided by the RC above, who is the original author of this note. I agree with the documented assessment and plan, with the following changes: none Objective - Vital Signs Vital signs: Vital Signs Temp 98.1 F 10/28/21 08:00 Pulse 76 10/28/21 08:00 Resp 18 10/28/21 07:52 BP 113/62 10/28/21 08:00 Pulse Ox 91 L 10/28/21 08:00 FiO2 40 10/28/21 07:40 Intake & Output 10/27/21 10/28/21 10/28/21 18:59 06:59 18:59 Output Total 600 1700 Balance -600 -1700 Weight 90.5 kg Output: Urine 600 1700 Other: Voiding Method Indwelling Catheter Indwelling Catheter # Bowel Movements 1 - Labs CBC & Chem 7: 10/29/21 06:12 10/29/21 06:12 Labs: Abnormal Lab Results - Last 24 Hours (Table) 10/27/21 10/27/21 10/27/21 Range/Units 11:18 13:32 16:36 ABG pCO2 86 H* (35-45) mmHg ABG pO2 57 L* (83-108) mmHg ABG HCO3 47 H* (21-25) mmol/L ABG Total CO2 50 H (19-24) mmol/L ABG O2 Saturation 90.9 L (94-97) % ABG Hematocrit 32 L (34.0-46.0) % Hemoglobin 10.4 L (13.0-17.5) gm/dL POC Glucose (mg/dL) 170 H 336 H (70-110) mg/dL 10/27/21 10/28/21 Range/Units 21:25 06:53 ABG pCO2 (35-45) mmHg ABG pO2 (83-108) mmHg ABG HCO3 (21-25) mmol/L ABG Total CO2 (19-24) mmol/L ABG O2 Saturation (94-97) % ABG Hematocrit (34.0-46.0) % Hemoglobin (13.0-17.5) gm/dL POC Glucose (mg/dL) 324 H 133 H (70-110) mg/dL
[2021-10-28 16:23] LABS: Glucose,Whole Blood 222 mg/dL (70-110)
[2021-10-28 21:19] LABS: Glucose,Whole Blood 227 mg/dL (70-110)
[2021-10-29 06:56] LABS: Glucose,Whole Blood 130 mg/dL (70-110)
[2021-10-29] MEDS: SYMBICORT 160-4.5 MCG INHALER INHALATION SCH ×2 (07:26→19:16)
[2021-10-29] MEDS: IPRATROPIUM-ALBUTEROL 3 ML NEB INHALATION SCH ×4 (07:26→19:16)
[2021-10-29] MEDS: INSULIN ASPART (NovoLOG) 100 UNIT/ML VIAL SQ SCH ×4 (07:35→21:22)
[2021-10-29] MEDS: ASPIRIN 81 MG PO SCH (07:39)
[2021-10-29] MEDS: predniSONE 20 MG TAB PO SCH (07:39)
[2021-10-29] MEDS: LEVOFLOXACIN 500 MG TAB PO SCH (07:39)
[2021-10-29] MEDS: FERROUS SULFATE 325 MG TAB PO SCH (07:39)
[2021-10-29] MEDS: CHOLECALCIFEROL 25 MCG (1000 IU) TABLET PO SCH (07:39)
[2021-10-29] MEDS: ENOXAPARIN 40 MG/0.4 ML SYRINGE SQ SCH (07:40)
[2021-10-29] MEDS: INSULIN DETEMIR (LEVEMIR) 100 UNIT/ML SYR SQ SCH (08:47)
--- NOTE | 2021-10-29 09:49 | P.DS ---
Providers Date of admission: 10/19/21 15:47 Expected date of discharge: 10/29/21 Attending physician: Carol Llanes MD Consults: 10/19/21 15:43 Consult Physician Routine Consulting Provider: Jersey Richardson Consult Reason/Comments: copd, resp failure Do you want consulting provider notified?: Yes 10/19/21 17:45 Consult Physician Routine Consulting Provider: Marcio Farmer Consult Reason/Comments: chf Do you want consulting provider notified?: Yes 10/24/21 11:24 Consult to Palliative Care Routine Consulting Provider: Estefani Hoang Consult Reason/Comments: COPD Do you want consulting provider notified?: Yes Primary care physician: Zachery Posadas Patient Condition at Discharge: Fair Plan - Discharge Summary Discharge Rx Participant: No New Discharge Prescriptions: New Ipratropium-Albuterol Nebulize [Duoneb 0.5 mg-3 mg/3 ml Soln] 3 ml INHALATION RT-QID 60 Days #240 each Budesonide-Formot 160-4.5 Mcg [Symbicort 160-4.5 Mcg Inhaler] 2 puff INHALATION RT-BID 30 Days #1 each predniSONE See Taper PO DIRECTED 12 Days #30 tab Albuterol Inhaler [Ventolin Hfa Inhaler] 2 puff INHALATION RT-Q6H PRN 30 Days #1 each PRN Reason: Shortness Of Breath Continue Aspirin 650 mg PO DAILY glipiZIDE [Glucotrol] 20 mg PO BID Ferrous Sulfate [Iron (65 MG Elemental)] 325 mg PO DAILY Furosemide [Lasix] 40 mg PO DAILY #30 tablet Ascorbic Acid [Vitamin C] 1,000 mg PO DAILY Vitamin E (Dl,Tocopheryl Acet) [Vitamin E (400 Iu = 180 mg)] 400 unit PO DAILY predniSONE 5 mg PO DAILY Cholecalciferol [Vitamin D3 (25 Mcg = 1000 Iu)] 50 mcg PO DAILY Pioglitazone [Actos] 45 mg PO DAILY Fluticasone Nasal [place] [Flonase Nasal [place]] 2 spray EA NOSTRIL DAILY Discharge Medication List Aspirin 650 mg PO DAILY 09/01/16 [History] glipiZIDE [Glucotrol] 20 mg PO BID 09/01/16 [History] Ferrous Sulfate [Iron (65 MG Elemental)] 325 mg PO DAILY 03/31/18 [History] Furosemide [Lasix] 40 mg PO DAILY #30 tablet 01/11/20 [Rx] Ascorbic Acid [Vitamin C] 1,000 mg PO DAILY 10/19/21 [History] Cholecalciferol [Vitamin D3 (25 Mcg = 1000 Iu)] 50 mcg PO DAILY 10/19/21 [History] Fluticasone Nasal [place] [Flonase Nasal [place]] 2 spray EA NOSTRIL DAILY 10/19/21 [History] Pioglitazone [Actos] 45 mg PO DAILY 10/19/21 [History] Vitamin E (Dl,Tocopheryl Acet) [Vitamin E (400 Iu = 180 mg)] 400 unit PO DAILY 10/19/21 [History] predniSONE 5 mg PO DAILY 10/19/21 [History] Albuterol Inhaler [Ventolin Hfa Inhaler] 2 puff INHALATION RT-Q6H PRN 30 Days #1 each 10/29/21 [Rx] Budesonide-Formot 160-4.5 Mcg [Symbicort 160-4.5 Mcg Inhaler] 2 puff INHALATION RT-BID 30 Days #1 each 10/29/21 [Rx] Ipratropium-Albuterol Nebulize [Duoneb 0.5 mg-3 mg/3 ml Soln] 3 ml INHALATION RT-QID 60 Days #240 each 10/29/21 [Rx] predniSONE See Taper PO DIRECTED 12 Days #30 tab 10/29/21 [Rx] Follow up Appointment(s)/Referral(s): [facility], [NON-STAFF] - 1-2 Days José Luevano MD [STAFF PHYSICIAN] - 1 Week (Mak catheter review - going home with mak post retention in hospital) Jersey Richardson DO [Doctor of Osteopathic Medicine] - 11/06/21 1:00 pm Zachery Posadas DO [Primary Care Provider] - 1-2 days Activity/Diet/Wound Care/Special Instructions: Activity: Patient requires assistance with transfers. Take breaks as needed. Diet: Heart healthy and carb consistent diet. Avoid salts, or foods with hidden salts such as canned or boxed foods and frozen dinners. Extra salt makes your heart work harder and traps the fluid in your body for longer. Special Instructions: Take all of your medications as directed and remember to keep all of your doctor's appointments and follow-up as needed. Thank you for allowing us to participate in your care, it was truly a pleasure having you for our patient!!! . Discharge Disposition: HOME WITH HOME HEALTH SERVICES
[2021-10-29 10:57] LABS: Glucose,Whole Blood 270 mg/dL (70-110)
[2021-10-29 11:11] LABS: HCT 34.7 % (39.6-50.0); HGB 10.3 g/dL (13.0-17.0); MCH 31.3 pg (27.0-32.0); MCHC 29.7 g/dL (32.0-37.0); MCV 105.5 fL (80.0-97.0); NRBC Per 100 WBC 0 /100 WBCS (0.0-0.0); Platelet Count 95 X 10*3/uL (140-440); RBC 3.29 X 10*6/uL (4.40-5.60); RDW 12.5 % (11.5-14.5); WBC 6.96 X 10*3/uL (4.50-10.00)
[2021-10-29 11:14] LABS: African American GFR (CKD) 63.7 (60.0-200.0); Albumin 3.5 g/dL (3.8-4.9); Albumin/Globulin Ratio 1.67 (1.60-3.17); Anion Gap 3.7 mmol/L (10.00-18.00); BUN/Creat Ratio 25.29 Ratio (12.00-20.00); Blood Urea Nitrogen 30.1 mg/dL (9.0-27.0); Calcium 8.9 mg/dL (8.7-10.3); Globulin 2.1 g/dL (1.6-3.3); Magnesium 2.1 mg/dL (1.5-2.4); Potassium 4.2 mmol/L (3.5-5.5); Total Bilirubin 0.4 mg/dL (0.30-1.20); Total Protein 5.7 g/dL (6.2-8.2)
--- NOTE | 2021-10-29 11:45 | P.PN ---
Subjective Progress Note Date: 10/29/21 86-year-old male patient with known history of pulmonary fibrosis, with chronic hypoxic respiratory failure patient usually wears 3 L of oxygen around the clock. His pulmonary fibrosis changes are worse in the left lung. In addition patient does have history of COPD, his most recent PFT from 2017 showed FEV1 of 1.1 L or 41% predicted, FVC of 1.68 or 44% of predicted, with FEV1 to FVC ratio of 93%, FEV of 38%, total lung capacity of 65% of predicted, consistent with severe obstruction and severe restriction. Other medical history includes hypertension, diabetes mellitus type 2, former smoker, prostate cancer status post prostatectomy, osteoarthritis. Patient follows with Dr. Richardson in the pulmonary clinic, patient is maintained on prednisone 5 mg daily, DuoNeb, Symbicort and Ventolin inhaler. Patient came into the emergency department on 10/19/2021 with complaints of progressive dyspnea over the past one week. Did report some slight chest discomfort and worsening lower extremity edema. Reported positive orthopnea. Denied any fever or chills, no cough or phlegm production. On presentation his pulse ox was noted to be at 60% on his usual 3 L/m. He states he took 2 courses of azithromycin in the past couple weeks and his prednisone was increased from 5 mg to 10 mg per day. Chest x-ray showed extensive chronic left-sided infiltrate with volume loss, not significantly different from 2 years ago. Lab evaluation showed white blood cell, 7.7, hemoglobin of 11.1, coagulation profile was within normal limits, proBNP was 596, troponins were less than 0.0123, chloride 19 PCR, influenza A and B and legionella urine antigen were all negative. BNP was reviewed showing sodium of 130, chloride of 81, bicarbonate concentration 43, BUN of 33, creatinine 1.12. LFTs were within normal limits. Patient was placed on empiric medical large with Levaquin, IV steroids, nebulized bronchodilators and given a dose of IV Lasix. Progress note dated 10/21/2021. Apparently last night the patient became more short of breath, and, was provided with increasing concentrations of oxygen. Unfortunately, for a variety reasons including ventilation perfusion mismatch, as well as decreased ventilatory drive, the patient became very hypercapnic, and lethargic/somnolent. Currently, he is on BiPAP, the settings have been increased to 16/6, and the FiO2 was reduced down to 40%. The gas was ordered. In addition, he had an opportunity to speak to his , and the patient was clear about not being placed on mechanical ventilation. I did speak to the Sound physician about the situation last night. Currently, the most recent blood gas shows a pO2 of 60, pCO2 104, and a pH of 7.28. This is certainly an improvement. The previous blood gas showed a pO2 of 66, a pCO2 of greater than 120, and a pH is 7.15. I've asked respiratory to titrate the oxygen, so that his saturations are between 85 and 90%. Progress note dated 10/23/2021. The patient's doing well again today. He did need some time on BiPAP earlier today, for about 1-2 hours. His BiPAP settings were 16/6, with an FiO2 of 40%. He's not receiving any IV fluids. He is currently on 4 L. Saturations are 90%. I told the nurses and respiratory therapist, to try to maintain a saturation between 85-90%. Sodium 135, potassium 4.2, chlorides 81, CO2 48, anion gap 6, BUN 59, with creatinine 1.11. Magnesium is 2.3. The patient is seen today 10/25/2019 to follow up on the regular medical floor. He is currently sitting up in a chair at the bedside. Awake and alert. Currently off his BiPAP and on 4 L nasal cannula. He did wear her BiPAP throughout the night 16/6 at 40% FiO2. He is still confused at times. Blood cultures reveal no growth. Blood sugar 262. He remains on DuoNeb inhalations, Symbicort, IV Solu-Medrol, antibiotics in the form of Levaquin. Lovenox for DVT prophylaxis. The patient was seen today 10/25/2021 in follow-up on the regular medical floor. He is currently sitting up in bed. Awake and alert and no acute distress. A bit more oriented today compared to yesterday. Currently off the BiPAP and maintaining O2 saturations in the 90s on 3 L/m per nasal cannula. Blood cultures revealed no growth. He is continued on Symbicort, DuoNeb inhalations, prednisone. Remains on antibiotics in the form of Levaquin. The patient is seen today 10/26/2021 in follow-up on the regular medical floor. He is awake and alert in no acute distress. Sitting up in a chair at the bedside. He is maintaining O2 saturations in the 90s on 3 L/m per nasal cannula. He is continued on Symbicort, DuoNeb inhalations, prednisone. Antibiotics in the form of Levaquin. Lovenox for DVT prophylaxis. Blood glucose 158. The patient is seen today 10/28/2021 in follow-up on the regular medical floor. He is currently sitting up in a chair at the bedside. Awake and alert in no acute distress. The patient is maintaining O2 saturations in the low 90s on 2 L/m per nasal cannula. He is afebrile. Hemodynamically stable. Blood cultures revealed no growth. White count 6.4. Hematoma 10.0. Platelets 90,000. Sodium 142. Potassium 4.6. Bicarb 46. BUN 36. Creatinine 1.1. Glucose 123. Most recent arterial blood gases revealed a PaO2 of 57, pCO2 of 86 and a pH of 7.35 and 32% FiO2. Patient seen today 10/29/2021 in follow-up on the regular medical floor. Sitting up in bed. Awake and alert in no acute distress. He did not wear her BiPAP last night. He continues to maintain good O2 saturations in the mid 90s on 4 L/m per nasal cannula. Blood cultures reveal no growth. Glucose 130. He remains on DuoNeb inhalations, Symbicort. Antibiotics in the form of Levaquin. Lovenox for DVT prophylaxis. Objective - Vital Signs Vital signs: Vital Signs Temp 98.6 F 10/29/21 08:00 Pulse 68 10/29/21 11:42 Resp 18 10/29/21 11:42 BP 126/55 10/29/21 08:00 Pulse Ox 97 10/29/21 08:00 FiO2 40 10/29/21 07:27 Intake & Output 10/28/21 10/29/21 10/29/21 18:59 06:59 18:59 Output Total 875 1800 175 Balance -641 -1800 -175 Weight 87.5 kg Output: Urine 871 1800 175 Uretheral (Yeung) 200 Other: Voiding Method Indwelling Catheter Indwelling Catheter Indwelling Catheter - Exam GENERAL EXAM: Alert, 86-year-old male patient, up in a chair at the bedside, on 4 L nasal cannula, comfortable in no apparent distress. HEAD: Normocephalic. EYES: Normal reaction of pupils, equal size. NOSE: Clear with pink turbinates. THROAT: No erythema or exudates. NECK: No masses, no JVD. CHEST: No chest wall deformity. LUNGS: Equal air entry with bilateral rhonchi. CVS: S1 and S2 normal with no audible murmur, regular rhythm. ABDOMEN: No hepatosplenomegaly, normal bowel sounds, no guarding or rigidity. SPINE: No scoliosis or deformity SKIN: No rashes CENTRAL NERVOUS SYSTEM: No focal deficits, tone is normal in all 4 extremities. EXTREMITIES: There is 1+ peripheral edema. No clubbing, no cyanosis. Peripheral pulses are intact. - Labs CBC & Chem 7: 10/29/21 06:12 10/29/21 06:12 Labs: Abnormal Lab Results - Last 24 Hours (Table) 10/28/21 10/28/21 10/29/21 Range/Units 16:22 21:18 06:12 RBC 3.29 L (4.40-5.60) X 10*6/uL Hgb 10.3 L (13.0-17.0) g/dL Hct 34.7 L (39.6-50.0) % MCV 105.5 H (80.0-97.0) fL MCHC 29.7 L (32.0-37.0) g/dL Plt Count 95 L (140-440) X 10*3/uL Chloride (96-109) mmol/L Carbon Dioxide (20.0-27.5) mmol/L Anion Gap (10.00-18.00) mmol/L BUN (9.0-27.0) mg/dL Est GFR (CKD-EPI)NonAf (60.0-200.0) BUN/Creatinine Ratio (12.00-20.00) Ratio Glucose (70-110) mg/dL POC Glucose (mg/dL) 222 H 227 H (70-110) mg/dL Total Protein (6.2-8.2) g/dL Albumin (3.8-4.9) g/dL 10/29/21 10/29/21 10/29/21 Range/Units 06:12 06:54 10:56 RBC (4.40-5.60) X 10*6/uL Hgb (13.0-17.0) g/dL Hct (39.6-50.0) % MCV (80.0-97.0) fL MCHC (32.0-37.0) g/dL Plt Count (140-440) X 10*3/uL Chloride 95 L (96-109) mmol/L Carbon Dioxide 39.0 H (20.0-27.5) mmol/L Anion Gap 3.70 L (10.00-18.00) mmol/L BUN 30.1 H (9.0-27.0) mg/dL Est GFR (CKD-EPI)NonAf 55.0 L (60.0-200.0) BUN/Creatinine Ratio 25.29 H (12.00-20.00) Ratio Glucose 130 H (70-110) mg/dL POC Glucose (mg/dL) 130 H 270 H (70-110) mg/dL Total Protein 5.7 L (6.2-8.2) g/dL Albumin 3.5 L (3.8-4.9) g/dL Assessment and Plan Assessment: Acute on chronic hypoxemic and hypercapnic respiratory failure, secondary to underlying COPD, and pulmonary fibrosis. Chronic hypercapnic respiratory failure. History of COPD, on home oxygen. History of hypertension. History of prostate cancer, status post prostatectomy. Type 2 diabetes mellitus. Previous history of tobacco use. Plan: The patient was seen and evaluated Medications and labs reviewed Cleared for discharge from the pulmonary standpoint DO NOT RESUSCITATE/DO NOT INTUBATE CODE STATUS Family had declined palliative/hospice care I have personally seen and examined the patient, performed the documentation and the assessment and plan as written. Number of minutes spent on the visit: 10. I have personally seen and examined the patient and reviewed the documentation. I performed a joint evaluation with the nurse practitioner in this evaluation was done more than 10 minutes. I fully agree with the documentation above and the plan of care.
[2021-10-29 16:27] LABS: Glucose,Whole Blood 377 mg/dL (70-110)
--- NOTE | 2021-10-29 18:32 | P.PN ---
Subjective Progress Note Date: 10/29/21 Hospital course: Patient is a very pleasant 86-year-old male with a past medical history of severe pulmonary fibrosis home oxygen dependent on 3 L at all times follows coil winder Dr. Richardson. He presented to the emergency department on 10/19/21 with a chief complaint of worsening shortness of breath. Patient was found to have acute on chronic hypoxic respiratory failure with SpO2 of 68% on 3 L O2 upon arrival to our facility requiring additional oxygenation needs up to and including BiPAP at times. Patient continues to have difficulties and requiring full assistance with transfers from bed to chair. Initial plan was for patient to be discharged home with home in palliative care despite recommendations for SNF placement. However after discharge was placed, patient's now requesting patient go to retirement facility, [facility]. Arrangements and insurance authorization being obtained by window caser. Physical exam Patient seen and fully evaluated at bedside this morning. patient was sitting in bed and appeared comfortable. He was onon 3 L O2 via nasal cannula maintaining SpO2 of 95%. Patient reports he is breathing better this morning. He denies having any shortness of breath or chest pain at rest. morning labs reviewed and stable. Vital signs reviewed and stable. General: Nontoxic, no distress and appears stated age. Derm: Skin warm and dry, normal coloration for ethnicity. Bruising in different stages of healing to bilateral upper and lower extremities and left hip. Head: Atraumatic, normocephalic and symmetric. Eyes: EOMs intact, no lid lag, and anicteric sclera Mouth: no lip lesions, mucus membranes moist Cardiovascular: regular rate and rhythm with normal S1S2, no murmur, positive posterior tibial pulses bilaterally, and cap refill < 2 seconds. Lungs: Respirations even, regular, and unlabored on room air. Lungs diminished with diffuse rhonchi, no wheezes, no rales, and no accessory muscle usage. Patient significantly short of breath with minimal exertion. Abdominal: soft, nontender to palpation, no guarding, no appreciable organomegaly Ext: ROM intact. No gross muscle atrophy, no edema, no contractures Neuro: Speech clear, face symmetrical and CN II-XII grossly intact with no noted focal neuro deficits Psych: Alert and oriented to person, place, time, and situation. Appropriate and pleasant affect. Assessment and Plan of Care: Acute exacerbation of COPD Acute on chronic hypoxic and hypercapnic respiratory failure -Pulmonology following, ordered Diamox 250 mg twice daily 2 doses to be given. -Oxygenation to be administered and titrated as needed to maintain SPO2 equal to or greater than 90% -Telemetry monitoring. -Monitor Pulse-oximetry -Duonebs scheduled and as needed for SOB and/or wheezing -Incentive Spirometry -Steroids: Prednisone -Continue Pulmicort and empiric Levaquin Hypertension -Monitor vital signs, Patient no longer on antihypertensive medications and blood pressures have been stable throughout hospitalization. [id number] Type 2 diabetes mellitus -Hold glipizide and continue glycemic protocol with NovoLog sliding scale. History of prostate cancer, status post prostatectomy CODE STATUS: DO NOT RESUSCITATE/DO NOT INTUBATE DVT prophylaxis: Lovenox Discussed with: Patient and RN Anticipated discharge date: Pending insurance authorization Anticipated discharge place: [facility] A total of 36 minutes was spent on the care of this complex patient more than 5 0% of the time was spent in counseling and care coordination. I reviewed the documentation as provided by the RC above, who is the original author of this note. I agree with the documented assessment and plan, with the following changes: none Objective - Vital Signs Vital signs: Vital Signs Temp 98.6 F 10/29/21 14:00 Pulse 69 10/29/21 15:59 Resp 18 10/29/21 15:59 BP 109/56 10/29/21 14:00 Pulse Ox 95 10/29/21 14:00 FiO2 40 10/29/21 15:45 Intake & Output 10/28/21 10/29/21 10/29/21 18:59 06:59 18:59 Output Total 875 1800 175 Balance -875 -1800 -175 Weight 87.5 kg Output: Urine 875 1800 175 Uretheral (Yeung) 200 Other: Voiding Method Indwelling Catheter Indwelling Catheter Indwelling Catheter - Labs CBC & Chem 7: 10/29/21 06:12 10/29/21 06:12 Labs: Abnormal Lab Results - Last 24 Hours (Table) 10/28/21 10/29/21 10/29/21 Range/Units 21:18 06:12 06:12 RBC 3.29 L (4.40-5.60) X 10*6/uL Hgb 10.3 L (13.0-17.0) g/dL Hct 34.7 L (39.6-50.0) % MCV 105.5 H (80.0-97.0) fL MCHC 29.7 L (32.0-37.0) g/dL Plt Count 95 L (140-440) X 10*3/uL Chloride 95 L (96-109) mmol/L Carbon Dioxide 39.0 H (20.0-27.5) mmol/L Anion Gap 3.70 L (10.00-18.00) mmol/L BUN 30.1 H (9.0-27.0) mg/dL Est GFR (CKD-EPI)NonAf 55.0 L (60.0-200.0) BUN/Creatinine Ratio 25.29 H (12.00-20.00) Ratio Glucose 130 H (70-110) mg/dL POC Glucose (mg/dL) 227 H (70-110) mg/dL Total Protein 5.7 L (6.2-8.2) g/dL Albumin 3.5 L (3.8-4.9) g/dL 10/29/21 10/29/21 10/29/21 Range/Units 06:54 10:56 16:25 RBC (4.40-5.60) X 10*6/uL Hgb (13.0-17.0) g/dL Hct (39.6-50.0) % MCV (80.0-97.0) fL MCHC (32.0-37.0) g/dL Plt Count (140-440) X 10*3/uL Chloride (96-109) mmol/L Carbon Dioxide (20.0-27.5) mmol/L Anion Gap (10.00-18.00) mmol/L BUN (9.0-27.0) mg/dL Est GFR (CKD-EPI)NonAf (60.0-200.0) BUN/Creatinine Ratio (12.00-20.00) Ratio Glucose (70-110) mg/dL POC Glucose (mg/dL) 130 H 270 H 377 H (70-110) mg/dL Total Protein (6.2-8.2) g/dL Albumin (3.8-4.9) g/dL
[2021-10-29 21:01] LABS: Glucose,Whole Blood 433 mg/dL (70-110)
[2021-10-30 02:07] VITALS: RESP 18
[2021-10-30 07:33] LABS: Glucose,Whole Blood 76 mg/dL (70-110)
[2021-10-30] MEDS: INSULIN ASPART (NovoLOG) 100 UNIT/ML VIAL SQ SCH ×2 (08:44→13:11)
[2021-10-30 08:49] VITALS: BP 117/57; TEMP 98.1
[2021-10-30] MEDS ORDERED: LEVOFLOXACIN 250 MG TAB PO SCH (09:00)
[2021-10-30] MEDS: SYMBICORT 160-4.5 MCG INHALER INHALATION SCH (09:02)
[2021-10-30] MEDS: IPRATROPIUM-ALBUTEROL 3 ML NEB INHALATION SCH ×2 (09:02→12:33)
[2021-10-30] MEDS: ENOXAPARIN 40 MG/0.4 ML SYRINGE SQ SCH (09:08)
[2021-10-30] MEDS: predniSONE 20 MG TAB PO SCH (09:08)
[2021-10-30] MEDS: ASPIRIN 81 MG PO SCH (09:08)
[2021-10-30] MEDS: INSULIN DETEMIR (LEVEMIR) 100 UNIT/ML SYR SQ SCH (09:08)
[2021-10-30] MEDS: CHOLECALCIFEROL 25 MCG (1000 IU) TABLET PO SCH (09:08)
[2021-10-30] MEDS: FERROUS SULFATE 325 MG TAB PO SCH (09:09)
[2021-10-30 11:36] LABS: Glucose,Whole Blood 197 mg/dL (70-110)
--- NOTE | 2021-10-30 12:32 | P.PN ---
Subjective Progress Note Date: 10/30/21 Principal diagnosis: Respiratory failure The patient is an 86 year-old male with a past medical history significant for a combination of restrictive and obstructive COPD, CHF, DM, HTN, pneumonia, and pulmonary fibrosis. He has chronic hypoxic respiratory failure patient usually wears 3 L of oxygen around the clock. He presented to the emergency room on 10/19/21 with progressive shortness of breath over the course of one week, and chest pain. He also had worsening lower extremity edema last week. He had orthopnea, paroxysmal nocturnal dyspnea as well. Chest x-ray showed extensive chronic left-sided infiltrate with volume loss, not significantly different from 2 years ago. No fevers or chills. There is no cough or production. He took 2 courses of steroids and Zithromax in the past couple of weeks with last dose 4 days ago. Ther are pulmonary fibrosis changes are worse in the left lung. His most recent PFT from 2017 showed FEV1 of 1.1 L or 41% predicted, FVC of 1.68 or 44% of predicted, with FEV1 to FVC ratio of 93%, FEV of 38%, total lung capacity of 65% of predicted, consistent with severe obstruction and severe restriction. Patient was placed on empiric medical large with Levaquin, IV steroids, nebulized bronchodilators and given a dose of IV Lasix. On 10/20/21 the patient became more short of breath, and, was provided with increasing concentrations of oxygen. Unfortunately, for a variety reasons including ventilation perfusion mismatch, as well as decreased ventilatory drive, the patient became very hypercapnic, and lethargic/somnolent. He was on BiPAP and the settings had to be increased to 16/6, and the FiO2 was reduced down to 40%. The patient and his were clear about not being placed on mechanical ventilation. Hia ABG showed a pO2 of 60, pCO2 104, and a pH of 7.28. which was an improvement. The previous blood gas showed a pO2 of 66, a pCO2 of greater than 120, and a pH is 7.15. The patient improved and continued to alternate between BiPAP and nasal cannula. He still remains on bronchodilators, steroids, antibiotics. Prognosis remains guarded. 10/27 The patient is resting in bed. He is hard of hearing, even with his hearing aids in. His and his daughter are at the bedside. Education provided regarding the patient's COPD. The patient has a combination of severe obstructive and restrictive disease. There is significant volume loss from scarring caused by previous pneumonia infections. His COPD can not be reversed or cured. It is not possible to stop the progression of the disease, only slow it down. There are limited treatment options for his symptoms. Each time he has an exacerbation, his baseline will not return to the level it was previously. Also, with progression of the disease, his exacerbations will become more frequent and eventually the medications become less effective.. Information regarding palliative care and hospice philosophies and services was provided. The patient states his goal is prolonged survival. There goal is not realistic given his advanced age and co-morbidities. The states that he is still too active at home to consider either one of theses services. She was informed that the goal of outpatient palliative care is to manage his symptoms at home to prevent exacerbations and hospitalizations. She stated she will wait and see how he does at home before deciding. She is also declining any home care at this point. Code status discussed, patient wishes to remain a DNR. 10/28 The patient up in a chair eating lunch. He is hard of hearing, even with his hearing aids in. No visitors are present. The patient states his plan is to go home today and is wondering when. Per director of casework services, the family has agreed to home health care, but still does not feel they need palliative care yet. Explained the benefits of palliative care to the patient again. He states that his daughter lives close by and can help them with anything they need. He does not seem to be grasping the concept that by having better control his symptoms at home, he can prevent exacerbations and having to come back to the hospital frequently. He stated that his said they can figure things out as they go. Objective - Vital Signs Vital signs: Vital Signs Temp 98.1 F 10/30/21 08:48 Pulse 67 10/30/21 09:14 Resp 18 10/30/21 08:48 BP 117/57 10/30/21 08:48 Pulse Ox 94 L 10/30/21 08:48 FiO2 40 10/29/21 15:45 Intake & Output 10/29/21 10/30/21 10/30/21 18:59 06:59 18:59 Output Total 875 500 Balance -875 -500 Weight 86.5 kg Output: Urine 875 500 Uretheral (Yeung) 700 Other: Voiding Method Indwelling Catheter Indwelling Catheter - Exam General: Well developed, well nourished. No acute distress. Chronically ill appearing HEENT: Head is atraumatic, normocephalic. Sclerae are clear. Pupils equal, round and reactive to light bilaterally. Mucus membranes moist. + [place] CV: Heart regular in rate and rhythm positive S1 and S2. No clicks, rubs or murmurs. Peripheral pulses equal. 2/4 Lungs: Clear to auscultation bilaterally. No wheezes rales or rhonchi. Respirations even and nonlabored. 4L NC Abdomen/GI: Soft. Bowel sounds present in all 4 quadrants.No gaurding, rigidity, or abdominal tenderness. Musculoskeletal/ Extremities: MEDELLIN, no joint deformity or swelling. No gross atrophy. Vascular: Radial pulses equal. 2/4. Trace peripheral edema Skin: Warm and dry, No rash or lesions. Neurologic: Awake, alert and oriented times 3. CN II-XII grossly intact. No focal deficits. Psychiatric: Appropriate mood and affect. - Labs CBC & Chem 7: 10/29/21 06:12 10/29/21 06:12 Labs: Abnormal Lab Results - Last 24 Hours (Table) 10/29/21 10/29/21 10/30/21 Range/Units 16:25 20:57 11:34 POC Glucose (mg/dL) 377 H 433 H 197 H (70-110) mg/dL Assessment and Plan Assessment: Symptoms * Pain - 0/10, continue Tylenol * Fatigue - Yes, continue Feosol * SOB - Yes, with exertion. Continue Prednisone, Duoneb, Symbicort, and Levquin * Insomnia - No * N/V - No * Anxiety - No * Depression - No * Confusion - Resolved * Agitation - No * Hallucinations - No * Appetite/weight loss - Good appetite, no recent weight loss. Continue Consistent carbohydrate diet * Dysphagia - No * Constipation - No LBM 10/27 * Incontinence - No * Itch - No Plan: Summary/Goals - The patient up in a chair. No visitors at bedside today. He states that he has agreed to go to rehab to get stronger before returning home. He is worried, he does not want to be there long. He states he feels "pretty good", his symptoms are controlled and he wants to go to rehab today. Patient continues to have difficulties and requiring full assistance with transfers from bed to chair. Initial plan was for patient to be discharged home despite recommendations for SNF placement. They have declined palliative care. After a discharge was placed, patient's then requested the patient go to a assisted facility, [facility]. Awaiting insurance authorization.. Recommendations - Discharge home with home health care Advanced Directives - No Code Status - DNR Thank you for this consult Estefani Hoang [facility]- Palliative [facility] [id number] Email: [email or web address] Time with Patient: Less than 30
[2021-10-30 12:44] VITALS: PULSE 63
--- NOTE | 2021-10-30 14:52 | P.DS ---
Providers Date of admission: 10/19/21 15:47 Expected date of discharge: 10/30/21 Attending physician: Carol Llanes MD Consults: 10/19/21 15:43 Consult Physician Routine Consulting Provider: Jersey Richardson Consult Reason/Comments: copd, resp failure Do you want consulting provider notified?: Yes 10/19/21 17:45 Consult Physician Routine Consulting Provider: Marcio Farmer Consult Reason/Comments: chf Do you want consulting provider notified?: Yes 10/24/21 11:24 Consult to Palliative Care Routine Consulting Provider: Estefani Hoang Consult Reason/Comments: COPD Do you want consulting provider notified?: Yes [facility] care [facility] Course: Discharge Diagnosis: Acute on chronic hypoxic and hypercapnic respiratory failure Acute COPD exacerbation Acute CHF exacerbation Type 2 diabetes - [id number] Frailty Hypertension Macrocytic anemia Acute urinary retention Hospital Course: 86-year-old male with history of severe pulmonary fibrosis on 3 L oxygen around the clock, COPD, initially presented with progressive shortness of breath. He was also complaining of chest pain, worsening lower extremity edema, orthopnea and PND for a week prior to admission. He denied any fevers or chills, cough or sputum production on admission. Chest x-ray showed extensive left-sided infiltrate with volume loss, not significantly different from 2 years ago. For acute COPD exacerbation, patient was started on IV steroids, bronchodilators, and levofloxacin. He was also given IV Lasix for acute CHF exacerbation. Patient progressively became more hypoxic and hypercapnic requiring BiPAP. His blood tests, and mentation improved with BiPAP and medications. He was seen by pulmonology, and will have an outpatient follow-up. Patient was also seen by palliative care, with initial goal of palliative care hospice. However, patient and his family decided against pursuing palliative care as an outpatient for now. Patient and his will try skill nursing facility before deciding on further palliative care services. Patient was previously on aspirin 650 daily for unclear reason, will reduce to 81 mg. PCP to address further changes. Acute COPD exacerbation -Continue prednisone taper, then resume prednisone 5 daily -Started on fluticasone/salmeterol Acute CHF exacerbation - resolved macrocytic anemia - Outpatient workup of her Acute urinary retention - failed voiding trial - outpatient urology follow up Patient seen and examined at bedside. Vital signs reviewed and stable. General: nontoxic, no distress, appears at stated age, hard of hearing Derm: warm, dry Head: atraumatic, normocephalic, symmetric Eyes: EOMI, no lid lag, anicteric sclera Mouth: no lip lesion, mucus membranes moist Cardiovascular: S1S2 reg, no murmur, positive posterior tibial pulse bilateral, Lungs: Left-sided rales, no accessory muscle use Abdominal: soft, nontender to palpation, no guarding, no appreciable organomegaly Ext: no gross muscle atrophy, no edema, no contractures Neuro: CN II-XI grossly intact, no focal neuro deficits Psych: Alert, oriented, appropriate affect A total of 40 minutes of time were spent preparing this complex discharge summary. Patient was discharged on 10/30/21 14:04. Patient Condition at Discharge: Fair Plan - Discharge Summary Discharge Rx Participant: No New Discharge Prescriptions: New predniSONE See Taper PO DIRECTED 12 Days #30 tab Fluticasone Propion/Salmeterol [Airduo Digihaler 232-14 Mcg] 1 puff INHALATION BID #1 each Aspirin 81 mg PO DAILY tab Ipratropium-Albuterol Nebulize [Duoneb 0.5 mg-3 mg/3 ml Soln] 3 ml INHALATION RT-QID PRN each PRN Reason: Shortness Of Breath Or Wheezing Continue glipiZIDE [Glucotrol] 20 mg PO BID Ferrous Sulfate [Iron (65 MG Elemental)] 325 mg PO DAILY Furosemide [Lasix] 40 mg PO DAILY #30 tablet Ascorbic Acid [Vitamin C] 1,000 mg PO DAILY Vitamin E (Dl,Tocopheryl Acet) [Vitamin E (400 Iu = 180 mg)] 400 unit PO D AILY predniSONE 5 mg PO DAILY Cholecalciferol [Vitamin D3 (25 Mcg = 1000 Iu)] 50 mcg PO DAILY Pioglitazone [Actos] 45 mg PO DAILY Fluticasone Nasal [place] [Flonase Nasal [place]] 2 spray EA NOSTRIL DAILY Discontinued Aspirin 650 mg PO DAILY Discharge Medication List glipiZIDE [Glucotrol] 20 mg PO BID 09/01/16 [History] Ferrous Sulfate [Iron (65 MG Elemental)] 325 mg PO DAILY 03/31/18 [History] Furosemide [Lasix] 40 mg PO DAILY #30 tablet 01/11/20 [Rx] Ascorbic Acid [Vitamin C] 1,000 mg PO DAILY 10/19/21 [History] Cholecalciferol [Vitamin D3 (25 Mcg = 1000 Iu)] 50 mcg PO DAILY 10/19/21 [History] Fluticasone Nasal [place] [Flonase Nasal [place]] 2 spray EA NOSTRIL DAILY 10/19/21 [History] Pioglitazone [Actos] 45 mg PO DAILY 10/19/21 [History] Vitamin E (Dl,Tocopheryl Acet) [Vitamin E (400 Iu = 180 mg)] 400 unit PO DAILY 10/19/21 [History] predniSONE 5 mg PO DAILY 10/19/21 [History] Fluticasone Propion/Salmeterol [Airduo Digihaler 232-14 Mcg] 1 puff INHALATION BID #1 each 10/29/21 [Rx] predniSONE See Taper PO DIRECTED 12 Days #30 tab 10/29/21 [Rx] Aspirin 81 mg PO DAILY tab 10/30/21 [Rx] Ipratropium-Albuterol Nebulize [Duoneb 0.5 mg-3 mg/3 ml Soln] 3 ml INHALATION RT-QID PRN each 10/30/21 [Rx] Follow up Appointment(s)/Referral(s): José Luevano MD [STAFF PHYSICIAN] - 1 Week (office will call with appointment .Mak catheter review - going home with mak post retention in hospital) Jersey Richardson DO [Doctor of Osteopathic Medicine] - 11/06/21 1:00 pm Zachery Posadas DO [Primary Care Provider] - 11/05/21 1:20 pm ([place] [facility]. The office will call the patient to set up the rest of the appoinment ) Activity/Diet/Wound Care/Special Instructions: Activity: Patient requires assistance with transfers. Take breaks as needed. Diet: Heart healthy and carb consistent diet. Avoid salts, or foods with hidden salts such as canned or boxed foods and frozen dinners. Extra salt makes your heart work harder and traps the fluid in your body for longer. Special Instructions: Take all of your medications as directed and remember to keep all of your doctor's appointments and follow-up as needed. Thank you for allowing us to participate in your care, it was truly a pleasure having you for our patient!!! . Discharge Disposition: TRANSFER TO SNF/ECF
== END 2021-10-30 16:33 | DRG 291 ==
LOC: EC 13:36 → 4SSUR 15:47
PROVIDERS: ADMIT Internal Medicine; ATTEND Internal Medicine
PROC: 5A09357 Assistance with Respiratory Ventilation, Less than 24 Consecutive Hours, Continuous Positive Airway Pressure (ICD-10-PCS; principal; 2021-10-21)
DX: I11.0 Hypertensive heart disease with heart failure (principal); I50.23 Acute on chronic systolic (congestive) heart failure; J96.21 Acute and chronic respiratory failure with hypoxia; J96.22 Acute and chronic respiratory failure with hypercapnia; E87.1 Hypo-osmolality and hyponatremia; J44.1 Chronic obstructive pulmonary disease with (acute) exacerbation; D53.9 Nutritional anemia, unspecified; E11.9 Type 2 diabetes mellitus without complications; E87.5 Hyperkalemia; E87.8 Other disorders of electrolyte and fluid balance, not elsewhere classified; H91.90 Unspecified hearing loss, unspecified ear; J84.10 Pulmonary fibrosis, unspecified; J98.4 Other disorders of lung; K59.00 Constipation, unspecified; M19.90 Unspecified osteoarthritis, unspecified site; Z66 Do not resuscitate; F40.240 Claustrophobia; Z20.822 Contact with and (suspected) exposure to COVID-19; Z99.81 Dependence on supplemental oxygen; Z28.310 Unvaccinated for COVID-19; Z79.51 Long term (current) use of inhaled steroids; Z79.52 Long term (current) use of systemic steroids; Z79.84 Long term (current) use of oral hypoglycemic drugs; Z79.899 Other long term (current) drug therapy; Z85.46 Personal history of malignant neoplasm of prostate; Z87.01 Personal history of pneumonia (recurrent); Z87.891 Personal history of nicotine dependence; Z90.79 Acquired absence of other genital organ(s); Z97.4 Presence of external hearing-aid
CPT/HCPCS: 36415; 36600; 71045; 80048; 80053; 82805; 83605; 83735; 83880; 84145; 84484; 85025; 85027; 85610; 85730; 87040; 87449; 87502; 87635; 93005; 93306; 94640; 94660; 94760; 96372; 96374; 96375; 99285